=== PATIENT | female | born 1960 | race Caucasian/White ===

== ENCOUNTER 2023-01-03 20:23 | Outpatient (REF) | payer OTHER, SELFPAY ==
[2023-01-07 12:08] LABS: Age Gdln ACOG Testing Note (.); HPV Aptima Negative (Negative); IGP, Aptima HPV, rfx 16/18,45 Note (.)
== END 2023-01-03 20:24 | disposition home or self-care (01) ==
LOC: LAB 20:23
PROVIDERS: PCP Family Medicine; Visit Provider Obstetrics & Gynecology
DX: Z12.4 Encounter for screening for malignant neoplasm of cervix (principal)
CPT/HCPCS: G0145

== ENCOUNTER 2023-02-21 11:13 | Outpatient (OUT) | payer OTHER, SELFPAY ==
--- NOTE | 2023-02-21 11:21 | MM_ITS ---
Patient: DEEP RUANO Exam Date: 02/21/2023 : 1960 Gender:F Ordering : DR Nitin Dominguez . Admission #: [id number] Family : DR. DESMOND MACIAS Order #: [id number] CLICK HERE TO VIEW EXAM RADIOLOGY REPORT PROCEDURE: MM TOMOSYNTHESIS SCREENING BI COMPARISON: MG MAMM SCREEN 3D [place] CAD, 12/14/2021. MG MAMM SCREEN 3D [place] CAD, 11/13/2020. INDICATIONS: Screening Calculator Name NCI Breast Cancer Risk Assessment Tool 5 Year Breast Cancer Risk 3.10% Lifetime Breast Cancer Risk 12.10% Personal Breast Cancer No Personal Ovarian Cancer No Treatments None Family Cancers Sister with breast cancer at age 60; Aunt-maternal with breast cancer at age 55. LOCATION: [facility] BREAST COMPOSITION: Heterogeneously dense,which may obscure small masses. FINDINGS: DIAGNOSTIC CATEGORY 2--BENIGN FINDING. NO CHANGE FROM COMPARISON. Scattered benign-appearing calcifications are present. Scattered benign-appearing lymph nodes are present. RIGHT BREAST: No significant suspicious finding. LEFT BREAST: No significant suspicious finding. RECOMMENDATIONS: ROUTINE MAMMOGRAM AND CLINICAL EVALUATION IN 12 MONTHS. PLEASE NOTE: A NORMAL MAMMOGRAM DOES NOT EXCLUDE THE POSSIBILITY OF BREAST CANCER. A CLINICALLY SUSPICIOUS PALPABLE LUMP SHOULD BE BIOPSIED. Dictated by: Glenn Powell MD on 02/21/2023 at 12:54 Approved by: Glenn Powell MD on 02/21/2023 at 12:56
== END 2023-02-21 11:14 | disposition home or self-care (01) ==
LOC: MAMMO 11:13
PROVIDERS: PCP Family Medicine; Visit Provider Obstetrics & Gynecology
DX: Z12.31 Encounter for screening mammogram for malignant neoplasm of breast (principal); Z80.3 Family history of malignant neoplasm of breast
CPT/HCPCS: 77063; 77067

== ENCOUNTER 2024-01-09 19:22 | Outpatient (REF) | payer OTHER, SELFPAY ==
--- OUTSIDE RECORDS SUMMARY | 2024-01-09 19:26 | XMS_ITS | CCD ---
Author Organization [facility] InformReplaced by [facility] Care Team Providers Care Manufacturing Engineering Intern Name Role Phone Imtiaz Painter Unavailable BlaineAnnan Unavailable Charles Luis Unavailable NICK, DR GIPSON Admitting Unavailable DESMOND MACIAS Primary Care Unavailable NICK, DR GIPSON Attending Unavailable NICK, DR GIPSON Consulting Unavailable [place], DR LEELA Thao Consulting Unavailable WAQAS, DR JOHN Costa Consulting Unavailable DESMOND MACIAS Primary Care Unavailable KARXOCHITLK, DR GIPSON Attending Unavailable NICK, DR GIPSON Consulting Unavailable NICK, DR GIPSON Admitting Unavailable Desmond Macias Primary Care Unavailable Community, Outreach Attending Unavailable Community, Outreach Admitting Unavailable DO Desmond Macias Primary Care Provider Community, Outreach Attending Provider VICTORINO FOX Attending Unavailable VICTORINO FOX Attending Unavailable VICTORINO FOX Attending Unavailable VICTORINO FOX Referring Unavailable CHAD MORENO Attending Unavailab VICTORINO Mcfarland Attending Unavailable DESMOND MACIAS Attending Unavailable VICTORINO FOX Attending Unavailable VICTORINO FOX Attending Unavailable Allergies Allergy Classification Reported Allergen(s) Allergy Type Date of Onset Reaction(s) Facility (7 sources) Sulfamethoxazole / Trimethoprim Drug Allergy anaphylaxis [facility] Other (1 source) Sulfamethoxazole / Trimethoprim Drug Allergy 11-07-19 13 [facility] Repository (2 sources) Sulfamethoxazole Drug Allergy 02-03-20 18 [facility] Repository (2 sources) Trimethoprim Drug Allergy 02-03-20 18 [facility] Repository Medications Current Medications Medication Drug Class(es) Dates Sig (Normalized) Sig (Original) acetaminophen 500 mg oral capsule (4 sources) Start: 05-14-2021 take 2 capsules by mouth every eight hours Acetaminophen 500 MG 2 capsule as needed Orally 3 times a day for 30 days Apr, Active acetaminophen 500 mg / diphenhydrAMINE hydrochloride 25 mg oral tablet (7 sources) Histamine-1 Receptor Antagonist take 1 tablet by mouth every twenty-four hours Tylenol PM Extra Strength 500-25 MG 1 tablet at bedtime as needed Orally Once a day prn Active Acetaminophen / HYDROcodone (1 source) Opioid Agonist Start: 05-21-2019 take 1 tablet by mouth every six hours as needed Shawnee 5-325 MG 1 tablet as needed Orally every 6 hrs Apr, Active biotin 5 mg oral tablet (7 sources) take 1 capsule by mouth once daily Biotin 5 MG 1 capsule Orally Once a day Active Calcium + D3 600-200 MG-UNIT (7 sources) take 2 tablets by mouth once daily Calcium + D3 600-200 MG-UNIT 2 tablet with a meal Orally Once a day Active Centrum Silver 50+Women - (7 sources) Centrum Silver 50+Women - as directed Orally Active cephalexin 500 mg oral capsule (2 sources) Cephalosporin Antibacterial Start: 07-25-2018 take 1 capsule by mouth every eight hours Cephalexin (Keflex) 500 mg capsule Active 500 MG PO Q8H July 25, 2018 12:00am Start: 05-17-2017 End: 02-02-2018 take 1 capsule by mouth every eight hours Cephalexin (Keflex) 500 mg capsule Discontinued 500 MG PO Q8H May 17, 2017 1:00am February 02, 2018 10:15am estrogens, conjugated (detention) 0.625 mg oral tablet (8 sources) Estrogen Start: 05-12-2017 take 0.625 mg by mouth once daily in the morning Conjugated Estrogens Active 0.625 MG PO Every morning May 12, 2017 1:00am Fish Oils (7 sources) take 1 capsule by mouth once daily Fish Oil 1200 MG 1 capsule Orally Once a day Active gabapentin 300 mg oral capsule (7 sources) Anti-epileptic Agent take 1-2 tablets by mouth twice daily as needed Gabapentin 300 MG 1-2 tablet Orally bid prn for 30 day(s) Active melatonin 10 mg oral tablet (8 sources) Start: 02-02-2018 take 1 tablet by mouth once daily at bedtime Melatonin Active 1 TAB PO Daily at bedtime February 02, 2018 12:00am Melatonin 10 MG as directed Orally Active methylPREDNISolone 4 mg oral tablet (6 sources) Corticosteroid Start: 04-09-2021 Medrol 4 MG as directed Orally Mar, Active oxyCODONE hydrochloride 5 mg oral capsule (2 sources) Opioid Agonist Start: 07-25-2018 take 5-10 mg by mouth every six hours Oxycodone Active 5 - 10 MG PO Q6H 60 July 25, 2018 Start: 05-17-2017 End: 02-02-2018 take 1 tablet by mouth every six hours Oxycodone (Roxicodone) 5 mg Tablet Discontinued 1 - 2 TAB PO Q6H 60 May 17, 2017 1:00am February 02, 2018 10:15am Prednisone (2 sources) Start: 07-25-2018 Prednisone Act maureen 1 dose pk PO per package directions July 25, 2018 12:00am take 4 tabs for 3 days then take 3 tabs for 3 days then take 2 tabs for 3 days then take 1 tab for 3 days Start: 05-17-2017 End: 02-02-2018 Prednisone Discontinued 1 do se pk PO per package directions May 17, 2017 1:00am February 02, 2018 10:16am take 4 tabs for 3 days then take 3 tabs for 3 days then take 2 tabs for 3 days then take 1 tab for 3 days SUMAtriptan 100 mg oral tablet (8 sources) Serotonin-1b and Serotonin-1d Receptor Agonist Start: 05-12-2017 take 1 tablet by mouth once daily Sumatriptan Succinate (Imitrex) 100 MG tablet Active 100 MG PO Daily May 12, 2017 1:00am take 1 tablet by mouth every twe lve hours Imitrex 100 MG 1 tablet as needed Orally Twice a day prn Active tiZANidine 2 mg oral tablet (1 source) Central alpha-2 Adrenergic Agonist Start: 05-21-2019 take 1-2 tablets by mouth once daily as needed tiZANidine HCl 2 MG 1-2 tablet as needed Orally daily Apr, Active Valerian 500 MG (7 sources) take 1 capsule by mouth once daily as needed Valerian 500 MG 1 capsule as needed Orally Once a day for 30 day(s) 1200mg qhs Active Vitamin B 12 250 MCG (7 sources) Vitamin B 12 250 MCG 2 lozenges Orally Once a day Active Completed/Discontinued Medications Medication Drug Class(es) Dates Sig (Normalized) Sig (Original) cyclobenzaprine hydrochloride 5 mg oral tablet (8 sources) Muscle Relaxant Start: 04-13-2021 take 1 tablet by mouth every twenty-four hours Cyclobenzaprine HCl 5 MG 1 tablet at bedtime as needed Orally Once a day for 30 day(s) Mar, Not-Taking Start: 07-25-2018 take 10 mg by mouth three times daily Cyclobenzaprine Active 10 MG PO Three times daily 50 July 25, 2018 12:00am Start: 05-17-2017 End: 02-02-2018 take 10 mg by mouth three times daily Cyclobenzaprine Discontinued 10 MG PO Three times daily 50 May 17, 2017 1:00am February 02, 2018 10:15am naproxen 500 mg oral tablet (4 sources) Nonsteroidal Anti-inflammatory Drug Start: 05-14-2021 take 1 tablet by mouth twice daily at mealtime as needed Naproxen 500 MG 1 tablet with food or milk as needed Orally Twice a day for 30 day(s) Apr, Not-Taking Problems Active Problems Problem Classification Problem Date Documented Da te Episodic/Chronic Headache; including migraine (7 sources) Migraine; Translations: [Migraine, unspecified, not intractable, without status migrainosus] Chronic Immunizations and screening for infectious disease (2 sources) Encounter for immunization; Translations: [Encounter for screening for human papillomavirus (HPV)] Onset: 05-07-2021 Resolved: 05-07-2021 Episodic Mood disorders (7 sources) Recurrent major depression; Translations: [Major depressive disorder, recurrent, unspecified] Chronic Other bone disease and musculoskeletal deformities (1 source) Other specified disorders of bone density and structure, other site; Translations: [OTH D/O BONE DEN STRUCT OTH SITE] Onset: 12-16-2021 Episodic Other nervous system disorders (11 sources) Chronic pain; Translations: [Other chronic pain] Chronic Other nervous system disorders (1 source) Other chronic pain Onset: 07-15-2021 Resolved: 07-15-2021 Chronic Other screening for suspected conditions (not mental disorders or infectious disease) (8 sources) Encounter for screening mammogram for malignant neoplasm of breast; Translations: [Encounter for screening for malignant neoplasm of cervix] Onset: 11-30-2021 Episodic Residual codes; unclassified (1 source) Family history of malignant neoplasm of breast; Translations: [FAMILY HX MALIG NEOPLASM OF BREAST] Onset: 12-16-2021 Episodic Residual codes; unclassified (1 source) Asymptomatic menopausal state; Translations: [ASYMPTOMATIC MENOPAUSAL STATE] Onset: 12-16-2021 Episodic Spondylosis; intervertebral disc disorders; other back problems (20 sources) Cervical spondylosis; Translations: [Spondylosis without myelopathy or radiculopathy, cervical region] Onset: 04-12-2021 Resolved: 07-15-2021 Chronic Past or Other Problems Problem Classification Problem Date Documented Date Episodic/Chronic Other aftercare (7 sources) High risk drug monitoring status; Translations: [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] Episodic Other connective tissue disease (7 sources) Dupuytren's contracture; Translations: [Palmar fascial fibromatosis [Dupuytren]] Episodic Other connective tissue disease (1 source) Pain in left hand; Translations: [Left hand pain M79.642] Onset: 1 Resolved: 1 Episodic Other connective tissue disease (1 source) Palmar fascial fibromatosis [Dupuytren]; Translations: [Dupuytren contracture M72.0] Onset: 1 Resolved: 1 Episodic Other non-traumatic joint disorders (2 sources) Pain in left hip; Translations: [Left hip pain M25.552] Onset: 1 Resolved: 2 Episodic Spondylosis; intervertebral disc disorders; other back problems (15 sources) Lumbar disc prolapse with radiculopathy; Translations: [Intervertebral disc disorders with radiculopathy, lumbar region] Onset: 2 Resolved: 2 Episodic Sprains and strains (3 sources) Strain of muscle, fascia and tendon of left hip, initial encounter; Translations: [Sprain of metacarpophalangeal joint of left index finger, initial encounter] Onset: 1 Resolved: 2 Episodic Results Test Name Value Interpretation Reference Range Facility Alanine aminotransferase [En zymatic activity/volume] in Serum or PlasmaOrdered By: [facility] on 01-07-2023 ALT [Catalytic activity/Vol] 9 U/L 7-52 [facility] Albumin [Mass/volume] in Ser um or Plasma by Bromocresol green (BCG) dye binding methoOrdered By: [facility] on 01-07-2023 Albumin BCG dye [Mass/Vol] 4.1 g/dL 3.5-5.7 [facility] Alkaline phosphatase [Enzyma tic activity/volume] in Serum or PlasmaOrdered By: [facility] on 01-07-2023 ALP [Catalytic activity/Vol] 47 U/L 34-104 [facility] Aspartate aminotransferase [ Enzymatic activity/volume] in Serum or PlasmaOrdered By: [facility] on 01-07-2023 AST [Catalytic activity/Vol] 17 U/L 13-39 [facility] Bilirubin.total [Mass/volume ] in Serum or PlasmaOrdered By: [facility] on 01-07-2023 Bilirubin [Mass/Vol] 0.3 mg/dL 0.3-1.0 [facility] CBC Without Differentialon 0 01-07-2023 Erythrocyte distribution width (RBC) [Ratio] 13.2 % Normal 11.9-15.3 [facility] Comment on above: Performed By: #### O UTREACH LIPID, OUTREACH CMP, CBCNOOUTREACH #### [facility] [address] Hematocrit (Bld) [Volume fraction] 33.2 % Low 34.0-46.4 [facility] Comment on above: Performed By: #### O UTREACH LIPID, OUTREACH CMP, CBCNOOUTREACH #### [facility] [address] [place] [address] [place] Hemoglobin (Bld) [Mass/Vol] 11.4 g/dL Low 11.8-15.4 [facility] Comment on above: Performed By: #### O UTREACH LIPID, OUTREACH CMP, CBCNOOUTREACH #### [facility] [address] [place] [id number] [place] MCH (RBC) [Entitic mass] 36.3 pg High 24.7-34.3 [facility] Comment on above: Performed By: #### O UTREACH LIPID, OUTREACH CMP, CBCNOOUTREACH #### [facility] [address] [place] [address] MCV (RBC) [Entitic vol] 105.1 fL High 80-100 [facility] Comment on above: Performed By: #### O UTREACH LIPID, OUTREACH CMP, CBCNOOUTREACH #### [address] Mean Corpuscular HGB Conc 34.5 g/dL Normal 32.0-35.0 [facility] Comment on above: Performed By: #### O UTREACH LIPID, OUTREACH CMP, CBCNOOUTREACH #### [address] Platelet mean volume (Bld) [Entitic vol] 9.6 fL Normal 6.3-10.7 [facility] Comment on above: Result Comment: PERF ORMED BY: [place] [address] PATHOLOGIST BACKHAUL DRIVER JEANIE BELL M.D. Performed By: #### O UTREACH LIPID, OUTREACH CMP, CBCNOOUTREACH #### [address] Platelets (Bld) [#/Vol] 273 10*3/uL Normal 150-450 [facility] Comment on above: Performed By: #### O UTREACH LIPID, OUTREACH CMP, CBCNOOUTREACH #### [address] RBC (Bld) [#/Vol] 3.16 10*6/uL Low 3.60-5.00 [facility] Comment on above: Performed By: #### O UTREACH LIPID, OUTREACH CMP, CBCNOOUTREACH #### [address] WBC (Bld) [#/Vol] 8.4 10*3/uL Normal 3.8-11.6 [facility] Comment on above: Performed By: #### O UTREACH LIPID, OUTREACH CMP, CBCNOOUTREACH #### [facility] [address] [place] [address] [place] CMP Outreachon 01-07-2023 Albumin [Mass/Vol] 4.1 g/dL Normal 3.5-5.7 [facility] Comment on above: Performed By: #### O UTREACH LIPID, OUTREACH CMP, CBCNOOUTREACH #### [facility] [address] ALP [Catalytic activity/Vol] 47 U/L Normal 34-104 [facility] Comment on above: Performed By: #### O UTREACH LIPID, OUTREACH CMP, CBCNOOUTREACH #### [facility] [address] ALT [Catalytic activity/Vol] 9 U/L Normal 7-52 [facility] Comment on above: Performed By: #### O UTREACH LIPID, OUTREACH CMP, CBCNOOUTREACH #### [facility] [address] Anion gap [Moles/Vol] 9.4 mmol/L Normal 6.0-15.0 [facility] Comment on above: Performed By: #### O UTREACH LIPID, OUTREACH CMP, CBCNOOUTREACH #### [facility] [address] AST [Catalytic activity/Vol] 17 U/L Normal 13-39 [facility] Comment on above: Performed By: #### O UTREACH LIPID, OUTREACH CMP, CBCNOOUTREACH #### [facility] [address] [place] [address] [place] Bilirubin [Mass/Vol] 0.3 mg/dL Normal 0.3-1.0 [facility] Comment on above: Performed By: #### O UTREACH LIPID, OUTREACH CMP, CBCNOOUTREACH #### [facility] [address] Calcium [Mass/Vol] 9.4 mg/dL Normal 8.6-10.3 [facility] Comment on above: Performed By: #### O UTREACH LIPID, OUTREACH CMP, CBCNOOUTREACH #### [facility] [address] [place] [address] [place] Chloride [Moles/Vol] 105 mmol/L Normal 98-107 [facility] Comment on above: Performed By: #### O UTREACH LIPID, OUTREACH CMP, CBCNOOUTREACH #### [facility] [address] [place] [address] [place] CO2 [Moles/Vol] 28.8 mmol/L Normal 21.0-31.0 [facility] Comment on above: Performed By: #### O UTREACH LIPID, OUTREACH CMP, CBCNOOUTREACH #### [facility] [address] [place] [address] [place] Creatinine [Mass/Vol] 0.61 mg/dL Normal 0.60-1.20 [facility] Comment on above: Performed By: #### O UTREACH LIPID, OUTREACH CMP, CBCNOOUTREACH #### [facility] [address] [place] [address] [place] GFR/1.73 sq M.predicted MDRD (S/P/Bld) [Vol rate/Area] mL/min/{1.73_m2} Normal [facility] Comment on above: Performed By: #### O UTREACH LIPID, OUTREACH CMP, CBCNOOUTREACH #### [facility] [address] [place] [address] [place] Glucose [Mass/Vol] 108 mg/dL High 70-100 [facility] Comment on above: Result Comment: [facility] Glucose Reference Range is dependent on time and content of last meal. Glucose of more than 200 mg/dL in a nonstressed, ambulatory subject supports the diagnosis of Diabetes Mellitus. ADA recommended reference range Performed By: #### O UTREACH LIPID, OUTREACH CMP, CBCNOOUTREACH #### [facility] [address] [place] [address] [place] Potassium [Moles/Vol] 4.2 mmol/L Normal 3.5-5.1 [facility] Comment on above: Performed By: #### O UTREACH LIPID, OUTREACH CMP, CBCNOOUTREACH #### [facility] [address] [place] [id number] [place] Protein [Mass/Vol] 6.3 g/dL Low 6.4-8.9 [facility] Comment on above: Performed By: #### O UTREACH LIPID, OUTREACH CMP, CBCNOOUTREACH #### [facility] [address] [place] [id number] [place] Sodium [Moles/Vol] 139 mmol/L Normal 136-145 [facility] Comment on above: Performed By: #### O UTREACH LIPID, OUTREACH CMP, CBCNOOUTREACH #### [facility] [address] [place] [id number] [place] Urea nitrogen [Mass/Vol] 15 mg/dL Normal 7-25 [facility] Comment on above: Performed By: #### O UTREACH LIPID, OUTREACH CMP, CBCNOOUTREACH #### [facility] [address] [place] [address] [place] Calcium [Mass/volume] in Ser um or PlasmaOrdered By: [facility] on 01-07-2023 Calcium [Mass/Vol] 9.4 mg/dL 8.6-10.3 [facility] Carbon dioxide, total [Moles /volume] in Serum or PlasmaOrdered By: [facility] on 01-07-2023 CO2 [Moles/Vol] 28.8 mmol/L 21.0-31.0 [facility] Chloride [Moles/volume] in S matias or PlasmaOrdered By: [facility] on 01-07-2023 Chloride [Moles/Vol] 105 mmol/L 98-107 [facility] Cholesterol [Mass/volume] in Serum or PlasmaOrdered By: [facility] on 01-07-2023 Cholesterol [Mass/Vol] 224 mg/dL 140-200 [facility] Comment on above: Chol less than 200 m g/dl low riskChol 201-239 mg/dl borderline riskChol 240 mg/dl and greater high risk Cholesterol in LDL Calc [Mas s/Vol]Ordered By: [facility] on 01-07-2023 Cholesterol in LDL [Mass/Vol] 103 mg/dL 0-100 [facility] Comment on above: LDL ATP III CLASSIFI CATIONLDL less than 100 mg/dL OptimalLDL 100-129 mg/dL Near or above optimalLDL 130-159 mg/dL Borderline highLDL 160-189 mg/dL HighLDL greater than 189 mg/dL Very high Cholesterol in VLDL Calc [Ma ss/Vol]Ordered By: [facility] on 01-07-2023 Cholesterol in VLDL [Mass/Vol] 39 mg/dL [facility] Creatinine [Mass/volume] in Serum or PlasmaOrdered By: [facility] on 01-07-2023 Creatinine [Mass/Vol] 0.61 mg/dL 0.60-1.20 [facility] Erythrocyte distribution wid th Auto (RBC) [Ratio]Ordered By: [facility] on 01-07-2023 Erythrocyte distribution width (RBC) [Ratio] 13.2 % 11.9-15.3 [facility] Glucose [Mass/volume] in Ser um or PlasmaOrdered By: [facility] on 01-07-2023 Glucose [Mass/Vol] 108 mg/dL 70-100 [facility] Comment on above: ADA recommended refe rence rangeRandom Glucose Reference Range is dependent on time and content of last meal. Glucose of more than 200 mg/dL in a nonstressed, ambulatory subject supports the diagnosis of Diabetes Mellitus. Hematocrit Auto (Bld) [Volum e fraction]Ordered By: [facility] on 01-07-2023 Hematocrit (Bld) [Volume fraction] 33.2 % 34.0-46.4 [facility] Hemoglobin [Mass/volume] in BloodOrdered By: [facility] on 01-07-2023 Hemoglobin (Bld) [Mass/Vol] 11.4 g/dL 11.8-15.4 [facility] Leukocytes [#/volume] correc dao for nucleated erythrocytes in Blood by Automated counOrdered By: [facility] on 01-07-2023 WBC corrected for nucl RBC Auto (Bld) [#/Vol] 8.4 10*3/uL 3.8-11.6 [facility] Lipid Profile Outreachon Cholesterol [Mass/Vol] 224 mg/dL High 140-200 [facility] Comment on above: Result Comment: Chol less than 200 mg/dl low risk Chol 201-239 mg/dl borderline risk Chol 240 mg/dl and greater high risk Performed By: #### O UTREACH LIPID, OUTREACH CMP, CBCNOOUTREACH #### [facility] [address] [place] [address] [place] Cholesterol in HDL [Mass/Vol] 82 mg/dL Normal 23-92 [facility] Comment on above: Result Comment: HDL CHOL ATP-III CLASSIFICATION Cardiovascular Risk HDL > or equal to 60 mg/dL LOW HDL < 40 mg/dL HIGH Performed By: #### O UTREACH LIPID, OUTREACH CMP, CBCNOOUTREACH #### [facility] [address] Cholesterol.total/Choles terol in HDL [Mass ratio] 2.7 {ratio} Normal <5.0 [facility] Comment on above: Result Comment: PERF ORMED BY: [place] [address] PATHOLOGIST BACKHAUL DRIVER JEANIE BELL M.D. Performed By: #### O UTREACH LIPID, OUTREACH CMP, CBCNOOUTREACH #### [address] LDL Cholesterol,Calculated 103 mg/dL High 0-100 [facility] Comment on above: Result Comment: LDL ATP III CLASSIFICATION LDL less than 100 mg/dL Optimal LDL 100-129 mg/dL Near or above optimal LDL 130-159 mg/dL Borderline high LDL 160-189 mg/dL High LDL greater than 189 mg/dL Very high Performed By: #### O UTREACH LIPID, OUTREACH CMP, CBCNOOUTREACH #### [facility] [address] [place] [address] [place] Triglyceride w/Reflex 195 mg/dL High 0-149 [facility] Comment on above: Result Comment: TRIG ATP III CLASSIFICATION TRIG less than 150 mg/dL Normal TRIG 150-199 mg/dL Borderline high TRIG 200-500 mg/dL High TRIG greater than 500 mg/dL Very high Standard traceable to the Center for Disease Conrtrol and Prevention (CDC) test method. Performed By: #### O UTREACH LIPID, OUTREACH CMP, CBCNOOUTREACH #### [facility] [address] VLDL CHOLESTEROL 39 mg/dL Normal [facility] Comment on above: Performed By: #### [facility] LIPID, OUTREACH CMP, CBCNOOUTREACH #### [facility] [address] MCH Auto (RBC) [Entitic mass ]Ordered By: [facility] on 01-07-2023 MCH (RBC) [Entitic mass] 36.3 pg 24.7-34.3 [facility] MCHC Auto (RBC) [Mass/Vol]Or dered By: [facility] on 01-07-2023 MCHC (RBC) [Mass/Vol] 34.5 g/dL 32.0-35.0 [facility] MCV Auto (RBC) [Entitic vol] Ordered By: [facility] on 01-07-2023 MCV (RBC) [Entitic vol] 105.1 fL 80-100 [facility] No Panel InformationOrdered By: [facility] on 01-07-2023 Estimated GFR (CKD-EPI) > 60.0 mL/Min [facility] Creatinine Clearance (Chem N/A [facility] Platelet mean volume Auto (B ld) [Entitic vol]Ordered By: [facility] on 01-07-2023 Platelet mean volume (Bld) [Entitic vol] 9.6 fL 6.3-10.7 [facility] Platelets Auto (Bld) [#/Vol] Ordered By: [facility] on 01-07-2023 Platelets (Bld) [#/Vol] 273 10*3/uL 150-450 [facility] Potassium [Moles/volume] in Serum or PlasmaOrdered By: [facility] on 01-07-2023 Potassium [Moles/Vol] 4.2 mmol/L 3.5-5.1 [facility] Protein [Mass/volume] in Ser um or PlasmaOrdered By: [facility] on 01-07-2023 Protein [Mass/Vol] 6.3 g/dL 6.4-8.9 [facility] RBC Auto (Bld) [#/Vol]Ordere d By: [facility] on 01-07-2023 RBC (Bld) [#/Vol] 3.16 10*6/uL 3.60-5.00 [facility] Serum or plasma anion gap de terminationOrdered By: [facility] on 01-07-2023 Anion gap [Moles/Vol] 9.4 mmol/L 6.0-15.0 [facility] Serum or plasma high density lipoprotein (HDL) cholesterol measurementOrdered By: [facility] on 01-07-2023 Cholesterol in HDL [Mass/Vol] 82 mg/dL 23- [facility] Comment on above: HDL CHOL ATP-III CLA SSIFICATION Cardiovascular RiskHDL > or equal to 60 mg/dL LOWHDL < 40 mg/dL HIGH Serum or plasma total choles terol/high density lipoprotein (HDL) cholesterol mass ratOrdered By: [facility]ACH [facility] on 01-07-2023 Cholesterol.total/Choles terol in HDL [Mass ratio] 2.7 {ratio} <5.0 [facility] Sodium [Moles/volume] in Ser um or PlasmaOrdered By: [facility]REACH [facility] on 01-07-2023 Sodium [Moles/Vol] 139 mmol/L 136-145 [facility] Triglyceride [Mass/volume] i n Serum or PlasmaOrdered By: [facility]REACH [facility]UN[facility] on 01-07-2023 Triglyceride [Mass/Vol] 195 mg/dL 0-149 [facility] Comment on above: TRIG ATP III CLASSIF ICATIONTRIG less than 150 mg/dL NormalTRIG 150-199 mg/dL Borderline highTRIG 200-500 mg/dL High TRIG greater than 500 mg/dL Very highStandard traceable to the Center for Disease Conrtrol and Prevention (CDC) test method. Urea nitrogen [Mass/volume] in Serum or PlasmaOrdered By: [facility]RE[facility] on 01-07-2023 Urea nitrogen [Mass/Vol] 15 mg/dL 11-15 [facility] MG MAMM SCREEN 3D JACINTO CADon 12-14-2021 MG MAMM SCREEN 3D JACINTO CAD Patient: GISEL RUANO Exam Date: 12/14/2021 : 1960 Gender:F Ordering : DR LEONELA ROMERO . Admission #: [id number] Family : Order #: [id number] CLICK HERE TO VIEW EXAM RADIOLOGY REPORT PROCEDURE: MAMMOGRAM SCREENING 3D BILATERAL CAD COMPARISON: MG MAMM SCREEN 3D JACINTO CAD, 11/13/2020. MG MAMM SCREEN JACINTO W CAD, 11/08/2019. INDICATIONS: Screening mammography Calculator Name NCI Breast Cancer Risk Assessment Tool 5 Year Breast Cancer Risk 3.00% Lifetime Breast Cancer Risk 12.40% Personal Breast Cancer No Personal Ovarian Cancer No Treatments None Family Cancers Sister with breast cancer at age 60; Aunt-maternal with breast cancer at age 55. LOCATION: [facility] BREAST COMPOSITION: Heterogeneously dense,which may obscure small masses. FINDINGS: DIAGNOSTIC CATEGORY 2--BENIGN FINDING: RIGHT BREAST: No significant suspicious finding. Scattered benign-appearing calcifications are present. No significant change has occurred. LEFT BREAST: No significant suspicious finding. Scattered benign-appearing calcifications are present. No significant change has occurred. RECOMMENDATIONS: ROUTINE MAMMOGRAM AND CLINICAL EVALUATION IN 12 MONTHS. PLEASE NOTE: A NORMAL MAMMOGRAM DOES NOT EXCLUDE THE POSSIBILITY OF BREAST CANCER. A CLINICALLY SUSPICIOUS PALPABLE LUMP SHOULD BE BIOPSIED. Dictated by: John Luna M.D. on 12/15/2021 at 10:28 Approved by: John Luna M.D. on 12/15/2021 at 10:35 Normal [facility] XR DEXA BONE DENSITYon 12-14 XR DEXA BONE DENSITY EXAMINATION: XR DEX A BONE DENSITY, 12/14/2021 2:57 PM EDT HISTORY: Menopause present COMPARISON: 2019, 2017, 2013 TECHNIQUE: Dual-energy X-ray absorptiometry (DEXA) bone density study performed for the axial skeleton. FINDINGS: Bone mineral density bilateral femurs measures 0.891 g/sq cm. 2% improvement from the prior exam. T score -0.9. WHO classification: Normal Lowest bone mineral density right femoral trochanter measuring 0.683 g/sq cm. T score -1.5. WHO classification: Osteopenia IMPRESSION: Osteopenia. Moderate fracture risk Electronically authenticated by: LEELA SONG Date: 2021-12-14 17:08 Normal [facility] PAP ACOG PANEL 2: 30 to 65on 12-07-2021 . . Normal [facility] Comment on above: Result Comment: Perf ormed at: WB Performed By: #### [id number] #### [facility] [address] [place] [address] Dr. Luis White Age Gdln ACOG Testing 30-65 Normal [facility] Comment on above: Performed By: #### [id number] #### [facility] [address] [address] [address] Luis White DIAGNOSIS: Comment Normal [facility] Comment on above: Result Comment: NEGA TIVE FOR INTRAEPITHELIAL LESION OR MALIGNANCY. THIS SPECIMEN WAS RESCREENED PART OF OUR BUFFING WHEEL FORMER AUTOMATIC PROGRAM. Performed at: WB Performed By: #### [id number] #### [facility] [address] [place] [address] Dr. Luis White HPV Aptima Negative Normal Negative [facility] Comment on above: Result Comment: This nucleic acid amplification test detects fourteen high-risk HPV types (16,18,31,33,35,39,45,51,52,56,58,59,66,68) without differentiation. Performed at: =G Performed By: #### [id number] #### [facility] [address] [place] [address] Dr. Luis White Methodology: CTIM Normal [facility] Comment on above: Result Comment: [employer] was unable to read this specimen. Therefore a manual review was performed. Performed at: WB Performed By: #### [id number] #### [facility] [address] [place] [address] Dr. Luis White Note: Comment Normal [facility] Comment on above: Result Comment: The Pap smear is a screening test designed to aid in the detection of premalignant and malignant conditions of the uterine cervix. It is not a diagnostic procedure and should not be used as the sole means of detecting cervical cancer. Both false-positive and false-negative reports do occur. . Performed at: WB Performed By: #### [id number] #### [facility] [address] [place] [address] Dr. Luis White Performed by: Comment Normal [facility] Comment on above: Result Comment: El Li, Nitro Worker (ASCP) Performed at: WB Performed By: #### [id number] #### [facility] [address] [place] [address] Dr. Luis White QC reviewed by: Comment Normal [facility] Comment on above: Result Comment: Sid Adame, Nitro Worker Performed at: WB Performed By: #### [id number] #### [facility] [address] [place], [place] [address] Dr. Luis White Specimen adequacy: Comment Normal [facility] Comment on above: Result Comment: Sati sfactory for evaluation. No endocervical component is identified. Performed at: WB Performed By: #### [id number] #### [facility] [address] [address] [address] Luis White Vital Signs Date Time Vital Sign Value Performing Clinician Facility 07-15-2021 17:00-0400 Body height 153.67 cm Charles Luis Other [facility] Other 07-15-2021 17:00-0400 Body mass index (BMI) [Ratio] 19.67 kg/m2 Charles Luis Other [facility] Other 07-15-2021 17:00-0400 Body weight 46.45 kg Charles Luis Other [facility] Other 07-15-2021 17:00-0400 Diastolic blood pressure 70 mm[Hg] Charles Luis Other [facility] Other 07-15-2021 17:00-0400 SaO2% (BldA) [Mass fraction] 99 % Charles Luis Other [facility] Other 07-15-2021 17:00-0400 Systolic blood pressure 110 mm[Hg] Charles Luis Other [facility] Other 05-14-2021 10:00-0500 Body height 153.67 cm Imtiaz Painter Other [facility] Other 05-14-2021 10:00-0500 Body mass index (BMI) [Ratio] 20.93 kg/m2 [facility] Other [facility] Other 05-14-2021 10:00-0500 Body weight 49.44 kg Imtiaz Painter Other [facility] Other 02-19-2021 11:30-0400 Body height 153.67 cm Imtiaz Painter Other [facility] Other 02-19-2021 11:30-0400 Body mass index (BMI) [Ratio] 20.19 kg/m2 [facility] Pain[facility] Other [facility] Other 02-19-2021 11:30-0400 Body weight 47.67 kg Imtiaz Painter Other [facility] Other Encounters Encounter Date Encounter Type Care Provider Facility Start: 12-27-2023 End: 12-27-2023 ambulatory VICTORINO W FOX Not Available Start: 11-14-2023 End: 11-14-2023 ambulatory DESMOND MACIAS Not Available Start: 11-08-2023 End: 11-08-2023 ambulatory VICTORINO W FOX Not Available Start: 10-05-2023 End: 10-05-2023 ambulatory CHAD MORENO Not Available Start: 09-04-2023 End: 09-04-2023 ambulatory VICTORINO W FOX Not Available Start: 04-06-2023 End: 04-06-2023 ambulatory VICTORION W FOX Not Available Start: 03-20-2023 End: 03-20-2023 ambulatory VICTORINO W FOX Not Available Start: 03-13-2023 End: 03-13-2023 ambulatory VICTORINO W FOX Not Available Start: 01-07-2023 End: 01-07-2023 ambulatory Desmond Macias Facility:[facility] Start: 01-07-2023 End: 01-07-2023 ambulatory DO Desmond Macias Work Phone: [facility] Work Phone: Start: 01-07-2023 End: 01-07-2023 Departed Referred DO Desmond Macias Work Phone: [facility] Work Phone: Start: 12-14-2021 End: 12-15-[address] LEONELA ROMERO Facility:[facility] Start: 11-30-2021 End: 11-30-2021 ambulatory DESMOND MACIAS Facility:[facility] Start: 07-15-2021 End: 07-15-2021 ambulatory Charles Janelle Other [facility] Other Start: 07-15-2021 Office outpatient visit 25 minutes Charles Luis [facility] Start: 07-08-2021 (Procedure) Short Charles Luis [facility] Start: 07-08-2021 End: 07-08-2021 ambulatory Charles Luis Other [facility] Other Start: 06-28-2021 End: 06-28-2021 ambulatory Charles Luis Other [facility] Other Start: 06-28-2021 Telephone encounter Charles Luis [facility] Start: 05-14-2021 End: 05-14-2021 ambulatory Imtiaz Painter Other [facility] Start: 05-14-2021 Office outpatient visit 15 minutes Imtiaz Painter [facility] Start: 05-07-2021 ([facility] C Vac) [facility] Covid Vaccine Abiola Valladares [facility] Start: 05-07-2021 End: 05-07-2021 ambulatory Abiola Valladares Other [facility] Other Start: 04-12-2021 End: 04-12-2021 ambulatory Imtiaz Painter Other [facility] Start: 04-12-2021 Telephone encounter Imtiaz REID [facility] Start: 02-19-2021 Office outpatient ne w 45 minutes Imtiaz RIVERA [facility] Immunizations Immunization Date Immunization Notes Care Provider Fa ha 05-07-2021 COVID-19 Attila Valladares Other [facility] Other 02-22-2017 influenza, seasonal, injectable, preservative free Imtiaz Painter Other [facility] Other 01-27-2015 influenza, seasonal, injectable Imtiaz Painter Other [facility] Other Payers Date Payer Category Payer Unknown [id number] 2022 Unknown [id number] 1961 Self-pay 1960 Unknown [id number] 2.16.84 [id number] 1960 Unknown [id number] 2.16.84 [id number] 1960 Unknown [id number] 2.16.84 [id number] 1960 Unknown [id number] 2.16.84 [id number] 1960 Unknown [id number] 2.16.84 [id number] 1960 Unknown [id number] 2.16.84 [id number] 1960 Unknown [id number] 2.16.84 [id number] 1960 Unknown [id number] 2.16.840 .[id number] 1960 Unknown [id number] 2.16.840 .[id number] 1960 Unknown [id number] 2.16.840 .[id number] Blue Cross Blue Shield [id number] Unknown [id number] 2.16.8 [id number] Unknown [facility] [id number] Social History Date Type Detail Facility Unknown if ever smoked [facility] Other Sex Assigned At Sex Assigned At Bir th [facility] Other Start: 07-23-2018 Tobacco smoking status NHIS Smoker (finding) [facility] Start: 1960 Sex Assigned At Female F [facility] Medical Equipment Procedure Code Equipment Code Equipment Origin al Text Equipment Identifier Dates Fusion, spine, lumbar, XLIF ALLOGRAFT 8MM TLIF LORDOTIC FDA Start: 07-23-2018 Fusion, spine, lumbar, XLIF SCREW SET CAPLOX II FDA Start: 07-23-2018 Fusion, spine, lumbar, XLIF SCREW SET CAPLOX II FDA Start: 07-23-2018 Fusion, spine, lumbar, XLIF SCREW SET CAPLOX II FDA Start: 07-23-2018 Fusion, spine, lumbar, XLIF OSTEOAMP GRANULES 5CC FDA Start: 07-23-2018 Fusion, spine, lumbar, XLIF NEREYDA 40MM CVD CAPLOX II FDA Start: 07-23-2018 Fusion, spine, lumbar, XLIF NEREYDA 40MM CVD CAPLOX II FDA Start: 07-23-2018 Fusion, spine, lumbar, XLIF SCREW 6.5 X 40MM CAPLOX II FDA Start: 07-23-2018 Fusion, spine, lumbar, XLIF SCREW 6.5 X 45MM CAPLOX II FDA Start: 07-23-2018 Fusion, spine, lumbar, XLIF SCREW 6.5 X 50MM CAPLOX II FDA Start: 07-23-2018 Fusion, spine, lumbar, XLIF SCREW 6.5 X 50MM CAPLOX II FDA Start: 07-23-2018 Fusion, spine, lumbar, XLIF SCREW SET CAPLOX II FDA Start: 07-23-2018 Evaluation note 07-15-2021 Note Date & Type Note Facility 07-15-2021 Evaluation note Encounter Date Diagnosis Assessment Notes Jun, Lumbar radiculopathy (ICD-10 - M54.16) 60 year old female here for follow up status post caudal epidural steroid injection under fluoroscopic guidance. Patient reports 50% relief of her lower extremity pain following procedure. She voices complaints of low back pain with radiation down the posterior aspect of the left lower extremity to the knee. Anatomy of spine discussed in detail with patient in regards to patients condition. Patient is a candidate for a L3,4 transforaminal epidural steroid injection on the left side under fluoroscopic guidance. Risks and benefits of procedure explained to patient; patient verbalizes understanding. Jun, Sacroiliitis (ICD-10 - M46.1) Consider repeat SI joint injection in the future if needed. Jun, Lumbosacral spondylosis (ICD-10 - M47.817) Consider lumbar facet medial branch nerve blocks in the future if needed. Jun, Chronic pain (ICD-10 - G89.29) Stable, follow up after procedure. [facility] Other Evaluation note 05-14-2021 Note Date & Type Note Facility 05-14-2021 Evaluation note Encounter Date Diagnosis Assessment Notes Apr, Left hip pain (ICD-10 - M25.552) Apr, Strain of left hip adductor muscle, initial encounter (ICD-10 - S76.012A) Gisel returns with left hip pain and abductor strain/syndrome . At this juncture we have discussed the findings and diagnosis as well as personally reviewed appropriate imaging and performed interpretation of related testing and examination with the patient in office today. Prior medical notes from Dr. Mauro and history have been reviewed. We have performed conservative treatment with no significant improvement. She continues to have his hip pain as well as radicular type pain from her lumbar spine. She has a prior lumbar fusion. She has seen Dr. Howe who feels that issue is more of an SI joint issue and has recommended injections. She does plan to see Dr. Gallardo in the future for possible SI injections. At this time MRI has been reviewed with the patient. She has some findings on her lumbar MRI which could explain some of the pain she has been dealing with. After her injections with Dr. Gallardo we will see if this improves things. The patient has been involved in our cooperative treatment plan and agrees to move forward with treatment at this time. Reviewed MRI of the lumbar. Apr, Degenerative disc disease, lumbar (ICD-10 - M51.36) MRI shows lumbar fusion with some advanced changes proximal. It does appear that there is screw penetration outside of the vertebral body as well. Defer further treatment to Dr. Moody and Dr. Cifuentes Apr, Other Monitor Continue to monitor [facility] Other Evaluation note 05-07-2021 Note Date & Type Note Facility 05-07-2021 Evaluation note Encounter Date Diagnosis Assessment Notes Apr, Encounter for immunization (ICD-10 - Z23) Patient presents for COVID-19 vaccination BOOSTER. Pre-screening form answers evaluated with patient. Patient denies current illness or allergic reaction to component of COVID-19 vaccine. Patient provided with current copy of EUA. [facility] Other Evaluation note 04-12-2021 Note Date & Type Note Facility 04-12-2021 Evaluation note Encounter Date Diagnosis Assessment Notes Mar, Cervical spondylosis (ICD-10 - M47.812) [facility] Other Evaluation note 02-19-2021 Note Date & Type Note Facility 02-19-2021 Evaluation note Encounter Date Diagnosis Assessment Notes Jan, Left hip pain (ICD-10 - M25.552) Jan, Left hand pain (ICD-10 - M79.642) Extensive discussion about current condition and treatment options available. Xrays reviewed with patient today. We discussed modifying activity with hand. Jan, Dupuytren contracture (ICD-10 - M72.0) Monitor Jan, Strain of left hip adductor muscle, initial encounter (ICD-10 - S76.012A) Gisel presents with left hip pain and abductor strain/syndro me. At this juncture we have discussed the findings and diagnosis as well as personally reviewed appropriate imaging and performed interpretatio n of related testing and examination with the patient in office today. Prior medical notes from Dr. Mauro and history have been reviewed. At this time I would recommend physical therapy. She has had [address] Mauro with about a month of relief each, these are described as more of a bursal injection. I have asked her to do 6 to 8 weeks of physical therapy and anti-inflamma tories on a regular basis. We will plan for follow-up after 6 to 8 weeks of therapy for reevaluation. Could consider MRI at that time to evaluate for abductor tear if not improved. The patient has been involved in our cooperative treatment plan and agrees to move forward with treatment at this time. Xrays reviewed with patient today. Discussed treatment options as oral or topical NSAIDs, physical therapy with iontophoresis and cortisone injections. An order for physical therapy was given today. We also discussed an MRI in the future if needed. Activity as tolerated. Jan, Sprain of metacarpophalangeal (MCP) joint of left index finger, initial encounter (ICD-10 - S63.651A) Gisel also seems to be having some issues with the radial sagittal band of the index finger. She does describe a pop but this happened months ago. It does seem to bother her but does not seem to significant. There is no subluxation or dislocation of her tendon on exam and I would monitor this for the time being. We will recheck at follow-up Jan, Other See orders for this visit as documented in the electronic medical record. [facility] Other Evaluation note Note Date & Type Note Facility Evaluation note No Information [facility] Other Evaluation note Note Date & Type Note Facility Evaluation note No assessment information [facility] Work Phone: History general Narrative - Reported Note Date & Type Note Facility History general Narrative - Reported Type Medical History Migraine Headaches Medical History [facility] Surgical History partialhysterectomy Surgical History tubal ligation Surgical History Back fusion 2008 Surgical History Back Sx 2006 Surgical History lumbar diskectomy- Dr. Cifuentes Surgical History XLIF L5-S1 - Dr. Cifuentes 07/2018 Surgical History Csection 1989 Hospitalization History See Sx Hx [facility] Other History general Narrative - Reported Note Date & Type Note Facility History general Narrative - Reported Type Medical History Migraine Headaches Medical History [facility] Surgical History partialhysterectomy Surgical History tubal ligation 1991 Surgical History x1 Surgical History tubal ligation Surgical History Back fusion 2007 Surgical History partial hysterectomy Surgical History Back Sx 2006 Surgical History fusion of lower spine 2007 Surgical History fusion lower spine 2005 Surgical History lumbar diskectomy- Dr. Cifuentes Surgical History Neck Injections x2 - Dr. Luis Surgical History XLIF L5-S1 - Dr. Cifuentes 07/2018 Surgical History Ablation Neck - Dr. Luis 11/26/15 Surgical History Csection 1989 Surgical History Lower Back surg- Surgical History SI INJ- 01/2018 Hospitalization History see above [facility] Other Summary Purpose Family History No Family History Records FoundNo Family History Records FoundNo Family History Records Found Advance Directives No Advanced Directives Records Found Advance Directive Response Recorded Date/ Time Advance Directives No February 02, 2017 10:52am Chief Complaint and Reason for Visit Chief Complaint cbc Additional Source Comments REASON FOR VISIT (unrecogniz ed section and content) Left Hip & Left Hand Painmed icationMODERNA VACCINE BOOSTERMRI Results Lumbar SpineCAUDAL EPIDURAL STEROID INJ/ELPain Medicine Office NotesFOLLOW UP AFTER CAUDAL EPIDURAL STEROID INJECTION INFORMATION SOURCE (unrecogn ized section and content) DATE CREATED AUTHOR 01/25/2022 [facility] DATE CREATED AUTHOR AUTHOR'S ORGANIZ ATION 01/09/2023 [facility] DATE CREATED AUTHOR AUTHOR'S ORGANIZ ATION 12/29/2023 [facility] EPIC Care Teams (unrecognized sec tion and content) Team Status: Active Member Role Status Dates Desmond Macias DO Primary Care Provider Active Team Status: Inactive Member Role Status Dates Desmond Macias DO Primary Care Provider Active [facility]reach [facility] Attending Provider Active Goals (unrecognized section and content) Goals may be documented in a n alternate section FOR RECORDS PERTAINING TO PATIENTS WHO ARE OR HAVE BEEN ENROLLED IN A CHEMICAL DEPENDENCY/SUBSTANCEABUSE PROGRAM, SOME INFORMATION MAY BE OMITTED. This clinical summary was aggregated from multiple sources. Caution should be exercised in using it in the provision of clinical care. This summary normalizes information from multiple sources, and as a consequence, information in this document may materially change the coding, format and clinical context of patient data. In addition, data may be omitted in some cases. CLINICAL DECISIONS SHOULD BE BASED ON THE PRIMARY CLINICAL RECORDS. [facility] [employer] [facility]. provides no warranty or guarantee of the accuracy or completeness of information in this document.
== END 2024-01-09 19:23 | disposition home or self-care (01) ==
LOC: LAB 19:22
PROVIDERS: PCP Family Medicine; Visit Provider Obstetrics & Gynecology
DX: Z01.419 Encounter for gynecological examination (general) (routine) without abnormal findings (principal)
CPT/HCPCS: 87624; 88175

== ENCOUNTER 2024-02-23 12:29 | Outpatient (OUT) | payer OTHER, SELFPAY ==
--- NOTE | 2024-02-23 | XR_ITS ---
The [address] [address] Patient Name: DEEP RUANO MRN: [id number] date: 1960 Sex: F Assigned Patient Location: [facility] Current Patient Location: Accession/Order Number: [id number] Exam Date: 02/23/2024 12:38 Report Date: 02/24/2024 06:11 At the request of: ERIC TAVAREZ Procedure: XR DEXA axial skeleton EXAMINATION: XR DEXA axial skeleton HISTORY: Postmenopausal state, Z78.0 COMPARISON: DEXA bone densitometry 12/14/2021 TECHNIQUE: Dual-energy X-ray absorptiometry (DXA) was performed. FINDINGS: FOREARM ANALYSIS: Average bone mineral density is 0.6 x 4 g/cm2. T-score (standard deviation relative to young adult mean): -0.8 . -4.9% change since prior study. HIP ANALYSIS: Lowest bone mineral density is within the left femoral neck, 0.879 g/cm2. T-score (standard deviation relative to young adult mean): -1.1 . +2.9% change since prior study. XR/XR DEXA axial skeleton IMPRESSION: World Health Organization Classification: Osteopenia - Moderate Fracture Risk FRAX: Cannot be calculated. Pharmacologic treatment recommendations * No uniform recommendation applies to all patients. Management plans must be individualized. * Consider initiating pharmacologic treatment in postmenopausal women and men >= 50 years of age who have the following: Primary fracture prevention: * T-score <= - 2.5 at the femoral neck, total hip, lumbar spine, 33% radius (some uncertainty with existing data) by DXA. * Low bone mass (osteopenia: T-score between - 1.0 and - 2.5) at the femoral neck or total hip by DXA with a 10-year hip fracture risk >= 3% or a 10-year major osteoporosis-related fracture risk >= 20% (i.e., clinical vertebral, hip, forearm, or proximal humerus) based on the US-adapted FRAXregistered model. Secondary fracture prevention: * Fracture of the hip or vertebra regardless of BMD [4, 5]. * Fracture of proximal humerus, pelvis, or distal forearm in persons with low bone mass (osteopenia: T-score between - 1.0 and - 2.5). The decision to treat should be individualized in persons with a fracture of the proximal humerus, pelvis, or distal forearm who do not have osteopenia or low BMD [12, 13]. Tanisha MS, Eliva SL, Ronald KL, Charlotte EM, Dioni KG, AJ, Korin ES. The clinician's guide to prevention and treatment of osteoporosis. Osteoporos Int. 2021;33(10):3092-1192. doi: 10.1007/g23908-335-51842-p. Epub 2021Aug 19. Erratum in: Osteoporos Int. 2021Nov 18;: PMID: [id number]; PMCID: [id number]. Electronically authenticated by: CEE ALAN Date: 02/24/2024 06:11
--- NOTE | 2024-02-23 | MM_ITS ---
Patient Name: DEEP RUANO MR#: [id number] : 1960 Exam Date: 02/23/2024 Ordering Doctor: DR Nitin Dominguez . RADIOLOGY REPORT PROCEDURE: MM TOMOSYNTHESIS SCREENING BI COMPARISON: MM TOMOSYNTHESIS SCREENING BI, 02/21/2023. MG MAMM SCREEN 3D [facility] CAD, 12/14/2021. INDICATIONS: Breast cancer screening by mammogram Z12.31 Calculator Name NCI Breast Cancer Risk Assessment Tool 5 Year Breast Cancer Risk 3.20% Lifetime Breast Cancer Risk 11.70% Personal Breast Cancer No Personal Ovarian Cancer No Treatments None Family Cancers Sister with breast cancer at age 60; Aunt-maternal with breast cancer at age 55. LOCATION: [facility] BREAST COMPOSITION: The breasts are heterogeneously dense,which may obscure small masses. FINDINGS: DIAGNOSTIC CATEGORY 2--BENIGN FINDING. NO CHANGE FROM COMPARISON. Scattered benign-appearing calcifications are present. Scattered benign-appearing lymph nodes are present. RIGHT BREAST: No significant suspicious finding. LEFT BREAST: No significant suspicious finding. RECOMMENDATIONS: ROUTINE MAMMOGRAM AND CLINICAL EVALUATION IN 12 MONTHS. PLEASE NOTE: A NORMAL MAMMOGRAM DOES NOT EXCLUDE THE POSSIBILITY OF BREAST CANCER. A CLINICALLY SUSPICIOUS PALPABLE LUMP SHOULD BE BIOPSIED. Dictated by: Glenn Powell MD on 02/23/2024 at 13:34 Approved by: Glenn Powell MD on 02/23/2024 at 13:35
--- OUTSIDE RECORDS SUMMARY | 2024-02-23 12:42 | XMS_ITS | CCD ---
Author Organization [facility] Care Team Providers Care Equities Analyst Name Role Phone Imtiaz Painter Unavailable Abiola Valladares Unavailable JanelleCharles contreras Unavailable NICK, DR GIPSON Admitting Unavailable PETZNICK, DESMOND Primary Care Unavailable KARASIK, DR GIPSON Attending Unavailable DAVEASIAlmita, DR GIPSON Consulting Unavailable WEST, DR LEELA Thao Consulting Unavailable ZIEBER, DR JOHN Costa Consulting Unavailable PETZNICK, DESMOND Primary Care Unavailable KARASIK, DR GIPSON Attending Unavailable KARASIK, DR GIPSON Consulting Unavailable KARASIK, DR GIPSON Admitting Unavailable Petznick, Desmond Primary Care Unavailable Community, Outreach Attending Unavailable Community, Outreach Admitting Unavailable Petznick, DO Dsemond Primary Care Provider [phone] Community, Outreach Attending Provider PetDesmond patterson DO Primary Care Provider Petznick DODesmond C Unavailable [phone] VICTORINO ALEJANDRE Attending Unavailable VICTORINO ALEJANDRE Attending Unavailable VICTORINO ALEJANDRE Attending Unavailable VICTORINO ALEJANDRE Referring Unavailable CHAD MORENO Attending Unavailab VICTORINO Mcfarland Attending Unavailable PETDESMOND PATTERSON Attending Unavailable VICTORINO ALEJANDRE Attending Unavailable ERIC DOMINGUEZ Attending Unavailable JOSE COTE Attending Unavailable PETMANDAICKDESMOND Referring Unavailable VICTORINO ALEJANDRE Attending Unavailable DESMOND MACIAS Attending Unavailable DSEMOND MACIAS Referring Unavailable PETMANDAICKDESMOND Referring Unavailable VICTORINO ALEJANDRE Attending Unavailable Allergies Allergy Classification Reported Allergen(s) Allergy Type Date of Onset Reaction(s) Facility (12 sources) Sulfamethoxazole / Trimethoprim Drug Allergy 1 anaphylaxis, Hives [facility] (1 source) Sulfamethoxazole / Trimethoprim Drug Allergy 3 [facility] Repository (2 sources) Sulfamethoxazole Drug Allergy 8 [facility] Repository (2 sources) Trimethoprim Drug Allergy 8 [facility] Repository (5 sources) Doxepin Drug Allergy 4 Swelling [facility] Work Phone: (5 sources) Trimethoprim Drug Allergy 8 [facility] Medications Current Medications Medication Drug Class(es) Dates Sig (Normalized) Sig (Original) acetaminophen 500 mg oral capsule (4 sources) Start: 05-14-2021 take 2 capsules by mouth every eight hours Acetaminophen 500 MG 2 capsule as needed Orally 3 times a day for 30 days Apr, Active acetaminophen 500 mg / diphenhydrAMINE hydrochloride 25 mg oral tablet (12 sources) Histamine-1 Receptor Antagonist diphenhydrAMINE-ac etaminophen (Tylenol PM Extra Strength) 25-500 MG per tablet 1 (one) time each day at the same time. Active Acetaminophen / HYDROcodone (1 source) Opioid Agonist Start: 05-21-2019 take 1 tablet by mouth every six hours as needed Benedict 5-325 MG 1 tablet as needed Orally every 6 hrs Apr, Active [id number] actuat albuterol 0.09 mg/actuat metered dose inhaler (5 sources) beta2-Adrenergic Agonist Start: 05-15-2023 take 2 puff(s) by inhalation every six hours for wheezing albuterol HFA 90 mcg/act inhaler Indications: Primary insomnia , Neuropathy Inhale 2 puffs every 6 (six) hours if needed for wheezing 18 g 2 05/15/2023 Active alendronic acid 35 mg oral tablet (5 sources) Bisphosphonate Start: 01-09-2024 take 1 tablet by mouth every week alendronate (Fosamax) 35 MG tablet Indications: Osteopenia, unspecified location Take 1 tablet by mouth weekly 12 tablet 3 01/09/2024 Active biotin 5 mg oral tablet (7 sources) take 1 capsule by mouth once daily Biotin 5 MG 1 capsule Orally Once a day Active busPIRone hydrochloride 10 mg oral tablet (5 sources) Start: 09-11-2023 End: 03-09-2024 take 1 tablet by mouth in the morning busPIRone (Buspar) 10 MG tablet Indications: Anxiety Take 1 tablet (10 mg) by mouth in the morning and 1 tablet (10 mg) before bedtime. 180 tablet 1 09/11/2023 03/09/2024 Active Calcium + D3 600-200 MG-UNIT (7 [...] 17, 2017 1:00am February 02, 2018 10:15am estradiol 1 mg oral tablet (5 sources) Estrogen Start: 01-09-2024 End: 01-08-2025 take 1 tablet by mouth once daily estradiol (Estrace) 1 MG tablet Indications: Menopausal symptom Take 1 tablet (1 mg) by mouth Daily 90 tablet 3 01/09/2024 01/08/2025 Active estrogens, conjugated (care home) 0.625 mg oral tablet (8 sources) Estrogen Start: 05-12-2017 take 0.625 mg by mouth once daily in the morning Conjugated Estrogens Active 0.625 MG PO Every morning May 12, 2017 1:00am Fish Oils (7 sources) take 1 capsule by mouth once daily Fish Oil 1200 MG 1 capsule Orally Once a day Active gabapentin 400 mg oral capsule (12 sources) Anti-epileptic Agent Start: 12-26-2023 End: 03-25-2024 take 1 capsule by mouth in the morning, then take 1 capsule by mouth in the evening, then take 1 capsule by mouth at bedtime gabapentin (Neurontin) 400 MG capsule Indications: Displacement of lumbar disc with radiculopathy Take 1 capsule (400 mg) by mouth in the morning and 1 capsule (400 mg) in the evening and 1 capsule (400 mg) before bedtime. 270 capsule 12/26/2023 03/25/2024 Active take 1-2 tablets by mouth twice daily as needed Gabapentin 300 MG 1-2 tablet Orally bid prn for 30 day(s) Active melatonin 10 mg oral tablet (13 sources) Start: 02-02-2018 take 1 tablet by mouth once daily at bedtime Melatonin Active 1 TAB PO Daily at bedtime February 02, 2018 12:00am Melatonin 10 MG capsule as directed Orally Active meloxicam 15 mg oral tablet (3 sources) Nonsteroidal Anti-inflammatory Drug Start: 02-09-2024 take 1 tablet by mouth once daily meloxicam (Mobic) 15 MG tablet Indications: Degeneration of intervertebral disc of lumbar region, unspecified whether pain present , Lumbar pain Take 1 tablet (15 mg) by mouth once per day 30 tablet 3 02/09/2024 Active methylPREDNISolone 4 mg oral tablet (6 sources) Corticosteroid Start: 04-09-2021 Medrol 4 MG as directed Orally Mar, Active Multiple Vitamins-Minerals (Centrum Silver 50+Women) tablet (5 sources) Multiple Vitamins-Minerals (Centrum Silver 50+Women) tablet as directed Orally Active nortriptyline 10 mg oral capsule (5 sources) Tricyclic Antidepressant Start: 12-27-2023 End: 12-26-2024 take 1 capsule by mouth at bedtime nortriptyline (Pamelor) 10 MG capsule Indications: Neuropathy Take 1 capsule (10 mg) by mouth at bedtime 30 capsule 11 12/27/2023 12/26/2024 Active oxyCODONE hydrochloride 5 mg oral capsule (2 sources) Opioid Agonist Start: 07-25-2018 take 5-10 mg by mouth every six hours Oxycodone Active 5 - 10 MG PO Q6H 60 8 July 25, 2018 Start: 05-17-2017 End: 02-02-2018 take 1 tablet by mouth every six hours Oxycodone (Roxicodone) 5 mg Tablet Discontinued 1 - 2 TAB PO Q6H 60 May 17, 2017 1:00am February 02, 2018 10:15am SUMAtriptan 100 mg oral tablet (13 sources) Serotonin-1b and Serotonin-1d Receptor Agonist Start: 11-23-2023 SUMAtriptan (Imitrex ) 100 MG tablet Indications: Primary insomnia , Neuropathy TAKE 1 TABLET ONE TIME IF NEEDED FOR MIGRAINE FOR UP TO 27 DOSES. 27 tablet 11/23/2023 Active Start: 05-12-2017 take 1 tablet by zoe th once daily Sumatriptan Succinate (Imitrex) 100 MG tablet Active 100 MG PO Daily May 12, 2017 1:00am take 1 tablet by zoe th every twelve hours Imitrex 100 MG 1 tablet as needed Orally Twice a day prn Active thiamine 100 mg oral tablet (5 sources) Start: 03-14-2023 End: 03-13-2024 take 1 tablet by mouth in the morning thiamine (Vitamin B-1) 100 MG tablet Indications: Idiopathic progressive polyneuropathy Take 1 tablet (100 mg) by mouth in the morning. 30 tablet 11 03/14/2023 03/13/2024 Active tiZANidine 2 mg oral tablet (4 sources) Central alpha-2 Adrenergic Agonist Start: 02-09-2024 End: 03-10-2024 take 1 tablet by mouth at bedtime tiZANidine (Zanaflex) 2 MG tablet Indications: Degeneration of intervertebral disc of lumbar region, unspecified whether pain present , Lumbar pain Take 1 tablet (2 mg) by mouth at bedtime 30 tablet 1 02/09/2024 03/10/2024 Active Start: 05-21-2019 take 1-2 tablets by mouth once daily as needed tiZANidine HCl 2 MG 1-2 tablet as needed Orally daily Apr, Active triamcinolone acetonide 1 mg/ml topical cream (5 sources) Corticosteroid Start: 12-21-2023 triamcinolone (Kenalog) 0.1 % cream APPLY TOPICALLY ONCE DAILY FOR 1 TO 2 WEEKS FOR ITCHY BUMPS AVOID FACE WHEN APPLYING 12/21/2023 Active Valerian 500 MG (7 sources) take 1 capsule by mouth once daily as needed Valerian 500 MG 1 capsule as needed Orally Once a day for 30 day(s) 1200mg qhs Active Vitamin B 12 250 MCG (7 sources) Vitamin B 12 250 MCG 2 lozenges Orally Once a day Active vitamin b12 0.25 mg oral lozenge (5 sources) Vitamin B12 Cyanocobalamin (Vitamin B 12) 250 MCG lozenge 1 (one) time each day at the same time. Active zolpidem tartrate 5 mg oral tablet (5 sources) gamma-Aminobutyric Acid-ergic Agonist Start: 01-15-2024 End: 02-14-2024 zolpidem (Ambien) 5 MG tablet Indications: Primary insomnia Take 1 tablet (5 mg) by mouth as needed at bedtime for sleep 30 tablet 4 01/15/2024 Active Completed/Discontinued Medications Medication Drug Class(es) Dates [...] Active 10 MG PO Three times daily July 25, 2018 12:00am Start: 05-17-2017 End: 02-02-2018 take 10 mg by mouth three times daily Cyclobenzaprine Discontinued 10 MG PO Three times daily May 17, 2017 1:00am February 02, 2018 10:15am naproxen 500 mg oral tablet (4 sources) Nonsteroidal Anti-inflammatory Drug Start: 05-14-2021 take 1 tablet by mouth twice daily at mealtime as needed Naproxen 500 MG 1 tablet with food or milk as needed Orally Twice a day for 30 day(s) Apr, Not-Taking predniSONE 20 mg oral tablet (6 sources) Start: 11-22-2023 End: 02-08-2024 predniSONE (Deltasone) 20 MG tablet take 3 tablets by mouth daily for 3 days then 2 tabs daily for 3 days then 1 tab daily for 3 days then stop 11/22/2023 02/08/2024 Discontinued (Therapy completed) Start: 07-25-2018 Prednisone Act maureen 1 dose [...] then take 1 tab for 3 days Problems Active Problems Problem Classification Problem Date Documented Da te Episodic/Chronic Anxiety disorders (5 sources) Anxiety; Translations: [Anxiety disorder, unspecified] Onset: 11-28-2022 11-28-2022 Chronic Asthma (5 sources) Reactive airway disease; Translations: [Unspecified asthma, uncomplicated] Onset: 11-28-2022 11-28-2022 Chronic Headache; including migraine (17 sources) Migraine; Translations: [Migraine, unspecified, not intractable, without status migrainosus] Onset: 11-28-2022 Resolved: 11-28-2022 11-28-2022 Chronic Immunizations and screening for infectious disease (2 sources) Encounter for immunization; Translations: [Encounter for screening for human papillomavirus (HPV)] Onset: 05-07-2021 Resolved: 05-07-2021 Episodic Menopausal disorders (5 sources) Menopausal symptom; Translations: [Menopausal and female climacteric states] Onset: 11-28-2022 11-28-2022 Chronic Mood disorders (17 sources) Recurrent major depression; Translations: [Major depressive disorder, recurrent, unspecified] Onset: 11-28-2022 Resolved: 11-28-2022 11-28-2022 Chronic Other bone disease and musculoskeletal deformities (1 source) Other specified disorders of bone density and structure, other site; Translations: [OTH D/O BONE DEN STRUCT OTH SITE] Onset: 12-16-2021 Episodic Other connective tissue disease (5 sources) Bilateral trochanteric bursitis; Translations: [Trochanteric bursitis, right hip] Onset: 01-01-2024 01-01-2024 Episodic Other nervous system disorders (16 sources) Chronic pain; Translations: [Other chronic pain] Onset: 05-21-2019 Resolved: 11-28-2022 11-28-2022 Chronic Other nervous system disorders (1 source) Other chronic pain Onset: 07-15-2021 Resolved: 07-15-2021 Chronic Other nervous system disorders (5 sources) Idiopathic progressive polyneuropathy; Translations: [Idiopathic progressive neuropathy] Onset: 03-13-2023 03-13-2023 Chronic Other nervous system disorders (5 sources) Bilateral carpal tunnel syndrome; Translations: [Carpal tunnel syndrome, bilateral upper limbs] Onset: 04-06-2023 04-06-2023 Chronic Other nervous system disorders (10 sources) Carpal tunnel syndrome of left wrist; Translations: [Carpal tunnel syndrome, left upper limb] Onset: 11-09-2023 Resolved: 11-14-2023 01-01-2024 Chronic Other screening for suspected conditions (not mental disorders or infectious disease) (15 sources) Encounter for screening mammogram for malignant [...] cervical region] Onset: 04-12-2021 Resolved: 07-15-2021 Chronic Substance-related disorders (5 sources) Smoker; Translations: [Nicotine dependence, unspecified, uncomplicated] Onset: 11-28-2022 11-28-2022 Chronic Past or Other Problems Problem Classification Problem Date Documented Date Episodic/Chronic Acquired foot deformities (10 sources) Acquired hallux valgus; Translations: [Hallux valgus (acquired), unspecified foot] Onset: 0 Resolved: 3 11-28-2022 Chronic Other aftercare (7 sources) High risk drug monitoring status; 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] Episodic Other bone disease and musculoskeletal deformities (10 sources) Osteopenia; Translations: [Other specified disorders of bone density and structure, unspecified site] Onset: 3 Resolved: 3 11-28-2022 Episodic Other connective tissue disease (7 sources) Dupuytren's contracture; Translations: [Palmar fascial fibromatosis [Dupuytren]] Episodic Other connective tissue disease (1 source) Pain in left hand; Translations: [Left hand pain M79.642] Onset: 1 Resolved: 1 Episodic Other connective tissue disease (1 source) Palmar fascial fibromatosis [Dupuytren]; Translations: [Dupuytren contracture M72.0] Onset: 1 Resolved: 1 Episodic Other connective tissue disease (5 sources) Trochanteric bursitis of left hip; Translations: [Trochanteric bursitis, left hip] Onset: 3 Resolved: 3 11-28-2022 Episodic Other connective tissue disease (5 sources) Spasm of cervical paraspinous muscle; Translations: [Other muscle spasm] Onset: 4 Resolved: 4 11-14-2023 Episodic Other connective tissue disease (5 sources) Muscle pain; Translations: [Myalgia, unspecified site] Onset: 4 Resolved: 4 11-14-2023 Episodic Other nervous system disorders (5 sources) Mortons neuroma of right foot; Translations: [Lesion of plantar nerve, right lower limb] Onset: 3 Resolved: 4 11-14-2023 Chronic Other nervous system disorders (5 sources) Plantar nerve lesion; Translations: [Lesion of plantar nerve, unspecified lower limb] Onset: 0 Resolved: 3 11-28-2022 Chronic Other non-traumatic joint disorders (2 sources) Pain in left hip; Translations: [Left hip pain M25.552] Onset: 1 Resolved: 2 Episodic Other non-traumatic joint disorders (5 sources) Arthralgia of the pelvic region and thigh; Translations: [Pain in unspecified hip] Onset: 3 Resolved: 3 11-28-2022 Episodic Spondylosis; intervertebral disc disorders; other back problems (20 sources) Lumbar disc prolapse with radiculopathy; Translations: [Intervertebral disc disorders with radiculopathy, lumbar region] Onset: 8 Resolved: 4 Episodic Sprains and strains (3 sources) Strain of muscle, fascia and tendon of left hip, initial encounter; Translations: [Sprain of metacarpophalangeal joint of left index finger, initial encounter] Onset: 1 Resolved: 2 Episodic Results Test Name Value Interpretation Reference Range Facility XR LUMBAR SPINE 6+ VIEWS INC LUDING OBLIQUE FLEXION EXTENSIONon 02-08-2024 XR LUMBAR SPINE 6+ VIEWS INCLUDING OBLIQUE FLEXION EXTENSION TITLE OF EXAM: XR - LUMBAR SPINE W FLEX EXTENSION REASON FOR EXAM: Low back pain radiating into bilateral hips, no injury. TECHNIQUE: 8 radiographs of the lumbar spine and pelvis COMPARISONS: Lumbar spine radiographs 01/11/2019 FINDINGS: No fracture; normal vertebral body heights. Retrolisthesis of L1 on L2, 3 to 4 mm. Straightening of normal lower lumbar lordosis. Posterior fixation construct at L5-S1 and L4-S1 intervertebral prostheses without evidence of complication. Lower lumbar/lumbosacral facet osteoarthrosis. Degenerative disc disease at nonfixed levels greatest at L3-4, moderate to severe. Suggested diffuse osseous demineralization. Mid lumbar dextrorotoscoliosis. Assessment of neural foraminal osseous stenosis cannot be accurately performed based on the provided views. No focal soft tissue abnormality. IMPRESSION: 1. L5-S1 fixation construct and L4-S1 intervertebral prostheses without evidence of complication. 2. No fracture. 3. L1-2 listhesis, 3 to 4 mm. 4. Degenerative changes as detailed. DICTATED ON: 02/08/2024 3:35 PM This report has been electronically signed and approved by the interpreting radiologist. Electronically Signed Scotty Lam M.D. 2024-02-08 15:37:33 Normal Not Available XR Lumbar spine Views W flex ion and W extensionon 02-08-2024 TITLE OF EXAM: XR - LUMBAR SPINE W FLEX EXTENSION REASON FOR EXAM: Low back pain radiating into bilateral hips, no injury. TECHNIQUE: 8 radiographs of the lumbar spine and pelvis COMPARISONS: Lumbar spine radiographs 01/11/2019 FINDINGS: No fracture; normal vertebral body heights. Retrolisthesis of L1 on L2, 3 to 4 mm. Straightening of normal lower lumbar lordosis. Posterior fixation construct at L5-S1 and L4-S1 intervertebral prostheses without evidence of complication. Lower lumbar/lumbosacral facet osteoarthrosis. Degenerative disc disease at nonfixed levels greatest at L3-4, moderate to severe. Suggested diffuse osseous demineralization. Mid lumbar dextrorotoscoliosis. Assessment of neural foraminal osseous stenosis cannot be accurately performed based on the provided views. No focal soft tissue abnormality. IMPRESSION: 1. L5-S1 fixation construct and L4-S1 intervertebral prostheses without evidence of complication. 2. No fracture. 3. L1-2 listhesis, 3 to 4 mm. 4. Degenerative changes as detailed. DICTATED ON: 02/08/2024 3:35 PM This report has been electronically signed and approved by the interpreting radiologist. Electronically Signed Scotty Lam M.D. 2024-02-08 15:37:33 IMAGING Denise Lam MD - 02/08/2024 TITLE OF EXAM: XR - LUMBAR SPINE W FLEX EXTENSION REASON FOR EXAM: Low back pain radiating into bilateral hips, no injury. TECHNIQUE: 8 radiographs of the lumbar spine and pelvis COMPARISONS: Lumbar spine radiographs 01/11/2019 FINDINGS: No fracture; normal vertebral body heights. Retrolisthesis of L1 on L2, 3 to 4 mm. Straightening of normal lower lumbar lordosis. Posterior fixation construct at L5-S1 and L4-S1 intervertebral prostheses without evidence of complication. Lower lumbar/lumbosacral facet osteoarthrosis. Degenerative disc disease at nonfixed levels greatest at L3-4, moderate to severe. Suggested diffuse osseous demineralization. Mid lumbar dextrorotoscoliosis. Assessment of neural foraminal osseous stenosis cannot be accurately performed based on the provided views. No focal soft tissue abnormality. IMPRESSION: 1. L5-S1 fixation construct and L4-S1 intervertebral prostheses without evidence of complication. 2. No fracture. 3. L1-2 listhesis, 3 to 4 mm. 4. Degenerative changes as detailed. DICTATED ON: 02/08/2024 3:35 PM This report has been electronically signed and approved by the interpreting radiologist. Electronically Signed Scotty Lam M.D. 2024-02-08 15:37:33 [facility] Radiology Study observation (narrative) [facility] XR Lumbar spine Views W flex ion and W extensionOrdered By: Denise Lam on 02-08-2024 [facility] [employer] Work Phone: Alanine aminotransferase [En zymatic activity/volume] in Serum or PlasmaOrdered By: [facility] on 01-07-2023 ALT [Catalytic activity/Vol] 9 U/L 7-52 [facility] Albumin [Mass/volume] in Ser um or Plasma by Bromocresol green (BCG) dye binding methoOrdered By: [facility] on 01-07-2023 Albumin BCG dye [Mass/Vol] 4.1 g/dL 3.5-5.7 [facility] Alkaline phosphatase [Enzyma tic activity/volume] in Serum or PlasmaOrdered By: [facility] on 01-07-2023 ALP [Catalytic activity/Vol] 47 U/L 34-104 [facility] Aspartate aminotransferase [ Enzymatic activity/volume] in Serum or PlasmaOrdered By: [facility] on 01-07-2023 AST [Catalytic activity/Vol] 17 U/L 13-39 [facility] Bilirubin.total [Mass/volume ] in Serum or PlasmaOrdered By: [facility] on 01-07-2023 Bilirubin [Mass/Vol] 0.3 mg/dL 0.3-1.0 [facility] CBC Without Differentialon 0 01-07-2023 Erythrocyte distribution width (RBC) [Ratio] 13.2 % Normal 11.9-15.3 [facility] Comment on above: Performed By: #### O UTREACH LIPID, OUTREACH CMP, CBCNOOUTREACH #### [facility] [address] Hematocrit (Bld) [Volume fraction] 33.2 % Low 34.0-46.4 [facility] Comment on above: Performed By: #### O UTREACH LIPID, OUTREACH CMP, CBCNOOUTREACH #### [facility] [address] [place] [address] [place] Hemoglobin (Bld) [Mass/Vol] 11.4 g/dL Low 11.8-15.4 [facility] Comment on above: Performed By: #### O UTREACH LIPID, OUTREACH CMP, CBCNOOUTREACH #### [facility] [address] [place] [id number] [place] MCH (RBC) [Entitic mass] 36.3 pg High 24.7-34.3 [facility] Comment on above: Performed By: #### O UTREACH LIPID, OUTREACH CMP, CBCNOOUTREACH #### [facility] [address] [place] [address] [place] MCV (RBC) [Entitic vol] 105.1 fL High 80-[address] [facility] Comment on above: Performed By: #### O UTREACH LIPID, OUTREACH CMP, CBCNOOUTREACH #### [address] Mean Corpuscular HGB Conc 34.5 g/dL Normal 32.0-35.0 [facility] Comment on above: Performed By: #### O UTREACH LIPID, OUTREACH CMP, CBCNOOUTREACH #### [address] Platelet mean volume (Bld) [Entitic vol] 9.6 fL Normal 6.3-10.7 [facility] Comment on above: Result Comment: PERF ORMED BY: [place] [address] PATHOLOGIST FRATERNITY ADVISER JEANIE BELL M.D. Performed By: #### O UTREACH LIPID, OUTREACH CMP, CBCNOOUTREACH #### [address] Platelets (Bld) [#/Vol] 273 10*3/uL Normal 150-450 [facility] Comment on above: Performed By: #### O UTREACH LIPID, OUTREACH CMP, CBCNOOUTREACH #### [address] RBC (Bld) [#/Vol] 3.16 10*6/uL Low 3.60-5.00 [facility] Comment on above: Performed By: #### O UTREACH LIPID, OUTREACH CMP, CBCNOOUTREACH #### [address] WBC (Bld) [#/Vol] 8.4 10*3/uL Normal 3.8-11.6 [facility] Comment on above: Performed By: #### O UTREACH LIPID, OUTREACH CMP, CBCNOOUTREACH #### [address] CMP Outreachon 01-07-2023 Albumin [Mass/Vol] 4.1 g/dL Normal 3.5-5.7 [facility] Comment on above: Performed By: #### O UTREACH LIPID, OUTREACH CMP, CBCNOOUTREACH #### [facility] [address] ALP [Catalytic activity/Vol] 47 U/L Normal 34-104 [facility] Comment on above: Performed By: #### O UTREACH LIPID, OUTREACH CMP, CBCNOOUTREACH #### [facility] [address] ALT [Catalytic activity/Vol] 9 U/L Normal 7-52 [facility] Comment on above: Performed By: #### O UTREACH LIPID, OUTREACH CMP, CBCNOOUTREACH #### [facility] [address] Anion gap [Moles/Vol] 9.4 mmol/L Normal 6.0-15.0 [facility] Comment on above: Performed By: #### O UTREACH LIPID, OUTREACH CMP, CBCNOOUTREACH #### [facility] [address] AST [Catalytic activity/Vol] 17 U/L Normal 13-39 [facility] Comment on above: Performed By: #### O UTREACH LIPID, OUTREACH CMP, CBCNOOUTREACH #### [facility] [address] Bilirubin [Mass/Vol] 0.3 mg/dL Normal 0.3-1.0 [facility] Comment on above: Performed By: #### O UTREACH LIPID, OUTREACH CMP, CBCNOOUTREACH #### [facility] [address] [place] [id number] [place] Calcium [Mass/Vol] 9.4 mg/dL Normal 8.6-10.3 [facility] Comment on above: Performed By: #### O UTREACH LIPID, OUTREACH CMP, CBCNOOUTREACH #### [facility] [address] [id number] [place] Chloride [Moles/Vol] 105 mmol/L Normal 98-107 [facility] Comment on above: Performed By: #### O UTREACH LIPID, OUTREACH CMP, CBCNOOUTREACH #### [facility] [address] [place] [address] [place] CO2 [Moles/Vol] 28.8 mmol/L Normal 21.0-31.0 [facility] Comment on above: Performed By: #### O UTREACH LIPID, OUTREACH CMP, CBCNOOUTREACH #### [facility] [address] [place] [address] [place] Creatinine [Mass/Vol] 0.61 mg/dL Normal 0.60-1.20 [facility] Comment on above: Performed By: #### O UTREACH LIPID, OUTREACH CMP, CBCNOOUTREACH #### [facility] [address] [place] [address] [place] GFR/1.73 sq M.predicted MDRD (S/P/Bld) [Vol rate/Area] mL/min/{1.73_m2} Normal [facility] Comment on above: Performed By: #### O UTREACH LIPID, OUTREACH CMP, CBCNOOUTREACH #### [facility] [address] [place] [address] [place] Glucose [Mass/Vol] 108 mg/dL High 70-100 [facility] Comment on above: Result Comment: [place] Glucose Reference Range is dependent on time and content of last meal. Glucose of more than 200 mg/dL in a nonstressed, ambulatory subject supports the diagnosis of Diabetes Mellitus. ADA recommended reference range Performed By: #### O UTREACH LIPID, OUTREACH CMP, CBCNOOUTREACH #### [facility] [address] [place] [address] [place] Potassium [Moles/Vol] 4.2 mmol/L Normal 3.5-5.1 [facility] Comment on above: Performed By: #### O UTREACH LIPID, OUTREACH CMP, CBCNOOUTREACH #### [facility] [address] [place] [address] [place] Protein [Mass/Vol] 6.3 g/dL Low 6.4-8.9 [facility] Comment on above: Performed By: #### O UTREACH LIPID, OUTREACH CMP, CBCNOOUTREACH #### [facility] [address] [place] [address] [place] Sodium [Moles/Vol] 139 mmol/L Normal 136-145 [facility] Comment on above: Performed By: #### O UTREACH LIPID, OUTREACH CMP, CBCNOOUTREACH #### [facility] [address] [place] [address] [place] Urea nitrogen [Mass/Vol] 15 mg/dL Normal 7-25 [facility] Comment on above: Performed By: #### O UTREACH LIPID, OUTREACH CMP, CBCNOOUTREACH #### [facility] [address] [id number] [place] Calcium [Mass/volume] in Ser um or PlasmaOrdered By: [facility] on 01-07-2023 Calcium [Mass/Vol] 9.4 mg/dL 8.6-10.3 [facility] Carbon dioxide, total [Moles /volume] in Serum or PlasmaOrdered By: [facility] on 01-07-2023 CO2 [Moles/Vol] 28.8 mmol/L 21.0-31.0 [facility] Chloride [Moles/volume] in S matias or PlasmaOrdered By: [facility] on 01-07-2023 Chloride [Moles/Vol] 105 mmol/L 98-107 [facility] Cholesterol [Mass/volume] in Serum or PlasmaOrdered By: [facility] on 01-07-2023 Cholesterol [Mass/Vol] 224 mg/dL 140-200 [facility] Comment on above: Chol less than 200 m g/dl low riskChol 201-239 mg/dl borderline riskChol 240 mg/dl and greater high risk Cholesterol in LDL Calc [Mas s/Vol]Ordered By: [facility] on 01-07-2023 Cholesterol in LDL [Mass/Vol] 103 mg/dL 0-100 [facility] Comment on above: LDL ATP III CLASSIFI CATIONLDL less than 100 mg/dL OptimalLDL 100-129 mg/dL Near or above optimalLDL 130-159 mg/dL Borderline highLDL 160-189 mg/dL HighLDL greater than 189 mg/dL Very high Cholesterol in VLDL Calc [Ma ss/Vol]Ordered By: [facility] on 01-07-2023 Cholesterol in VLDL [Mass/Vol] 39 mg/dL [facility] Creatinine [Mass/volume] in Serum or PlasmaOrdered By: [facility] on 01-07-2023 Creatinine [Mass/Vol] 0.61 mg/dL 0.60-1.20 [facility] Erythrocyte distribution wid th Auto (RBC) [Ratio]Ordered By: [facility] on 01-07-2023 Erythrocyte distribution width (RBC) [Ratio] 13.2 % 11.9-15.3 [facility] Glucose [Mass/volume] in Ser um or PlasmaOrdered By: [facility] on 01-07-2023 Glucose [Mass/Vol] 108 mg/dL 70-100 [facility] Comment on above: ADA recommended refe rence rangeRandom Glucose Reference Range is dependent on time and content of last meal. Glucose of more than 200 mg/dL in a nonstressed, ambulatory subject supports the diagnosis of Diabetes Mellitus. Hematocrit Auto (Bld) [Volum e fraction]Ordered By: [facility] on 01-07-2023 Hematocrit (Bld) [Volume fraction] 33.2 % 34.0-46.4 [facility] Hemoglobin [Mass/volume] in BloodOrdered By: [facility] on 01-07-2023 Hemoglobin (Bld) [Mass/Vol] 11.4 g/dL 11.8-15.4 [facility] Leukocytes [#/volume] correc dao for nucleated erythrocytes in Blood by Automated counOrdered By: [facility] on 01-07-2023 WBC corrected for nucl RBC Auto (Bld) [#/Vol] 8.4 10*3/uL 3.8-11.6 [facility] Lipid Profile Outreach Cholesterol [Mass/Vol] 224 mg/dL High 140-200 [facility] Comment on above: Result Comment: Chol less than 200 mg/dl low risk Chol 201-239 mg/dl borderline risk Chol 240 mg/dl and greater high risk Performed By: #### O SETH LIPID, OUTREACH CMP, CBCNOOUTREACH #### [facility] [address] Cholesterol in HDL [Mass/Vol] 82 mg/dL Normal 23-92 [facility] Comment on above: Result Comment: HDL CHOL ATP-III CLASSIFICATION Cardiovascular Risk HDL > or equal to 60 mg/dL LOW HDL < 40 mg/dL HIGH Performed By: #### O UTREACH LIPID, OUTREACH CMP, CBCNOOUTREACH #### [facility] [address] Cholesterol.total/Choles terol in HDL [Mass ratio] 2.7 {ratio} Normal <5.0 [facility] Comment on above: Result Comment: PERF ORMED BY: [facility] [address] [place] [address] PATHOLOGIST FRATERNITY ADVISER JEANIE BELL M.D. Performed By: #### O UTREACH LIPID, OUTREACH CMP, CBCNOOUTREACH #### [facility] [address] LDL Cholesterol,Calculated 103 mg/dL High 0-100 [facility] Comment on above: Result Comment: LDL ATP III CLASSIFICATION LDL less than 100 mg/dL Optimal LDL 100-129 mg/dL Near or above optimal LDL 130-159 mg/dL Borderline high LDL 160-189 mg/dL High LDL greater than 189 mg/dL Very high Performed By: #### O UTREACH LIPID, OUTREACH CMP, CBCNOOUTREACH #### [address] Triglyceride w/Reflex 195 mg/dL High 0-149 [facility] Comment on above: Result Comment: TRIG ATP III CLASSIFICATION TRIG less than 150 mg/dL Normal TRIG 150-199 mg/dL Borderline high TRIG 200-500 mg/dL High TRIG greater than 500 mg/dL Very high Standard traceable to the Center for Disease Conrtrol and Prevention (CDC) test method. Performed By: #### O UTREACH LIPID, OUTREACH CMP, CBCNOOUTREACH #### [facility] [address] VLDL CHOLESTEROL 39 mg/dL Normal [facility] Comment on above: Performed By: #### O UTREACH LIPID, OUTREACH CMP, CBCNOOUTREACH #### [facility] [address] MCH Auto (RBC) [Entitic mass ]Ordered By: [facility] on 01-07-2023 MCH (RBC) [Entitic mass] 36.3 pg 24.7-34.3 [facility] MCHC Auto (RBC) [Mass/Vol]Or dered By: [facility] on 01-07-2023 MCHC (RBC) [Mass/Vol] 34.5 g/dL 32.0-35.0 [facility] MCV Auto (RBC) [Entitic vol] Ordered By: OUTREACH [facility] on 01-07-2023 MCV (RBC) [Entitic vol] 105.1 fL 80-[address] [facility] No Panel InformationOrdered By: [facility] on 01-07-2023 Estimated GFR (CKD-EPI) > 60.0 mL/Min [facility] Creatinine Clearance (Chem N/A [facility] Platelet mean volume Auto (B ld) [Entitic vol]Ordered By: [facility] on 01-07-2023 Platelet mean volume (Bld) [Entitic vol] 9.6 fL 6.3-10.7 [facility] Platelets Auto (Bld) [#/Vol] Ordered By: [facility] on 01-07-2023 Platelets (Bld) [#/Vol] 273 10*3/uL 150-450 [facility] Potassium [Moles/volume] in Serum or PlasmaOrdered By: [facility] on 01-07-2023 Potassium [Moles/Vol] 4.2 mmol/L 3.5-5.1 [facility] Protein [Mass/volume] in Ser um or PlasmaOrdered By: OUTREACH [facility] on 01-07-2023 Protein [Mass/Vol] 6.3 g/dL 6.4-8.9 [facility] RBC Auto (Bld) [#/Vol]Ordere d By: OUTREACH [facility] on 01-07-2023 RBC (Bld) [#/Vol] 3.16 10*6/uL 3.60-5.00 [facility] Serum or plasma anion gap de terminationOrdered By: OUTREACH [facility] on 01-07-2023 Anion gap [Moles/Vol] 9.4 mmol/L 6.0-15.0 [facility] Serum or plasma high density lipoprotein (HDL) cholesterol measurementOrdered By: [facility] on 01-07-2023 Cholesterol in HDL [Mass/Vol] 82 mg/dL 23- [facility] Comment on above: HDL CHOL ATP-III CLA SSIFICATION Cardiovascular RiskHDL > or equal to 60 mg/dL LOWHDL < 40 mg/dL HIGH Serum or plasma total choles terol/high density lipoprotein (HDL) cholesterol mass ratOrdered By: [facility] on 01-07-2023 Cholesterol.total/Choles terol in HDL [Mass ratio] 2.7 {ratio} <5.0 [facility] Sodium [Moles/volume] in Ser um or PlasmaOrdered By: [facility] on 01-07-2023 Sodium [Moles/Vol] 139 mmol/L 136-145 [facility] Triglyceride [Mass/volume] i n Serum or PlasmaOrdered By: [facility] on 01-07-2023 Triglyceride [Mass/Vol] 195 mg/dL 0-[address] [facility] Comment on above: TRIG ATP III CLASSIF ICATIONTRIG less than 150 mg/dL NormalTRIG 150-199 mg/dL Borderline highTRIG 200-500 mg/dL High TRIG greater than 500 mg/dL Very highStandard traceable to the Center for Disease Conrtrol and Prevention (CDC) test method. Urea nitrogen [Mass/volume] in Serum or PlasmaOrdered By: [facility] on 01-07-2023 Urea nitrogen [Mass/Vol] 15 mg/dL 7- [facility] MG MAMM SCREEN 3D JACINTO CADon 12-14-2021 MG MAMM SCREEN 3D JACINTO CAD Patient: GISEL ALMODOVARTamia Exam Date: 12/14/2021 : 1960 Gender:F Ordering : DR LEONELA ROMERO . Admission #: [id number] Family : Order #: [id number] CLICK HERE TO VIEW EXAM RADIOLOGY REPORT [...] breast cancer at age 53. LOCATION: [facility] BREAST COMPOSITION: Heterogeneously dense,which may obscure [...] Luna M.D. on 12/15/2021 at 10:35 Normal [facility] XR DEXA BONE DENSITYon 12-14 XR [...] by: LEELA SONG Date: 2021-12-14 17:08 Normal [facility] PAP ACOG PANEL 2: 30 to 65on 12-07-2021 . . Normal [facility] Comment on above: Result Comment: Perf ormed at: WB Performed By: #### [id number] #### [facility] [address] [address] [address] Luis White Age Gdln ACOG Testing 30-65 Normal [facility] Comment on above: Performed By: #### [id number] #### [facility] [address] [address] [address] Luis White DIAGNOSIS: Comment Normal [facility] Comment on above: Result Comment: NEGA TIVE FOR INTRAEPITHELIAL LESION OR MALIGNANCY. THIS SPECIMEN WAS RESCREENED PART OF OUR CEMENT BLOCK MAKER PROGRAM. Performed at: WB Performed By: #### [id number] #### [facility] [address] [place] [address] Dr. Luis White HPV Aptima Negative Normal Negative [facility] Comment on above: Result Comment: This nucleic acid amplification test detects fourteen high-risk HPV types (16,18,31,33,35,39,45,51,52,56,58,59,66,68) without differentiation. Performed at: =G Performed By: #### [id number] #### [facility] [address] [place] [address] Dr. Luis White Methodology: CTIM Normal [facility] Comment on above: Result Comment: The Thin Prep(R) Ground Host/Hostess was unable to read this specimen. Therefore a manual review was performed. Performed at: WB Performed By: #### [id number] #### [facility] [address] [place] [address] Dr. Luis White Note: Comment Normal [facility] Comment on above: Result Comment: The Pap smear is a screening test designed to aid in the detection of premalignant and malignant conditions of the uterine cervix. It is not a diagnostic procedure and should not be used as the sole means of detecting cervical cancer. Both false-positive and false-negative reports do occur. . Performed at: WB Performed By: #### [id number] #### [facility] [address] [place] [address] Dr. Luis White Performed by: Comment Normal [facility] Comment on above: Result Comment: El Li, Data Communications Technician (ASCP) Performed at: WB Performed By: #### [id number] #### [facility] [address] [place] [address] Dr. Luis White QC reviewed by: Comment Normal [facility] Comment on above: Result Comment: Sid Adame, Data Communications Technician Performed at: WB Performed By: #### [id number] #### [facility] [address] [place] [address] Dr. Luis White Specimen adequacy: Comment Normal [facility] Comment on above: Result Comment: Sati sfactory for evaluation. No endocervical component is identified. Performed at: WB Performed By: #### [id number] #### [facility] [address] [address] [address] Luis White Vital Signs Date Time Vital Sign Value Performing Clinician Facility 02-08-2024 13:090400 Body height 154.9 cm Desmond Carpenterradha DO Work Phone: [facility] 02-08-2024 13:09-0400 Body mass index (BMI) [Ratio] 19.61 kg/m2 Desmond Macias DO Work Phone: [facility] 02-08-2024 13:09-0400 Body temperature 98.01 [degF] Desmond Macias DO Work Phone: [facility] 02-08-2024 13:090400 Body weight 47.08 kg Desmond Macias DO Work Phone: [facility] 02-08-2024 13:09-0400 Diastolic blood pressure 80 mm[Hg] Desmond Petleonardo DO Work Phone: [facility] 02-08-2024 13:09-0400 Heart rate 73 /min Desmond Macias DO Work Phone: [facility] 02-08-2024 13:09-0400 SaO2% (BldA) [Mass fraction] 99 % Desmond Macias DO Work Phone: [facility] 02-08-2024 13:09-0400 Systolic blood pressure 134 mm[Hg] Desmond Macias DO Work Phone: [facility] 01-23-2024 13:-0400 Body height 154.9 cm Jose Cote DO Work Phone: [facility] 01-23-2024 13:28-0400 Body mass index (BMI) [Ratio] 19.65 kg/m2 Jose Cote DO Work Phone: [facility] 01-23-2024 13:28-0400 Body weight 47.17 kg Jose Cote DO Work Phone: [facility] 01-23-2024 13:28-0400 Diastolic blood pressure 80 mm[Hg] Jose Cote DO Work Phone: [facility] 01-23-2024 13:28-0400 Systolic blood pressure 128 mm[Hg] Jose Cote DO Work Phone: [facility] 07-15-2021 17:00-0400 Body height 153.67 cm Charles Luis Other [facility] Other 07-15-2021 17:00-0400 Body mass index (BMI) [Ratio] 19.67 kg/m2 Charles Luis Other [facility] Other 07-15-2021 17:00-0400 Body weight 46.45 kg Charles Lius Other [facility] Other 07-15-2021 17:00-0400 Diastolic blood pressure 70 mm[Hg] Charles Luis Other [facility] Other 07-15-2021 17:00-0400 SaO2% (BldA) [Mass fraction] 99 % Charles Luis Other [facility] Other 07-15-2021 17:00-0400 Systolic blood pressure 110 mm[Hg] Charles Luis Other [facility] Other 05-14-2021 10:00-0500 Body height 153.67 cm Imtiaz Painter Other [facility] Other 05-14-2021 10:00-0500 Body mass index (BMI) [Ratio] 20.93 kg/m2 Imtiaz Painter Other [facility] Other 05-14-2021 10:00-0500 Body weight 49.44 kg Imtiaz Painter Other [facility] Other 02-19-2021 11:30-0400 Body height 153.67 cm Imtiaz Painter Other [facility] Other 02-19-2021 11:30-0400 Body mass index (BMI) [Ratio] 20.19 kg/m2 Imtiaz Painter Other [facility] Other 02-19-2021 11:30-0400 Body weight 47.67 kg Imtiaz Painter Other [facility] Other Encounters Encounter Date Encounter Type Care Provider Facility Start: 02-19-2024 End: 02-19-2024 Kevin Alejandre MD Work Phone: [facility] Start: 02-19-2024 End: 02-19-2024 Kevin Alejandre MD Work Phone: [facility] Start: 02-19-2024 End: 02-19-2024 ambulatory VICTORINO ALEJANDRE Not Available Start: 02-08-2024 End: 02-08-2024 Office outpatient visit 25 minutes Desmond Macias DO Work Phone: [facility] Comment on above: Degeneration of inte rvertebral disc of lumbar region, unspecified whether pain present (Primary Dx); Lumbar pain Start: 02-08-2024 End: 02-08-2024 ambulatory DESMOND AMCIAS Not Available Start: 01-23-2024 End: 01-23-2024 Patient encounter procedure Jose Cote DO Work Phone: [facility] Comment on above: Colon cancer screeni ng Start: 01-23-2024 End: 01-23-2024 ambulatory JOSE COTE Not Available Start: 01-09-2024 End: 01-09-2024 ambulatory ERIC DOMINGUEZ Not Available Start: 12-27-2023 End: 12-27-2023 ambulatory VICTORINO W ALEJANDRE Not Available Start: 11-14-2023 End: 11-14-2023 ambulatory DESMOND MACIAS Not Available Start: 11-08-2023 End: 11-08-2023 ambulatory VICTORINO W ALEJANDRE Not Available Start: 10-05-2023 End: 10-05-2023 ambulatory CHAD MORENO Not Available Start: 09-04-2023 End: 09-04-2023 ambulatory VICTORINO W ALEJANDRE Not Available Start: 04-06-2023 End: 04-06-2023 ambulatory VICTORINO W ALEJANDRE Not Available Start: 03-20-2023 End: 03-20-2023 ambulatory VICTORINO W ALEJANDRE Not Available Start: 03-13-2023 End: 03-13-2023 ambulatory VICTORINO W ALEJANDRE Not Available Start: 01-07-2023 End: 01-07-2023 ambulatory Desmond Macias Facility:[facility] Start: 01-07-2023 End: 01-07-2023 ambulatory DO Desmond Petznick Work Phone: [facility] Work Phone: Start: 01-07-2023 End: 01-07-2023 Departed Referred DO Desmond Petznick Work Phone: [facility] Work Phone: Start: 12-14-2021 End: 12-15-[address] LEONELA ROMERO Facility:[facility] Start: 11-30-2021 End: 11-30-2021 ambulatory DESMOND MACIAS Facility:[facility] Start: 07-15-2021 End: 07-15-2021 ambulatory Charles Luis Other [facility] [employer] Other Start: 07-15-2021 Office outpatient vi sit 25 minutes Charles Luis [facility] Start: 07-08-2021 (Procedure) Short Charles Luis [facility] Start: 07-08-2021 End: 07-08-2021 ambulatory Charles Luis Other [facility] Other Start: 06-28-2021 End: 06-28-2021 ambulatory Charles Luis Other [facility] Other Start: 06-28-2021 Telephone encounter Charles Luis NICOLE Charge Weigher Start: 05-14-2021 End: 05-14-2021 ambulatory Imtiaz Painter Other [facility] Other Start: 05-14-2021 Office outpatient vi sit 15 minutes Imtiaz Painter [facility] Start: 05-07-2021 ([facility]3] C Vac) [facility]3] Co vid Vaccine Abiola Nicojustin [facility] Start: 05-07-2021 End: 05-07-2021 ambulatory Abiola Valladares Other [facility] Other Start: 04-12-2021 End: 04-12-2021 ambulatory Imtiaz Painter Other [facility] Other Start: 04-12-2021 Telephone encounter Imtiaz Painter [facility] Start: 02-19-2021 Office outpatient ne w 45 minutes Imtiaz RIVERA [facility] Procedures Date Procedure Procedure Detail Performing Clinician Start: 02-08-2024 Radex spine lumbscrl compl w/bending views min 6 Desmond Macias DO Work Phone: Start: 02-21-2023 Mammography Jose Cote DO Work Phone: Start: 11-28-2022 H/O: hysterectomy Status post hysterectomy Jose Cote DO Work Phone: Start: 11-07-2012 Colonoscopy Jose Cote DO Work Phone: Plan of Treatment Date Care Activity Detail Author Start: 01-15-2025 End: 01-15-2025 Patient encounter procedure 01/15/2025 1:00 PM EDT Office Visit [facility] [address] [id number] Eric Dominguez, DO [address] [place] [address] [facility] Start: 01-08-2025 Medicare Annual Well ness (AWV) Medicare Annual Wellness (AWV) [facility] Start: 06-05-2024 Screening for malign ant neoplasm of colon Colorectal Cancer Screening [facility] Comment on above: Postponed from 08/25 (Patient Refused) Start: 03-05-2024 End: 03-05-2024 Patient encounter procedure 03/05/2024 11:15 AM EST Office [facility] [address] [place] [address] Jose Cote, DO [address] [facility] [address] [place] [address] [facility] Start: 02-26-2024 End: 02-26-2024 Professional / ancillary services management 02/26/2024 11:00 AM EST Ancillary Procedure [facility] [address] [place] [id number] [facility] Start: 02-22-2024 Screening for malign ant neoplasm of breast Mammogram [facility] Start: 02-22-2024 End: 02-22-2024 Patient encounter procedure 02/22/2024 10:00 AM EDT Procedure Visit [facility] Jose Cote, DO [address] [facility] [address] [place] [address] [facility] Start: 02-21-2024 End: 02-21-2024 Professional / ancillary services management 02/21/2024 5:45 PM EDT Ancillary Procedure [facility] [address] [place] [id number] [facility] Start: 02-19-2024 End: 02-19-2024 Clinical Support [facility] Comment on above: Arrived Start: 11-07-2022 Screening for malign ant neoplasm of colon Colonoscopy [facility] Start: 1966 Pneumococcal Vaccine : 65+ Years (1 of 2 - PCV) Pneumococcal Vaccine: 65+ Years (1 of 2 - PCV) [facility] Start: 1960 Screening for malign ant neoplasm of colon [facility] Immunizations Immunization Date Immunization Notes Care Provider Angela bonner 02-04-2022 influenza, injectabl e, quadrivalent, preservative free Jose Laffay DO Work Phone: [facility] 05-07-2021 COVID-19 Attila Abiolapiyush Valladares Other [facility] Other 01-23-2020 influenza, injectabl e, quadrivalent, contains preservative Jose Cote DO Work Phone: [facility] 02-22-2017 influenza, seasonal, injectable Jose Cote DO Work Phone: [facility] 02-22-2017 influenza, seasonal, injectable, preservative free Imtiaz Painter Other [facility] Other 02-21-2017 influenza virus vaccine, split virus (incl. purified surface antigen) Jose Cote DO Work Phone: [facility] 01-27-2015 influenza, seasonal, injectable Imtiaz Madina Other [facility] Other Payers Date Payer Category Payer Medicare (Managed Care) [facility] [id number] 2023 Unknown [employer] [id number] 2023-Present [address] [place] [address] [id number] 2023 Unknown [id number] 2022 Unknown [id number] 1961 Self-pay 1960 Unknown [id number] 2.16.840.1.413533.3.579.2. 593 1960 Unknown [id number] 2.16.840.1.427299.3.579.2. 59 1960 Unknown [id number] 2.16.840.1.953886.3.579.2. 1258 1960 Unknown [id number] 2.16.840.1.588049.3.579.2. 1258 1958 Unknown [id number] 2.16.840.1.560870.3.579.2. 1258 1960 Unknown [id number] 2.16.840.1.291763.3.579.2. 1258 1958 Unknown [id number] 2.16.840.1.829394.3.579.2. 1258 1960 Unknown [id number] 2.16.840.1.032546.3.579.2. 1258 1958 Unknown [id number] 2.16.840.1.218530.3.579.2. 1258 1958 Unknown [id number] 2.16.840.1.716699.3.579.2. 1258 1958 Unknown [id number] 2.16.840.1.230513.3.579.2. 1258 1960 Unknown [id number] 2.16.840.1.173735.3.579.2. 1258 1960 Unknown [id number] 2.16.840.1.849321.3.579.2. 9 1960 Unknown [id number] 2.16.840.1.748989.3.579.2. 9 1960 Unknown [id number] 2.16.840.1.345073.3.579.2. 1259 [facility] [id number] 2.16.840.1.157513.19 Unknown [id number] 2.16.840.1.530413.3.579.2. 531 Unknown [facility] [id number] Social History Date Type Detail Facility Unknown if ever smoked [facility] Other Start: 11-07-2023 End: 02-08-2024 Sex Assigned At [facility] Start: 07-23-2018 Tobacco smoking status [facility] Smoker (finding) [facility] Start: 1960 Sex Assigned At Female [facility] Start: 04-24-1976 End: 02-08-2024 Tobacco smoking status [facility] Smokes tobacco daily [facility] Start: 04-24-1976 History of tobacco use Cigarette Smoker [facility] Start: 10-05-2023 Tobacco use and exposure User of smokeless tobacco [facility] Start: 01-23-2024 End: 02-08-2024 Alcoholic beverage intake Current drinker of alcohol (finding) [facility] Start: 11-07-2023 End: 01-23-2024 Alcoholic beverage [facility] How often do you nee d to have someone help you when you read instructions, pamphlets, or other written material from your doctor or pharmacy [SILS] Never [facility] Do you belong to any clubs or organizations such as zoroastrianism groups, unions, fraternal or athletic groups, or school groups? No [facility] Are you now , , , , never or living with a partner? [facility] How often to you hav e a drink containing alcohol? 2-3 time sa week [facility] How many standard dr inks containing alcohol do you have on a typical day? 1 or 2 [facility] How often do you hav e 6 or more drinks on 1 occasion? Never [facility] Do you feel stress - tense, restless, nervous, or anxious, or unable to sleep at night because your mind is troubled all the time - these days [OSQ] Very much [facility] (I/We) worried wheth er (my/our) food would run out before (I/we) got money to buy more. Never true [facility] Start: 04-06-2023 Tobacco Comment 6-10 cigarettes a day [facility] Start: 03-20-2023 Alcohol Comment 2-3 times a week; Caffeine Intake: 2-3 cups per day coffee or soda [facility] Start: 01-17-2023 Gender identity Identifies as female gender (finding) [facility] Start: 02-08-2024 Tobacco use and exposure Smokeless tobacco non-user [facility] Medical Equipment Procedure Code Equipment Code Equipment [...] SCREW SET CAPLOX II FDA Start: 07-23-2018 Clinical Notes 02-19-2021 to 02-08-2024 Desmond Macias, DO - 02/08/2024 1:00 PM EDTPjacek Violeta Cote, DO - 01/23/2024 1:30 PM EDT Note Date & Type Note Facility 02-08-2024 History of Presen t illness Narrative Images from the original note were not included. Gisel Almodovar is a 63 y.o. female presents with chief complaint of Chief Complaint Patient presents with Back Pain History of Present Illness Has a hx of chronic back pain. Was seeing Dr Cifuentes in the past but has been over 3 years since last seen. Has had several back surgeries in the past. Pain is in the lower back and wraps around to sides of hips. Has not had any imaging in years. Would like to get imaging updated and then referred back to Dr Cifuentes. She reports experiencing significant lower back and hip pain, which varies in intensity from day to day. The pain is bilateral, but more pronounced on the left side. She has been in considerable discomfort for the past few days, although she cannot identify any specific factors that exacerbate the pain. She does not recall any recent injuries. 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 She has previously taken Neurontin for her headaches, which initially provided some relief for her back pain, but its effectiveness has since diminished. She is scheduled to see a neurologist in February 2024 for further injections. She does not have any muscle relaxants at home but is open to trying them as they have provided some relief in the past. Eyab-kga-wpashao medications such as Aleve or ibuprofen offer minimal relief. She has not tried Celebrex or Mobic. SUBJECTIVE: CURRENT MEDICATIONS: ALLERGIES/DISCONTINUE MEDICATIONS Current Outpatient Medications: albuterol HFA 90 mcg/act inhaler, Inhale 2 puffs every 6 (six) hours if needed for wheezing, Disp: 18 g, Rfl: 2 alendronate (Fosamax) 35 MG tablet, Take 1 tablet by mouth weekly, Disp: 12 tablet, Rfl: 3 busPIRone (Buspar) 10 MG tablet, Take 1 tablet (10 mg) by mouth in the morning and 1 tablet (10 mg) before bedtime., Disp: 180 tablet, Rfl: 1 Cyanocobalamin (Vitamin B 12) 250 MCG lozenge, 1 (one) time each day at the same time., Disp: , Rfl: diphenhydrAMINE-acetaminophen (Tylenol PM Extra Strength) 25-500 MG per tablet, 1 (one) time each day at the same time., Disp: , Rfl: estradiol (Estrace) 1 MG tablet, Take 1 tablet (1 mg) by mouth Daily, Disp: 90 tablet, Rfl: 3 gabapentin (Neurontin) 400 MG capsule, Take 1 capsule (400 mg) by mouth in the morning and 1 capsule (400 mg) in the evening and 1 capsule (400 mg) before bedtime., Disp: 270 capsule, Rfl: 0 Melatonin 10 MG capsule, as directed Orally, Disp: , Rfl: Multiple Vitamins-Minerals (Centrum Silver 50+Women) tablet, as directed Orally, Disp: , Rfl: nortriptyline (Pamelor) 10 MG capsule, Take 1 capsule (10 mg) by mouth at bedtime, Disp: 30 capsule, Rfl: 11 SUMAtriptan (Imitrex) 100 MG tablet, TAKE 1 TABLET ONE TIME IF NEEDED FOR MIGRAINE FOR UP TO 27 DOSES., Disp: 27 tablet, Rfl: 0 thiamine (Vitamin B-1) 100 MG tablet, Take 1 tablet (100 mg) by mouth in the morning., Disp: 30 tablet, Rfl: 11 triamcinolone (Kenalog) 0.1 % cream, APPLY TOPICALLY ONCE DAILY FOR 1 TO 2 WEEKS FOR ITCHY BUMPS AVOID FACE WHEN APPLYING, Disp: , Rfl: zolpidem (Ambien) 5 MG tablet, Take 1 tablet (5 mg) by mouth as needed at bedtime for sleep, Disp: 30 tablet, Rfl: 4 meloxicam (Mobic) 15 MG tablet, Take 1 tablet (15 mg) by mouth once per day, Disp: 30 tablet, Rfl: 3 tiZANidine (Zanaflex) 2 MG tablet, Take 1 tablet (2 mg) by mouth at bedtime, Disp: 30 tablet, Rfl: 1 Allergies Allergen Reactions Sulfamethoxazole-Trimethoprim Hives Other Reaction(s): tongue swelling Trimethoprim Other Reaction(s): Tongue swells Doxepin Swelling Medications Discontinued During This Encounter Medication Reason predniSONE (Deltasone) 20 MG tablet Therapy completed PAST MEDICAL HISTORY: SURGICAL/SOCIAL/FAMILY HISTORY DEPRESSION SCREEN: Past Medical History: Diagnosis Date Anxiety At moderate risk for fall CTS (carpal tunnel syndrome) Depression (CMS/HCC) Displacement of lumbar disc with radiculopathy 11/28/2022 H/O abdominal hysterectomy Hip pain, right Insomnia Intractable migraine with status migrainosus, unspecified migraine type (CMS/HCC) Menopausal symptoms Migraine (CMS/HCC) Migraine variant (CMS/HCC) Neuropathy Numbness Osteopenia Osteopenia of hip Osteoporosis screening Post menopausal syndrome Radiculopathy due to lumbar intervertebral disc disorder 07/05/2017 Refractory migraine (CMS/HCC) 11/28/2022 Screening mammogram for breast cancer 12/14/2021 negative Trochanteric bursitis of left hip Visit for review of DEXA scan Visual impairment w/contact lenses and glasses Past Surgical History: Procedure Laterality Date BACK SURGERY 2007 fusion BACK SURGERY 2005 SECTION, CLASSIC 1989 SECTION, LOW TRANSVERSE 06/10/1989 HYSTERECTOMY LUMBAR DISC SURGERY 04/2017 LUMBAR FUSION PARTIAL HYSTERECTOMY SPINAL FUSION 07/2018 XLIF L5-S1 Dr Cifuentes TUBAL LIGATION Family History Problem Relation Name Age of Onset Breast cancer Mother Shelia Arthritis Mother Shelia Cancer Mother Shelia Heart disease Father Rohit Breast cancer Sister Roxanna Cancer Sister Roxanna Leukemia Brother Ignacio Cancer Brother Ignacio Miscarriages / Stillbirths Daughter Marilyn Depression: Not at risk (02/08/2024) PHQ-2 PHQ-2 Score: 0 Social History Tobacco Use Smoking status: Every Day Types: Cigarettes Start date: 04/24/1976 Smokeless tobacco: Never Tobacco comments: 6-10 cigarettes a day Vaping Use Vaping status: Never Used Substance Use Topics Alcohol use: Yes Alcohol/week: 2.0 standard drinks of alcohol Types: 2 Glasses of wine per week Comment: 2-3 times a week; Caffeine Intake: 2-3 cups per day coffee or soda Drug use: Never REVIEW OF SYMPTOMS: Review of Systems Constitutional: Negative for fatigue and fever. Musculoskeletal: Positive for arthralgias, back pain and gait problem. Skin: Negative for rash. Neurological: Positive for numbness. Negative for weakness. Psychiatric/Behavioral: Negative. All other systems reviewed and are negative. Hematological: Does not bruise/bleed easily. OBJECTIVE: 02/08/2024 1:09 PM 01/23/2024 1:28 PM 01/09/2024 2:08 PM Vitals BMI 19.61 kg/m2 19.65 kg/m2 20.14 kg/m2 BSA (m2) 1.42 m2 1.43 m2 1.41 m2 Systolic 134 128 Diastolic 80 80 Heart Rate 73 SpO2 99 % Temp 98 F Height (in) 5' 1 5' 1 5' Weight (lb) 103.8 104 103.12 Visit Report Report Report Report GENERAL EXAM: Physical Exam Vitals and nursing note reviewed. Constitutional: General: She is not in acute distress. Appearance: Normal appearance. She is not ill-appearing. HENT: Head: Normocephalic and atraumatic. Nose: Nose normal. Eyes: General: No scleral icterus. Right eye: No discharge. Left eye: No discharge. Extraocular Movements: Extraocular movements intact. Musculoskeletal: Cervical back: Neck supple. Skin: General: Skin is warm and dry. Neurological: General: No focal deficit present. Mental Status: She is alert and oriented to person, place, and time. Mental status is at baseline. Psychiatric: Mood and Affect: Mood normal. Behavior: Behavior normal. Thought Content: Thought content normal. Judgment: Judgment normal. ADDITIONAL EXAM: Physical Exam Lumbar spine examination reveals significant decreased range of motion. Pain noted with all planes especially with rotation and extension. Minimal flexion due to pain. Positive straight leg raise test bilaterally. Lower extremities muscle strength testing is 5 out of 5 bilaterally. Deep tendon reflexes are 2 out of 4 patellar and Achilles. Mild antalgic gait and compensation due to back pain. ASSESSMENT AND PLAN: Gisel was seen today for back pain. Diagnoses and all orders for this visit: Degeneration of intervertebral disc of lumbar region, unspecified whether pain present - tiZANidine (Zanaflex) 2 MG tablet; Take 1 tablet (2 mg) by mouth at bedtime - meloxicam (Mobic) 15 MG tablet; Take 1 tablet (15 mg) by mouth once per day Lumbar pain - XR lumbar spine 6+ views including oblique flexion extension - tiZANidine (Zanaflex) 2 MG tablet; Take 1 tablet (2 mg) by mouth at bedtime - meloxicam (Mobic) 15 MG tablet; Take 1 tablet (15 mg) by mouth once per day She reports chronic lower back pain and hip pain, more pronounced on the left side. The pain worsens with cold weather and is not alleviated by fnvp-xak-xwbklpo medications like Aleve or ibuprofen. Examination reveals significant decreased range of motion, pain with all planes especially with rotation and extension, minimal flexion due to pain, positive straight leg raise test bilaterally, muscle strength testing lower extremities 5 out of 5 bilaterally, deep tendon reflexes 2 out of 4 patellar and Achilles, and mild antalgic gait. She will be started on an anti-inflammatory medication and a muscle relaxer. X-rays with flexion and extension views will be obtained today. An MRI of the lumbar spine with and without contrast will be ordered due to her prior surgeries. Results will be reviewed, and a referral to Dr. Cifuentes will be made once results are known. DESMOND MACIAS D.O. This note was entered using [employer] copilot. Grammatical and dictation errors maybe present in translation *I have reviewed and reconciled the history and medication list with the patient today* documented in this encounter [facility] 01-23-2024 History of Presen t illness Narrative Images from the original note were not included. Gisel Almodovar 1960 Gisel Almodovar is a 63 y.o. female presents with chief complaint of Consult (Screening colonoscopy) HPI: HPI Patient is due for a screening colonoscopy she said it has been more than 10 years since her last 1. She has not having any blood in his stool. She has not having any abdominal pain. She has not having any change in bowel habits. She has no family history of colon cancer. SUBJECTIVE: MEDICATIONS: ALLERGIES Current Outpatient Medications Medication Instructions albuterol HFA 90 mcg/act inhaler 2 puffs, Inhalation, Every 6 hours PRN alendronate (Fosamax) 35 MG tablet Take 1 tablet by mouth weekly busPIRone (BUSPAR) 10 mg, Oral, 2 times daily Cyanocobalamin (Vitamin B 12) 250 MCG lozenge Every 24 hours diphenhydrAMINE-acetaminophen (Tylenol PM Extra Strength) 25-500 MG per tablet Every 24 hours estradiol (ESTRACE) 1 mg, Oral, Daily gabapentin (NEURONTIN) 400 mg, Oral, 3 times daily Melatonin 10 MG capsule as directed Orally Multiple Vitamins-Minerals (Centrum Silver 50+Women) tablet as directed Orally nortriptyline (PAMELOR) 10 mg, Oral, Nightly predniSONE (Deltasone) 20 MG tablet take 3 tablets by mouth daily for 3 days then 2 tabs daily for 3 days then 1 tab daily for 3 days then stop SUMAtriptan (Imitrex) 100 MG tablet TAKE 1 TABLET ONE TIME IF NEEDED FOR MIGRAINE FOR UP TO 27 DOSES. thiamine (VITAMIN B-1) 100 mg, Oral, Daily triamcinolone (Kenalog) 0.1 % cream APPLY TOPICALLY ONCE DAILY FOR 1 TO 2 WEEKS FOR ITCHY BUMPS AVOID FACE WHEN APPLYING zolpidem (AMBIEN) 5 mg, Oral, Nightly PRN Allergies Allergen Reactions Sulfamethoxazole-Trimethoprim Hives Other Reaction(s): tongue swelling Trimethoprim Other Reaction(s): Tongue swells Doxepin Swelling PAST MEDICAL HISTORY: SOCIAL HISTORY SURGICAL HISTORY: Past Medical History: Diagnosis Date Anxiety At moderate risk for fall CTS (carpal tunnel syndrome) Depression (CMS/HCC) Displacement of lumbar disc with radiculopathy 11/28/2022 H/O abdominal hysterectomy Hip pain, right Insomnia Intractable migraine with status migrainosus, unspecified migraine type (CMS/HCC) Menopausal symptoms Migraine (CMS/HCC) Migraine variant (CMS/HCC) Neuropathy Numbness Osteopenia Osteopenia of hip Osteoporosis screening Post menopausal syndrome Radiculopathy due to lumbar intervertebral disc disorder 07/05/2017 Refractory migraine (CMS/HCC) 11/28/2022 Screening mammogram for breast cancer 12/14/2021 negative Trochanteric bursitis of left hip Visit for review of DEXA scan Visual impairment w/contact lenses and glasses Social History Tobacco Use Smoking status: Every Day Types: Cigarettes Start date: 04/24/1976 Smokeless tobacco: Current Tobacco comments: 6-10 cigarettes a day Substance Use Topics Alcohol use: Yes Alcohol/week: 2.0 standard drinks of alcohol Types: 2 Glasses of wine per week Comment: 2-3 times a week; Caffeine Intake: 2-3 cups per day coffee or soda Drug use: Never Past Surgical History: Procedure Laterality Date BACK SURGERY 2008 fusion BACK SURGERY 2006 SECTION, CLASSIC 1989 SECTION, LOW TRANSVERSE 06/10/1989 HYSTERECTOMY LUMBAR DISC SURGERY 04/2017 LUMBAR FUSION PARTIAL HYSTERECTOMY SPINAL FUSION 07/2018 XLIF L5-S1 Dr Cifuentes TUBAL LIGATION REVIEW OF SYMPTOMS: Review of Systems Constitutional: Negative for appetite change, fatigue and fever. HENT: Negative for trouble swallowing. Respiratory: Negative for cough and shortness of breath. Cardiovascular: Negative for chest pain. Gastrointestinal: Negative for abdominal pain. Genitourinary: Negative for hematuria. Musculoskeletal: Negative for back pain. Skin: Negative for wound. Neurological: Negative for seizures. OBJECTIVE: Visit Vitals BP 128/80 Ht 5' 1 Wt 104 lb BMI 19.65 kg/m OB Status Hysterectomy Smoking Status Every Day BSA 1.43 m Physical Exam Constitutional: Appearance: Normal appearance. HENT: Head: Atraumatic. Eyes: General: No scleral icterus. Cardiovascular: Rate and Rhythm: Regular rhythm. Pulmonary: Effort: No respiratory distress. Abdominal: General: There is no distension. Tenderness: There is no abdominal tenderness. Skin: Findings: No bruising. Neurological: Mental Status: She is alert. Gait: Gait normal. ASSESSMENT AND PLAN: Assessment/Plan Diagnoses and all orders for this visit: Colon cancer screening - Ambulatory referral to General Surgery Plan is for colonoscopy. We discussed the prep, the procedure, the risks and the benefits and the potential complications including, but not limited to, perforation and bleeding. They would like to proceed. documented in this encounter [facility] 07-15-2021 Evaluation note Encounter Date Diagnosis Assessment [...] - G89.29) Stable, follow up after procedure. [facility] 01-21-2022 Evaluation note* Encounter Date Diagnosis Assessment Notes Treatment Notes Treatment Clinical Notes Apr, Left hip pain (ICD-10 - M25.552) Apr, Strain of left hip adductor muscle, initial encounter (ICD-10 - S76.012A) Gisel returns with left hip pain and abductor strain/syndrome. At this juncture we have discussed the [...] Moody and Dr. Cifuentes Apr, Other Monitor Continu e to monitor [facility] 01-14-2022 Evaluation note* Encounter Date Diagnosis Assessment Notes Treatment Notes Treatment Clinical Notes Apr, Encounter for immunization (ICD-10 - Z23) Patient presents for COVID-19 vaccination BOOSTER. Pre-screening form answers evaluated with patient. Patient denies current illness or allergic reaction to component of COVID-19 vaccine. Patient provided with current copy of EUA. [facility] Other 12-20-2021 Evaluation note* Encounter Date Diagnosis Assessment Notes Treatment Notes Treatment Clinical Notes Mar, Cervical spondylosis (ICD-10 - M47.812) [facility] Other 10-29-2021 Evaluation note* Encounter Date Diagnosis Assessment Notes Treatment Notes Treatment Clinical Notes Jan, Left hip pain (ICD-1 0 - M25.552) Jan, Left hand pain (ICD- 10 - M79.642) Extensive discussion about current condition and treatment options available. Xrays reviewed with patient today. We discussed modifying activity with hand. Jan, Dupuytren contractur e (ICD-10 - M72.0) Monitor Jan, Strain of left hip adductor muscle, initial encounter (ICD-10 - S76.012A) Gisel presents with left hip pain and abductor strain/syndrome [...] to 8 weeks of physical therapy and anti-inflammato alvaro on a regular basis. We will plan [...] as documented in the electronic medical record. [facility] Other Evaluation noteNo InformationNort [email or web address] Other Evaluation noteNo assessment information available [facility] Work Phone: Evaluation note* Diagnosis Colon cancer screening Special screening for malignant neoplasms, colon [facility] Diagnosis Degeneration of intervertebral disc of lumbar region, unspecified whether pain present- Primary Lumbar pain Lumbago [facility] N[facility]ative - Reported* Type Description Date Medical History Migraine Headaches Medical History [facility] Surgical History partialhysterectomy Surgical History tubal ligation Surgical History Back fusion 2008 Surgical History Back Sx 2006 Surgical History lumbar diskectomy- Dr. Cifuentes Surgical History XLIF L5-S1 - Dr. Cifuentes 07/2018 Surgical History Csection 1989 Hospitalization History See Sx Hx [facility] Other History general Narrative - Reported* Type Description Date Medical History Migraine Headaches Medical History [facility] Surgical History partialhysterectomy Surgical History tubal ligation 1992 Surgical History x1 Surgical History tubal ligation Surgical History Back fusion 2008 Surgical History partial hysterectomy Surgical History Back Sx 2006 Surgical History fusion of lower spine 2008 Surgical History fusion lower spine 2005 Surgical History lumbar diskectomy- Dr. Cifuentes Surgical History Neck Injections x2 - Dr. Luis Surgical History XLIF L5-S1 - Dr. Cifuentes 07/2018 Surgical History Ablation Neck - Dr. Luis 11/26/15 Surgical History Csection 1989 Surgical History Lower Back surg- 8 Surgical History SI INJ- 01/2018 Hospitalization History see above [facility] Other Summary Purpose Family History No Family History Records FoundNo Family History Records FoundNo Family History Records Found Advance Directives No Advanced Directives Records Found Advance Directive Response Recorded Date/ Time Advance Directives No February 02, 2017 10:52am Chief Complaint and Reason for Visit Chief Complaint cbc Additional Source Comments REASON FOR VISIT (unrecogniz ed section and content) Reason Comments Consult Screening colonoscop y Specialty Diagnoses / Procedures Referred By Lili t Referred To Contact General Surgery Diagnoses Colon cancer screening Procedures CT OFFICE/OUTPATIENT NEW HIGH MDM 60 MINUTES Desmond Macias DO [address] [place] [address] Jose Cote DO [address] [place] [address] Referral ID Status Reason Start Date Expiration Date V isits Requested Visits Authorized [id number] Closed Specialty Services Required 11/14/2023 05/12/2024 1 1 Reason Comments Back Pain INFORMATION SOURCE (unrecogn ized section and content) DATE CREATED AUTHOR 01/25/2022 [facility] DATE CREATED AUTHOR AUTHOR'S ORGANIZ ATION 01/09/2023 [facility] DATE CREATED AUTHOR AUTHOR'S ORGANIZ ATION 02/20/2024 [facility] Care Teams (unrecognized sec tion and content) Team Status: Active Member Role Status Dates Desmond Macias DO Primary Care Provider Active Team Status: Inactive Member Role Status Dates Desmond Macias DO Primary Care Provider Active Outreach Community Attending Provider Active Equities Analyst Relationship Specialty Start Date End Date Desmond Macias DO [address] [place] [address] PCP - General Family Medicine 11/23/22 Desmond Macias DO [address] [place] [id number] PCP - Devoted 08/23/23 Equities Analyst Relationship Specialty Start Date End Date Desmond Macias DO [address] [place] [address] PCP - General Family Medicine 11/23/22 Desmond Macias DO [address] [place] [address] PCP - Devoted 08/23/23 Equities Analyst Relationship Specialty Start Date End Date Desmond MaciasDO [address] [place] [address] PCP - General Family Medicine 11/23/22 JaydenDesmond garciaDO [address] [place] [address] PCP - Devoted 08/23/23 Goals (unrecognized section and content) Goals may [...] BE BASED ON THE PRIMARY CLINICAL RECORDS. [employer] provides no warranty or guarantee of the accuracy or completeness of information in this document.
== END 2024-02-23 12:30 | disposition home or self-care (01) ==
LOC: MAMMO 12:29
PROVIDERS: PCP Family Medicine; Visit Provider Obstetrics & Gynecology
DX: Z12.31 Encounter for screening mammogram for malignant neoplasm of breast (principal); Z78.0 Asymptomatic menopausal state; Z80.3 Family history of malignant neoplasm of breast; M85.80 Other specified disorders of bone density and structure, unspecified site
CPT/HCPCS: 77063; 77067; 77080

== ENCOUNTER 2025-01-15 15:43 | Outpatient (REF) | payer OTHER, SELFPAY ==
--- OUTSIDE RECORDS SUMMARY | 2025-01-15 15:50 | XMS_ITS | CCD ---
Author Organization [facility] CliniSysd Care Team Providers Care Stencil Printer Name Role Phone Imtiaz Painter Unavailable Abiola Valladares Unavailable JanelleCharles contreras Unavailable NICK, DR GIPSON Admitting Unavailable PETZNICK, DESMOND Primary Care Unavailable KARNINO, DR GIPSON Attending Unavailable NICK, DR GIPSON Consulting Unavailable MILTON, DR LEELA Thao Consulting Unavailable FLYNNEBCHAVEZ, DR CEE Costa Consulting Unavailable PETSALAS, DESMOND Primary Care Unavailable NICK, DR GIPSON Attending Unavailable NICK, DR GIPSON Consulting Unavailable KARASIK, DR GIPSON Admitting Unavailable Petznick, DO Desmond Primary Care Provider Community, Outreach Attending Provider Desmond Macias DO Primary Care Provider Petznick DO, Desmond Mcdaniel Unavailable Petznick DO, Desmond Primary Care Provider Petznick DO, Desmond Attending Provider Desmond Macias Admitting Unavailable Petalyssaick, Desmond Primary Care Unavailable PetMarco Antonio marinaew Attending Unavailable Petsalas, Desmond Primary Care Unavailable Panfilo Cifuentes Admitting Unavailable Panfilo Cifuentes Attending Unavailable VICTORINO ALEJANDRE Attending Unavailable VICTORINO ALEJANDRE Referring Unavailable VICTORINO ALEJANDRE Attending Unavailable DESMOND MACIAS Attending Unavailable VICTORINO ALEJANDRE Attending Unavailable VICTORINO ALEJANDRE Referring Unavailable VICTORINO ALEJANDRE Referring Unavailable JR. SHAH GEORGE C Attending Unavaila ble VICTORINO ALEJANDRE Referring Unavailable PETDESMOND MARINA Attending Unavailable JOSE BOONE Attending Unavailable JR. PABLO, YOUNG Mcdaniel Attending Unavailanthony SHAH JR., YOUNG Mcdaniel Referring Unavaila JOSE Howell Attending Unavailable JR. PABLO, YOUNG Mcdaniel Attending Unavaila NITIN Schultz Attending Unavailable JOSE SONG Attending Unavailable DESMOND MACIAS Referring Unavailable PETDESMOND MARINA Attending Unavailable DESMOND MACIAS Referring Unavailable DESMOND MACIAS Referring Unavailable VICTORINO ALEJANDRE Attending Unavailable COLLEEN, DESMOND Mcdaniel Referring Unavailable JOSE SONG Attending Unavailable NITIN DOMINGUEZ Attending Unavailable DESMOND MACIAS Attending Unavailable DESMOND MACIAS Referring Unavailable VICTORINO ALEJANDRE Attending Unavailable BENJI PATEL Attending Unavailable COLLEEN, DESMOND Mcdaniel Attending Unavailable DESMOND LANIER Attending Unavailable Allergies Allergy Classification Reported Allergen(s) Allergy Type Date of Onset Reaction(s) Facility (20 sources) Sulfamethoxazole / Trimethoprim Drug Allergy 1 anaphylaxis, Hives [facility] (1 source) Sulfamethoxazole / Trimethoprim Drug Allergy 3 [facility] Rep[facility] (3 sources) Sulfamethoxazole; Translations: [sulfamethoxazole] Drug Allergy 8 Tongue swells, Tongue swells, anaphylaxis [facility] (20 sources) Trimethoprim Drug Allergy 8 Tongue swells [facility] (20 sources) Doxepin Drug Allergy 4 Swelling [facility] Work Phone: (1 source) Doxepin Drug Allergy [address] [facility] Repository Medications Current Medications Medication Drug Class(es) Dates Sig (Normalized) Sig (Original) acetaminophen 500 mg oral capsule (4 sources) Start: 05-14-2021 take 2 capsules by mouth every eight hours Acetaminophen 500 MG 2 capsule as needed Orally 3 times a day for 30 days Apr, Active acetaminophen 500 mg / diphenhydrAMINE hydrochloride 25 mg oral tablet (20 sources) Histamine-1 Receptor Antagonist diphenhydrAMINE-ying taminophen (Tylenol PM Extra Strength) 25-500 MG per tablet 1 (one) time each day at the same time Active Acetaminophen / HYDROcodone (1 source) Opioid Agonist Start: 05-21-2019 take 1 tablet by mouth every six hours as needed [place] 5-325 MG 1 tablet as needed Orally every 6 hrs Apr, Active [id number] 200 actuat albuterol 0.09 mg/actuat metered dose inhaler (20 sources) beta2-Adrenergic Agonist Start: 02-26-2024 take 2 puff(s) by inhalation every six hours for wheezing albuterol HFA 90 mcg/act inhaler Indications: Primary insomnia , Neuropathy Inhale 2 puffs every 6 (six) hours if needed for wheezing 18 g 2 02/26/2024 Active Start: 05-15-2023 take 2 puff(s) by in halation every six hours for wheezing albuterol HFA 90 mcg/act inhaler Indications: Primary insomnia , Neuropathy Inhale 2 puffs every 6 (six) hours if needed for wheezing 18 g 2 05/15/2023 Active alendronic acid 35 mg oral tablet (20 sources) Bisphosphonate Start: 01-15-2025 take 1 tablet by mouth every week alendronate (Fosamax) 35 MG tablet Indications: Osteopenia, unspecified location Take 1 tablet by mouth weekly 12 tablet 3 01/15/2025 Active Start: 01-15-2025 take 1 tablet by zoe th every week alendronate (Fosamax) 35 MG tablet Indications: Osteopenia, unspecified location Take 1 tablet by mouth weekly 12 tablet 3 01/15/2025 Active Start: 09-11-2023 End: 01-15-2025 take 1 tablet by mouth every week alendronate (Fosamax) 35 MG tablet Indications: Osteopenia, unspecified location Take 1 tablet by mouth weekly 12 tablet 3 01/09/2024 01/15/2025 Discontinued (Reorder) azithromycin 250 mg oral tablet (2 sources) Macrolide Antimicrobial Start: 05-01-2024 End: 05-06-2024 take 2 tablets by mouth once daily, then take 1 tablet by mouth once daily azithromycin (Zithromax) 250 MG tablet Indications: Acute bronchitis, bacterial Take 2 tablets (500 mg) by mouth Daily for 1 day, THEN 1 tablet (250 mg) Daily for 4 days. 6 tablet 05/01/2024 05/06/2024 Active busPIRone hydrochloride 10 mg oral tablet (20 sources) Start: 03-19-2024 End: 01-15-2025 busPIRone (Buspar) 10 MG tablet Indications: Anxiety TAKE 1 TABLET IN THE MORNING AND 1 TABLET BEFOREBEDTIME 180 tablet 1 08/19/2024 01/15/2025 Discontinued Start: 09-11-2023 End: 03-09-2024 busPIRone (Buspar) 10 MG tab let Indications: Anxiety TAKE 1 TABLET IN THE MORNING AND 1 TABLET BEFOREBEDTIME 180 tablet 1 02/26/2024 Active Calcium + D3 600-200 MG-UNIT (7 sources) take 2 tablets by mouth once daily Calcium + D3 600-200 MG-UNIT 2 tablet with a meal Orally Once a day Active Centrum Silver 50+Women - (7 sources) Centrum Silver 50+Women - as directed Orally Active estradiol 1 mg oral tablet (20 sources) Estrogen Start: 09-11-2023 End: 01-15-2026 take 1 tablet by mouth once daily estradiol (Estrace) 1 MG tablet Indications: Menopausal symptom Take 1 tablet (1 mg) by mouth Daily 90 tablet 3 01/15/2025 01/15/2026 Active Fish Oils (7 sources) take 1 capsule by mouth once daily Fish Oil 1200 MG 1 capsule Orally Once a day Active fluconazole 200 mg oral tablet (11 sources) Azole Antifungal Start: 09-05-2024 End: 10-05-2024 take 1 tablet by mouth once daily fluconazole (Diflucan) 200 MG tablet Take 200 mg by mouth Daily 10/01/2024 Active Start: 07-24-2024 End: 08-07-2024 take 1 tablet by mouth once daily fluconazole (Diflucan) 100 MG tablet Indications: Fungal colitis Take 1 tablet (100 mg) by mouth Daily for 14 days 14 tablet 1 07/24/2024 08/07/2024 Active Start: 06-12-2024 End: 06-26-2024 take 1 tablet by mouth once daily fluconazole (Diflucan) 100 MG tablet Indications: Fungal colitis Take 1 tablet (100 mg) by mouth Daily for 14 days 14 tablet 1 06/12/2024 06/26/2024 Active gabapentin 400 mg oral capsule (20 sources) Anti-epileptic Agent Start: 12-26-2023 End: 12-08-2024 gabapentin (Neurontin) 400 MG capsule Indications: Displacement of lumbar disc with radiculopathy TAKE 1 CAPSULE IN THE MORNING, IN THE EVENING, AND BEFORE BEDTIME. 270 capsule 12/08/2024 Active Start: 10-05-2023 End: 12-23-2023 take 1 capsule by mouth in the [...] capsule (400 mg) before bedtime. 270 capsule 10/05/2023 12/23/2023 Discontinued (Reorder) take 1-2 tablets by mouth twice daily as needed Gabapentin 300 MG 1-2 tablet Orally bid prn for 30 day(s) Active ipratropium bromide 0.021 mg/actuat metered dose nasal spray (17 sources) Anticholinergic Start: 11-22-2024 End: 12-22-2024 ipratropium (Atrovent) 0.03 % nasal spray Indications: Vasomotor rhinitis Administer 2 sprays into each nostril every 12 (twelve) hours 30 mL 1 11/22/2024 Active meloxicam 15 mg oral tablet (20 sources) Nonsteroidal Anti-inflammatory Drug Start: 12-09-2024 meloxicam (Mobic) 15 MG tablet Indications: Degeneration of intervertebral disc of lumbar region, unspecified whether pain present , Lumbar pain TAKE 1 TABLET ONCE DAILY 90 tablet 12/09/2024 Active Start: 02-09-2024 End: 09-23-2024 meloxicam (Mobic) 15 MG tabl et Indications: Degeneration of intervertebral disc of lumbar region, unspecified whether pain present , Lumbar pain TAKE 1 TABLET ONCE DAILY 90 tablet 09/23/2024 Active Multiple Vitamins-Minerals ( Centrum Silver 50+Women) tablet (20 sources) Multiple Vitamin s-Minerals (Centrum Silver 50+Women) tablet Active Multiple Vitamin s-Minerals (Centrum Silver 50+Women) tablet as directed Orally Active nortriptyline 10 mg oral capsule (20 sources) Tricyclic Antidepressant Start: 12-27-2023 End: 06-02-2025 take 1 capsule by mouth at bedtime nortriptyline (Pamelor) 10 MG capsule Indications: Neuropathy Take 1 capsule (10 mg) by mouth at bedtime 30 capsule 11 06/02/2024 01/15/2025 Discontinued predniSONE 10 mg oral tablet (10 sources) Start: 05-01-2024 End: 05-06-2024 take 3 tablets by mouth once daily predniSONE (Deltasone) 10 MG tablet Indications: Acute bronchitis, bacterial Take 3 tablets (30 mg) by mouth Daily for 5 days 15 tablet 05/01/2024 05/06/2024 Active Start: 11-22-2023 End: 02-08-2024 predniSONE (Deltasone) 20 MG tablet take 3 tablets by mouth daily for 3 days then 2 tabs daily for 3 days then 1 tab daily for 3 days then stop 11/22/2023 02/08/2024 Discontinued (Therapy completed) Start: 07-25-2018 End: 03-19-2024 Prednisone 10 mg tablets,dos e pack Discontinued 1 dose pk PO per package directions July 25, 2018 12:00am March 19, 2024 3:58pm take 4 tabs for 3 days then take 3 tabs for 3 days then take 2 tabs for 3 days then take 1 tab for 3 days Start: 07-25-2018 Prednisone Act maureen 1 dose pk PO per package directions July 25, 2018 12:00am take 4 tabs for 3 days then take 3 tabs for 3 days then take 2 tabs for 3 days then take 1 tab for 3 days Start: 05-17-2017 End: 02-02-2018 Prednisone 10 mg tablets,dos e pack Discontinued 1 dose pk PO per package directions May 17, [...] 3 days SUMAtriptan 100 mg oral tablet (20 sources) Serotonin-1b and Serotonin-1d Receptor Agonist Start: 09-30-2024 SUMAtriptan (Imitrex ) 100 MG tablet Indications: Primary insomnia , Neuropathy TAKE 1 TABLET ONE TIME NEEDED FOR MIGRAINE FOR UP TO 1 DOSE 27 tablet 1 09/30/2024 Active Start: 05-12-2017 SUMAtriptan (I mitrex) 100 MG tablet Indications: Primary insomnia , Neuropathy Take 1 tablet (100 mg) by mouth 1 (one) time if needed for migraine for up to 1 dose 27 tablet 1 02/26/2024 Active take 1 tablet by zoe th every twelve hours Imitrex 100 MG 1 tablet as needed Orally Twice a day prn Active tiZANidine 2 mg oral tablet (20 sources) Central alpha-2 Adrenergic Agonist Start: 03-19-2024 End: 12-15-2024 tiZANidine (Zanaflex) 2 MG tablet Indications: Degeneration of intervertebral disc of lumbar region, unspecified whether pain present , Lumbar pain TAKE 1 TABLET AT BEDTIME 90 tablet 1 12/09/2024 Active Start: 02-09-2024 End: 03-10-2024 take 1 tablet by mouth at bedtime tiZANidine (Zanaflex) 2 MG tablet Indications: Degeneration of intervertebral disc of lumbar region, unspecified whether pain present , Lumbar pain Take 1 tablet (2 mg) by mouth at bedtime 30 tablet 1 02/09/2024 Active Start: 05-21-2019 take 1-2 tablets by mouth once daily as needed tiZANidine HCl 2 MG 1-2 tablet as needed Orally daily Apr, Active triamcinolone acetonide 1 mg/ml topical cream (20 sources) Corticosteroid Start: 12-21-2023 triamcinolone (Kenalog) 0.1 % cream 12/21/2023 Active Start: 12-21-2023 triamcinolone (Kenalog) 0.1 % cream [...] Active vitamin b12 0.25 mg oral lozenge (20 sources) Vitamin B12 Cyanocobalamin ( Vitamin B 12) 250 MCG lozenge 1 (one) time each day at the same time Active zolpidem tartrate 5 mg oral tablet (20 sources) gamma-Aminobutyri c Acid-ergic Agonist Start: 01-06-2025 End: 04-06-2025 zolpidem (Ambien) 5 MG tablet Indications: Primary insomnia Take 2 tablets (10 mg) by mouth as needed at bedtime for sleep 90 tablet 1 01/06/2025 04/06/2025 Active Start: 03-19-2024 End: 09-25-2024 zolpidem (Ambien) 5 MG table t Indications: Primary insomnia TAKE 1 TABLET AT BEDTIME ASNEEDED FOR SLEEP. 90 tablet 09/23/2024 Active Start: 11-22-2023 End: 02-14-2024 zolpidem (Ambien) 5 MG table t Indications: Primary insomnia Take 1 tablet (5 mg) by mouth as needed at bedtime for sleep 30 tablet 4 01/15/2024 Active Completed/Discontinued Medications Medication Drug Class(es) Dates Sig (Normalized) Sig (Original) biotin 5 mg oral capsule (13 sources) End: 01-09-2024 biotin 5 MG capsule 1 capsule 1 (one) time each day at the same time. 01/09/2024 Discontinued take 1 capsule by mouth once cesario ly Biotin 5 MG 1 capsule Orally Once a day Active 5 ml bupivacaine hydrochloride 5 mg/ml injection (15 sources) Amide Local Anesthetic Start: 01-06-2025 End: 01-06-2025 bupivacaine PF (Marcaine) 0.5 % injection 2 mL Start: 01-06-2025 End: 01-06-2025 2 mL, Injection, Once PRN Pr ocedure, Starting on 01/06/25 at 1013, For 1 dose Start: 09-11-2024 End: 09-05-2024 bupivacaine (Marcaine) 0.5 % injection 5 mg Start: 09-11-2024 End: 09-05-2024 5 mg, Injection, Once, On We d 09/11/24 at 1230, For 1 dose Start: 08-01-2024 End: 07-24-2024 bupivacaine (Marcaine) 0.5 % injection 5 mg Start: 08-01-2024 End: 07-24-2024 5 mg (1 mL), Injection, Once , On Elena 08/01/24 at 1130, For 1 dose Start: 06-13-2024 End: 06-12-2024 bupivacaine (Marcaine) 0.5 % injection 5 mg Start: 06-13-2024 End: 06-12-2024 5 mg (1 mL), Injection, Once , On Elena 06/13/24 at 1645, For 1 dose Start: 04-19-2024 End: 04-15-2024 bupivacaine (Marcaine) 0.5 % injection 5 mg Start: 04-19-2024 End: 04-15-2024 5 mg (1 mL), Injection, Once , On Mon04/19/24 at 1830, For 1 dose Start: 01-01-2024 End: 12-27-2023 bupivacaine (Marcaine) 0.5 % injection 5 mg Start: 01-01-2024 End: 01-01-2024 bupivacaine (Marcaine) 0.5 % injection 5 mg Start: 01-01-2024 End: 12-27-2023 5 mg (1 mL), Injection, Once , On Mon01/01/24 at 1030, For 1 dose calcium citrate 600 mg and vitamin D3 (Citrical & Minerals + Vit D) 600-200 MG-UNIT tablet (6 sources) End: 01-09-2024 calcium citrate 600 mg and vitamin D3 (Citrical & Minerals + Vit D) 600-200 MG-UNIT tablet 1 (one) time each day at the same time. 01/09/2024 Discontinued calcium citrate 600 mg and vitamin D3 (Citrical & Minerals + Vit D) 600-200 MG-UNIT tablet 1 (one) time each day at the same time. Active cephalexin 500 mg oral capsule (4 sources) Cephalosporin Antibacterial Start: 07-25-2018 End: 03-19-2024 take 1 capsule by mouth every eight hours Cephalexin (Keflex) 500 mg capsule Discontinued 500 MG PO Q8H July 25, 2018 12:00am March 19, 2024 3:58pm Start: 05-17-2017 End: 02-02-2018 take 1 capsule by mouth every eight hours Cephalexin (Keflex) 500 mg capsule Discontinued 500 MG PO Q8H May 17, 2017 1:00am February 02, 2018 10:15am cyclobenzaprine hydrochloride 5 mg oral tablet (10 sources) Muscle Relaxant Start: 04-13-2021 take 1 tablet by mouth every twenty-four hours Cyclobenzaprine HCl 5 MG 1 tablet at bedtime as needed Orally Once a day for 30 day(s) Mar, Not-Taking Start: 07-25-2018 End: 03-19-2024 take 1 tablet by mouth three times daily as needed for muscle spasms Cyclobenzaprine 10 mg tablet Discontinued 10 MG PO Three times daily as needed for back spasms 50 July 25, 2018 12:00am March 19, 2024 4:00pm Start: 05-17-2017 End: 02-02-2018 take 1 tablet by mouth three times daily as needed for muscle spasms Cyclobenzaprine 10 mg tablet Discontinued 10 MG PO Three times daily as needed for back spasms 50 May 17, 2017 1:00am February 02, 2018 10:15am dexamethasone phosphate 4 mg/ml injectable solution (11 sources) Corticosteroid Start: 09-11-2024 End: 09-05-2024 dexAMETHasone sod phos (Decadron) injection 4 mg Start: 09-11-2024 End: 09-05-2024 4 mg (1 mL), Injection, Once , On Mon09/11/24 at 1230, For 1 dose Start: 08-01-2024 End: 07-24-2024 dexAMETHasone sod phos (Deca dron) injection 4 mg Start: 08-01-2024 End: 07-24-2024 4 mg (1 mL), Injection, Once , On Mon08/01/24 at 1130, For 1 dose Start: 06-13-2024 End: 06-12-2024 dexAMETHasone sod phos (Deca dron) injection 4 mg Start: 06-13-2024 End: 06-12-2024 4 mg (1 mL), Injection, Once , On Elena 06/13/24 at 1645, For 1 dose Start: 04-19-2024 End: 04-19-2024 dexAMETHasone sod phos (Deca dron) injection 4 mg Start: 04-19-2024 End: 04-19-2024 4 mg (1 mL), Injection, Once , On Mon04/19/24 at 1830, For 1 dose Start: 01-01-2024 End: 12-27-2023 dexAMETHasone sod phos (Deca dron) injection 4 mg Start: 01-01-2024 End: 01-01-2024 dexAMETHasone sod phos (Deca dron) injection 4 mg Start: 01-01-2024 End: 12-27-2023 4 mg (1 mL), Injection, Once , On Mon01/01/24 at 1030, For 1 dose doxepin hydrochloride 10 mg oral capsule (3 sources) Tricyclic Antidepressant Start: 11-14-2023 End: 11-13-2024 take 1 capsule by mouth at bedtime doxepin (SINEquan) 10 MG capsule Indications: Primary insomnia Take 1 capsule (10 mg) by mouth at bedtime 30 capsule 3 11/14/2023 12/27/2023 Discontinued (Therapy completed) estrogens, conjugated (jail) 0.625 mg oral tablet (9 sources) Estrogen Start: 05-12-2017 End: 03-19-2024 Conjugated Estrogens 0.625 M tablet Discontinued 0.625 MG PO Every morning May 12, 2017 1:00am March 19, 2024 4:00pm melatonin 10 mg oral tablet (20 sources) Start: 02-02-2018 End: 03-19-2024 take 1 tablet by mouth once daily at bedtime Melatonin 10 mg Tablet Discontinued 1 TAB PO Daily at bedtime February 02, 2018 12:00am March 19, 2024 4:00pm End: 04-20-2024 Melatonin 10 MG capsule as d irected Orally 04/20/2024 Discontinued 1 ml methylPREDNISolone acetate 40 mg/ml injection (14 sources) Corticosteroid Start: 01-06-2025 End: 01-06-2025 methylPREDNISolone acetate (DEPO-Medrol) injection 40 mg Start: 01-06-2025 End: 01-06-2025 40 mg, Intra-articular, Once PRN Procedure, Starting on Mon01/06/25 at 1013, For 1 dose Start: 10-16-2024 End: 10-16-2024 methylPREDNISolone acetate ( DEPO-Medrol) injection 40 mg Start: 10-16-2024 End: 10-16-2024 40 mg, Intra-articular, Once PRN Procedure, Starting on Mon10/16/24 at 1050, For 1 dose Start: 04-09-2021 Medrol 4 MG as directed Orally Mar, Active naproxen 500 mg oral tablet (4 sources) Nonsteroidal Anti-inflammatory Drug Start: 05-14-2021 take 1 tablet by mouth twice daily at mealtime as needed Naproxen 500 MG 1 tablet with food or milk as needed Orally Twice a day for 30 day(s) Apr, Not-Taking nystatin [id number] unt/ml oral suspension (2 sources) Polyene Antifungal Start: 03-25-2024 End: 04-12-2024 take 2 mL by mouth every six hours nystatin (Mycostatin) [id number] UNIT/ML suspension SWISH 2ML IN MOUTH EVERY 6 HOURS FOR 2 MINUTES AND SPIT/EXPECTORATE. 03/25/2024 04/12/2024 Discontinued [place]-3 Fatty Acids (Fish Oil) 1200 MG capsule delayed-release (6 sources) End: 01-09-2024 [place]-3 Fatty Acids (Fish Oil) 1200 MG capsule delayed-release 1 capsule 1 (one) time each day at the same time. 01/09/2024 Discontinued [place]-3 Fatty Ac ids (Fish Oil) 1200 MG capsule delayed-release 1 capsule 1 (one) time each day at the same time. Active oseltamivir 75 mg oral capsule (4 sources) Neuraminidase Inhibitor Start: 04-20-2024 End: 05-01-2024 take 1 capsule by mouth in the morning oseltamivir (Tamiflu) 75 MG capsule Indications: Influenza A Take 1 capsule (75 mg) by mouth in the morning and 1 capsule (75 mg) before bedtime. Do all this for 5 days. 10 capsule 04/20/2024 05/01/2024 Discontinued (Therapy completed) oxyCODONE hydrochloride 5 mg oral capsule (4 sources) Opioid Agonist Start: 07-25-2018 End: 03-19-2024 take 5-10 mg by mouth every six hours as needed for pain Oxycodone 5 mg capsule Discontinued 5 - 10 MG PO Q6H as needed for pain 60 8 July 25, 2018 March 19, 2024 3:58pm Start: 05-17-2017 End: 02-02-2018 take 1 tablet by mouth every six hours as needed for pain Oxycodone (Roxicodone) 5 mg Tablet Discontinued 1 - 2 TAB PO Q6H as needed for Pain 60 May 17, 2017 1:00am February 02, 2018 10:15am thiamine 100 mg oral tablet (16 sources) Start: 03-14-2023 End: 03-13-2024 take 1 tablet by mouth in the morning thiamine (Vitamin B-1) 100 MG tablet Indications: Idiopathic progressive polyneuropathy Take 1 tablet (100 mg) by mouth in the morning. 30 tablet 11 03/14/2023 03/13/2024 valsartan 160 mg oral tablet (14 sources) Angiotensin 2 Receptor Abbie Start: 07-29-2024 End: 10-27-2024 take 1 tablet by mouth once daily valsartan (Diovan) 160 MG tablet Indications: Elevated blood pressure reading Take 1 tablet (160 mg) by mouth Daily 90 tablet 1 07/29/2024 10/24/2024 Discontinued varenicline (13 sources) Partial Cholinergic Nicotinic Agonist Start: 05-01-2024 End: 07-29-2024 Varenicline Tartrate, Starter, (Chantix Starting ) 0.5 MG X 11 & 1 MG X 42 tablet therapy pack Indications: Tobacco abuse Take 1 Package by mouth Daily 1 each 05/01/2024 07/29/2024 Discontinued (Therapy completed) Start: 05-01-2024 Varenicline Ta rtrate, Starter, (Chantix Starting ) 0.5 MG X 11 & 1 MG X 42 tablet therapy pack Indications: Tobacco abuse Take 1 Package by mouth Daily 1 each 05/01/2024 Active Problems Active Problems Problem Classification Problem Date Documented Da te Episodic/Chronic Acute bronchitis (2 sources) Acute bacterial bronchitis; Translations: [Acute bronchitis due to other specified organisms] 05-01-2024 Episodic Anxiety disorders (20 sources) Anxiety; Translations: [Anxiety disorder, unspecified] Onset: 11-28-2022 11-28-2022 Chronic Asthma (20 sources) Reactive airway disease; Translations: [Unspecified asthma, uncomplicated] Onset: 11-28-2022 11-28-2022 Chronic Diabetes mellitus without complication (2 sources) Impaired fasting glycemia; Translations: [Impaired fasting glucose] 10-24-2024 Episodic Diseases of mouth; excluding dental (10 sources) Glossopyrosis ; Translations: [Glossodynia] 06-17-2024 Episodic Essential hypertension (2 sources) Essential hypertension; Translations: [Essential (primary) hypertension] 10-24-2024 Chronic Headache; including migraine (20 sources) Migraine; Translations: [Migraine, unspecified, not intractable, without status migrainosus] Onset: 11-28-2022 Resolved: 11-28-2022 11-28-2022 Chronic Heart valve disorders (5 sources) Heart murmur; Translations: [Cardiac murmur, unspecified] Onset: 08-19-2024 07-29-2024 Episodic Immunizations and screening for infectious disease (4 sources) Encounter for immunization; Translations: [Encounter for screening for human papillomavirus (HPV)] Onset: 05-07-2021 Resolved: 05-07-2021 Episodic Influenza (4 sources) Influenza due to Influenza A virus; Translations: [Influenza due to other identified influenza virus with other respiratory manifestations] 04-20-2024 Episodic Intestinal infection (3 sources) Other specified intestinal infections; Translations: [Intestinal infection due to other organism, not elsewhere classified] 06-13-2024 Episodic Menopausal disorders (20 sources) Menopausal symptom; Translations: [Menopausal and female climacteric states] Onset: 11-28-2022 11-28-2022 Chronic Miscellaneous mental health disorders (3 sources) Primary insomnia; Translations: [Primary insomnia] 01-14-2024 Chronic Mood disorders (20 sources) Recurrent major depression; Translations: [Major depressive disorder, recurrent, unspecified] Onset: 11-28-2022 Resolved: 11-28-2022 11-28-2022 Chronic Nutritional deficiencies (2 sources) Vitamin D deficiency; Translations: [Vitamin D deficiency, unspecified] 05-01-2024 Chronic Osteoarthritis (8 sources) Osteoarthritis of right hip joint; Translations: [Unilateral primary osteoarthritis, right hip] 12-04-2024 Chronic Other bone disease and musculoskeletal deformities (4 sources) Avascular necrosis of bone; 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] 12-04-2024 Chronic Other bone disease and musculoskeletal deformities (1 source) Other specified disorders of bone density and structure, other site; Translations: [OTH D/O BONE DEN STRUCT OTH SITE] Onset: 12-16-2021 Episodic Other bone disease and musculoskeletal deformities (20 sources) Osteopenia; Translations: [Other specified disorders of bone density and structure, unspecified site] Onset: 11-28-2022 Resolved: 11-28-2022 11-28-2022 Episodic Other circulatory disease (2 sources) Elevated blood pressure; Translations: [Elevated blood-pressure reading, without diagnosis of hypertension] 07-29-2024 Episodic Other fractures (2 sources) Closed fracture sacrum; Translations: [Unspecified fracture of sacrum, initial encounter for closed fracture] 12-29-2024 Episodic Other lower respiratory disease (2 sources) Cough; Translations: [Cough, unspecified type] 04-20-2024 Episodic Other nervous system disorders (20 sources) Chronic pain; Translations: [Other chronic pain] Onset: 05-21-2019 Resolved: 11-28-2022 11-28-2022 Chronic Other nervous system disorders (1 source) Other chronic pain Onset: 07-15-2021 Resolved: 07-15-2021 Chronic Other nervous system disorders (20 sources) Idiopathic progressive polyneuropathy; Translations: [Idiopathic progressive neuropathy] Onset: 03-13-2023 03-13-2023 Chronic Other nervous system disorders (20 sources) Bilateral carpal tunnel syndrome; Translations: [Carpal tunnel syndrome, bilateral upper limbs] Onset: 04-06-2023 04-06-2023 Chronic Other nervous system disorders (20 sources) Carpal tunnel syndrome of left wrist; Translations: [Carpal tunnel syndrome, left upper limb] Onset: 11-09-2023 Resolved: 11-14-2023 01-01-2024 Chronic Other nervous system disorders (3 sources) Neuropathy; Translations: [Polyneuropathy, unspecified] 01-01-2024 Chronic Other nervous system disorders (10 sources) Paresthesia; Translations: [Paresthesia of skin] 04-12-2024 Episodic Other non-traumatic joint disorders (4 sources) Hip pain; Translations: [Pain in right hip] 09-05-2024 Episodic Other non-traumatic joint disorders (6 sources) Pain in right hip joint; Translations: [Pain in right hip] 12-04-2024 Episodic Other screening for suspected conditions (not mental disorders or infectious disease) (20 sources) Encounter for screening mammogram for malignant neoplasm of breast; Translations: [Encounter for screening for malignant neoplasm of cervix] Onset: 11-30-2021 Resolved: 07-29-2024 Episodic Other upper respiratory disease (4 sources) Vasomotor rhinitis; Translations: [Vasomotor rhinitis] 11-23-2024 Chronic Residual codes; unclassified (1 source) Family history of malignant neoplasm of breast; Translations: [FAMILY HX MALIG NEOPLASM OF BREAST] Onset: 12-16-2021 Episodic Residual codes; unclassified (1 source) Asymptomatic menopausal state; Translations: [ASYMPTOMATIC MENOPAUSAL STATE] Onset: 12-16-2021 Episodic Residual codes; unclassified (4 sources) Postmenopausal state; Translations: [Asymptomatic menopausal state] 01-09-2024 Episodic Residual codes; unclassified (6 sources) Tobacco user; Translations: [Tobacco use] 05-01-2024 Episodic Spondylosis; intervertebral disc disorders; other back problems (20 sources) Cervical spondylosis; Translations: [Spondylosis without myelopathy or radiculopathy, cervical region] Onset: 04-12-2021 Resolved: 07-15-2021 Chronic Substance-related disorders (20 sources) Smoker; Translations: [Nicotine dependence, unspecified, uncomplicated] Onset: 11-28-2022 11-28-2022 Chronic Past or Other Problems Problem Classification Problem Date Documented Date Episodic/Chronic Acquired foot deformities (20 sources) Acquired hallux valgus; Translations: [Hallux valgus (acquired), unspecified foot] Onset: 0 Resolved: 3 11-28-2022 Chronic Other aftercare (7 sources) High risk drug monitoring status; Translations: [nursing home (current) use of opiate analgesic] Episodic Other connective tissue disease (7 sources) Dupuytren's contracture; Translations: [Palmar fascial fibromatosis [Dupuytren]] Episodic Other connective tissue disease (1 source) Pain in left hand; Translations: [Left hand pain M79.642] Onset: 1 Resolved: 1 Episodic Other connective tissue disease (1 source) Palmar fascial fibromatosis [Dupuytren]; Translations: [Dupuytren contracture M72.0] Onset: 1 Resolved: 1 Episodic Other connective tissue disease (20 sources) Bilateral trochanteric bursitis; Translations: [Trochanteric bursitis, right hip] Onset: 4 01-01-2024 Episodic Other connective tissue disease (20 sources) Trochanteric bursitis of left hip; Translations: [Trochanteric bursitis, left hip] Onset: 3 Resolved: 3 11-28-2022 Episodic Other connective tissue disease (20 sources) Spasm of cervical paraspinous muscle; Translations: [Other muscle spasm] Onset: 4 Resolved: 4 11-14-2023 Episodic Other connective tissue disease (20 sources) Muscle pain; Translations: [Myalgia, unspecified site] Onset: 4 Resolved: 4 11-14-2023 Episodic Other nervous system disorders (20 sources) Mortons neuroma of right foot; Translations: [Lesion of plantar nerve, right lower limb] Onset: 3 Resolved: 4 11-14-2023 Chronic Other nervous system disorders (20 sources) Plantar nerve lesion; Translations: [Lesion of plantar nerve, unspecified lower limb] Onset: 0 Resolved: 3 11-28-2022 Chronic Other non-traumatic joint disorders (2 sources) Pain in left hip; Translations: [Left hip pain M25.552] Onset: 1 Resolved: 2 Episodic Other non-traumatic joint disorders (20 sources) Arthralgia of the pelvic region and [...] Test Name Value Interpretation Reference Range Facility No Panel Informationon 01-06 MARIANA Banuelos 01/06/2025 10:16 AM L Inj/Asp: R hip joint on 01/06/2025 10:13 AM Indications: pain and diagnostic evaluation Details: 22 G needle, ultrasound-guided anterolateral approach Medications: 40 mg methylPREDNISolone acetate 40 MG/ML; 2 mL bupivacaine PF 0.5 % Outcome: tolerated well, no immediate complications With patient supine, the right hip was sterilely prepped with isopropyl alcohol. The isopropyl alcohol was allowed to dry. The ultrasound was used to eval the anatomy of the hip joint. The femoral neck and femoral shaft and femoral head were well visualized. A plain was established that avoided any neurovascular structures and a 20 G spinal needle was inserted under ultrasound guidance toward the head neck junction. The needle was seen to enter the joint with imaging capturing proper placement of the needle. 40mg depomedrol was injected and patient tolerated procedure well. After needle removal a steril Band-Aid was placed and hemostasis was achieved. Images captured to patient's chart ( Codes 94525-[id number]) Procedure, treatment alternatives, risks and benefits explained, specific risks discussed. Consent was given by the patient. Patient was prepped and draped in the usual sterile fashion. [facility] MR HIP RIGHT WO IV CONTRASTo n 12-16-2024 MR HIP RIGHT WO IV CONTRAST EXAMINATION/TECHNIQUE : MR HIP RIGHT WO IV CONTRAST History: Right hip pain. Concern for avascular necrosis. Comparison: Radiographs 09/05/2024. RESULT: RIGHT HIP JOINT: No evidence for fracture or avascular necrosis. Mild degenerative changes without distinct measurable full-thickness chondral defect. Small osteophytes. Degenerative signal in the labrum. No joint effusion. LEFT HIP JOINT: Large [id number] with degenerative changes. SI JOINTS: Small amount of bone marrow edema involving the right sacrum adjacent to the SI joint, which could be reactive/degenerative with differential also including subtle insufficiency type fracture. Left SI joint grossly unremarkable. PUBIC SYMPHYSIS: Unremarkable. BONE MARROW: Bone marrow edema right sacrum as above. No evidence for hip fracture or avascular necrosis. TENDONS: The rectus femoris tendons, iliopsoas tendons, hamstring tendons, hip adductor and abductor tendons appear to be intact on the right. MUSCLE: Muscle bulk and signal intensity are within normal limits. NERVES: The visualized portions of the lumbosacral plexus and sciatic nerves appear to be within normal limits. VISCERAL PELVIS: Limited evaluation of the visceral pelvis is unremarkable. LOWER LUMBAR SPINE: Limited evaluation with postsurgical and degenerative changes. OTHER: No other significant abnormality. IMPRESSION: No evidence for hip fracture or avascular necrosis. Mild degenerative changes right hip. Bone marrow edema involving the right sacrum, which could be reactive/degenerative with differential also including subtle insufficiency type fracture. ELECTRONICALLY SIGNED BY: Phil Fenton MD Normal Not Available No Panel Informationon 10-16 Jr. Young Mcdaniel Pablo, DO 10/16/2024 1:05 PM L Inj/Asp: R greater trochanteric bursa on 10/16/2024 10:50 AM Indications: pain Details: 21 G needle Medications: 40 mg methylPREDNISolone acetate 40 MG/ML Outcome: tolerated well, no immediate complications SKIN PREPPED/CLEANED WITH ISOPROPYL ALCOHOL Procedure, treatment alternatives, risks and benefits explained, specific risks discussed. Consent was given by the patient. [facility] XR cerv spine AP/LAT/FLX/EXT on 10-03-2024 XR cerv spine AP/LAT/FLX/EXT [facility] [place] [address] XRay Report Signed Patient: Gisel Almodovar MR#: [id number] : 1960 Acct:[id number] Age/Sex: 64 / F ADM Date: 10/03/24 Loc: XD Room: Type: [facility] Attending Dr: Panfilo Cifuentes MD Copies to: Panfilo Cifuentes MD Ordering Provider: Panfilo Cifuentes MD Date of Service: 10/03/24 XR/XR cerv spine AP/LAT/FLX/EXT: M54.2 - Cervicalgia AP with lateral neutral, flexion-extension viewscervical spine HISTORY: Posterior neck pain with numbness down arms. COMPARISON: MRI 09/11/2024 POSTOPERATIVE CHANGES: None BONY ALIGNMENT: Straightening HYPERMOBILITY::Mild C4-5 hypermobility. LISTHESIS:C4-5 3 mm anterolisthesis FRACTURE: None DISC DEGENERATION: Extensive C5-6 and C6-7 spondylosis. Moderate C4-5 spondylosis. FACETS: Multilevel facet degeneration FORAMEN: Not assessed DENS: Intact CRANIOCERVICAL JUNCTION: Unremarkable SOFT TISSUES: Atherosclerosis of carotid siphons XR/XR cerv spine AP/LAT/FLX/EXT IMPRESSION: Mild C4-5 hypermobility. Extensive C5-6 and C6-7 spondylosis. Moderate C4-5 spondylosis. Impression dictated by: Cisco Shi M.D. 10/03/2024 2:45 PM Dictation Location: [facility]--16 Transcribed By: [facility] 10/03/24 1445 Dictated By: Cisco Shi DO 10/03/24 1442 Signed By: 10/03/24 1445 Normal [facility] MR CERVICAL SPINE WO CONTRAS Ton 09-11-2024 MR CERVICAL SPINE WO CONTRAST EXAM: MR CERVICAL SPINE WO CONTRAST History: Cervical radiculopathy. Technique: Multiplanar multisequence MRI of the cervical spine was performed without contrast. Comparison: None available Findings: Craniocervical junction is within normal limits. No cervical cord signal abnormality is identified. No aggressive bone marrow signal abnormality. Slight reversal of the cervical lordosis centered at C5. Disc desiccation throughout the cervical spine. Mild intervertebral disc height loss at C3-4 and C4-5 and moderate intervertebral height loss at C5-6 and C6-7. Degenerative plate changes with spurring at C5-6 and C6-7. C2-C3: No significant disc bulge, spinal canal or neuroforaminal stenosis. C3-C4: Small disc bulge. Mild left uncovertebral perjury. Mild facet arthropathy. Mild right and moderate left neural foraminal stenosis. No spinal canal stenosis. C4-C5: Small disc bulge. Mild uncovertebral perjury. Mild left and moderate right facet arthropathy. Severe right neural foraminal stenosis. C5-C6: Posterior disc osteophyte complex. Moderate uncovertebral perjury. Moderate facet arthropathy. Mild right and moderate to severe left neural foraminal stenosis. Moderate spinal canal stenosis. C6-C7: Small disc bulge. Mild uncovertebral hypertrophy. Mild facet arthropathy. Mild bilateral neural foraminal stenosis. Moderate spinal canal stenosis. C7-T1: Small disc bulge. Mild facet arthropathy. No neural foraminal or spinal canal stenosis. Visualized paravertebral soft tissues are grossly unremarkable. IMPRESSION: Degenerative changes of the cervical spine as detailed. ELECTRONICALLY SIGNED BY: Evans White DO Normal Not Available MR Cervical spine WO contras ton 09-11-2024 Degenerative changes of the cervical spine as detailed. ELECTRONICALLY SIGNED BY: Evans White DO IMAGING EXAM: MR CERVICAL SPINE WO CONTRAST History: Cervical radiculopathy. Technique: Multiplanar multisequence MRI of the cervical spine was performed without contrast. Comparison: None available Findings: Craniocervical junction is within normal limits. No cervical cord signal abnormality is identified. No aggressive bone marrow signal abnormality. Slight reversal of the cervical lordosis centered at C5. Disc desiccation throughout the cervical spine. Mild intervertebral disc height loss at C3-4 and C4-5 and moderate intervertebral height loss at C5-6 and C6-7. Degenerative plate changes with spurring at C5-6 and C6-7. C2-C3: No significant disc bulge, spinal canal or neuroforaminal stenosis. C3-C4: Small disc bulge. Mild left uncovertebral perjury. Mild facet arthropathy. Mild right and moderate left neural foraminal stenosis. No spinal canal stenosis. C4-C5: Small disc bulge. Mild uncovertebral perjury. Mild left and moderate right facet arthropathy. Severe right neural foraminal stenosis. C5-C6: Posterior disc osteophyte complex. Moderate uncovertebral perjury. Moderate facet arthropathy. Mild right and moderate to severe left neural foraminal stenosis. Moderate spinal canal stenosis. C6-C7: Small disc bulge. Mild uncovertebral hypertrophy. Mild facet arthropathy. Mild bilateral neural foraminal stenosis. Moderate spinal canal stenosis. C7-T1: Small disc bulge. Mild facet arthropathy. No neural foraminal or spinal canal stenosis. Visualized paravertebral soft tissues are grossly unremarkable. IMAGING Evans White, DO - 09/11/2024 EXAM: MR CERVICAL SPINE WO CONTRAST History: Cervical radiculopathy. Technique: Multiplanar multisequence MRI of the cervical spine was performed without contrast. Comparison: None available Findings: Craniocervical junction is within normal limits. No cervical cord signal abnormality is identified. No aggressive bone marrow signal abnormality. Slight reversal of the cervical lordosis centered at C5. Disc desiccation throughout the cervical spine. Mild intervertebral disc height loss at C3-4 and C4-5 and moderate intervertebral height loss at C5-6 and C6-7. Degenerative plate changes with spurring at C5-6 and C6-7. C2-C3: No significant disc bulge, spinal canal or neuroforaminal stenosis. C3-C4: Small disc bulge. Mild left uncovertebral perjury. Mild facet arthropathy. Mild right and moderate left neural foraminal stenosis. No spinal canal stenosis. C4-C5: Small disc bulge. Mild uncovertebral perjury. Mild left and moderate right facet arthropathy. Severe right neural foraminal stenosis. C5-C6: Posterior disc osteophyte complex. Moderate uncovertebral perjury. Moderate facet arthropathy. Mild right and moderate to severe left neural foraminal stenosis. Moderate spinal canal stenosis. C6-C7: Small disc bulge. Mild uncovertebral hypertrophy. Mild facet arthropathy. Mild bilateral neural foraminal stenosis. Moderate spinal canal stenosis. C7-T1: Small disc bulge. Mild facet arthropathy. No neural foraminal or spinal canal stenosis. Visualized paravertebral soft tissues are grossly unremarkable. IMPRESSION: Degenerative changes of the cervical spine as detailed. ELECTRONICALLY SIGNED BY: Evans White DO [facility] Radiology Study observation (narrative) [facility] MR Cervical spine WO contras tOrdered By: Evans White on 09-11-[address] [facility] Work Phone: XR HIPS BILATERAL 5+ VW WITH OR WITHOUT PELVISon 09-05-2024 XR HIPS BILATERAL 5+ VW WITH OR WITHOUT PELVIS Exam: XR HIPS BILATERAL 5+ VW WITH OR WITHOUT PELVIS Clinical History: Bilateral hip pain laterally and posteriorly, chronic mid low b ack pain, no injury Reference Exam: No comparison FINDINGS: Both hips are intact. Minor superior and axial hip joint space narrowing of each hip. Trabecular lines of stress aligned appropriately in each proximal femur. No fracture or osteonecrosis. No symphyseal diastases. No pelvic bone abnormality. The SI joints and the sacral arcuate lines are thought to align appropriately. Fusion of the lumbosacral junction. Fusion of L4-L5. Degenerative disc changes at L3-4. Nonobstructive abdominal bowel gas pattern. IMPRESSION: Bilateral hip arthrosis. No fracture or osteonecrosis suspected. Dictated on: 09/05/2024 4:56 PM This report has been electronically signed and approved by the interpreting Radiologist. Normal Not Available XR Pelvis and Hip AP and Lat [facility] 09-05-2024 Exam: XR HIPS BILATERAL 5+ VW WITH OR WITHOUT PELVIS Clinical History: Bilateral hip pain laterally and posteriorly, chronic mid low b ack pain, no injury Reference Exam: No comparison FINDINGS: Both hips are intact. Minor superior and axial hip joint space narrowing of each hip. Trabecular lines of stress aligned appropriately in each proximal femur. No fracture or osteonecrosis. No symphyseal diastases. No pelvic bone abnormality. The SI joints and the sacral arcuate lines are thought to align appropriately. Fusion of the lumbosacral junction. Fusion of L4-L5. Degenerative disc changes at L3-4. Nonobstructive abdominal bowel gas pattern. IMPRESSION: Bilateral hip arthrosis. No fracture or osteonecrosis suspected. Dictated on: 09/05/2024 4:56 PM This report has been electronically signed and approved by the interpreting Radiologist. IMAGING Konrad Quintanilla MD - 09/05/2024 Exam: XR HIPS BILATERAL 5+ VW WITH OR WITHOUT PELVIS Clinical History: Bilateral hip pain laterally and posteriorly, chronic mid low b ack pain, no injury Reference Exam: No comparison FINDINGS: Both hips are intact. Minor superior and axial hip joint space narrowing of each hip. Trabecular lines of stress aligned appropriately in each proximal femur. No fracture or osteonecrosis. No symphyseal diastases. No pelvic bone abnormality. The SI joints and the sacral arcuate lines are thought to align appropriately. Fusion of the lumbosacral junction. Fusion of L4-L5. Degenerative disc changes at L3-4. Nonobstructive abdominal bowel gas pattern. IMPRESSION: Bilateral hip arthrosis. No fracture or osteonecrosis suspected. Dictated on: 09/05/2024 4:56 PM This report has been electronically signed and approved by the interpreting Radiologist. [facility] Radiology Study observation (narrative) [facility] XR Pelvis and Hip AP and Lat eralOrdered By: Konrad Quintanilla on 09-05-[address] [facility] Work Phone: [facility] echo transthoracicon E[facility] echo transthoracic [facility] [place] [address] Echocardiogram Signed Patient: Gisel Almodovar MR#: [id number] : 1960 Acct:[id number] Age/Sex: 63 / F ADM Date: 08/19/24 Loc: Room: Type: [facility] Attending Dr: Desmond Macias DO Ordering Provider: Desmond Macias DO Date of Service: 08/19/24/ ECH/ECH echo transthoracic: murmur Copies to: MD Desmond PollockDO Gisel marina Patient Location: : 1960 Gender: Female (MM/DD/YYYY) Age: 63 Years Ordering Physician: Desmond Macias Height: 60 in Weight: 105 lb Performed By: KERRY Alvarez BSA: 1.42 m2 BP: 127 / 73 mmHg HR: 80 bpm Reason For Study: murmur History: Hypertension, Smoker, family history CAD + + Interpretation Summary Ejection Fraction = 55-60%. The left ventricular size and thickness are normal. The left ventricular wall motion is normal. A variety of Doppler measurements indicate impaired left ventricular relaxation, which is associated with grade I/IV or mild diastolic dysfunction. There is no comparison study available. Procedure/Quality: A two-dimensional transthoracic echocardiogram with color flow and Doppler was performed. The study was technically good in quality. Left Ventricle: The left ventricular size and thickness are normal. Ejection Fraction = 55-60%. A variety of Doppler measurements indicate impaired left ventricular relaxation, which is associated with grade I/IV or mild diastolic dysfunction. The left ventricular wall motion is normal. Left Atrium: The left atrium appears normal in size. Right Atrium: The right atrium appears normal in size. Right Ventricle: The right ventricle is normal in size and function. Aortic Valve: The aortic valve is normal in structure. No hemodynamically significant valvular aortic stenosis. No aortic regurgitation is present. Mitral Valve: The mitral valve is normal in structure. No significant mitral valve stenosis. There is no mitral regurgitation noted. Tricuspid Valve: The tricuspid valve is normal in structure. No tricuspid regurgitation. Pulmonic Valve: The pulmonic valve is not well visualized. Mild pulmonic valvular regurgitation. Arteries: The aortic root is normal size. Pericardium/Pleura: No pericardial effusion seen. IVC/Hepatic Veins: The inferior vena cava is normal in size, with a normal collapsibility index. MMode/2D Measurements Calculations IVSd (0.7-1.1 cm): 0.80 cm LVIDd (3.7-5.4 cm): 4.3 cm LVPWd (0.7-1.1 cm): 0.90 cm LVIDs (2.3-3.6 cm): 2.8 cm LA dimension (2.3-4.0 cm): 3.2 Ao root diam (2.0-3.2 cm): 2.7 cm cm FS: 34.9 % Ao root area: 5.7 cm2 EDV(Teich): 83.1 ml LVOT diam: 2.00 cm ESV(Teich): 29.6 ml LVOT area: 3.1 cm2 EF(Teich): 64.4 % LAV(MOD-sp2): 17.6 ml LAV(MOD-sp4): 9.1 ml LA A2 area: 8.9 cm2 LA A4 area: 6.7 cm2 LA length (vol): 3.3 cm LA vol: 15.3 ml LA vol index: 10.8 ml/m2 Doppler Measurements Calculations MV E max francia: 86.3 cm/sec Ao V2 max: 138.0 cm/sec MV A max francia: 114.0 cm/sec Ao max P.6 mmHg MV V2 VTI: 24.4 cm Ao mean P.0 mmHg MV dec time: 0.13 sec Ao V2 mean: 96.9 cm/sec MV dec slope: 669.0 cm/sec?? Ao V2 VTI: 26.9 cm E/E' lat: 6.0 BRIANA(I,D): 2.32 cm2 E/E' med: 10.0 BRIANA(V,D): 2.19 cm2 LV V1 max: 96.0 cm/sec LV V1 max P.7 mmHg LV V1 mean: 58.6 cm/sec LV V1 mean P.00 mmHg LV V1 VTI: 19.9 cm + + + ------+ + : Electronically : : signed by: Young : : : : Eugene : : : : on: 08/19/2024, : : 9:58 PM : Transcribed By: LOLY Performed At: 08/19/24 1353 Signed By: Young Knight MD 08/19/24 3810 Normal [facility] MR BRAIN W AND WO CONTRAST ( ROUTINE)on 06-26-2024 MR BRAIN W AND WO CONTRAST (ROUTINE) EXAM: MR BRAIN W AND WO CONTRAST (ROUTINE) History: Burning tongue syndrome Technique: Multiplanar multisequence MRI of the brain was performed without and with contrast. Comparison: None available Findings: Brain volume is age-appropriate. Ventricular morphology is within normal limits. No edema, hemorrhage, enhancing mass or pathologic enhancement, mass effect, midline shift, or abnormal extra-axial fluid collection. Midline structures are within normal limits. The posterior fossa is within normal limits. There is no diffusion restriction. No susceptibility artifact is identified on the gradient echo sequence. The major intracranial vascular flow voids are maintained. Cranial nerve 7/8 complexes appear grossly unremarkable. The visualized paranasal sinuses and bilateral mastoid air cells are clear. IMPRESSION: No acute intracranial process. No enhancing mass or pathologic enhancement. ELECTRONICALLY SIGNED BY: Evans Whiet, DO Normal Not Available Laboratory - Microbiology an d Antimicrobial susceptibilityon 04-20-2024 SARS-CoV-2 (COVID-19) RNA ROBERTH+probe Ql (Unsp spec) Negative [facility] No Panel Informationon 04-20 FLU A Positive [facility] FLU B Negative [facility] Interpretation and review of laboratory results Abnormal [facility] Healthcare [facility] MR LUMBAR SPINE WO CONTRASTo n 02-26-2024 MR LUMBAR SPINE WO CONTRAST EXAMINATION/TECHNIQUE : MR LUMBAR SPINE WO CONTRAST HISTORY: Chronic low back pain, worsening. Remote history of fusion. No recent injury. COMPARISON: Radiographs 02/08/2024. RESULT: Counting reference: Lumbosacral junction. For the purposes of this report, L5-S1 is considered the last well-formed disc space. 5 lumbar type vertebral bodies. Alignment: Mild S-shaped curvature, with convex to the right in the upper lumbar spine. Minimal retrolisthesis of L1 on L2. Bone marrow signal: No evidence for recent fracture. No pathologic marrow infiltration. Extensive endplate degenerative signal at L3-L4. Postsurgical changes with prior laminectomies at L4-L5 and L5-S1. Bilateral nereyda and pedicle screw fixation across the L5-S1 level. Postsurgical changes of the L4-L5 and L5-S1 disc spaces. Conus: The conus is within normal limits of signal intensity and morphology. Paraspinal soft tissues: Unremarkable. Lower thoracic spine: Visualized lower thoracic canal and foramina without significant narrowing. T12-L1: Disc bulge. Facet degenerative changes. No significant canal or foraminal narrowing. L1-L2: Disc bulge. Facet degenerative changes. Mild bilateral foraminal narrowing without significant canal narrowing. L2-L3: Disc bulge. Endplate osteophytes. Facet degenerative changes. Ligamentous hypertrophy. Mild bilateral foraminal narrowing without significant canal narrowing. L3-L4: Endplate degenerative signal. Broad-based disc bulge. Endplate osteophytes. Facet degenerative changes with facet joint effusion/synovitis. Ligamentous hypertrophy. Mild canal narrowing. Mild to moderate right and mild left foraminal narrowing. L4-L5: Postsurgical changes. Facet degenerative changes. No significant canal or foraminal narrowing. L5-S1: Postsurgical changes. Disc bulge. Facet degenerative changes. Perineural cyst on the left. No significant canal or foraminal narrowing. Sacrum and iliac wings: Tarlov cyst at S1-S2 near midline, otherwise grossly unremarkable. IMPRESSION: Postsurgical and degenerative changes lumbar spine as discussed. ELECTRONICALLY SIGNED BY: Phil Fenton MD Normal Not Available XR LUMBAR SPINE 6+ VIEWS INC LUDING [...] Electronically Signed Scotty Lam M.D. 2024-02-08 15:37:33 [facility] Radiology Study observation (narrative) [facility] XR Lumbar spine Views W flex ion and W extensionOrdered By: Denise Lam on 02-08-[address] [facility] Work Phone: IGP,APTIMA HPV,AGE GDLNon AGE GDLN ACOG TESTING Note . [facility] Comment on above: TESTS RESULT FLAG UN ITS REF RANGE LAB Clinician Provided Cytology Information Source.............Vagina No. of containers..01 ThinPrep Vial Age Algo ACOG Kathryn... FLAG LEGEND: L-Low Normal,H-High Normal,LL-Alert Low,HH-Alert High <-Panic Low,>-Panic High,A-Abnormal,AA-Critical Abnormal Performed at: 01 =[address] [address] [address] Mcleod MD, HPV APTIMA Negative Negative [facility] Comment on above: This nucleic acid am plification test detects fourteen high- risk HPV types (16,18,31,33,35,39,45,51,52,56,58,59,66,68) without differentiation. Performed at: =[address] [id number] Tool Rental Technician: Ct Mcleod MD, Phone: [phone] Performed at: [address] [id number] Tool Rental Technician: Ct Mcleod MD, Phone: [phone] IGP, APTIMA HPV, RFX 16/18,45 Note . [facility] Comment on above: TESTS RESULT FLAG UN ITS REF RANGE LAB DIAGNOSIS: 02 NEGATIVE FOR INTRAEPITHELIAL LESION OR MALIGNANCY. Specimen adequacy: 02 Satisfactory for evaluation. No endocervical cells are present. This is consistent with a history of hysterectomy. Performed by: 02 Elbert Rodrigues, Remotely Piloted Vehicle Controller ([facility]) . 02 Note: Note 02 The Pap smear is a screening test designed to aid in the detection of premalignant and malignant conditions of the uterine cervix. It is not a diagnostic procedure and should not be used as the sole means of detecting cervical cancer. Both false-positive and false-negative reports do occur. Test Methodology: Note 02 This liquid based ThinPrep(R) pap test was screened with the use of an image guided system. HPV Genotype Reflex Note 02 Criteria not met, HPV Genotype not performed. FLAG LEGEND: L-Low Normal,H-High Normal,LL-Alert Low,HH-Alert High <-Panic Low,>-Panic High,A-Abnormal,AA-Critical Abnormal Performed at: 02 [address] [facility] [address] [address] [address] Mcleod MD, [facility] [place] Alanine aminotransferase [En zymatic activity/volume] in Serum or PlasmaOrdered By: [facility] on 01-07-2023 ALT [Catalytic activity/Vol] 9 U/L 7-[address] [facility] Albumin [Mass/volume] in Ser um or Plasma by Bromocresol green (BCG) dye binding methoOrdered By: [facility] on 01-07-2023 Albumin BCG dye [Mass/Vol] 4.1 g/dL 3.5-5.[address] [facility] Alkaline phosphatase [Enzyma tic activity/volume] in Serum or PlasmaOrdered By: [facility] on 01-07-2023 ALP [Catalytic activity/Vol] 47 U/L 34-[address] [facility] Aspartate aminotransferase [ Enzymatic activity/volume] in Serum or PlasmaOrdered By: [facility] [employer] on 01-07-2023 AST [Catalytic activity/Vol] 17 U/L 13-[address] [facility] Bilirubin.total [Mass/volume ] in Serum or PlasmaOrdered By: [facility] [employer] on 01-07-2023 Bilirubin [Mass/Vol] 0.3 mg/dL 0.3-1.0 [facility] Calcium [Mass/volume] in Ser um or PlasmaOrdered By: [facility] [employer] on 01-07-2023 Calcium [Mass/Vol] 9.4 mg/dL 8.6-10.3 [facility] Carbon dioxide, total [Moles /volume] in Serum or PlasmaOrdered By: [employer] [employer] on 01-07-2023 CO2 [Moles/Vol] 28.8 mmol/L 21.0-31.0 [facility] Chloride [Moles/volume] in S matias or PlasmaOrdered By: [facility] [employer] on 01-07-2023 Chloride [Moles/Vol] 105 mmol/L 98-107 [facility] Cholesterol [Mass/volume] in Serum or PlasmaOrdered By: [employer] on 01-07-2023 Cholesterol [Mass/Vol] 224 mg/dL 140-200 [facility] Comment on above: Chol less than 200 m g/dl low riskChol 201-239 mg/dl borderline riskChol 240 mg/dl and greater high risk Cholesterol in LDL Calc [Mas s/Vol]Ordered By: [facility] [employer] on 01-07-2023 Cholesterol in LDL [Mass/Vol] 103 mg/dL 0-[address] [facility] Comment on above: LDL ATP III CLASSIFI CATIONLDL less than 100 mg/dL OptimalLDL 100-129 mg/dL Near or above optimalLDL 130-159 mg/dL Borderline highLDL 160-189 mg/dL HighLDL greater than 189 mg/dL Very high Cholesterol in VLDL Calc [Ma ss/Vol]Ordered By: [facility] on 01-07-2023 Cholesterol in VLDL [Mass/Vol] 39 mg/dL [facility] Creatinine [Mass/volume] in Serum or PlasmaOrdered By: [facility] [employer] on 01-07-2023 Creatinine [Mass/Vol] 0.61 mg/dL 0.60-1.20 [facility] Erythrocyte distribution wid th Auto (RBC) [Ratio]Ordered By: [facility] [employer] on 01-07-2023 Erythrocyte distribution width (RBC) [Ratio] 13.2 % 11.9-15.[address] [facility] Glucose [Mass/volume] in Ser um or PlasmaOrdered By: [facility] [employer] on 01-07-2023 Glucose [Mass/Vol] 108 mg/dL 70-100 [facility] Comment on above: ADA recommended refe rence rangeRandom Glucose Reference Range is dependent on time and content of last meal. Glucose of more than 200 mg/dL in a nonstressed, ambulatory subject supports the diagnosis of Diabetes Mellitus. Hematocrit Auto (Bld) [Volum e fraction]Ordered By: [facility] on 01-07-2023 Hematocrit (Bld) [Volume fraction] 33.2 % 34.0-46.[address] [facility] Hemoglobin [Mass/volume] in BloodOrdered By: [facility] on 01-07-2023 Hemoglobin (Bld) [Mass/Vol] 11.4 g/dL 11.8-15.[address] [facility] Leukocytes [#/volume] correc dao for nucleated erythrocytes in Blood by Automated counOrdered By: [facility] on 01-07-2023 WBC corrected for nucl RBC Auto (Bld) [#/Vol] 8.4 10*3/uL 3.8-11.[address] [facility] MCH Auto (RBC) [Entitic mass ]Ordered By: [facility] on 01-07-2023 MCH (RBC) [Entitic mass] 36.3 pg 24.7-34.[address] [facility] MCHC Auto (RBC) [Mass/Vol]Or dered By: [facility] on 01-07-2023 MCHC (RBC) [Mass/Vol] 34.5 g/dL 32.0-35.0 [facility] MCV Auto (RBC) [Entitic vol] Ordered By: [facility] on 01-07-2023 MCV (RBC) [Entitic vol] 105.1 fL 80-100 [facility] No Panel InformationOrdered By: [facility] on 01-07-2023 Estimated GFR (CKD-EPI) > 60.0 mL/Min [facility] Creatinine Clearance (Chem N/A [facility] Platelet mean volume Auto (B ld) [Entitic vol]Ordered By: [facility] on 01-07-2023 Platelet mean volume (Bld) [Entitic vol] 9.6 fL 6.3-10.[address] [facility] Platelets Auto (Bld) [#/Vol] Ordered By: [facility] on 01-07-2023 Platelets (Bld) [#/Vol] 273 10*3/uL 150-[address] [facility] Potassium [Moles/volume] in Serum or PlasmaOrdered By: [facility] on 01-07-2023 Potassium [Moles/Vol] 4.2 mmol/L 3.5-5.1 [facility] Protein [Mass/volume] in Ser um or PlasmaOrdered By: [facility] on 01-07-2023 Protein [Mass/Vol] 6.3 g/dL 6.4-8.9 [facility] RBC Auto (Bld) [#/Vol]Ordere d By: [facility] on 01-07-2023 RBC (Bld) [#/Vol] 3.16 10*6/uL 3.60-5.00 [facility] Serum or plasma anion gap de terminationOrdered By: [facility] on 01-07-2023 Anion gap [Moles/Vol] 9.4 mmol/L 6.0-15.0 [facility] Serum or plasma high density lipoprotein (HDL) cholesterol measurementOrdered By: [facility] on 01-07-2023 Cholesterol in HDL [Mass/Vol] 82 mg/dL 23-[address] [facility] Comment on above: HDL CHOL ATP-III CLA SSIFICATION Cardiovascular RiskHDL > or equal to 60 mg/dL LOWHDL < 40 mg/dL HIGH Serum or plasma total choles terol/high density lipoprotein (HDL) cholesterol mass ratOrdered By: [facility] on 01-07-2023 Cholesterol.total/Choles terol in HDL [Mass ratio] 2.7 {ratio} <5.[address] [facility] Sodium [Moles/volume] in Ser um or PlasmaOrdered By: [facility] on 01-07-2023 Sodium [Moles/Vol] 139 mmol/L 136-145 [facility] Triglyceride [Mass/volume] i n Serum or PlasmaOrdered By: [facility] on 01-07-2023 Triglyceride [Mass/Vol] 195 mg/dL 0-149 [facility] Comment on above: TRIG ATP III CLASSIF ICATIONTRIG less than 150 mg/dL NormalTRIG 150-199 mg/dL Borderline highTRIG 200-500 mg/dL High TRIG greater than 500 mg/dL Very highStandard traceable to the Center for Disease Conrtrol and Prevention (CDC) test method. Urea nitrogen [Mass/volume] in Serum or PlasmaOrdered By: [facility] on 01-07-2023 Urea nitrogen [Mass/Vol] 15 mg/dL 11-[address] [facility] MG MAMM SCREEN 3D JACINTO CADon 12-14-2021 MG MAMM SCREEN 3D JACINTO CAD Patient: GISEL ALMODOVAR Exam Date: 12/14/2021 : 1960 Gender:F Ordering : DR LEONELA ROMERO . Admission #: [id number] Family : Order #: [id number] CLICK HERE TO VIEW EXAM RADIOLOGY REPORT [...] breast cancer at age 53. LOCATION: [facility] BREAST COMPOSITION: Heterogeneously dense,which may obscure small [...] PALPABLE LUMP SHOULD BE BIOPSIED. Dictated by: Cee Luna M.D. on 12/15/2021 at 10:28 Approved by: Cee Luna M.D. on 12/15/2021 at 10:35 Normal [facility] XR DEXA BONE DENSITYon 12-14 XR DEXA [...] by: LEELA SONG Date: 2021-12-14 17:[address] [facility] PAP ACOG PANEL 2: 30 to 65on 12-07-[address] [facility] Comment on above: Result Comment: Perf ormed at: WB Performed By: #### [id number] #### [facility] [address] [address] [address] Luis White Age Gdln ACOG Testing 30-[address] [facility] Comment on above: Performed By: #### [id number] #### [facility] [address] [place] [address] Dr. Luis White DIAGNOSIS: Comment Normal [facility] Comment on above: Result Comment: NEGA TIVE FOR INTRAEPITHELIAL LESION OR MALIGNANCY. THIS SPECIMEN WAS RESCREENED PART OF OUR FACING SLITTER PROGRAM. Performed at: WB Performed By: #### [id number] #### [facility] [address] [place] [address] Dr. Luis White HPV Aptima Negative Normal Negative [facility] Comment on above: Result Comment: This nucleic acid amplification test detects fourteen high-risk HPV types (16,18,31,33,35,39,45,51,52,56,58,59,66,68) without differentiation. Performed at: =G Performed By: #### [id number] #### [facility] [address] [place] [address] Dr. Luis White Methodology: CTIM Normal [facility] Comment on above: Result Comment: The Thin Prep(R) Mottler Operator was unable to read this specimen. Therefore a manual review was performed. Performed at: WB Performed By: #### [id number] #### [facility] [address] [place] [address] Dr. Luis White Note: Comment Normal [facility] Comment on above: Result Comment: The Pap smear is a screening test designed to aid in the detection of premalignant and malignant conditions of the uterine cervix. It is not a diagnostic procedure and should not be used as the sole means of detecting cervical cancer. Both false-positive and false-negative reports do occur. . Performed at: WB Performed By: #### [id number] #### [facility] [address] [address] [address] Luis White Performed by: Comment Normal [facility] Comment on above: Result Comment: El Li, Remotely Piloted Vehicle Controller ([employer]) Performed at: WB Performed By: #### [id number] #### [facility] [address] [address] [address] Luis White QC reviewed by: Comment Normal [facility] Comment on above: Result Comment: Sid Adame, Remotely Piloted Vehicle Controller Performed at: WB Performed By: #### [id number] #### [facility] [address] [address] [address] Luis White Specimen adequacy: Comment Normal [facility] Comment on above: Result Comment: Sati sfactory for evaluation. No endocervical component is identified. Performed at: WB Performed By: #### [id number] #### [facility] [address] [address] [address] Luis White Vital Signs Date Time Vital Sign Value Performing Clinician Facility 01-15-2025 13:08-0400 Body mass index (BMI) [Ratio] 19.73 kg/m2 [facility] DO Work Phone: [facility] 01-15-2025 13:08-0400 Body weight 45.81 kg Nitin Angelica DO Work Phone: [facility] 01-15-2025 13:08-0400 Diastolic blood pressure 86 mm[Hg] Nitin Angelica DO Work Phone: [facility] 01-15-2025 13:08-0400 Systolic blood pressure 138 mm[Hg] Nitin Angelica DO Work Phone: [facility] 12-20-2024 13:08-0400 Body height 152.4 cm Jose Boone DO Work Phone: [facility] 12-20-2024 13:08-0400 Body mass index (BMI) [Ratio] 19.53 kg/m2 Jose Boone DO Work Phone: [facility] 12-20-2024 13:08-0400 Body weight 45.36 kg Jose Boone DO Work Phone: [facility] 11-22-2024 13:41-0400 Body height 152.4 cm Jose Boone DO Work Phone: [facility] 11-22-2024 13:41-0400 Body mass index (BMI) [Ratio] 19.53 kg/m2 Jose Boone DO Work Phone: [facility] 11-22-2024 13:41-0400 Body weight 45.36 kg Jose Boone DO Work Phone: [facility] 10-24-2024 11:38-0400 Body height 152.4 cm Desmond Macias DO Work Phone: [facility] 10-24-2024 11:38-0400 Body mass index (BMI) [Ratio] 19.53 kg/m2 Desmond Macias DO Work Phone: [facility] 10-24-2024 11:38-0400 Body temperature 98.01 [degF] Desmond Macias DO Work Phone: [facility] 10-24-2024 11:38-0400 Body weight 45.36 kg Desmond Macias DO Work Phone: [facility] 10-24-2024 11:38-0400 Diastolic blood pressure 74 mm[Hg] Desmond Macias DO Work Phone: [facility] 10-24-2024 11:38-0400 Heart rate 80 /min Desmond Macias DO Work Phone: [facility] 10-24-2024 11:38-0400 SaO2% (BldA) [Mass fraction] 99 % Desmond Macias DO Work Phone: [facility] 10-24-2024 11:38-0400 Systolic blood pressure 116 mm[Hg] Desmond Macias DO Work Phone: [facility] 09-05-2024 13:15-0400 Body mass index (BMI) [Ratio] 19.08 kg/m2 Victorino Alejandre MD Work Phone: [facility] 09-05-2024 13:15-0400 Body weight 45.81 kg Victorino Alejandre MD Work Phone: [facility] 09-05-2024 13:15-0400 Diastolic blood pressure 79 mm[Hg] Victorino Alejandre MD Work Phone: [facility] 09-05-2024 13:15-0400 Heart rate 86 /min Victorino Alejandre MD Work Phone: [facility] 09-05-2024 13:15-0400 Systolic blood pressure 118 mm[Hg] Victorino Alejandre MD Work Phone: [facility] 07-29-2024 12:27-0400 Body height 154.9 cm Desmond Macias DO Work Phone: [facility] 07-29-2024 12:27-0400 Body mass index (BMI) [Ratio] 20.22 kg/m2 Desmond Macias DO Work Phone: [facility] 07-29-2024 12:27-0400 Body temperature 98.2 [degF] Desmond Kimick DO Work Phone: [facility] 07-29-2024 12:27-0400 Body weight 48.53 kg Desmond Kimick DO Work Phone: [facility] 07-29-2024 12:27-0400 Diastolic blood pressure 94 mm[Hg] Desmond Petalyssaick DO Work Phone: [facility] 07-29-2024 12:27-0400 Heart rate 82 /min Desmond Macias DO Work Phone: [facility] 07-29-2024 12:27-0400 SaO2% (BldA) [Mass fraction] 99 % Desmond Petalyssaick DO Work Phone: [facility] 07-29-2024 12:27-0400 Systolic blood pressure 154 mm[Hg] Desmond Swansonsalas DO Work Phone: [facility] 07-24-2024 11:35-0400 Body mass index (BMI) [Ratio] 19.65 kg/m2 Victorino Alejandre MD Work Phone: [facility] 07-24-2024 11:35-0400 Body weight 47.17 kg Victorino Alejandre MD Work Phone: [facility] 07-24-2024 11:35-0400 Diastolic blood pressure 91 mm[Hg] Victorino Alejandre MD Work Phone: [facility] 07-24-2024 11:35-0400 Heart rate 83 /min Victorino Alejandre MD Work Phone: [facility] 07-24-2024 11:35-0400 Systolic blood pressure 161 mm[Hg] Victorino Alejandre MD Work Phone: [facility] 06-13-2024 16:18-0500 Body mass index (BMI) [Ratio] 19.46 kg/m2 Victorino Alejandre MD Work Phone: [facility] 06-13-2024 16:18-0500 Body weight 46.72 kg Victorino Alejandre MD Work Phone: [facility] 06-13-2024 16:18-0500 Diastolic blood pressure 82 mm[Hg] Victorino Alejandre MD Work Phone: [facility] 06-13-2024 16:18-0500 Heart rate 81 /min Victorino Alejandre MD Work Phone: [facility] 06-13-2024 16:18-0500 Systolic blood pressure 152 mm[Hg] Victorino Alejandre MD Work Phone: [facility] 05-01-2024 12:28-0500 Body height 154.9 cm Desmond Macias DO Work Phone: [facility] 05-01-2024 12:28-0500 Body mass index (BMI) [Ratio] 18.63 kg/m2 Desmond Kimick DO Work Phone: [facility] 05-01-2024 12:28-0500 Body temperature 98.01 [degF] Desmond Kimick DO Work Phone: [facility] 05-01-2024 12:28-0500 Body weight 44.73 kg Desmond Petalyssaick DO Work Phone: [facility] 05-01-2024 12:28-0500 Diastolic blood pressure 76 mm[Hg] Desmond Petalyssaick DO Work Phone: [facility] 05-01-2024 12:28-0500 Heart rate 86 /min Desmond Petalyssaick DO Work Phone: [facility] 05-01-2024 12:28-0500 SaO2% (BldA) [Mass fraction] 98 % Desmond Kimick DO Work Phone: [facility] 05-01-2024 12:28-0500 Systolic blood pressure 128 mm[Hg] Desmond Petalyssaick DO Work Phone: [facility] 04-20-2024 10:40-0500 Body mass index (BMI) [Ratio] 20.22 kg/m2 Benji Patel CAROUSEL ATTENDANT Work Phone: [facility] 04-20-2024 10:40-0500 Body temperature 98.01 [degF] Benji Patel CAROUSEL ATTENDANT Work Phone: [facility] 04-20-2024 10:40-0500 Body weight 48.53 kg Benji Patel CAROUSEL ATTENDANT Work Phone: [facility] 04-20-2024 10:40-0500 Heart rate 113 /min Benji Patel CAROUSEL ATTENDANT Work Phone: [facility] 04-20-2024 10:40-0500 SaO2% (BldA) [Mass fraction] 98 % Benji Patel CAROUSEL ATTENDANT Work Phone: [facility] 04-15-2024 10:31-0500 Body height 154.9 cm Victorino Alejandre MD Work Phone: [facility] 04-15-2024 10:31-0500 Body mass index (BMI) [Ratio] 20.22 kg/m2 Victorino Alejandre MD Work Phone: [facility] 04-15-2024 10:31-0500 Body weight 48.53 kg Victorino Alejandre MD Work Phone: [facility] 04-15-2024 10:31-0500 Diastolic blood pressure 92 mm[Hg] Victorino Alejandre MD Work Phone: [facility] 04-15-2024 10:31-0500 Systolic blood pressure 140 mm[Hg] Victorino Alejandre MD Work Phone: [facility] 04-12-2024 10:32-0500 Body height 154.9 cm Desmond Petalyssaick DO Work Phone: [facility] 04-12-2024 10:32-0500 Body mass index (BMI) [Ratio] 20.44 kg/m2 Desmond Petznick DO Work Phone: [facility] 04-12-2024 10:32-0500 Body temperature 96.8 [degF] Desmond Petznick DO Work Phone: [facility] 04-12-2024 10:32-0500 Body weight 49.08 kg Desmond Petznick DO Work Phone: [facility] 04-12-2024 10:32-0500 Diastolic blood pressure 84 mm[Hg] Desmond Petznick DO Work Phone: [facility] 04-12-2024 10:32-0500 Heart rate 77 /min Desmond Petznick DO Work Phone: [facility] 04-12-2024 10:32-0500 SaO2% (BldA) [Mass fraction] 99 % Desmond Petznick DO Work Phone: [facility] 04-12-2024 10:32-0500 Systolic blood pressure 148 mm[Hg] Desmond Petznick DO Work Phone: [facility] 02-08-2024 13:090400 Body height 154.9 cm Desmond Macias DO Work Phone: [facility] 02-08-2024 13:09-0400 Body mass index (BMI) [Ratio] 19.61 kg/m2 Desmond Kimick DO Work Phone: [facility] 02-08-2024 13:09-0400 Body temperature 98.01 [degF] Desmond Petalyssaick DO Work Phone: [facility] 02-08-2024 13:090400 Body weight 47.08 kg Desmond Macias DO Work Phone: [facility] 02-08-2024 13:09-0400 Diastolic blood pressure 80 mm[Hg] Desmond Macias DO Work Phone: [facility] 02-08-2024 13:09-0400 Heart rate 73 /min Desmond Macias DO Work Phone: [facility] 02-08-2024 13:09-0400 SaO2% (BldA) [Mass fraction] 99 % Desmond Macias DO Work Phone: [facility] 02-08-2024 13:09-0400 Systolic blood pressure 134 mm[Hg] Desmond Macias DO Work Phone: [facility] 01-23-2024 13:28-0400 Body height 154.9 cm oJse Kamleshvincenzo DO Work Phone: [facility] 01-23-2024 13:28-0400 Body mass index (BMI) [Ratio] 19.65 kg/m2 Jose Kamleshvincenzo DO Work Phone: [facility] [facility] 01-23-2024 13:040 Body weight 47.17 kg Jose Kamleshvincenzo DO Work Phone: [facility] 01-23-2024 13:28-0400 Diastolic blood pressure 80 mm[Hg] Jose Song DO Work Phone: [facility] 01-23-2024 13:28-0400 Systolic blood pressure 128 mm[Hg] Jose Song DO Work Phone: [facility] 01-09-2024 14:08-0400 Body height 152.4 cm Nitin Angelica DO Work Phone: [facility] 01-09-2024 14:08-0400 Body mass index (BMI) [Ratio] 20.14 kg/m2 Nitin Angelica DO Work Phone: [facility] 01-09-2024 14:08-0400 Body weight 46.77 kg Nitin Angelica DO Work Phone: [facility] 07-15-2021 17:00-0400 Body height 153.67 cm Charles Luis Other [employer] Other 07-15-2021 17:00-0400 Body mass index (BMI) [Ratio] 19.67 kg/m2 Charles Luis Other [employer] Other 07-15-2021 17:00-0400 Body weight 46.45 kg Charles Luis Other [employer] Other 07-15-2021 17:00-0400 Diastolic blood pressure 70 mm[Hg] Charles Luis Other [employer] Other 07-15-2021 17:00-0400 SaO2% (BldA) [Mass fraction] 99 % Charles Luis Other [employer] Other 07-15-2021 17:00-0400 Systolic blood pressure 110 mm[Hg] Charles Luis Other [employer] Other 05-14-2021 10:00-0500 Body height 153.67 cm Imtiaz Painter Other [employer] Other 05-14-2021 10:00-0500 Body mass index (BMI) [Ratio] 20.93 kg/m2 Imtiaz Painter Other [employer] Other 05-14-2021 10:00-0500 Body weight 49.44 kg Imtiaz Painter Other [employer] Other 02-19-2021 11:30-0400 Body height 153.67 cm Imtiaz Painter Other [employer] Other 02-19-2021 11:30-0400 Body mass index (BMI) [Ratio] 20.19 kg/m2 Imtiaz Painter Other [employer] Other 02-19-2021 11:30-0400 Body weight 47.67 kg Imtiaz Painter Other [employer] Other Encounters Encounter Date Encounter Type Care Provider Facility Start: 01-15-2025 End: 01-15-2025 Bamboo flowsheet Nitin Angelica Pop[employer] Work Phone: [facility] Start: 01-15-2025 End: 01-15-2025 Bamboo flowsheet Nitin Angelica [employer] Phone: [facility] Start: 01-15-2025 End: 01-15-2025 Patient encounter procedure Nitin Angelica Popdeem Work Phone: [facility] Start: 01-15-2025 End: 01-15-2025 Periodic preventive med est patient 40-64yrs Nitin Angelica Popdeem Work Phone: [facility] Comment on above: Well woman exam with routine gynecological exam; Encounter for screening mammogram for malignant neoplasm of breast; Postmenopausal state; Menopausal symptom; Osteopenia, unspecified location Start: 01-06-2025 End: 01-06-2025 Office outpatient visit 15 minutes Desmond PEÑA Work Phone: [facility] Comment on above: Primary osteoarthrit is of right hip (Primary Dx); Pain in joint of right hip Start: 01-06-2025 End: 01-06-2025 ambulatory DESMOND LANIER Not Available Start: 12-25-2024 End: 12-25-2024 Bamboo flowsheet Jr. Young Mcdaniel Stepcecelia DO Work Phone: [facility] Start: 12-25-2024 End: 12-25-2024 Bamboo flowsheet JrTamia Mcdaniel Stepanic DO Work Phone: [facility] Start: 12-25-2024 End: 12-25-2024 Office outpatient visit 15 minutes Jr. Young Shah DO Work Phone: [facility] Comment on above: Primary osteoarthrit is of right hip (Primary Dx); Pain in joint of right hip; Closed fracture of sacrum, unspecified portion of sacrum, initial encounter ([facility]) Start: 12-25-2024 End: 12-25-2024 ambulatory YOUNG PAGAN Not Available Start: 12-20-2024 End: 12-20-2024 Bamboo flowsheet Jose Boone DO Work Phone: [facility] Start: 12-20-2024 End: 12-20-2024 Bamboo flowsheet Jose S Biedenbach DO Work Phone: [facility] [place] [facility] Start: 12-20-2024 End: 12-20-2024 Office outpatient visit 15 minutes Jose S Ysabelenandra DO Work Phone: [facility] Comment on above: Tobacco abuse (Prima ry Dx); Glossitis; Vasomotor rhinitis Start: 12-20-2024 End: 12-20-2024 ambulatory JOSE S BIKARLOENANDRA Not Available Start: 12-16-2024 End: 12-16-2024 ambulatory YOUNG PAGAN Not Available Start: 12-07-2024 End: 12-08-2024 Kisha King CAROUSEL ATTENDANT Work Phone: [facility] 210 Comment on above: 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 Young Shah DO Work Phone: [facility] [place] [facility] Start: 12-04-2024 End: 12-04-2024 Bamboo flowsheet Jr. Young Shah DO Work Phone: [facility] Start: 12-04-2024 End: 12-04-2024 Office outpatient visit 15 minutes Jr. Young Shah DO Work Phone: 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) (Primary Dx); Primary osteoarthritis of right hip; Pain in joint of right hip Start: 12-04-2024 End: 12-04-2024 ambulatory YOUNG PAGAN Not Available Start: 11-22-2024 End: 11-22-2024 Bamboo flowsheet Jose Boone DO Work Phone: [facility] [place] [facility] Start: 11-22-2024 End: 11-22-2024 Bamboo flowsheet Jose Boone DO Work Phone: [facility] [place] [facility] Start: 11-22-2024 End: 11-22-2024 Office outpatient new 45 minutes Jose Boone DO Work Phone: [facility] [place] [facility] Comment on above: Glossitis (Primary D x); Vasomotor rhinitis; Tobacco abuse Start: 11-22-2024 End: 11-22-2024 ambulatory JOSE S MELY Not Available Start: 10-24-2024 End: 10-24-2024 Bamboo flowsheet Desmond Macias DO Work Phone: [facility] 230 Start: 10-24-2024 End: 10-24-2024 Bamboo flowsheet Desmond Mcdaniel Colleen DO Work Phone: [facility] 230 Start: 10-24-2024 End: 10-24-2024 Patient encounter procedure Desmond Mcdaniel Colleen DO Work Phone: [facility] 230 Comment on above: Routine general medi noreen examination at a health care facility (Primary Dx); Need for vaccination; Idiopathic progressive polyneuropathy; Cervical radiculopathy; Osteopenia, unspecified location; Anxiety; Major depressive disorder, single episode, mild ; Migraine without aura, not refractory ; Tingling sensation; Primary hypertension ; IFG (impaired fasting glucose); Tongue pain Start: 10-24-2024 End: 10-24-2024 Patient encounter status Desmond Violeta Macias DO Work Phone: [facility] Start: 10-24-2024 End: 10-24-2024 ambulatory DESMOND MACIAS Not Available Start: 10-16-2024 End: 10-16-2024 Bamboo Scurriheet Jr. Young Mcdaniel Stepcecelia DO Work Phone: [facility] Start: 10-16-2024 End: 10-16-2024 Bamboo Scurrijenna Mcdaniel Stepcecelia DO Work Phone: [facility] Start: 10-16-2024 End: 10-16-2024 Office outpatient visit 25 minutes Jr. Young Shah DO Work Phone: [facility] Comment on above: Trochanteric bursiti s of left hip (Primary Dx); Bilateral hip pain Start: 10-16-2024 End: 10-16-2024 ambulatory YOUNG PAGAN Not Available Start: 10-03-2024 End: 10-03-2024 ambulatory Desmond Macias Facility:[facility] Start: 09-21-2024 End: 09-23-2024 Refill Desmond Macias DO Work Phone: [facility] 230 Comment on above: Degeneration of inte rvertebral disc of lumbar region, unspecified whether pain present; Lumbar pain; Primary insomnia Start: 09-11-2024 End: 09-11-2024 Orders Only Kaitlin Alvarez CAROUSEL ATTENDANT Work Phone: [facility] Comment on above: Cervical radiculopat hy (Primary Dx); Degenerative disc disease, cervical Start: 09-05-2024 End: 09-05-2024 Bamboo flowsheet Victorino Alejandre MD Work Phone: [facility] Start: 09-05-2024 End: 09-05-2024 Bamboo flowsheet Victorino Alejandre MD Work Phone: [facility] Start: 09-05-2024 End: 09-05-2024 Clinical Support Victorino Alejandre MD Work Phone: [facility] Comment on above: Trochanteric bursiti s of both hips (Primary Dx); Bilateral hip pain; Cervical radiculopathy; Fungal colitis; Carpal tunnel syndrome on left Start: 08-30-2024 End: 09-02-2024 Kisha King CAROUSEL ATTENDANT Work Phone: [facility] 210 Comment on above: Displacement of lumb ar disc with radiculopathy Start: 08-19-2024 End: 08-19-2024 Patient encounter procedure Desmond Macias DO Work Phone: [facility] Work Phone: Start: 08-19-2024 End: 08-19-2024 ambulatory Desmond Colleen DO Work Phone: [facility] Work Phone: Start: 08-02-2024 End: 08-03-2024 Telephone encounter Desmond Macias DO Work Phone: [facility] 230 Start: 07-29-2024 End: 07-29-2024 Bamboo flowsheet Desmond Macias DO Work Phone: [facility] 230 Start: 07-29-2024 End: 07-29-2024 Bamboo flowsheet Desmond Macias DO Work Phone: [facility] 230 Start: 07-29-2024 End: 07-29-2024 Office outpatient visit 25 minutes Desmond Macias DO Work Phone: [facility] 230 Comment on above: Elevated blood press ure reading (Primary Dx); Murmur; Idiopathic progressive polyneuropathy; Tingling sensation Start: 07-29-2024 End: 07-29-2024 ambulatory DESMOND MACIAS Not Available Start: 07-24-2024 End: 07-24-2024 Bamboo flowsheet Victorino Alejandre MD Work Phone: [facility] Start: 07-24-2024 End: 07-24-2024 Bamboo Scurriheet Victorino Alejandre MD Work Phone: [facility] Start: 07-24-2024 End: 07-24-2024 Clinical Support Victorino Alejandre MD Work Phone: [facility] Comment on above: Trochanteric bursiti s of both hips (Primary Dx); Fungal colitis; Carpal tunnel syndrome on left Start: 06-26-2024 End: 06-27-2024 Refill Desmond Macias DO Work Phone: [facility] 230 Comment on above: Primary insomnia; Degeneration of intervertebral disc of lumbar region, unspecified whether pain present; Lumbar pain Start: 06-12-2024 End: 06-12-2024 [employer] Victorino Alejandre MD Work Phone: [facility] Start: 06-12-2024 End: 06-12-2024 Bamboo Scurriheet Victorino Alejandre MD Work Phone: [facility] Start: 06-12-2024 End: 06-12-2024 Clinical Support Victorino Alejandre MD Work Phone: [facility] Comment on above: Carpal tunnel syndro me on both sides (Primary Dx); Fungal colitis; Burning tongue syndrome; New daily persistent headache; Trochanteric bursitis of both hips Start: 06-11-2024 End: 06-11-2024 Refill Dixie Elodia Christien CAROUSEL ATTENDANT Work Phone: [facility] 210 Comment on above: Displacement of lumb ar disc with radiculopathy Start: 06-10-2024 End: 06-10-2024 Telephone encounter Desmond Kimick DO Work Phone: [facility] 230 Start: 05-24-2024 End: 05-24-2024 Telephone encounter Desmond Kimick DO Work Phone: [facility] 230 Start: 05-01-2024 End: 05-01-2024 Bamboo flowsheet Desmond Kimick DO Work Phone: [facility] 230 Start: 05-01-2024 End: 05-01-2024 Bamboo flowsheet Desmond Kimick DO Work Phone: [facility] 230 Start: 05-01-2024 End: 05-01-2024 Office outpatient visit 15 minutes Desmond Macias DO Work Phone: [facility] 230 Comment on above: Mild reactive airway s disease, unspecified whether persistent (CMS/HCC) (Primary Dx); Acute bronchitis, bacterial; Influenza A; Neuropathy; Tingling sensation; Smoker; Tobacco abuse; Vitamin D deficiency Start: 05-01-2024 End: 05-01-2024 ambulatory DESMOND MACIAS Not Available Start: 04-20-2024 End: 04-20-2024 Office outpatient visit 25 minutes Benji Patel CAROUSEL ATTENDANT Work Phone: [facility] Comment on above: Influenza A (Primary Dx); Cough, unspecified type Start: 04-20-2024 End: 04-20-2024 ambulatory BENJI PATEL Not Available Start: 04-15-2024 End: 04-15-2024 Bamboo flowsheet Victorino Alejandre MD Work Phone: [facility] Start: 04-15-2024 End: 04-15-2024 Bamboo flowsheet Victorino Alejandre MD Work Phone: [facility] Start: 04-15-2024 End: 04-15-2024 Clinical Support Victorino Alejandre MD Work Phone: [facility] Comment on above: Trochanteric bursiti s of left hip (Primary Dx); Carpal tunnel syndrome on left Start: 04-12-2024 End: 04-12-2024 Bamboo flowsheet Desmond Mcdaniel Petznick DO Work Phone: [facility] 230 Start: 04-12-2024 End: 04-12-2024 Bamboo flowsheet Desmond Mcdaniel Petznick DO Work Phone: [facility] 230 Start: 04-12-2024 End: 04-12-2024 Office outpatient visit 15 minutes Desmond Mcdaniel Petznick DO Work Phone: [facility] 230 Comment on above: Tingling sensation ( Primary Dx) Start: 04-12-2024 End: 04-12-2024 ambulatory DESMOND KIMICK Not Available Start: 03-27-2024 End: 03-27-2024 ambulatory NITIN ANGELICA Not Available Start: 03-27-2024 End: 03-27-2024 Phys/qhp telephone evaluation 5-10 min Nitin Angelica DO Work Phone: [facility] Comment on above: Osteopenia, unspecif ied location Start: 03-07-2024 End: 03-11-2024 Reftommy King CAROUSEL ATTENDANT Work Phone: [facility] 210 Comment on above: Displacement of lumb ar disc with radiculopathy Start: 03-05-2024 End: 03-05-2024 ambulatory JOSE SNOG Not Available Start: 03-05-2024 End: 03-05-2024 Postop follow up visit related to original px Jose Song DO Work Phone: [facility] Comment on above: Colon cancer screeni ng (Primary Dx) Start: 02-26-2024 End: 02-26-2024 ambulatory DESMOND C PETZNICK Not Available Start: 02-19-2024 End: 02-19-2024 Bamboo flowsheet Victorino Alejandre MD Work Phone: [facility] Start: 02-19-2024 End: 02-19-2024 Bamboo flowsheet Victorino Alejandre MD Work Phone: [facility] Start: 02-19-2024 End: 02-19-2024 ambulatory VICTORINO ALEJANDRE Not Available Start: 02-08-2024 End: 02-08-2024 Office outpatient visit 25 minutes Desmond Swansonsalas DO Work Phone: [facility] 230 Comment on above: Degeneration of inte rvertebral disc of lumbar region, unspecified whether pain present (Primary Dx); Lumbar pain Start: 02-08-2024 End: 02-08-2024 ambulatory DESMOND SWANSONALYSSARADHA Not Available Start: 01-23-2024 End: 01-23-2024 Patient encounter procedure Jose Song DO Work Phone: [facility] Comment on above: Colon cancer screeni ng Start: 01-23-2024 End: 01-23-2024 ambulatory JOSE SONG Not Available Start: 01-14-2024 End: 01-15-2024 Refill Desmond Macias DO Work Phone: [facility] 230 Comment on above: Primary insomnia Start: 01-09-2024 End: 01-09-2024 Bamboo flowsheet Nitin Angelica DO Work Phone: [facility] Start: 01-09-2024 End: 01-13-2024 Bamboo flowsheet Nitin Angelica DO Work Phone: [facility] Start: 01-09-2024 End: 01-13-2024 Clinisync Result Encounter Nitin Angelica DO Work Phone: [facility] External Department Unsolicited Start: 01-09-2024 End: 01-09-2024 Patient encounter procedure Nitin Angelica DO Work Phone: [facility] Work Phone: Start: 01-09-2024 End: 01-09-2024 Periodic preventive med est patient 65yrs& older Nitin Dominguez DO Work Phone: [facility] Comment on above: Well woman exam with routine gynecological exam; Breast cancer screening by mammogram; Postmenopausal state; Menopausal symptom; Osteopenia, unspecified location Start: 01-09-2024 End: 01-09-2024 ambulatory NITIN DOMINGUEZ Not Available Start: 12-27-2023 End: 12-27-2023 Bamboo flowsheet Victorino Alejandre MD Work Phone: [facility] Start: 12-27-2023 End: 12-27-2023 Bamboo flowsheet Victorino Alejandre MD Work Phone: [facility] Start: 12-27-2023 End: 12-27-2023 Clinical Support Victorino Alejandre MD Work Phone: [facility] Comment on above: Carpal tunnel syndro me on left (Primary Dx); Neuropathy; Trochanteric bursitis of both hips Start: 12-23-2023 End: 12-26-2023 Refill Dixie King CAROUSEL ATTENDANT Work Phone: [facility] 210 Comment on above: Displacement of lumb ar disc with radiculopathy Start: 01-07-2023 End: 01-07-2023 ambulatory DO Desmond Macias Work Phone: [facility] Work Phone: Start: 01-07-2023 End: 01-07-2023 Departed Referred DO Desmond Macias Work Phone: [facility] Work Phone: Start: 12-14-2021 End: 12-15-[address] LEONELA ROMERO Facility:[facility] Start: 11-30-2021 End: 11-30-2021 ambulatory DESMOND MACIAS Facility:[facility] Start: 07-15-2021 End: 07-15-2021 ambulatory Charles Luis Other [employer] Other Start: 07-15-2021 Office outpatient vi sit 25 minutes Charles Luis [facility] Start: 07-08-2021 (Procedure) Short Charles Luis [facility] Start: 07-08-2021 End: 07-08-2021 ambulatory Charles Luis Other [employer] Other Start: 06-28-2021 End: 06-28-2021 ambulatory Charles Luis Other [employer] Other Start: 06-28-2021 Telephone encounter Charles Luis [facility] Start: 05-14-2021 End: 05-14-2021 ambulatory Imtiaz Painter Other [employer] Other Start: 05-14-2021 Office outpatient vi sit 15 minutes Imtiaz Painter [facility] [place] [facility] Start: 05-07-2021 ([facility] C Vac) [facility] Co vid Vaccine [facility] Start: 05-07-2021 End: 05-07-2021 ambulatory Abiola Valladares Other [employer] Other Start: 04-12-2021 End: 04-12-2021 ambulatory Imtiaz Painter Other [employer] Other Start: 04-12-2021 Telephone encounter Imtiaz Painter [facility] Start: 02-19-2021 Office outpatient ne w 45 minutes Imtiaz Painter [facility] Procedures Date Procedure Procedure Detail Performing Clinician Start: 01-06-2025 Arthrocentesis aspir&/inj major jt/bursa w/us Desmond Lanier PA Work Phone: Start: 10-16-2024 Arthrocentesis aspir&/inj major jt/bursa w/o us Jr. Young C Stepanic DO Work Phone: Start: 04-20-2024 STATUS COVID-19/FLU Mono Peraltavon DO Work Phone: Start: 02-23-2024 Mammography Jose Changdiana DO Work Phone: Start: 02-22-2024 Colonoscopy Jose Song DO Work Phone: Start: 02-08-2024 Radex spine lumbscrl compl w/bending views min 6 Desmond Swansonalyssaradha DO Work Phone: Start: 01-09-2024 IGP,APTIMA HPV,AGE GDLN Nitin Dominguez DO Work Phone: Start: 02-21-2023 Mammography Dixie King CAROUSEL ATTENDANT Work Phone: Start: 11-28-2022 H/O: hysterectomy Status post hysterectomy Dixie King CAROUSEL ATTENDANT Work Phone: Start: 11-07-2012 Colonoscopy Dixie King CAROUSEL ATTENDANT Work Phone: Plan of Treatment Date Care Activity Detail Author Start: 02-21-2034 Screening for malignant neoplasm of colon [facility] Start: 01-20-2026 End: 01-20-2026 Patient encounter procedure 01/20/2026 1:00 PM EDT Procedure Visit [facility] [address] [address] Nitin Dominguez, DO [address] [place] [address] [facility] Start: 01-15-2026 Medicare Annual Wellness (AWV) Medicare Annual Wellness (AWV) [facility] Start: 10-24-2025 Medicare Annual Wellness (AWV) Medicare Annual Wellness (AWV) [facility] Start: 02-22-2025 Screening for malignant neoplasm of breast Mammogram [facility] Start: 02-05-2025 End: 02-05-2025 Clinical Support 02/05/2025 1:00 PM EDT Clinical Support [facility] [address] [place] [phone] Victorino Alejandre MD [address] [facility] [address] [place] [place] [id number] [facility] Start: 01-29-2025 End: 01-29-2025 Patient encounter procedure 01/29/2025 11:00 AM EDT Office Visit [facility] [address] [place] [phone] Jr. Young Shah, [address] [facility] [address] [place] [address] [facility] Start: 01-15-2025 End: 03-17-2026 MG Breast - bilateral Screening Bilateral screening mammogram Imaging Routine Encounter for screening mammogram for malignant neoplasm of breast Expected: 01/15/2025, Expires: 03/17/2026 [facility] Work Phone: Comment on above: Expected: 01/15/2025, Expires: Start: 01-15-2025 End: 01-15-2025 Patient encounter procedure [facility] Comment on above: Arrived Start: 01-08-2025 Medicare Annual Wellness (AWV) Medicare Annual Wellness (AWV) [facility] Start: 01-06-2025 End: 01-06-2025 Patient encounter procedure 01/06/2025 9:30 AM EDT Office Visit [facility] [address] [place] [phone] Desmond Lanier, PA [address] [place] [address] [facility] Start: 01-01-2025 End: 01-01-2025 Clinical Support [facility] Start: 12-25-2024 End: 12-25-2024 Patient encounter procedure [facility] Comment on above: Arrived Start: 12-23-2024 Influenza vaccination Influenza Vaccine (#1) [facility] Start: 12-20-2024 End: 12-20-2024 Patient encounter procedure 12/20/2024 1:15 PM EDT Office Visit [facility] [address] [place] [address] Jose Boone, [address] [place] [address] [facility] Comment on above: Arrived Start: 12-13-2024 End: 12-13-2024 Patient encounter procedure 12/13/2024 1:30 PM EDT Office Visit [facility] [address] [place] [phone] Jose Boone, [address] [place] [address] [facility] Start: 12-04-2024 End: 12-04-2025 MR Hip - right WO contrast MR hip right wo IV contrast Imaging Routine AVN (avascular necrosis of bone) ([facility]) Expected: 12/04/2024, Expires: 12/04/[address] [facility] Work Phone: Comment on above: Expected: 12/04/2024, Expires: Start: 12-04-2024 End: 12-04-2024 Patient encounter procedure [facility] Comment on above: Arrived Start: 11-22-2024 End: 11-22-2024 Patient encounter procedure 11/22/2024 2:00 PM EDT Office Visit [facility] [place] [facility] [address] [place] [phone] Jose Boone, DO [address] [place] [address] Arrived [facility] Comment on above: Arrived Start: 11-13-2024 Medicare Annual Wellness (AWV) Medicare Annual Wellness (AWV) [facility] Start: 11-13-2024 End: 11-13-2024 Patient encounter procedure 11/13/2024 11:15 AM EDT Office Visit [facility] [address] [place] [phone] Jr. Young Shah, DO [address] [place] [address] [facility] Start: 10-24-2024 End: 10-24-2024 Patient encounter procedure 10/24/2024 11:45 AM EDT Office Visit [facility] [address] [place] [phone] Desmond Macias, DO [address] [place] [address] Arrived [facility] Comment on above: Arrived Start: 10-17-2024 End: 10-17-2024 Clinical Support [facility] Start: 10-16-2024 End: 10-16-2024 Patient encounter procedure [facility] Comment on above: Bilateral hip pain Start: 09-05-2024 End: 09-05-2024 Clinical Support [facility] Comment on above: Arrived Start: 07-29-2024 End: 07-29-2024 Patient encounter procedure 07/29/2024 12:30 PM EDT Office Visit [facility] [address] [place] [phone] Desmond Macias, DO [address] [place] [address] Arrived [facility] 230 Comment on above: Arrived Start: 07-24-2024 End: 07-24-2024 Clinical Support [facility] Comment on above: Arrived Start: 06-26-2024 End: 06-26-2024 Professional / ancillary services management 06/26/2024 11:00 AM EST Ancillary Procedure [facility] MR [address] [place] [id number] [facility] Start: 06-12-2024 End: 06-12-2025 MR Brain WO and W contrast IV MR brain w and wo contrast routine Imaging Routine Burning tongue syndrome New daily persistent headache Expected: 06/12/2024, Expires: 06/12/2025 [facility] Work Phone: Comment on above: Expected: 06/12/2024, Expires: Start: 06-12-2024 End: 06-12-2024 Clinical Support [facility] Comment on above: Arrived Start: 06-05-2024 Screening for malignant neoplasm of colon Colorectal Cancer Screening [facility] Comment on above: Postponed from 1960 (Patient Refus ed) Start: 05-01-2024 End: 05-01-2024 Patient encounter procedure 05/01/2024 12:45 PM EST Office Visit [facility] [address] [place] [phone] Desmond Macias, DO [address] [place] [address] Arrived [facility] Comment on above: Arrived Start: 04-15-2024 End: 04-15-2024 Clinical Support [facility] Comment on above: Arrived Start: 04-12-2024 End: 04-12-2024 Patient encounter procedure 04/12/2024 10:15 AM EST Office Visit [facility] [address] [place] [phone] Desmond Macias, DO [address] [place] [address] Arrived [facility] Comment on above: Arrived Start: 04-01-2024 End: 04-01-2024 Clinical Support 04/01/2024 11:00 AM EST Clinical Support [facility] [address] [place] [phone] Victorino Alejandre MD [address] [facility] [address] [place] [address] [facility] Start: 03-27-2024 End: 03-27-2024 Patient encounter procedure 03/27/2024 8:00 AM EST Office Visit [facility] [address] [facility] [phone] Nitin Dominguez, DO [address] [facility] [place] [address] [facility] Start: 03-05-2024 End: 03-05-2024 Patient encounter procedure 03/05/2024 11:15 AM EST Office Visit [facility] [address] [place] [phone] Jose Song, DO [address] [place] [address] [facility] Start: 02-26-2024 End: 02-26-2024 Professional / ancillary services management 02/26/2024 11:00 AM EST Ancillary Procedure [facility] [address] [place] [phone] [facility] Start: 02-22-2024 Screening for malignant neoplasm of breast Mammogram [facility] Start: 02-22-2024 End: 02-22-2024 Patient encounter procedure 02/22/2024 10:00 AM EDT Procedure Visit [facility] Jose Song, DO [address] [place] [address] [facility] Start: 02-21-2024 End: 02-21-2024 Professional / ancillary services management 02/21/2024 5:45 PM EDT Ancillary Procedure [facility] [address] [place] [phone] [facility] Start: 02-19-2024 End: 02-19-2024 Clinical Support [facility] Comment on above: Arrived Start: 01-23-2024 End: 01-23-2024 Patient encounter procedure 01/23/2024 1:30 PM EDT Office Visit [facility] [address] [facility] [address] [place] [phone] Jose Song, [address] [facility] [address] [place] [address] [facility] Start: 01-09-2024 End: 01-08-2025 DXA Skeletal system Views for bone density DEXA bone density Imaging Routine Postmenopausal state Expected: 01/09/2024 (Approximate), Expires: 01/08/2025 [facility] Comment on above: Expected: 01/09/2024 (Approximate), Expi res: 01/08/2025 Start: 01-09-2024 End: 03-10-2025 MG Breast - bilateral Screening Bilateral screening mammogram Imaging Routine Breast cancer screening by mammogram Expected: 01/09/2024, Expires: 03/10/2025 [facility] Work Phone: Comment on above: Expected: 01/09/2024, Expires: Start: 01-09-2024 End: 01-09-2024 Patient encounter procedure [facility] Comment on above: Arrived Start: 12-27-2023 End: 12-27-2023 Clinical Support [facility] Comment on above: Arrived Start: 12-24-2023 Influenza vaccination Influenza Vaccine (#1) [facility] Start: 11-07-2022 Screening for malignant neoplasm of colon Colonoscopy [facility] Start: 1977 Pneumococcal Vaccine: 65+ Years (1 of 2 - PCV) Pneumococcal Vaccine: 65+ Years (1 of 2 - PCV) [facility] Start: 1964 Pneumococcal Vaccine: 65+ Years (1 of 2 - PCV) Pneumococcal Vaccine: 65+ Years (1 of 2 - PCV) [facility] Start: 1958 Screening for malignant neoplasm of colon [facility] 25-hydroxyvitamin D3 [Mass/volume] in Serum or Plasma Vitamin D 25 hydroxy Total Lab Routine Neuropathy Tingling sensation Vitamin D deficiency Ordered: 05/01/2024 [facility] Comment on above: Ordered: 05/01/2024 Anti-DNA antibody, double-stranded Anti-DNA antibody, double-stranded Lab Routine Neuropathy Tingling sensation Vitamin D deficiency Ordered: 05/01/2024 [facility] Comment on above: Ordered: 05/01/2024 Cobalamin (Vitamin B 12) [Mass/volume] in Serum or Plasma Vitamin B12 Lab Routine Neuropathy Tingling sensation Vitamin D deficiency Ordered: 05/01/2024 [facility] Comment on above: Ordered: 05/01/2024 Ferritin [Mass/volum e] in Serum or Plasma Ferritin Lab Routine Neuropathy Tingling sensation Vitamin D deficiency Ordered: 05/01/2024 [facility] Comment on above: Ordered: 05/01/2024 Folate [Mass/volume] in Serum or Plasma Folate Lab Routine Neuropathy Tingling sensation Vitamin D deficiency Ordered: 05/01/2024 [facility] Comment on above: Ordered: 05/01/2024 Nuclear Ab [Titer] i n Serum by Immunofluorescence YOLIE Lab Routine Neuropathy Tingling sensation Vitamin D deficiency Ordered: 05/01/2024 [facility] Comment on above: Ordered: 05/01/2024 Sjogrens syndrome-A extractable nuclear antibody Sjogrens syndrome-A extractable nuclear antibody Lab Routine Neuropathy Tingling sensation Ordered: 05/01/2024 [facility] Comment on above: Ordered: 05/01/2024 Sjogrens syndrome-B extractable nuclear antibody Sjogrens syndrome-B extractable nuclear antibody Lab Routine Neuropathy Tingling sensation Ordered: 05/01/2024 [facility] Work Phone: Comment on above: Ordered: 05/01/2024 THIN PREP TIS PAP AN D HR HPV DNA THIN PREP TIS PAP AND HR HPV DNA Pathology and Cytology Routine Well woman exam with routine gynecological exam Ordered: 01/09/2024 [facility] Comment on above: Ordered: 01/09/2024 THIN PREP TIS PAP AN D HR HPV DNA THIN PREP TIS PAP AND HR HPV DNA Pathology and Cytology Routine Well woman exam with routine gynecological exam Ordered: 01/15/2025 [facility] Comment on above: Ordered: 01/15/2025 US Heart Transthoracic Congenita l transthoracic echo (TTE) complete Imaging Routine Murmur Ordered: 07/29/2024 [facility] Work Phone: Comment on above: Ordered: 07/29/2024 Immunizations Immunization Date Immunization Notes Care Provider Angela bonner 10-24-2024 Pneumococcal Conjugate PCV 20 Demsond Macias DO Work Phone: [facility] 01-19-2024 Seasonal trivalent influenza vaccine, adjuvanted, preservative free Victorino Alejandre MD Work Phone: [facility] 01-19-2024 influenza virus vaccine, unspecified formulation Desmond Colleen DO Work Phone: [facility] 02-04-2022 influenza, injectable, quadrivalent, preservative free Dixie King CAROUSEL ATTENDANT Work Phone: [facility] 02-04-2022 influenza virus vaccine, unspecified formulation Dixie Kendrickiani CAROUSEL ATTENDANT Work Phone: [facility] 05-07-2021 COVID-19 Attila Walshjustin Other [facility] 01-23-2020 influenza, injectable, quadrivalent, contains preservative Dixie Aroldoiani CAROUSEL ATTENDANT Work Phone: [facility] 02-22-2017 influenza virus vaccine, unspecified formulation Desmond Macias DO Work Phone: [facility] 02-22-2017 influenza, seasonal, injectable Dixie Graziani CAROUSEL ATTENDANT Work Phone: [facility] 02-22-2017 influenza, seasonal, injectable, preservative free [employer] Painter Other [employer] [facility] [employer] Other 02-21-2017 influenza virus vaccine, split virus (incl. purified surface antigen) Dixie King CAROUSEL ATTENDANT Work Phone: [facility] 01-27-2015 influenza, seasonal, injectable [employer] Other [employer] Other Payers Date Payer Category Payer Medicare (Managed Care) [employer] [id number] 2023 Unknown [employer] D EVFORM[facility]LY [facility] [id number] 2023-Present [address] [place] [id number]. [id number] 2023 Unknown [id number] 1989 Medicare [id number]. [id number] 1959 Self-pay 1958 Unknown [id number] 2.16.840.1.200698.3.579.2. 593 1958 Unknown [id number] 2.16.840.1.018982.3.579.2. 593 1958 Unknown [id number] 2.16.840.1.370076.3.579.2. 1259 1958 Unknown [id number] 2.16.840.1.955492.3.579.2. 1259 1958 Unknown [id number] 2.16.840.1.965264.3.579.2. 1259 1958 Unknown [id number] 2.16.840.1.874451.3.579.2. 1259 1958 Unknown [id number] 2.16.840.1.816345.3.579.2. 1258 1958 Unknown [id number] 2.16.840.1.831832.3.579.2. 1258 1958 Unknown [id number] 2.16.840.1.023892.3.579.2. 1258 1958 Unknown [id number] 2.16.840.1.514850.3.579.2. 1258 1958 Unknown [id number] 2.16.840.1.471634.3.579.2. 1258 1958 Unknown [id number] 2.16.840.1.115339.3.579.2. 1258 1958 Unknown [id number] 2.16.840.1.220997.3.579.2. 1258 1958 Unknown [id number] 2.16.840.1.817719.3.579.2. 1258 1958 Unknown [id number] 2.16.840.1.141105.3.579.2. 1258 1958 Unknown [id number] 2.16.840.1.756257.3.579.2. 1258 1958 Unknown [id number] 2.16.840.1.453957.3.579.2. 1258 1958 Unknown [id number] 2.16.840.1.144138.3.579.2. 1258 1958 Unknown [id number] 2.16.840.1.662157.3.579.2. 1258 1958 Unknown [id number] 2.16.840.1.358830.3.579.2. 1258 1958 Unknown [id number] 2.16.840.1.153672.3.579.2. 1258 1958 Unknown [id number] 2.16.840.1.598751.3.579.2. 1258 1958 Unknown [id number] 2.16.840.1.932352.3.579.2. 1258 1958 Unknown [id number] 2.16.840.1.217717.3.579.2. 1258 1958 Unknown [id number] 2.16.840.1.294550.3.579.2. 1258 1958 Unknown [id number] 2.16.840.1.788277.3.579.2. 1258 1958 Unknown [id number] 2.16.840.1.944282.3.579.2. 1258 1958 Unknown [id number] 2.16.840.1.141700.3.579.2. 1258 1958 Unknown [id number] 2.16.840.1.682018.3.579.2. 1258 [id number] 2.16840.1.432233.19 Unknown [id number] Unknown O [id number] Unknown [id number] 2.16.840.1.077880.3.579.2. 531 Unknown [id number] 2.16840.1.682929.3.579.2. 531 Social History Date Type Detail Facility Unknown if ever smoked [employer] Other Start: 11-07-2023 End: 10-24-2024 Sex Assigned At [facility] Start: 07-23-2018 End: 07-15-2021 Tobacco smoking status [facility] Smoker (finding) [facility] Start: 1960 Sex Assigned At Female [facility] Start: 04-24-1976 End: 07-29-2024 Tobacco smoking status [facility] Smokes tobacco daily [facility] Start: 04-24-1976 History of tobacco use Cigarette Smoker [facility] Start: 10-05-2023 Tobacco use and exposure User of smokeless tobacco [facility] Start: 01-23-2024 End: 01-06-2025 Alcoholic beverage intake Current drinker of alcohol (finding) [facility] Start: 11-07-2023 End: 01-23-2024 Alcoholic beverage intake [facility] How often do you nee d to have someone help you when you read instructions, pamphlets, or other written material from your doctor or pharmacy [SILS] Never [facility] Do you belong to any clubs or organizations such as anabaptism groups, unions, fraternal or athletic groups, or [...] 04-06-2023 Tobacco Comment 6-10 cigarettes a day [facility] Start: 03-20-2023 Alcohol Comment 2-3 times a week; Caffeine Intake: 2-3 cups per day coffee or soda [facility] Start: 01-17-2023 Gender identity Identifies as female gender (finding) [facility] Start: 02-08-2024 End: 07-29-2024 Tobacco use and exposure Smokeless tobacco non-user [facility] Start: 07-29-2024 Tobacco Comment 5 cigarettes a day [facility] Start: 08-20-2024 Sex Female (finding) [facility] Medical Equipment Procedure Code Equipment Code Equipment [...] FDA Start: 07-23-2018 Fusion, spine, lumbar, XLIF ALLOGRAFT 8MM TLIF [...] SCREW SET CAPLOX II FDA Start: 07-23-2018 Functional Status Date Assessment Result Facility 10-24-2024 Patient Health Quest ionnaire 2 item (PHQ-2) [Reported] [facility] Clinical Notes 02-19-2021 to 01-15-2025 Orly Earl, LIME BOILER - 01/15/2025 1:00 PM EDTMberenice Lanier, PA - 01/06/2025 9:30 AM EDTJr. Young Shah, DO - 12/25/2024 11:00 AM Cristel Boone, DO - 12/20/2024 1:15 PM EDT Note Date & Type Note Facility 01-15-2025 History of Presen t illness Narrative Reason for Appointment: Patient ID: Gisel Almodovar is a 64 y.o. female who presents for Well Women Visit Patient presents today for Annual Exam. MEDICATIONS Current Outpatient Medications Medication Instructions albuterol HFA 90 mcg/act inhaler 2 puffs, Inhalation, Every 6 hours PRN alendronate (Fosamax) 35 MG tablet Take 1 tablet by mouth weekly Cyanocobalamin (Vitamin B 12) 250 MCG lozenge Every 24 hours diphenhydrAMINE-acetaminophen (Tylenol PM Extra Strength) 25-500 MG per tablet Every 24 hours estradiol (ESTRACE) 1 mg, Oral, Daily gabapentin (Neurontin) 400 MG capsule TAKE 1 CAPSULE IN THE MORNING, IN THE EVENING, AND BEFORE BEDTIME. ipratropium (Atrovent) 0.03 % nasal spray 2 sprays, Each Nostril, Every 12 hours meloxicam (MOBIC) 15 mg, Oral, Daily Multiple Vitamins-Minerals (Centrum Silver 50+Women) tablet SUMAtriptan (Imitrex) 100 MG tablet TAKE 1 TABLET ONE TIME NEEDED FOR MIGRAINE FOR UP TO 1 DOSE tiZANidine (ZANAFLEX) 2 mg, Oral, Nightly triamcinolone (Kenalog) 0.1 % cream zolpidem (AMBIEN) 10 mg, Oral, Nightly PRN ALLERGIES Allergies Allergen Reactions Sulfamethoxazole-Trimethoprim Hives Other Reaction(s): tongue swelling Trimethoprim Other Reaction(s): Tongue swells Doxepin Swelling PROBLEMS Active Ambulatory Problems Diagnosis Date Noted Anxiety 11/28/2022 Major depressive disorder, single episode, mild 11/28/2022 Menopausal symptom 11/28/2022 Migraine without aura, not refractory 11/28/2022 Mild reactive airways disease (HCC) 11/28/2022 Osteopenia 11/28/2022 Smoker 11/28/2022 Status post hysterectomy 11/28/2022 Idiopathic progressive polyneuropathy 03/13/2023 Carpal tunnel syndrome on both sides 04/06/2023 Cervical radiculopathy 04/06/2023 Degenerative disc disease, lumbar 09/04/2023 Spinal enthesopathy, lumbosacral region 09/05/2023 Carpal tunnel syndrome on left 01/01/2024 Trochanteric bursitis of both hips 01/01/2024 Myalgia 02/20/2024 Trochanteric bursitis of left hip 04/19/2024 Resolved Ambulatory Problems Diagnosis Date Noted Chronic pain 05/21/2019 Depression 11/28/2022 Displacement of lumbar disc with radiculopathy 11/28/2022 Radiculopathy due to lumbar intervertebral disc disorder 07/05/2017 Acquired hallux valgus 03/11/2020 Hallux valgus of left foot 11/28/2022 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 11/28/2022 Osteopenia of hip 11/28/2022 Pain in joint involving pelvic region and thigh 11/28/2022 Plantar nerve lesion 03/11/2020 Refractory migraine 11/28/2022 Trochanteric bursitis of left hip 11/28/2022 Neck pain 10/05/2023 Cervical paraspinal muscle spasm 10/05/2023 Myalgia 11/09/2023 Carpal tunnel syndrome on left 11/09/2023 Colon cancer screening 01/23/2024 Past Medical History: Diagnosis Date Arthritis At moderate risk for fall CTS (carpal tunnel syndrome) H/O abdominal hysterectomy Hip pain, right Insomnia Intractable migraine with status migrainosus, unspecified migraine type Menopausal symptoms Migraine Migraine variant Neuropathy Numbness Osteoporosis screening Post menopausal syndrome Screening mammogram for breast cancer 12/14/2021 Visit for review of DEXA scan Visual impairment HISTORY PAST MEDICAL HISTORY SOCIAL HISTORY Past Medical History: Diagnosis Date Anxiety Arthritis At moderate risk for fall CTS (carpal tunnel syndrome) Depression Displacement of lumbar disc with radiculopathy 11/28/2022 H/O abdominal hysterectomy Hip pain, right Insomnia Intractable migraine with status migrainosus, unspecified migraine type Menopausal symptoms Migraine Migraine variant Neuropathy Numbness Osteopenia Osteopenia of hip Osteoporosis screening Post menopausal syndrome Radiculopathy due to lumbar intervertebral disc disorder 07/05/2017 Refractory migraine 11/28/2022 Screening mammogram for breast cancer 12/14/2021 negative Trochanteric bursitis of left hip Visit for review of DEXA scan Visual impairment w/contact lenses and glasses Social History Tobacco Use Smoking status: Every Day Types: Cigarettes Start date: 04/24/1976 Smokeless tobacco: Never Tobacco comments: 5 cigarettes a day Vaping Use Vaping status: Never Used Substance Use Topics Alcohol use: Yes Alcohol/week: 2.0 standard drinks of alcohol Types: 2 Glasses of wine per week Comment: 2-3 times a week; Caffeine Intake: 2-3 cups per day coffee or soda Drug use: Never FAMILY HISTORY Family History Problem Relation Name Age of Onset Breast cancer Mother Shelia Arthritis Mother Shelia Cancer Mother Shelia Heart disease Father Rohit Breast cancer Sister Roxanna Cancer Sister Roxanna Leukemia Brother Ignacio Cancer Brother Ignacio Miscarriages / Stillbirths Daughter Marilyn SURGICAL HISTORY Past Surgical History: Procedure Laterality Date BACK SURGERY 2007 fusion BACK SURGERY 2006 SECTION, CLASSIC 1989 SECTION, LOW TRANSVERSE 06/10/1989 COLONOSCOPY 02/22/2024 HYSTERECTOMY LUMBAR DISC SURGERY 04/2017 LUMBAR FUSION PARTIAL HYSTERECTOMY SKIN BIOPSY benign SPINAL FUSION 07/[address] Cifuentes TUBAL LIGATION REVIEW OF SYSTEMS Review of Systems: Review of Systems Constitutional: Negative. HENT: Negative. Eyes: Negative. Respiratory: Negative. Cardiovascular: Negative. Gastrointestinal: Negative. Genitourinary: Negative. Musculoskeletal: Negative. Skin: Negative. Neurological: Negative. All other systems reviewed and are negative. Hematological: Negative. Endocrine: Negative. Allergic/Immunologic: Negative. OBJECTIVE Objective: Physical Exam Constitutional: Appearance: Normal appearance. She is well-developed. Genitourinary: Vulva normal. Vaginal cuff intact. Cervix is absent. Uterus is absent. Breasts: Breasts are soft. Right: Normal. Left: Normal. Cardiovascular: Rate and Rhythm: Normal rate and regular rhythm. Abdominal: General: Bowel sounds are normal. There is no distension. Palpations: Abdomen is soft. Tenderness: There is no abdominal tenderness. There is no guarding or rebound. Musculoskeletal: General: No swelling. Normal range of motion. Right lower leg: No edema. Left lower leg: No edema. Neurological: Mental Status: She is alert and oriented to person, place, and time. Skin: General: Skin is warm and dry. Psychiatric: Mood and Affect: Mood normal. Behavior: Behavior normal. Vitals and nursing note reviewed. Exam conducted with a radiological technologist present. Vitals: Estimated body mass index is 19.73 kg/m as calculated from the following: Height as of 12/20/24: 5'. Weight as of this encounter: 101 lb. BP: 138/86 No LMP recorded. Patient has had a hysterectomy. ASSESSMENT & PLAN ICD-10-CM 1. Well woman exam with routine gynecological exam Z01.419 THIN PREP TIS PAP AND HR HPV DNA 2. Encounter for screening mammogram for malignant neoplasm of breast Z12.31 Bilateral screening mammogram Bilateral screening mammogram 3. Postmenopausal state Z78.0 4. Menopausal symptom N95.1 estradiol (Estrace) 1 MG tablet 5. Osteopenia, unspecified location M85.80 alendronate (Fosamax) 35 MG tablet Orders Placed This Encounter Procedures Bilateral screening mammogram Annual Wellness Exam (Post Hysterectomy): Patient presents today for routine annual exam. Patient states she has no current complaints. Patients vitals were reviewed and within normal limits. Growth and development is noted to be appropriate for age. Menstrual history is noted to be obsolete due to patients history of hysterectomy. No mental health concerns was expressed. Pap Smear: Speculum was inserted into the vagina and pap was obtained without difficulty. HPV testing was performed per guidelines. Patient was advised that pap results could take anywhere from 7 to 10 days to receive and our office will reach out to the patient with those once we have them. Patient can also view results via [employer]. I reinforced importance of condom use for STI prevention. Patient declined cultures to be performed with today's visit. Breast Exam: Upon examination, clinical breast exam was noted to be normal. Patient was counseled on breast self-awareness, including the importance of knowing what is normal for her own breasts and promptly reporting any changes such as new lumps, skin dimpling, nipple discharge, or pain. Screening mammogram recommended annually beginning at age 40 or earlier if risk factors are present. Discussed signs and symptoms of breast cancer and when to seek medical attention. Answered all patient questions. Follow Up: Patient is to return to our office in one year for annual exam unless needed otherwise. Documented by Orly Earl LPN on behalf of: Nitin Dominguez DO documented in this encounter [facility] 01-06-2025 History of Presen t illness Narrative Associated Order(s): L Inj/Asp: R hip joint Post-Procedure Diagnose(s): Primary osteoarthritis of right hip Orthopedic Office note: NAME: Gisel Almodovar : 1960 (EST PT) (LAST APPT W/ DR. SHAH) - RECHECK B/L HIP DISCOMFORT (R>L) ; HERE FOR (R) HIP USG CORTISONE INJ XRAY B/L HIPS 09/05/24 IN [facility] MRI (R) HIP 12/16/24 IN [facility] NO MDP / PREDNISONE USG (R) HIP CORTISONE INJ TODAY, 01/06/25 S/P (R) HIP CORTISONE INJ 10/16/24 B/L DECADRON INJ B/L HIPS (DR. ALEJANDRE) 09/05/24 NO PT PAIN MGMT - RUDDY AUGUSTINE (B/L HIP PAIN) REQUESTING CORTISONE INJ TODAY. CONSTANT ILIAC CREST / LATERAL DISCOMFORT - RADIATION INTO GROIN / HAMSTRING AFTER INJURY - WORSE WITH PROLONGED WB / SITTING. DENIES N/T. ADMITS STIFFNESS. WAKING HS D/T DISCOMFORT. DENIES SWELLING. DENIES POPPING / GRINDING. GOOD ROM - PAINFUL. SOME WEAKNESS / ISSUES WITH BALANCE. NO PAIN MEDS. ICING / HEATING FREQUENTLY. TRIED BIOFREEZE - NO RELIEF. REYNA: 11/29/24 - LEG CAUGHT ON STOOL, FELL BACKWARDS, STRIKING HEAD / (R) LOWER BACK Hip Musculoskeletal Exam Gait Gait is normal. Inspection Leg length disparity: no discrepancy Right Erythema: none Ecchymosis: none Edema: none Deformity: none Palpation Right Right hip palpation is normal. Increased warmth: none Tenderness: present Greater trochanteric region pain: mild Pubic rami pain: none Lower lumbar region pain: mild Range of Motion Right Right hip range of motion is within functional limits. Active ROM: normal. Passive ROM: normal. Active extension: 35. Passive extension: 35. Active flexion: 100. Passive flexion: 100. Active internal rotation: 30. Passive internal rotation: 30. Active external rotation: 40. Passive external rotation: 40. Range of motion additional comments: Pain on end rom Strength Right Right hip strength is normal. Extension: 5/5. Flexion: 5/5. Internal rotation: 5/5. External rotation: 5/5. Adduction: 5/5. Abduction: 5/5. Neurovascular Right Right hip neurovascular exam is normal. Pulses - PT: normal Posterior tibial: 2+ Special Tests Right Log roll test: positive GWENDOLYN test (right): negative Impingement test: positive General Constitutional: appears stated age Labored breathing: no Psychiatric: normal mood and affect Neurological: alert and oriented x3 Skin: intact Lymphadenopathy: none Orders Placed This Encounter Procedures L Inj/Asp This order was created via procedure documentation L Inj/Asp: R hip joint on 01/06/2025 10:13 AM Indications: pain and diagnostic evaluation Details: 22 G needle, ultrasound-guided anterolateral approach Medications: 40 mg methylPREDNISolone acetate 40 MG/ML; 2 mL bupivacaine PF 0.5 % Outcome: tolerated well, no immediate complications With patient supine, the right hip was sterilely prepped with isopropyl alcohol. The isopropyl alcohol was allowed to dry. The ultrasound was used to eval the anatomy of the hip joint. The femoral neck and femoral shaft and femoral head were well visualized. A plain was established that avoided any neurovascular structures and a 20 G spinal needle was inserted under ultrasound guidance toward the head neck junction. The needle was seen to enter the joint with imaging capturing proper placement of the needle. 40mg depomedrol was injected and patient tolerated procedure well. After needle removal a steril Band-Aid was placed and hemostasis was achieved. Images captured to patient's chart ( Codes [id number]) Procedure, treatment alternatives, risks and benefits explained, specific risks discussed. Consent was given by the patient. Patient was prepped and draped in the usual sterile fashion. Results - Imaging (MRI from 12/16/2024): - No evidence of hip fracture - Some bone marrow edema near the sacrum ICD-10-CM 1. Primary osteoarthritis of right hip M16.11 2. Pain in joint of right hip M25.551 F/U Dr. Shah s/p MRI / IA hip injection to discuss need for possible: Consider repeat weight bearing xray to compare to May if not getting relief +/_ bone scan Surgical and non surgical tx options discussed with conservative measures reviewed. Recommend ICE/ ELEVATION, continued activity modification in interim. Pt would consider surgical intervention to possibly improve symptoms. Assessment & Plan Right hip pain Previous MRI from 12/16/2024 reviewed, showing no evidence of hip fracture. Bone marrow edema near the sacrum was noted, but minimal tenderness was present on exam. Previous x-rays were discussed. An intra-articular hip injection was agreed upon after discussing risks and benefits. This diagnostic and therapeutic intervention was thoroughly discussed. No further concerns or questions were raised. Diagnostic plan: Consider repeat weightbearing x-rays if relief is not achieved. Treatment plan: An intra-articular hip injection will be administered to manage pain and inflammation. Patient education included the importance of monitoring for signs of infection and reporting any adverse effects promptly. Lifestyle modifications such as avoiding high-impact activities and using supportive footwear were recommended. Clinical decision making: The risks and benefits of this procedure were discussed, including potential infection, bleeding, and temporary increase in pain. The goal is to provide pain relief and improve mobility. Right hip arthritis Previous MRI from 12/16/2024 reviewed, showing no evidence of hip fracture. Bone marrow edema near the sacrum was noted, but minimal tenderness was present on exam. Previous x-rays were discussed. An intra-articular hip injection was agreed upon after discussing risks and benefits. This diagnostic and therapeutic intervention was thoroughly discussed. No further concerns or questions were raised. Diagnostic plan: Consider repeat weightbearing x-rays if relief is not achieved. Treatment plan: An intra-articular hip injection will be administered to manage arthritis symptoms. Patient education included the importance of monitoring for signs of infection and reporting any adverse effects promptly. Lifestyle modifications such as weight management and low-impact exercises were recommended. Clinical decision making: The risks and benefits of this procedure were discussed, including potential infection, bleeding, and temporary increase in pain. The goal is to reduce inflammation and improve joint function. Follow-up: Follow-up in 2 to 4 weeks with to assess relief. Questions answered in laymen terms at the bedside. The diagnosis, home exercise plan and any ongoing restrictions/ recommendations reviewed. If unable to be reached in office, I recommend evaluation at nearest Emergency Room if any symptoms worsened or new symptoms develop for requiring urgent evaluation. Visit was preformed using [employer] piloted vehicle controller speech recognition. documented in this encounter [facility] 12-25-2024 History of Presen t illness Narrative Images from the original note were not included. HISTORY OF PRESENT ILLNESS: EST PT Gisel Almodovar is an 64 y.o. @ female. (EST PT) - RECHECK B/L HIP DISCOMFORT (R>L) S/P MRI 12/16/24 @[facility] - HERE FOR RESULTS / OPTIONS XRAY B/L HIPS 09/05/24 IN [facility] MRI (R) HIP 12/16/24 IN [facility] NO MDP / PREDNISONE S/P (R) HIP CORTISONE INJ 10/16/24 B/L DECADRON INJ B/L HIPS (DR. ALEJANDRE) 09/05/24 NO PT PAIN MGMT - RUDDY AUGUSTINE (B/L HIP PAIN) CAN RADIATE TO HAMSTRING. CONSTANT ILIAC CREST / LATERAL DISCOMFORT - RADIATION INTO GROIN / HAMSTRING AFTER INJURY - WORSE WITH PROLONGED WB / SITTING. DENIES N/T. ADMITS STIFFNESS. WAKING HS D/T DISCOMFORT. DENIES SWELLING. DENIES POPPING / GRINDING. GOOD ROM - PAINFUL. SOME WEAKNESS / ISSUES WITH BALANCE. NO PAIN MEDS. ICING / HEATING FREQUENTLY. TRIED BIOFREEZE - NO RELIEF. REYNA: 11/29/24 - LEG CAUGHT ON STOOL, FELL BACKWARDS, STRIKING HEAD / (R) LOWER BACK ALLERGIES: Allergies Allergen Reactions Sulfamethoxazole-Trimethoprim Hives Other Reaction(s): tongue swelling Trimethoprim Other Reaction(s): Tongue swells Doxepin Swelling HOME MEDICATIONS: Current Outpatient Medications Medication Instructions albuterol HFA 90 mcg/act inhaler 2 puffs, Inhalation, Every 6 hours PRN alendronate (Fosamax) 35 MG tablet Take 1 tablet by mouth weekly busPIRone (Buspar) 10 MG tablet TAKE 1 TABLET IN THE MORNING AND 1 TABLET BEFOREBEDTIME Cyanocobalamin (Vitamin B 12) 250 MCG lozenge Every 24 hours diphenhydrAMINE-acetaminophen (Tylenol PM Extra Strength) 25-500 MG per tablet Every 24 hours estradiol (ESTRACE) 1 mg, Oral, Daily gabapentin (Neurontin) 400 MG capsule TAKE 1 CAPSULE IN THE MORNING, IN THE EVENING, AND BEFORE BEDTIME. ipratropium (Atrovent) 0.03 % nasal spray 2 sprays, Each Nostril, Every 12 hours meloxicam (MOBIC) 15 mg, Oral, Daily Multiple Vitamins-Minerals (Centrum Silver 50+Women) tablet nortriptyline (PAMELOR) 10 mg, Oral, Nightly SUMAtriptan (Imitrex) 100 MG tablet TAKE 1 TABLET ONE TIME NEEDED FOR MIGRAINE FOR UP TO 1 DOSE tiZANidine (ZANAFLEX) 2 mg, Oral, Nightly triamcinolone (Kenalog) 0.1 % cream zolpidem (Ambien) 5 MG tablet TAKE 1 TABLET AT BEDTIME ASNEEDED FOR SLEEP. PHYSICAL EXAM: Hip Musculoskeletal Exam Gait Gait is normal. Limp: right Inspection Leg length disparity: no discrepancy Right Erythema: none Ecchymosis: none Edema: none Deformity: none Palpation Right Right hip palpation is normal. Increased warmth: none Tenderness: present Greater trochanteric region pain: mild Pubic rami pain: mild Palpation additional comments: Pain with deep palpation over the right sacroiliac joint. Range of Motion Right Right hip range of motion is within functional limits. Active ROM: normal. Passive ROM: normal. Active extension: 25. Passive extension: 30. Active flexion: 100. Passive flexion: 110. Active internal rotation: 15. Passive internal rotation: 20. Active external rotation: 25. Passive external rotation: 30. Active adduction: 15. Passive adduction: 20. Active abduction: 35. Passive abduction: 35. Strength Right Right hip strength is normal. Extension: 5/5. Flexion: 5/5. Internal rotation: 5/5. External rotation: 5/5. Adduction: 5/5. Abduction: 5/5. Abduction is affected by pain. Neurovascular Right Right hip neurovascular exam is normal. Pulses - PT: normal Posterior tibial: 2+ General Constitutional: appears stated age Labored breathing: no Psychiatric: normal mood and affect Neurological: alert and oriented x3 Skin: intact Lymphadenopathy: none Vitals: There is no height or weight on file to calculate BMI. Tobacco Use: High Risk (12/25/2024) Patient History Smoking Tobacco Use: Every Day Smokeless Tobacco Use: Never Passive Exposure: Not on file Alcohol Use: Not At Risk (11/07/2023) AUDIT-C Frequency of Alcohol Consumption: 2-3 times a week Average Number of Drinks: 1 or 2 Frequency of Binge Drinking: Never IMAGING: Procedures No orders of the defined types were placed in this encounter. ASSESSMENT: ICD-10-CM 1. Primary osteoarthritis of right hip M16.11 2. Pain in joint of right hip M25.551 3. Closed fracture of sacrum, unspecified portion of sacrum, initial encounter ([facility]) S32.10XA PLAN: We have discussed her physical exam, symptoms, an MRI today length. We have recommended an ultrasound-guided injection in her right hip for arthritis. She has what appears to be an insufficiency fracture of her sacrum. While awaiting for this to heal we will inject her to try to get her out of some of her symptoms for her arthritis. We'll see her back in a month and see how she responded to the injection if this works fantastically protected and we will discuss a total hip arthroplasty on the right. Questions answered in laymen terms at the bedside. The diagnosis, home exercise plan and any ongoing restrictions/ recommendations reviewed. If unable to be reached in office, I recommend evaluation at nearest Emergency Room if any symptoms worsened or new symptoms develop for requiring urgent evaluation. documented in this encounter [facility] 12-20-2024 History of Presen t illness Narrative Subjective Patient ID: Gisel Almodovar is a 64 y.o. female who presents for Glossitis (4 week elina ) HPI 64-year-old white female presents today for recheck of burning sensation of her tongue. Patient describes difficulties for the last few months. Presents today for recheck. Denies any significant change Review of Systems Patient denies any bleeding from her tongue. Denies any visible abnormalities of her mouth and tongue. Does have significant mouth dryness at times. She also describes chronic difficulties with clear rhinorrhea. She does take several medications. Not having any fever. The rest of her review of systems is neck Allergies as of 12/20/2024 - Reviewed 12/20/2024 Allergen Reaction Noted Sulfamethoxazole-trimethoprim Hives 05/15/2020 Trimethoprim 02/02/2018 Doxepin Swelling 01/09/2024 Past Medical History: Diagnosis Date Anxiety Arthritis At moderate risk for fall CTS (carpal tunnel syndrome) Depression Displacement of lumbar disc with radiculopathy 11/28/2022 H/O abdominal hysterectomy Hip pain, right Insomnia Intractable migraine with status migrainosus, unspecified migraine type Menopausal symptoms Migraine Migraine variant Neuropathy Numbness Osteopenia Osteopenia of hip Osteoporosis screening Post menopausal syndrome Radiculopathy due to lumbar intervertebral disc disorder 07/05/2017 Refractory migraine 11/28/2022 Screening mammogram for breast cancer 12/14/2021 negative Trochanteric bursitis of left hip Visit for review of DEXA scan Visual impairment w/contact lenses and glasses Current Outpatient Medications: albuterol HFA 90 mcg/act inhaler, Inhale 2 puffs every 6 (six) hours if needed for wheezing, Disp: 18 g, Rfl: 2 alendronate (Fosamax) 35 MG tablet, Take 1 tablet by mouth weekly, Disp: 12 tablet, Rfl: 3 Cyanocobalamin (Vitamin B 12) 250 MCG lozenge, 1 (one) time each day at the same time, Disp: , Rfl: diphenhydrAMINE-acetaminophen (Tylenol PM Extra Strength) 25-500 MG per tablet, 1 (one) time each day at the same time, Disp: , Rfl: estradiol (Estrace) 1 MG tablet, Take 1 tablet (1 mg) by mouth Daily, Disp: 90 tablet, Rfl: 0 gabapentin (Neurontin) 400 MG capsule, TAKE 1 CAPSULE IN THE MORNING, IN THE EVENING, AND BEFORE BEDTIME., Disp: 270 capsule, Rfl: 0 ipratropium (Atrovent) 0.03 % nasal spray, Administer 2 sprays into each nostril every 12 (twelve) hours, Disp: 30 mL, Rfl: 1 meloxicam (Mobic) 15 MG tablet, TAKE 1 TABLET ONCE DAILY, Disp: 90 tablet, Rfl: 0 Multiple Vitamins-Minerals (Centrum Silver 50+Women) tablet, , Disp: , Rfl: SUMAtriptan (Imitrex) 100 MG tablet, TAKE 1 TABLET ONE TIME NEEDED FOR MIGRAINE FOR UP TO 1 DOSE, Disp: 27 tablet, Rfl: 1 tiZANidine (Zanaflex) 2 MG tablet, TAKE 1 TABLET AT BEDTIME, Disp: 90 tablet, Rfl: 1 triamcinolone (Kenalog) 0.1 % cream, , Disp: , Rfl: zolpidem (Ambien) 5 MG tablet, TAKE 1 TABLET AT BEDTIME ASNEEDED FOR SLEEP., Disp: 90 tablet, Rfl: 0 busPIRone (Buspar) 10 MG tablet, TAKE 1 TABLET IN THE MORNING AND 1 TABLET BEFOREBEDTIME (Patient not taking: Reported on 12/20/2024), Disp: 180 tablet, Rfl: 1 nortriptyline (Pamelor) 10 MG capsule, Take 1 capsule (10 mg) by mouth at bedtime (Patient not taking: Reported on 12/20/2024), Disp: 30 capsule, Rfl: 11 Past Surgical History: Procedure Laterality Date BACK SURGERY 2008 fusion BACK SURGERY 2005 SECTION, CLASSIC 1989 SECTION, LOW TRANSVERSE 06/10/1989 COLONOSCOPY 02/22/2024 HYSTERECTOMY LUMBAR DISC SURGERY 04/2017 LUMBAR FUSION PARTIAL HYSTERECTOMY SKIN BIOPSY benign SPINAL FUSION 07/2018 XLIF L5-S1 Dr Cifuentes TUBAL LIGATION Social History Socioeconomic History Marital status: Spouse name: Not on file Number of children: Not on file Years of education: Not on file Highest education level: Not on file Occupational History Not on file Tobacco Use Smoking status: Every Day Types: Cigarettes Start date: 04/24/1976 Smokeless tobacco: Never Tobacco comments: 5 cigarettes a day Vaping Use Vaping status: Never Used Substance and Sexual Activity Alcohol use: Yes Alcohol/week: 2.0 standard drinks of alcohol Types: 2 Glasses of wine per week Comment: 2-3 times a week; Caffeine Intake: 2-3 cups per day coffee or soda Drug use: Never Sexual activity: Yes Partners: Male control/protection: None Other Topics Concern Not on file Social History Narrative Not on file Social Drivers of Health Financial Resource Strain: Low Risk (11/07/2023) Overall Financial Resource Strain (CARDIA) Difficulty of Paying Living Expenses: Not hard at all Food Insecurity: No Food Insecurity (11/07/2023) Hunger Vital Sign Worried About Running Out of Food in the Last Year: Never true Ran Out of Food in the Last Year: Never true Transportation Needs: No Transportation Needs (11/07/2023) PRAPARE - Transportation Lack of Transportation (Medical): No Lack of Transportation (Non-Medical): No Physical Activity: Patient Declined (11/07/2023) Exercise Vital Sign Days of Exercise per Week: Patient declined Minutes of Exercise per Session: Patient declined Stress: Stress Concern Present (11/07/2023) Citizen Of The [place] [employer] - Occupational Stress Questionnaire Feeling of Stress : Very much Social Connections: Moderately Isolated (11/07/2023) Social Connection and Isolation Panel [NHANES] Frequency of Communication with Friends and Family: More than three times a week Frequency of Social Gatherings with Friends and Family: Once a week Attends Islam Services: Never Active Member of Clubs or Organizations: No Attends Club or Organization Meetings: Never Marital Status: Intimate Partner Violence: Not on file Housing Stability: Unknown (11/07/2023) Housing Stability Vital Sign Unable to Pay for Housing in the Last Year: No Number of Times Moved in the Last Year: Not on file Homeless in the Last Year: No Objective ENT Physical Exam General Examination: General overview: Normal, age-appropriate, no evidence of distress Head: Normocephalic, atraumatic Eyes: Pupils are equally round and reactive to light and accommodation, extraocular muscles are intact Ears: External ear architecture within normal limits, ear canals are patent, tympanic membranes are intact. Nose: External nose unremarkable, nares patent, septum intact, no evidence of congestion. No evidence of drainage at this time There is evidence of smoking Oral cavity: Mucosa moist, no evidence of ulcer, mass, or lesion Throat: Clear Neck/thyroid: Neck supple, full range of motion, no cervical lymphadenopathy, no evidence of thyromegaly Lymph nodes: No cervical lymphadenopathy Skin: Warm and dry, no evidence of suspicious lesions, no rash Heart: No jugular venous distention, point of maximal impulse normal Lungs: Good air movement, no audible wheezing, no shortness of breath Chest: Normal shape and expansion Abdomen: Normal, soft, nontender, nondistended Musculoskeletal: Cervical spine normal, full range of motion Extremities: No clubbing, cyanosis, or edema Peripheral pulses: 2+ radial, 2+ carotid Neurologic: Alert and oriented, cranial nerves 2-12 are grossly intact Psych: Alert and oriented, normal affect, no evidence of distress Assessment/Plan Diagnoses and all orders for this visit: Tobacco abuse Comments: I do recommend this patient quit smoking Glossitis Comments: Her symptoms of burning mouth Systems should be addressed by her neurologist with her current medications. Vasomotor rhinitis Comments: Patient may continue using his steroid nasal spray. The symptoms of burning mouth are usually treated with conservative measures and utilizing medication such as gabapentin and nortriptyline. She is currently on these medications. She will follow up with her neurologist documented in this encounter [facility] 12-04-2024 History of Presen t illness Narrative Images from the original note were not included. NAME: Gisel Almodovar : 1960 HISTORY OF PRESENT ILLNESS: NEW PT Gisel Almodovar is an 64 y.o. @ female. (EST PT) - B/L HIP DISCOMFORT (R>L) ; S/P CORTISONE INJ 10/16/24 (7 WKS) - HERE FOR POSSIBLE (L) HIP INJ / (R) HIP OPTIONS ; NEW INJURY 11/29/24 - LEG CAUGHT ON STOOL, FELL BACKWARDS, STRIKING HEAD / (R) LOWER BACK XRAY B/L HIPS 09/05/24 IN [facility] NO MRI NO MDP / PREDNISONE S/P (R) HIP CORTISONE INJ 10/16/24 B/L DECADRON INJ B/L HIPS (DR. ALEJANDRE) 09/05/24 NO PT PAIN MGMT - RUDDY AUGUSTINE (B/L HIP PAIN) S/P FALL - NEW ONSET INFERIOR BUTTOCK PAIN TO HAMSTRING. S/P CORTISONE INJ - NO RELIEF. SEEING DR. ALEJANDRE IN FOR LOW BACK INJ. CONSTANT ILIAC CREST DISCOMFORT - RADIATION INTO GROIN - WORSE WITH PROLONGED WB / SITTING. DENIES N/T. ADMITS STIFFNESS. WAKING HS D/T DISCOMFORT. GOOD ROM - PAINFUL. SOME WEAKNESS / ISSUES WITH BALANCE. NO PAIN MEDS. ICING / HEATING FREQUENTLY FOLLOWING INJURY. TRIED BIOFREEZE - NO RELIEF. PAST MEDICAL HISTORY: Past Medical History: Diagnosis Date Anxiety Arthritis At moderate risk for fall CTS (carpal tunnel syndrome) Depression Displacement of lumbar disc with radiculopathy 11/28/2022 H/O abdominal hysterectomy Hip pain, right Insomnia Intractable migraine with status migrainosus, unspecified migraine type Menopausal symptoms Migraine Migraine variant Neuropathy Numbness Osteopenia Osteopenia of hip Osteoporosis screening Post menopausal syndrome Radiculopathy due to lumbar intervertebral disc disorder 07/05/2017 Refractory migraine 11/28/2022 Screening mammogram for breast cancer 12/14/2021 negative Trochanteric bursitis of left hip Visit for review of DEXA scan Visual impairment w/contact lenses and glasses PAST SURGICAL HISTORY: Past Surgical History: Procedure Laterality Date BACK SURGERY 2008 fusion BACK SURGERY 2005 SECTION, CLASSIC 1989 SECTION, LOW TRANSVERSE 06/10/1989 COLONOSCOPY 02/22/2024 HYSTERECTOMY LUMBAR DISC SURGERY 04/2017 LUMBAR FUSION PARTIAL HYSTERECTOMY SKIN BIOPSY benign SPINAL FUSION 07/2018 XLIF L5-S1 Dr Cifuentes TUBAL LIGATION SOCIAL HISTORY: Social History Occupational History Not on file Tobacco Use Smoking status: Every Day Types: Cigarettes Start date: 04/24/1976 Smokeless tobacco: Never Tobacco comments: 5 cigarettes a day Vaping Use Vaping status: Never Used Substance and Sexual Activity Alcohol use: Yes Alcohol/week: 2.0 standard drinks of alcohol Types: 2 Glasses of wine per week Comment: 2-3 times a week; Caffeine Intake: 2-3 cups per day coffee or soda Drug use: Never Sexual activity: Yes Partners: Male control/protection: None ALLERGIES: Allergies Allergen Reactions Sulfamethoxazole-Trimethoprim Hives Other Reaction(s): tongue swelling Trimethoprim Other Reaction(s): Tongue swells Doxepin Swelling HOME MEDICATIONS: Current Outpatient Medications Medication Instructions albuterol HFA 90 mcg/act inhaler 2 puffs, Inhalation, Every 6 hours PRN alendronate (Fosamax) 35 MG tablet Take 1 tablet by mouth weekly busPIRone (Buspar) 10 MG tablet TAKE 1 TABLET IN THE MORNING AND 1 TABLET BEFOREBEDTIME Cyanocobalamin (Vitamin B 12) 250 MCG lozenge Every 24 hours diphenhydrAMINE-acetaminophen (Tylenol PM Extra Strength) 25-500 MG per tablet Every 24 hours estradiol (ESTRACE) 1 mg, Oral, Daily gabapentin (Neurontin) 400 MG capsule TAKE 1 CAPSULE IN THE MORNING, IN THE EVENING, AND BEFORE BEDTIME. ipratropium (Atrovent) 0.03 % nasal spray 2 sprays, Each Nostril, Every 12 hours meloxicam (MOBIC) 15 mg, Oral, Daily Multiple Vitamins-Minerals (Centrum Silver 50+Women) tablet nortriptyline (PAMELOR) 10 mg, Oral, Nightly SUMAtriptan (Imitrex) 100 MG tablet TAKE 1 TABLET ONE TIME NEEDED FOR MIGRAINE FOR UP TO 1 DOSE tiZANidine (ZANAFLEX) 2 mg, Oral, Nightly triamcinolone (Kenalog) 0.1 % cream zolpidem (Ambien) 5 MG tablet TAKE 1 TABLET AT BEDTIME ASNEEDED FOR SLEEP. REVIEW OF SYSTEMS: Review of Systems Vitals: There is no height or weight on file to calculate BMI. Tobacco Use: High Risk (12/04/2024) Patient History Smoking Tobacco Use: Every Day Smokeless Tobacco Use: Never Passive Exposure: Not on file Alcohol Use: Not At Risk (11/07/2023) AUDIT-C Frequency of Alcohol Consumption: 2-3 times a week Average Number of Drinks: 1 or 2 Frequency of Binge Drinking: Never PHYSICAL EXAM: Hip Musculoskeletal Exam Gait Gait is normal. Limp: right Inspection Leg length disparity: no discrepancy Right Erythema: none Ecchymosis: none Edema: none Deformity: none Palpation Right Right hip palpation is normal. Increased warmth: none Tenderness: present Greater trochanteric region pain: mild Pubic rami pain: mild Range of Motion Right Right hip range of motion is within functional limits. Active ROM: normal. Passive ROM: normal. Active extension: 25. Passive extension: 30. Active flexion: 100. Passive flexion: 110. Active internal rotation: 15. Passive internal rotation: 20. Active external rotation: 25. Passive external rotation: 30. Active adduction: 15. Passive adduction: 20. Active abduction: 35. Passive abduction: 35. Strength Right Right hip strength is normal. Extension: 5/5. Flexion: 5/5. Internal rotation: 5/5. External rotation: 5/5. Adduction: 5/5. Abduction: 5/5. Abduction is affected by pain. Neurovascular Right Right hip neurovascular exam is normal. Pulses - PT: normal Posterior tibial: 2+ General Constitutional: appears stated age Labored breathing: no Psychiatric: normal mood and affect Neurological: alert and oriented x3 Skin: intact Lymphadenopathy: none IMAGING: Procedures Orders Placed This Encounter Procedures MR hip right wo IV contrast Standing Status: Future Expected Date: 12/04/2024 Expiration Date: 12/04/2025 Reason for exam:: MRI RT HIP AVN ASSESSMENT: ICD-10-CM 1. AVN (avascular necrosis of bone) ([facility]) M87.00 MR hip right wo IV contrast 2. Primary osteoarthritis of right hip M16.11 3. Pain in joint of right hip M25.551 PLAN: We have ordered an MRI of her right hip to rule out AVN her physical exam is slightly at held of her arthritic degeneration on x-rays. If her MRI is significant with mostly DJD we'll talk about a total hip arthroplasty when she her back in 3 weeks. Questions answered in laymen terms at the bedside. The diagnosis, home exercise plan and any ongoing restrictions/ recommendations reviewed. If unable to be reached in office, I recommend evaluation at nearest Emergency Room if any symptoms worsened or new symptoms develop for requiring urgent evaluation. documented in this encounter [facility] 11-22-2024 History of Presen t illness Narrative Subjective Patient ID: Gisel Almodovar is a 64 y.o. female who presents for Burning tongue (New patient : burning tongue x 1 year) HPI 64-year-old white female presents today for evaluation of burning sensation of her tongue. Patient describes difficulties for the last few months. Presents today for further evaluation and treatment Review of Systems Patient denies any bleeding from her tongue. Denies any visible abnormalities of her mouth and tongue. Does have significant mouth dryness at times. She also describes chronic difficulties with clear rhinorrhea. She does take several medications. Not having any fever. The rest of her review of systems is neck Allergies as of 11/22/2024 - Reviewed 11/22/2024 Allergen Reaction Noted Sulfamethoxazole-trimethoprim Hives 05/15/2020 Trimethoprim 02/02/2018 Doxepin Swelling 01/09/2024 Past Medical History: Diagnosis Date Anxiety Arthritis At moderate risk for fall CTS (carpal tunnel syndrome) Depression Displacement of lumbar disc with radiculopathy 11/28/2022 H/O abdominal hysterectomy Hip pain, right Insomnia Intractable migraine with status migrainosus, unspecified migraine type Menopausal symptoms Migraine Migraine variant Neuropathy Numbness Osteopenia Osteopenia of hip Osteoporosis screening Post menopausal syndrome Radiculopathy due to lumbar intervertebral disc disorder 07/05/2017 Refractory migraine 11/28/2022 Screening mammogram for breast cancer 12/14/2021 negative Trochanteric bursitis of left hip Visit for review of DEXA scan Visual impairment w/contact lenses and glasses Current Outpatient Medications: albuterol HFA 90 mcg/act inhaler, Inhale 2 puffs every 6 (six) hours if needed for wheezing, Disp: 18 g, Rfl: 2 alendronate (Fosamax) 35 MG tablet, Take 1 tablet by mouth weekly, Disp: 12 tablet, Rfl: 3 busPIRone (Buspar) 10 MG tablet, TAKE 1 TABLET IN THE MORNING AND 1 TABLET BEFOREBEDTIME, Disp: 180 tablet, Rfl: 1 Cyanocobalamin (Vitamin B 12) 250 MCG lozenge, 1 (one) time each day at the same time, Disp: , Rfl: diphenhydrAMINE-acetaminophen (Tylenol PM Extra Strength) 25-500 MG per tablet, 1 (one) time each day at the same time, Disp: , Rfl: estradiol (Estrace) 1 MG tablet, Take 1 tablet (1 mg) by mouth Daily, Disp: 90 tablet, Rfl: 0 gabapentin (Neurontin) 400 MG capsule, TAKE 1 CAPSULE IN THE MORNING, IN THE EVENING, AND BEFORE BEDTIME., Disp: 270 capsule, Rfl: 0 meloxicam (Mobic) 15 MG tablet, TAKE 1 TABLET ONCE DAILY, Disp: 90 tablet, Rfl: 0 Multiple Vitamins-Minerals (Centrum Silver 50+Women) tablet, , Disp: , Rfl: nortriptyline (Pamelor) 10 MG capsule, Take 1 capsule (10 mg) by mouth at bedtime, Disp: 30 capsule, Rfl: 11 SUMAtriptan (Imitrex) 100 MG tablet, TAKE 1 TABLET ONE TIME NEEDED FOR MIGRAINE FOR UP TO 1 DOSE, Disp: 27 tablet, Rfl: 1 tiZANidine (Zanaflex) 2 MG tablet, Take 1 tablet (2 mg) by mouth at bedtime, Disp: 90 tablet, Rfl: 1 triamcinolone (Kenalog) 0.1 % cream, , Disp: , Rfl: zolpidem (Ambien) 5 MG tablet, TAKE 1 TABLET AT BEDTIME ASNEEDED FOR SLEEP., Disp: 90 tablet, Rfl: 0 ipratropium (Atrovent) 0.03 % nasal spray, Administer 2 sprays into each nostril every 12 (twelve) hours, Disp: 30 mL, Rfl: 1 Past Surgical History: Procedure Laterality Date BACK SURGERY 2007 fusion BACK SURGERY 2006 SECTION, CLASSIC 1989 SECTION, LOW TRANSVERSE 06/10/1989 COLONOSCOPY 02/22/2024 HYSTERECTOMY LUMBAR DISC SURGERY 04/2017 LUMBAR FUSION PARTIAL HYSTERECTOMY SKIN BIOPSY benign SPINAL FUSION 07/2018 XLIF L5-S1 Dr Cifuentes TUBAL LIGATION Social History Socioeconomic History Marital status: Spouse name: Not on file Number of children: Not on file Years of education: Not on file Highest education level: Not on file Occupational History Not on file Tobacco Use Smoking status: Every Day Types: Cigarettes Start date: 04/24/1976 Smokeless tobacco: Never Tobacco comments: 5 cigarettes a day Vaping Use Vaping status: Never Used Substance and Sexual Activity Alcohol use: Yes Alcohol/week: 2.0 standard drinks of alcohol Types: 2 Glasses of wine per week Comment: 2-3 times a week; Caffeine Intake: 2-3 cups per day coffee or soda Drug use: Never Sexual activity: Yes Partners: Male control/protection: None Other Topics Concern Not on file Social History Narrative Not on file Social Drivers of Health Financial Resource Strain: Low Risk (11/07/2023) Overall Financial Resource Strain (CARDIA) Difficulty of Paying Living Expenses: Not hard at all Food Insecurity: No Food Insecurity (11/07/2023) Hunger Vital Sign Worried About Running Out of Food in the Last Year: Never true Ran Out of Food in the Last Year: Never true Transportation Needs: No Transportation Needs (11/07/2023) PRAPARE - Transportation Lack of Transportation (Medical): No Lack of Transportation (Non-Medical): No Physical Activity: Patient Declined (11/07/2023) Exercise Vital Sign Days of Exercise per Week: Patient declined Minutes of Exercise per Session: Patient declined Stress: Stress Concern Present (11/07/2023) Citizen Of The [place] [employer] - Occupational Stress Questionnaire Feeling of Stress : Very much Social Connections: Moderately Isolated (11/07/2023) Social Connection and Isolation Panel [NHANES] Frequency of Communication with Friends and Family: More than three times a week Frequency of Social Gatherings with Friends and Family: Once a week Attends Islam Services: Never Active Member of Clubs or Organizations: No Attends Club or Organization Meetings: Never Marital Status: Intimate Partner Violence: Not on file Housing Stability: Unknown (11/07/2023) Housing Stability Vital Sign Unable to Pay for Housing in the Last Year: No Number of Times Moved in the Last Year: Not on file Homeless in the Last Year: No Objective ENT Physical Exam General Examination: General overview: Normal, age-appropriate, no evidence of distress Head: Normocephalic, atraumatic Eyes: Pupils are equally round and reactive to light and accommodation, extraocular muscles are intact Ears: External ear architecture within normal limits, ear canals are patent, tympanic membranes are intact. Nose: External nose unremarkable, nares patent, septum intact, no evidence of congestion. There is evidence of smoking Oral cavity: Mucosa moist, no evidence of ulcer, mass, or lesion Throat: Clear Neck/thyroid: Neck supple, full range of motion, no cervical lymphadenopathy, no evidence of thyromegaly Lymph nodes: No cervical lymphadenopathy Skin: Warm and dry, no evidence of suspicious lesions, no rash Heart: No jugular venous distention, point of maximal impulse normal Lungs: Good air movement, no audible wheezing, no shortness of breath Chest: Normal shape and expansion Abdomen: Normal, soft, nontender, nondistended Musculoskeletal: Cervical spine normal, full range of motion Extremities: No clubbing, cyanosis, or edema Peripheral pulses: 2+ radial, 2+ carotid Neurologic: Alert and oriented, cranial nerves 2-12 are grossly intact Psych: Alert and oriented, normal affect, no evidence of distress Assessment/Plan Diagnoses and all orders for this visit: Glossitis Comments: Her condition of burning mouth syndrome is largely secondary to her multiple medications as well as her smoking. Vasomotor rhinitis Comments: Will try this patient on a low dosage of Atrovent nasal spray Orders: - ipratropium (Atrovent) 0.03 % nasal spray; Administer 2 sprays into each nostril every 12 (twelve) hours Tobacco abuse Comments: This patient is encouraged to quit smoking This patient is encouraged to me with her physicians to do a review of her multiple medications to look for possibilities of reduction or removal. Patient is encouraged to quit smoking. She will start taking a multivitamin with minerals and continue her supplemental zinc. We will see her back in 3 weeks to see how her nose responding to conservative treatment. documented in this encounter [facility] 10-24-2024 History of Presen t illness Narrative Images from the original note were not included. Gisel Almodovar is a 64 y.o. female presents with chief complaint of Chief Complaint Patient presents with Annual Exam Gisel was seen today for annual exam. Diagnoses and all orders for this visit: Routine general medical examination at a health care facility Need for vaccination - Pneumococcal conjugate vaccine 20-valent IM Idiopathic progressive polyneuropathy Cervical radiculopathy Osteopenia, unspecified location Anxiety Major depressive disorder, single episode, mild Migraine without aura, not refractory Tingling sensation - Ambulatory referral to ENT; Future Primary hypertension IFG (impaired fasting glucose) Tongue pain - Ambulatory referral to ENT; Future [facility] I reviewed the patients past medical history along with any laboratory and diagnostic testing preformed prior to the visit. During the visit, health care maintanence was reviewed and recommendations made specifically for the patient based on their risk factors. Current colon cancer screening: up-to-date with colonoscopy. Breast cancer screening: up-to-date with screening. Blood work: most recent blood work reviewed . Finally the patient was instructed to call the office if any health issues arise until the next well check/appointment. At the conclusion of the visit all questions were answered which were brought forth. Assessment & Plan 1. Hypertension. Her blood pressure has been running slightly on the lower side, with readings such as 90/62 and 99/60. This is compared to previous readings of 124/78, 118/82, and 148/86. Heart regular rate and rhythm. Normal S1, normal S2. Lungs are clear to auscultation bilaterally. No wheeze, rhonchi, crackles. She will stop taking valsartan 160 mg daily to allow for a washout period. Her blood pressure will be monitored over the next week. If her blood pressure increases and returns to baseline, no further action will be needed. If it becomes elevated again, a different class of antihypertensive will be considered. 2. Numbness. She has been seeing neurology for numbness but has not experienced significant improvement in symptoms. Yearly physical to talk to has already seen neurology with no significant improvement of symptoms. A referral to an ENT specialist will be made to explore other potential causes and treatment options. Referral to ENT specialist ordered. MEDICATION SUMMARY: Medication Changes As of 10/24/2024 12:23 PM Refills Start Date End Date Discontinued or Completed: valsartan (Diovan) 160 MG tablet Medication List at End of Visit As of 10/24/2024 12:23 PM Refills Start Date End Date albuterol HFA 90 mcg/act inhaler 2 02/26/2024 -- Inhale 2 puffs every 6 (six) hours if needed for wheezing - Inhalation alendronate (Fosamax) 35 MG tablet 3 01/09/2024 -- Take 1 tablet by mouth weekly busPIRone (Buspar) 10 MG tablet 1 08/19/2024 -- TAKE 1 TABLET IN THE MORNING AND 1 TABLET BEFOREBEDTIME Cyanocobalamin (Vitamin B 12) 250 MCG lozenge -- -- 1 (one) time each day at the same time. Patient-reported medication diphenhydrAMINE-acetaminophen (Tylenol PM Extra Strength) 25-500 MG per tablet -- -- 1 (one) time each day at the same time. Patient-reported medication estradiol (Estrace) 1 MG tablet 0 10/23/2024 10/23/2025 Take 1 tablet (1 mg) by mouth Daily - Oral fluconazole (Diflucan) 200 MG tablet -- 10/01/2024 -- Take 200 mg by mouth Daily - Oral Patient-reported medication gabapentin (Neurontin) 400 MG capsule 0 09/02/2024 -- TAKE 1 CAPSULE IN THE MORNING, IN THE EVENING, AND BEFORE BEDTIME. meloxicam (Mobic) 15 MG tablet 0 09/23/2024 -- TAKE 1 TABLET ONCE DAILY - Oral Multiple Vitamins-Minerals (Centrum Silver 50+Women) tablet -- -- as directed Orally Patient-reported medication nortriptyline (Pamelor) 10 MG capsule 11 06/02/2024 06/02/2025 Take 1 capsule (10 mg) by mouth at bedtime - Oral SUMAtriptan (Imitrex) 100 MG tablet 1 09/30/2024 -- TAKE 1 TABLET ONE TIME NEEDED FOR MIGRAINE FOR UP TO 1 DOSE tiZANidine (Zanaflex) 2 MG tablet 1 06/18/2024 12/15/2024 Take 1 tablet (2 mg) by mouth at bedtime - Oral triamcinolone (Kenalog) 0.1 % cream -- 12/21/2023 -- APPLY TOPICALLY ONCE DAILY FOR 1 TO 2 WEEKS FOR ITCHY BUMPS AVOID FACE WHEN APPLYING Patient-reported medication zolpidem (Ambien) 5 MG tablet 0 09/23/2024 -- TAKE 1 TABLET AT BEDTIME ASNEEDED FOR SLEEP. DESMOND PETZNICK D.O. This note was entered using [employer]. Grammatical and dictation errors maybe present in translation *I have reviewed and reconciled the history and medication list with the patient today* History of Present Illness List of current healthcare providers: Patient Care Team: Desmond Macias DO as PCP - General (Family Medicine) Desmond Macias DO as PCP - [employer] Annual Visit Over the past 2 weeks, how often have you been bothered by any of the following problems? Little interest or pleasure in doing things: Not at all Feeling down, depressed, or hopeless: Not at all Patient Health Questionnaire-2 Score: 0 Health Risk Assessment Form Do you need help eating, bathing, using the toilet, dressing, or getting around your home?: No Can you prepare your own meals?: Yes Can you do your own housework without help?: Yes Can you shop for groceries or clothes without help?: Yes Do you exercise for about 20 minutes 3 or more days a week?: Yes How confident are you that you can control and manage most of your health problems?: Very confident Can you mange your money, credit cards and accounts, pay bills and taxes?: Yes Vision Screening: Yes, 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 Hearing Screening: Not done Cognitive Screening Self Assessment: No overt cognitive deficiency is apparent by direct observation Pain Assessment Pain Score: 0 - No pain The following health maintenance schedule was reviewed with the patient and provided in printed form in the after visit summary: Health Maintenance Topic Date Due Influenza Vaccine (1) 12/23/2024 Medicare Annual Wellness (AWV) 01/08/2025 Mammogram 02/22/2025 Colorectal Cancer Screening 02/21/2034 Pneumococcal Vaccine: 65+ Years Completed Cervical Cancer Screening Discontinued Orders Placed This Encounter Procedures Pneumococcal conjugate vaccine 20-valent IM Ambulatory referral to ENT Standing Status: Future Expected Date: 10/24/2024 Expiration Date: 04/26/2025 Referral Priority: Routine Referral Type: Consultation Referral Reason: Specialty Services Required Requested Specialty: Otolaryngology Number of Visits Requested: 1 Here for yearly MWV. Labs last in July of this year. DEXA and mammogram last . Colonoscopy last in 2023. NO hx of pneumonia vaccine, would like to have this done today. Is worried about BP medication. Brought readings to review.: 97/70, 99/66,117/73, 147/83, 113/71,123/79,114/73,91/62, 103/69,104/70,113/72,116/69. Has had issues with burning tongue for almost a year. Has talked to neurology and they could not find anything for cause of burning tongue and Dr Alejandre currently has her on fluconazole which she thinks eases this slightly but not significantly. Wanting to know if she needs to consult with ENT. The patient is a 64-year-old female who presents for a Medicare wellness visit. She has noticed her blood pressure has been running slightly lower recently. During prior visits, her blood pressure was borderline and slightly elevated. She reports that her blood pressure fluctuates throughout the day, starting low and gradually increasing. She experiences episodes of extreme fatigue, to the point of near fainting, which prompt her to check her blood pressure and find it significantly low. She is currently taking Diovan 160 mg daily but has been self-administering half the dose. She has been seeing neurology for some numbness. She has already seen neurology with no significant improvement of symptoms. She is seeing Dr. Alejandre for injections and Dr. Bolton for her right hip. She received an injection last week. SUBJECTIVE: Current Medications: Allergies/Social History: ROS Current Outpatient Medications Medication Instructions albuterol HFA 90 mcg/act inhaler 2 puffs, Inhalation, Every 6 hours PRN alendronate (Fosamax) 35 MG tablet Take 1 tablet by mouth weekly busPIRone (Buspar) 10 MG tablet TAKE 1 TABLET IN THE MORNING AND 1 TABLET BEFOREBEDTIME Cyanocobalamin (Vitamin B 12) 250 MCG lozenge Every 24 hours diphenhydrAMINE-acetaminophen (Tylenol PM Extra Strength) 25-500 MG per tablet Every 24 hours estradiol (ESTRACE) 1 mg, Oral, Daily fluconazole (DIFLUCAN) 200 mg, Daily gabapentin (Neurontin) 400 MG capsule TAKE 1 CAPSULE IN THE MORNING, IN THE EVENING, AND BEFORE BEDTIME. meloxicam (MOBIC) 15 mg, Oral, Daily Multiple Vitamins-Minerals (Centrum Silver 50+Women) tablet as directed Orally nortriptyline (PAMELOR) 10 mg, Oral, Nightly SUMAtriptan (Imitrex) 100 MG tablet TAKE 1 TABLET ONE TIME NEEDED FOR MIGRAINE FOR UP TO 1 DOSE tiZANidine (ZANAFLEX) 2 mg, Oral, Nightly triamcinolone (Kenalog) 0.1 % cream APPLY TOPICALLY ONCE DAILY FOR 1 TO 2 WEEKS FOR ITCHY BUMPS AVOID FACE WHEN APPLYING zolpidem (Ambien) 5 MG tablet TAKE 1 TABLET AT BEDTIME ASNEEDED FOR SLEEP. Allergies Allergen Reactions Sulfamethoxazole-Trimethoprim Hives Other Reaction(s): tongue swelling Trimethoprim Other Reaction(s): Tongue swells Doxepin Swelling Social History Tobacco Use Smoking status: Every Day Types: Cigarettes Start date: 04/24/1976 Smokeless tobacco: Never Tobacco comments: 5 cigarettes a day Vaping Use Vaping status: Never Used Substance Use Topics Alcohol use: Yes Alcohol/week: 2.0 standard drinks of alcohol Types: 2 Glasses of wine per week Comment: 2-3 times a week; Caffeine Intake: 2-3 cups per day coffee or soda Drug use: Never Review of Systems Constitutional: Negative for fatigue. HENT: Negative for rhinorrhea. Respiratory: Negative for cough and shortness of breath. Cardiovascular: Negative for chest pain. Gastrointestinal: Negative for abdominal distention. Skin: Negative for rash. Neurological: Negative for dizziness. All other systems reviewed and are negative. Past Medical History: Surgical History: Depression Screen/FHx Past Medical History: Diagnosis Date Anxiety At moderate risk for fall CTS (carpal tunnel syndrome) Depression Displacement of lumbar disc with radiculopathy 11/28/2022 H/O abdominal hysterectomy Hip pain, right Insomnia Intractable migraine with status migrainosus, unspecified migraine type Menopausal symptoms Migraine Migraine variant Neuropathy Numbness Osteopenia Osteopenia of hip Osteoporosis screening Post menopausal syndrome Radiculopathy due to lumbar intervertebral disc disorder 07/05/2017 Refractory migraine 11/28/2022 Screening mammogram for breast cancer 12/14/2021 negative Trochanteric bursitis of left hip Visit for review of DEXA scan Visual impairment w/contact lenses and glasses Past Surgical History: Procedure Laterality Date BACK SURGERY 2007 fusion BACK SURGERY 2005 SECTION, CLASSIC 1989 SECTION, LOW TRANSVERSE 06/10/1989 COLONOSCOPY 02/22/2024 HYSTERECTOMY LUMBAR DISC SURGERY 04/2017 LUMBAR FUSION PARTIAL HYSTERECTOMY SKIN BIOPSY benign SPINAL FUSION 07/2018 XLIF L5-S1 Dr Cifuentes TUBAL LIGATION Depression: Not at risk (10/24/2024) PHQ-2 PHQ-2 Score: 0 Family History Problem Relation Name Age of Onset Breast cancer Mother Shelia Arthritis Mother Shelia Cancer Mother Shelia Heart disease Father Rohit Breast cancer Sister Roxanna Cancer Sister Roxanna Leukemia Brother Ignacio Cancer Brother Ignacio Miscarriages / Stillbirths Daughter Marilyn OBJECTIVE: 10/24/2024 11:38 AM 09/05/2024 1:15 PM 07/29/2024 12:27 PM 07/24/2024 11:35 AM 06/13/2024 4:18 PM 05/01/2024 12:28 PM 04/20/2024 10:40 AM Vitals BMI 19.53 kg/m2 19.08 kg/m2 20.22 kg/m2 19.65 kg/m2 19.46 kg/m2 18.63 kg/m2 20.22 kg/m2 BSA (m2) 1.39 m2 1.4 m2 1.44 m2 1.43 m2 1.42 m2 1.39 m2 1.44 m2 Systolic 116 118 154 161 152 128 Diastolic 74 79 94 91 82 76 Heart Rate 80 86 82 83 81 86 113 SpO2 99 % 99 % 98 % 98 % Temp 98 F 98.2 F 98 F 98 F Height (in) 5' 5' 1 5' 1 Weight (lb) 100 101 107 104 103 98.6 107 Visit Report Report Report Report Report Physical Exam General Appearance: Alert and oriented. Pleasant affect. No acute distress. Well nourished. Head: Atraumatic normal cephalic. No masses or swelling. Eyes: EOMI, sclera white, conjunctiva clear, no injection. Pupils relatively equal size. Ears: External ears normal. No signs or trauma or infection. Nose: Nasal mucosal pink and moist, No discharge or congestion. Normal appearance of the soft tissue of the nose. Throat: Lips moist, Teeth and gums in good condition. Neck: Supple, no obvious range of motion deficits, no swelling or pain. Respiratory: Clear to auscultation bilaterally, no wheezing, rhonchi, or crackles. Cardiovascular: Regular rate and rhythm, normal S1, normal S2. Musculoskeletal/Extremities: No gross deformities or malalignment, normal ambulation, no swelling, no deformities. Skin: Warm and dry, no rashes. Neurological: Cranial nerves II-VII grossly intact, no gross neurologic abnormalities or focal defects. Psychiatric: Cooperative, pleasant, no signs of major mood disorder. documented in this encounter [facility] 10-16-2024 History of Presen t illness Narrative Associated Order(s): L Inj/Asp: R greater trochanteric bursa Post-Procedure Diagnose(s): Trochanteric bursitis of left hip Images from the original note were not included. NAME: Gisel Almodovar : 1960 HISTORY OF PRESENT ILLNESS: NEW PT Gisel Almodovar is an 64 y.o. @ female. (NEW PT) (DR. ALEJANDRE REFERRAL) - B/L HIP DISCOMFORT (R>L) ; S/P [facility] INJ (DR. ALEJANDRE) 09/05/24 (5 WKS, 6 DAYS) XRAY 09/05/24 IN EPIC NO MRI NO MDP / PREDNISONE B/L DECADRON INJ B/L HIPS (DR. ALEJANDRE) 09/05/24 NO PT PAIN MGMT - RUDDY AUGUSTINE (B/L HIP PAIN) B/L DISCOMFORT ; (R>L) S/P CORTISONE INJ - SOME RELIEF. SCHEDULED FOR ANOTHER INJ TOMORROW. CONSTANT ILIAC CREST DISCOMFORT - RADIATION INTO GROIN - WORSE WITH PROLONGED WB / SITTING. DENIES N/T. ADMITS STIFFNESS. WAKING HS. GOOD ROM - PAINFUL. SOME WEAKNESS / ISSUES WITH BALANCE. NO PAIN MEDS. ICING / HEATING OCCASIONALLY. TRIED BIOFREEZE - NO RELIEF. PAST MEDICAL HISTORY: Past Medical History: Diagnosis Date Anxiety At moderate risk for fall CTS (carpal tunnel syndrome) Depression Displacement of lumbar disc with radiculopathy 11/28/2022 H/O abdominal hysterectomy Hip pain, right Insomnia Intractable migraine with status migrainosus, unspecified migraine type Menopausal symptoms Migraine Migraine variant Neuropathy Numbness Osteopenia Osteopenia of hip Osteoporosis screening Post menopausal syndrome Radiculopathy due to lumbar intervertebral disc disorder 07/05/2017 Refractory migraine 11/28/2022 Screening mammogram for breast cancer 12/14/2021 negative Trochanteric bursitis of left hip Visit for review of DEXA scan Visual impairment w/contact lenses and glasses PAST SURGICAL HISTORY: Past Surgical History: Procedure Laterality Date BACK SURGERY 2007 fusion BACK SURGERY 2005 SECTION, CLASSIC 1990 SECTION, LOW TRANSVERSE 06/10/1989 COLONOSCOPY 02/22/2024 HYSTERECTOMY LUMBAR DISC SURGERY 04/2017 LUMBAR FUSION PARTIAL HYSTERECTOMY SKIN BIOPSY benign SPINAL FUSION 07/2018 XLIF L5-S1 Dr Cifuentes TUBAL LIGATION SOCIAL HISTORY: Social History Occupational History Not on file Tobacco Use Smoking status: Every Day Types: Cigarettes Start date: 04/24/1976 Smokeless tobacco: Never Tobacco comments: 5 cigarettes a day Vaping Use Vaping status: Never Used Substance and Sexual Activity Alcohol use: Yes Alcohol/week: 2.0 standard drinks of alcohol Types: 2 Glasses of wine per week Comment: 2-3 times a week; Caffeine Intake: 2-3 cups per day coffee or soda Drug use: Never Sexual activity: Yes Partners: Male control/protection: None ALLERGIES: Allergies Allergen Reactions Sulfamethoxazole-Trimethoprim Hives Other Reaction(s): tongue swelling Trimethoprim Other Reaction(s): Tongue swells Doxepin Swelling HOME MEDICATIONS: Current Outpatient Medications Medication Instructions albuterol HFA 90 mcg/act inhaler 2 puffs, Inhalation, Every 6 hours PRN alendronate (Fosamax) 35 MG tablet Take 1 tablet by mouth weekly busPIRone (Buspar) 10 MG tablet TAKE 1 TABLET IN THE MORNING AND 1 TABLET BEFOREBEDTIME Cyanocobalamin (Vitamin B 12) 250 MCG lozenge Every 24 hours diphenhydrAMINE-acetaminophen (Tylenol PM Extra Strength) 25-500 MG per tablet Every 24 hours estradiol (ESTRACE) 1 mg, Oral, Daily gabapentin (Neurontin) 400 MG capsule TAKE 1 CAPSULE IN THE MORNING, IN THE EVENING, AND BEFORE BEDTIME. meloxicam (MOBIC) 15 mg, Oral, Daily Multiple Vitamins-Minerals (Centrum Silver 50+Women) tablet as directed Orally nortriptyline (PAMELOR) 10 mg, Oral, Nightly SUMAtriptan (Imitrex) 100 MG tablet TAKE 1 TABLET ONE TIME NEEDED FOR MIGRAINE FOR UP TO 1 DOSE tiZANidine (ZANAFLEX) 2 mg, Oral, Nightly triamcinolone (Kenalog) 0.1 % cream APPLY TOPICALLY ONCE DAILY FOR 1 TO 2 WEEKS FOR ITCHY BUMPS AVOID FACE WHEN APPLYING valsartan (DIOVAN) 160 mg, Oral, Daily zolpidem (Ambien) 5 MG tablet TAKE 1 TABLET AT BEDTIME ASNEEDED FOR SLEEP. REVIEW OF SYSTEMS: Review of Systems Vitals: There is no height or weight on file to calculate BMI. Tobacco Use: High Risk (10/16/2024) Patient History Smoking Tobacco Use: Every Day Smokeless Tobacco Use: Never Passive Exposure: Not on file Alcohol Use: Not At Risk (11/07/2023) AUDIT-C Frequency of Alcohol Consumption: 2-3 times a week Average Number of Drinks: 1 or 2 Frequency of Binge Drinking: Never PHYSICAL EXAM: Hip Musculoskeletal Exam Gait Gait is normal. Limp: right Inspection Leg length disparity: no discrepancy Right Erythema: none Ecchymosis: none Edema: none Deformity: none Palpation Right Right hip palpation is normal. Increased warmth: none Tenderness: present Greater trochanteric region pain: moderate Range of Motion Right Right hip range of motion is within functional limits. Active ROM: normal. Passive ROM: normal. Active extension: 30. Passive extension: 30. Active flexion: 100. Passive flexion: 100. Active internal rotation: 20. Passive internal rotation: 20. Active external rotation: 30. Passive external rotation: 30. Active adduction: 20. Passive adduction: 20. Active abduction: 35. Passive abduction: 35. Strength Right Right hip strength is normal. Extension: 5/5. Flexion: 5/5. Internal rotation: 5/5. External rotation: 5/5. Adduction: 5/5. Abduction: 5/5. Abduction is affected by pain. Neurovascular Right Right hip neurovascular exam is normal. Pulses - PT: normal Posterior tibial: 2+ General Constitutional: appears stated age Labored breathing: no Psychiatric: normal mood and affect Neurological: alert and oriented x3 Skin: intact Lymphadenopathy: none IMAGING: L Inj/Asp: R greater trochanteric bursa on 10/16/2024 10:50 AM Indications: pain Details: 21 G needle Medications: 40 mg methylPREDNISolone acetate 40 MG/ML Outcome: tolerated well, no immediate complications SKIN PREPPED/CLEANED WITH ISOPROPYL ALCOHOL Procedure, treatment alternatives, risks and benefits explained, specific risks discussed. Consent was given by the patient. Orders Placed This Encounter Procedures L Inj/Asp: R greater trochanteric bursa This order was created via procedure documentation ASSESSMENT: ICD-10-CM 1. Trochanteric bursitis of left hip M70.62 L Inj/Asp: R greater trochanteric bursa 2. Bilateral hip pain M25.551 Ambulatory referral to Orthopaedic Surgery M25.552 PLAN: We have discussed her case with her at [facility] including her symptoms, physical exam, and x-rays. 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 I believe she has bilateral trochanteric bursitis.We recommended a cortisone injection in her right greater trochanteric bursa. We'll see her back in a month and if this improves her symptoms we may inject her left greater trochanteric bursa. If it doesn't work we may discuss replacing her right hip. Questions answered in laymen terms at the bedside. The diagnosis, home exercise plan and any ongoing restrictions/ recommendations reviewed. If unable to be reached in office, I recommend evaluation at nearest Emergency Room if any symptoms worsened or new symptoms develop for requiring urgent evaluation. documented in this encounter [facility] 09-11-2024 History of Presen t illness Narrative Called the patient to review MRI. She has a lot of degenerative changes in her cervical spine. Some areas are pretty tight, especially foramen opening. Left message that I am making a referral to Dr Cifuentes. I don't know that she needs surgery but would like their opinion. If she does not want to see Dr Cifuentes or Dr Spence she should call and let us know who to send the referral to. Diagnoses and all orders for this visit: Cervical radiculopathy - Ambulatory referral to Neurosurgery; Future Degenerative disc disease, cervical - Ambulatory referral to Neurosurgery; Future documented in this encounter [facility] 09-05-2024 History of Presen t illness Narrative Images from the original note were not included. CHIEF COMPLAINT REASON FOR VISIT : injections HPI: Gisel Almodovar is a 64 y.o. female who presents for bilateral bursa and left wrist. States her pain today is 8/10. She has been having issues with her hips and would like to see orthopedic. CURRENT MEDICATIONS: ALLERGIES/DISCONTINUE MEDICATIONS Current Outpatient Medications Medication Instructions albuterol HFA 90 mcg/act inhaler 2 puffs, Inhalation, Every 6 hours PRN alendronate (Fosamax) 35 MG tablet Take 1 tablet by mouth weekly busPIRone (Buspar) 10 MG tablet TAKE 1 TABLET IN THE MORNING AND 1 TABLET BEFOREBEDTIME Cyanocobalamin (Vitamin B 12) 250 MCG lozenge Every 24 hours diphenhydrAMINE-acetaminophen (Tylenol PM Extra Strength) 25-500 MG per tablet Every 24 hours estradiol (ESTRACE) 1 mg, Oral, Daily fluconazole (DIFLUCAN) 200 mg, Oral, Daily gabapentin (Neurontin) 400 MG capsule TAKE 1 CAPSULE IN THE MORNING, IN THE EVENING, AND BEFORE BEDTIME. meloxicam (MOBIC) 15 mg, Oral, Daily TPN Multiple Vitamins-Minerals (Centrum Silver 50+Women) tablet as directed Orally nortriptyline (PAMELOR) 10 mg, Oral, Nightly SUMAtriptan (IMITREX) 100 mg, Oral, Once as needed tiZANidine (ZANAFLEX) 2 mg, Oral, Nightly triamcinolone (Kenalog) 0.1 % cream APPLY TOPICALLY ONCE DAILY FOR 1 TO 2 WEEKS FOR ITCHY BUMPS AVOID FACE WHEN APPLYING valsartan (DIOVAN) 160 mg, Oral, Daily zolpidem (AMBIEN) 5 mg, Oral, Nightly PRN Allergies Allergen Reactions Sulfamethoxazole-Trimethoprim Hives Other Reaction(s): tongue swelling Trimethoprim Other Reaction(s): Tongue swells Doxepin Swelling There are no discontinued medications. PAST MEDICAL HISTORY: SURGICAL/SOCIAL/FAMILY HISTORY DEPRESSION SCREEN: Past Medical History: Diagnosis Date Anxiety At moderate risk for fall CTS (carpal tunnel syndrome) Depression (CMS/HCC) Displacement of lumbar disc with radiculopathy 11/28/2022 H/O abdominal hysterectomy Hip pain, right Insomnia Intractable migraine with status migrainosus, unspecified migraine type (CMS/HCC) Menopausal symptoms Migraine Migraine variant (CMS/HCC) Neuropathy Numbness Osteopenia Osteopenia [...] SECTION, CLASSIC 1989 SECTION, LOW TRANSVERSE 06/10/1989 COLONOSCOPY 02/22/2024 HYSTERECTOMY LUMBAR DISC SURGERY 04/2017 LUMBAR FUSION PARTIAL HYSTERECTOMY SKIN BIOPSY benign SPINAL FUSION 07/2018 XLIF L5-S1 Dr Cifuentes TUBAL LIGATION Social History Tobacco Use Smoking status: Every Day Types: Cigarettes Start date: 04/24/1976 Smokeless tobacco: Never Tobacco comments: 5 cigarettes a day Vaping Use Vaping status: Never Used Substance Use Topics Alcohol use: Yes Alcohol/week: 2.0 standard drinks of alcohol Types: 2 Glasses of wine per week Comment: 2-3 times a week; Caffeine Intake: 2-3 cups per day coffee or soda Drug use: Never Family History Problem Relation Name Age of Onset Breast cancer Mother Shelia Arthritis Mother Shelia Cancer Mother Shelia Heart disease Father Rohit Breast cancer Sister Roxanna Cancer Sister Roxanna Leukemia Brother Ignacio Cancer Brother Ignacio Miscarriages / Stillbirths Daughter Marilyn Depression: Not at risk (07/29/2024) PHQ-2 PHQ-2 Score: 0 REVIEW OF SYMPTOMS: Review of Systems OBJECTIVE: 09/05/2024 1:15 PM 07/29/2024 12:27 PM 07/24/2024 11:35 AM Vitals BMI 19.08 kg/m2 20.22 kg/m2 19.65 kg/m2 BSA (m2) 1.4 m2 1.44 m2 1.43 m2 Systolic 118 154 161 Diastolic 79 94 91 Heart Rate 86 82 83 SpO2 99 % Temp 98.2 F Height (in) 5' 1 Weight (lb) 101 107 104 Visit Report Report EXAM: Neurological Exam PROCEDURE: Bursa Injection After explaining the risks, complications, and benefits of the procedure, the patient leaned over the exam table. Allergies were reviewed, the consent was signed. After palpating the bilateralgreater trochanter and identifying the most tender area in the bursa, using sterile technique, and surface anesthetic; a 25 gauge 1 /2 spinal needle was advanced to make contact with the greater trochanter. The needle was then withdrawn about 1 mm. The patient received an injection of 3 cc of Bupivacaine 0.5% and1 cc Dexamethasone 4mg in a fan-like distribution. The needle was removed. A Band-Aid dressing was applied on the injection site.Ultrasound images were placed in the media folder. The Procedure was done by Dr. Victorino Alejandre. Carpal Tunnel Injection After explaining the risks, complications, and benefits of the procedure, the patient was seated in the chair. Allergies were reviewed, the consent was signed. The left wrists were marked for injections and cleaned using sterile technique, after identifying the palmaris tendon, a 30 gauge 1/2 needle was slowly inserted into the left carpal tunnel region. The patient received 0.5 cc Bupivacaine 0.5% and 0.5 cc Dexamethasone 4mg. The needle was removed. The patient tolerated the procedure well and without complications. A Band-Aid dressing was applied on the injection site. Ultrasound images were placed in the media folder. The Procedure was done by Dr. Victorino Alejandre. ASSESSMENT AND PLAN: 1. Bilateral hip pain - XR hips bilateral 5+ views; Future - Ambulatory referral to Orthopaedic Surgery; Future 2. Cervical radiculopathy - MR cervical spine wo contrast; Future 3. Fungal colitis - fluconazole (Diflucan) 200 MG tablet; Take 1 tablet (200 mg) by mouth Daily Dispense: 30 tablet; Refill: 1 I will continue this medication for the burning tongue. 4. Trochanteric bursitis of both hips (Primary) - dexAMETHasone sod phos (Decadron) injection 4 mg - bupivacaine (Marcaine) 0.5 % injection 5 mg The Procedure was done by Dr. Victorino Alejandre. I will bring her back in 4-6 weeks to see if she has received 50% or greater pain relief and at that time I will repeat the injections if needed. 5. Carpal tunnel syndrome on left - dexAMETHasone sod phos (Decadron) injection 4 mg - bupivacaine (Marcaine) 0.5 % injection 5 mg The Procedure was done by Dr. Victorino Alejandre. I will bring her back in 4-6 weeks to see if she has received 50% or greater pain relief and at that time I will repeat the injections if needed. This note was scribed by Glenis Wills(Julissa) acting under the direction of Victorino Alejandre MD. The content has been reviewed and confirmed for accuracy by Victorino Alejandre MD documented in this encounter [facility] 09-02-2024 Telephone encount er Note OARRS reviewed. [facility] 09-02-2024 Miscellaneous Notes Formattin g of this note might be different from the original. OARRS reviewed. documented in this encounter [facility] 07-29-2024 History of Presen t illness Narrative Images from the original note were not included. Gisel Almodovar is a 63 y.o. female presents with chief complaint of Chief Complaint Patient presents with BP concern Gisel was seen today for bp concern. 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 Upon reviewing her blood pressure readings, it is evident that she has experienced some elevated levels, which are a cause for concern. She will be initiated on valsartan 160 mg, to be taken as half a tablet daily. She is advised to monitor her blood pressure regularly. An echocardiogram will be obtained, and she will be informed of the results. Once her blood pressure stabilizes, a complete blood count (CBC), basic metabolic panel (BMP), and thyroid function tests will be conducted. All her queries were addressed during this visit. If her blood pressure normalizes after a week, she should continue with the half-tablet regimen. However, if her blood pressure remains elevated, an increase to a full tablet is recommended. Burning tongue syndrome. She reports ongoing symptoms of burning tongue syndrome and is currently on medication prescribed by Dr. Alejandre. An MRI of the brain was normal. She will continue with the current medication and follow up with Dr. Alejandre in a few weeks to assess progress. If symptoms persist, a referral to an ear, nose, and throat specialist may be considered. DESMOND MACIAS D.O. This note was entered using [employer]. Grammatical and dictation errors maybe present in translation *I have reviewed and reconciled the history and medication list with the patient today* History of Present Illness The patient is a 63-year-old female presenting with fatigue and slightly elevated blood pressure. She has had some high readings when at home and other times with lower readings. At times, she will hear her heartbeat in her ears, especially when it is elevated. Her blood pressure was recorded as 173 during her last visit with Dr. Alejandre. Upon arrival today, her blood pressure was 174/91, which decreased to 163/90 before her departure from the office. At home, she noted a reading of 183. She reports experiencing fatigue, particularly during household activities, necessitating periods of rest. She also experiences pulsatile tinnitus, predominantly in her left ear, which she associates with elevated blood pressure. These episodes are transient, lasting only a few seconds. Occasionally, she experiences lightheadedness, which resolves upon sitting down. She uses an arm cuff for home blood pressure monitoring. She mentions that her 's stroke a few years ago has been a source of stress for her. She has been diagnosed with burning tongue syndrome by Dr. Alejandre. An MRI of her brain was conducted, which yielded normal results. She was prescribed medication, which has provided some relief from the burning sensation. However, she notes that her tongue never feels completely normal. She has been on this medication for a couple of weeks and is scheduled to see Dr. Alejandre again in a few weeks. She is considering whether a consultation with an hvac estimator or an ENT specialist would be beneficial. Supplemental Information She receives injections every 6 weeks for her back and hips and experiences numbness in her feet. Has been noticing she has been hearing her heart beat in her ears frequently. When at Dr Alejandre's office BP was 174/91, 163/90. BP at home has been up and down . Readings:149/90, 149/87, 174/91, 163/90, 160/97, 151/89, 140/85, 111/70, 121/85, 126/77, 148/87, 151/82. Does admit to an increase in fatigue. Denies chest pain or palpitations, shortness of breath. No hx of BP medication. SUBJECTIVE: Current Medications: Allergies/Social History: Depression Screen/Family History: Current Outpatient Medications on File Prior to Visit Medication Sig Dispense Refill albuterol HFA 90 mcg/act inhaler Inhale 2 puffs every 6 (six) hours if needed for wheezing 18 g 2 alendronate (Fosamax) 35 MG tablet Take 1 tablet by mouth weekly 12 tablet 3 busPIRone (Buspar) 10 MG tablet TAKE 1 TABLET IN THE MORNING AND 1 TABLET BEFOREBEDTIME 180 tablet 1 Cyanocobalamin (Vitamin B 12) 250 MCG lozenge 1 (one) time each day at the same time. diphenhydrAMINE-acetaminophen (Tylenol PM Extra Strength) 25-500 MG per tablet 1 (one) time each day at the same time. estradiol (Estrace) 1 MG tablet Take 1 tablet (1 mg) by mouth Daily 90 tablet 3 fluconazole (Diflucan) 100 MG tablet Take 1 tablet (100 mg) by mouth Daily for 14 days 14 tablet 1 gabapentin (Neurontin) 400 MG capsule TAKE 1 CAPSULE IN THE MORNING, IN THE EVENING, AND BEFORE BEDTIME. 270 capsule 0 meloxicam (Mobic) 15 MG tablet Take 1 tablet (15 mg) by mouth once per day 90 tablet 0 Multiple Vitamins-Minerals (Centrum Silver 50+Women) tablet as directed Orally nortriptyline (Pamelor) 10 MG capsule Take 1 capsule (10 mg) by mouth at bedtime 30 capsule 11 SUMAtriptan (Imitrex) 100 MG tablet Take 1 tablet (100 mg) by mouth 1 (one) time if needed for migraine for up to 1 dose 27 tablet 1 tiZANidine (Zanaflex) 2 MG tablet Take 1 tablet (2 mg) by mouth at bedtime 90 tablet 1 triamcinolone (Kenalog) 0.1 % cream APPLY TOPICALLY ONCE DAILY FOR 1 TO 2 WEEKS FOR ITCHY BUMPS AVOID FACE WHEN APPLYING zolpidem (Ambien) 5 MG tablet Take 1 tablet (5 mg) by mouth as needed at bedtime for sleep 90 tablet 0 [DISCONTINUED] Varenicline Tartrate, Starter, (Chantix Starting Month ) 0.5 MG X 11 & 1 MG X 42 tablet therapy pack Take 1 Package by mouth Daily 1 each 0 No current facility-administered medications on file prior to visit. Allergies Allergen Reactions Sulfamethoxazole-Trimethoprim Hives Other Reaction(s): tongue swelling Trimethoprim Other Reaction(s): Tongue swells Doxepin Swelling Social History Tobacco Use Smoking status: Every Day Types: Cigarettes Start date: 04/24/1976 Smokeless tobacco: Never Tobacco comments: 5 cigarettes a day Vaping Use Vaping status: Never Used Substance Use Topics Alcohol use: Yes Alcohol/week: 2.0 standard drinks of alcohol Types: 2 Glasses of wine per week Comment: 2-3 times a week; Caffeine Intake: 2-3 cups per day coffee or soda Drug use: Never Depression: Not at risk (07/29/2024) PHQ-2 PHQ-2 Score: 0 Family History Problem Relation Name Age of Onset Breast cancer Mother Shelia Arthritis Mother Shelia Cancer Mother Shelia Heart disease Father Rohit Breast cancer Sister Roxanna Cancer Sister Roxanna Leukemia Brother Ignacio Cancer Brother Ignacio Miscarriages / Stillbirths Daughter Marilyn Past Medical History: Surgical History: ROS Past Medical History: Diagnosis Date Anxiety At moderate risk for fall CTS (carpal tunnel syndrome) Depression (CMS/HCC) Displacement of lumbar disc with radiculopathy 11/28/2022 H/O abdominal hysterectomy Hip pain, right Insomnia Intractable migraine with status migrainosus, unspecified migraine type (CMS/HCC) Menopausal symptoms Migraine Migraine variant (CMS/HCC) Neuropathy Numbness Osteopenia Osteopenia [...] SECTION, CLASSIC 1989 SECTION, LOW TRANSVERSE 06/10/1989 COLONOSCOPY 02/22/2024 HYSTERECTOMY LUMBAR DISC SURGERY 04/2017 LUMBAR FUSION PARTIAL HYSTERECTOMY SKIN BIOPSY benign SPINAL FUSION 07/2018 XLIF L5-S1 Dr Cifuentes TUBAL LIGATION Review of Systems Constitutional: Positive for fatigue. HENT: Negative for rhinorrhea. Respiratory: Negative for cough and shortness of breath. Cardiovascular: Negative for chest pain. Gastrointestinal: Negative for abdominal distention. Skin: Negative for rash. Neurological: Positive for light-headedness. Negative for dizziness. All other systems reviewed and are negative. OBJECTIVE: 07/29/2024 12:27 PM 07/24/2024 11:35 AM 06/13/2024 4:18 PM 05/01/2024 12:28 PM 04/20/2024 10:40 AM 04/15/2024 10:31 AM 04/12/2024 10:32 AM Vitals BMI 20.22 kg/m2 19.65 kg/m2 19.46 kg/m2 18.63 kg/m2 20.22 kg/m2 20.22 kg/m2 20.44 kg/m2 BSA (m2) 1.44 m2 1.43 m2 1.42 m2 1.39 m2 1.44 m2 1.44 m2 1.45 m2 Systolic 154 152 128 140 148 Diastolic 94 82 76 92 84 Heart Rate 82 81 86 113 77 SpO2 99 % 98 % 98 % 99 % Temp 98.2 F 98 F 98 F 96.8 F Height (in) 5' 1 5' 1 5' 1 5' 1 Weight (lb) 107 104 103 98.6 107 107 108.2 Visit Report Report Report Report Report GENERAL EXAM: Physical Exam General Appearance: Alert and oriented. Pleasant affect. No acute distress. Well nourished. Head: Atraumatic normal cephalic. No masses or tenderness. Eyes: EOMI, sclera white, conjunctiva clear, no injection. Pupils relatively equal size. Ears: External ears normal. No signs or trauma or infection. Nose: Nasal mucosal pink and moist, No discharge or congestion. Normal appearance of soft tissue of nose. Throat: Lips moist, Teeth and gums in good condition No exudate or drainage. Neck: Supple, normal rom of neck, no swelling or pain on palpitation. Respiratory: Clear to auscultation bilaterally, no wheezes, rhonchi or crackles. Good breaths sounds throughout lung [place]. Cardiovascular: Regular rate and rhythm, no murmurs. Normal S1, S2. Musculoskeletal: No gross deformities or malalignment, normal ambulation. Extremities: No swelling, no deformity or acute findings. Skin: Warm and dry, no rashes. Neurological: Cranial nerves II-VII grossly intact, no gross neurologic abnormalities. Psychiatric: Cooperative, pleasant, no signs of mood disorder. documented in this encounter [facility] 07-24-2024 History of Presen t illness Narrative Images from the original note were not included. CHIEF COMPLAINT REASON FOR VISIT : Injections HPI: Gisel Almodovar is a 63 y.o. female who presents for CURRENT MEDICATIONS: ALLERGIES/DISCONTINUE MEDICATIONS Current Outpatient Medications Medication Instructions albuterol HFA 90 mcg/act inhaler 2 puffs, Inhalation, Every 6 hours PRN alendronate (Fosamax) 35 MG tablet Take 1 tablet by mouth weekly busPIRone (Buspar) 10 MG tablet TAKE 1 TABLET IN THE MORNING AND 1 TABLET BEFOREBEDTIME Cyanocobalamin (Vitamin B 12) 250 MCG lozenge Every 24 hours diphenhydrAMINE-acetaminophen (Tylenol PM Extra Strength) 25-500 MG per tablet Every 24 hours estradiol (ESTRACE) 1 mg, Oral, Daily gabapentin (Neurontin) 400 MG capsule TAKE 1 CAPSULE IN THE MORNING, IN THE EVENING, AND BEFORE BEDTIME. meloxicam (MOBIC) 15 mg, Oral, Daily TPN Multiple Vitamins-Minerals (Centrum Silver 50+Women) tablet as directed Orally nortriptyline (PAMELOR) 10 mg, Oral, Nightly SUMAtriptan (IMITREX) 100 mg, Oral, Once as needed tiZANidine (ZANAFLEX) 2 mg, Oral, Nightly triamcinolone (Kenalog) 0.1 % cream APPLY TOPICALLY ONCE DAILY FOR 1 TO 2 WEEKS FOR ITCHY BUMPS AVOID FACE WHEN APPLYING Varenicline Tartrate, Starter, (Chantix Starting Month ) 0.5 MG X 11 & 1 MG X 42 tablet therapy pack 1 Package, Oral, Daily zolpidem (AMBIEN) 5 mg, Oral, Nightly PRN Allergies Allergen Reactions Sulfamethoxazole-Trimethoprim Hives Other Reaction(s): tongue swelling Trimethoprim Other Reaction(s): Tongue swells Doxepin Swelling There are no discontinued medications. PAST MEDICAL HISTORY: SURGICAL/SOCIAL/FAMILY HISTORY DEPRESSION SCREEN: Past Medical History: Diagnosis Date Anxiety At moderate risk for fall CTS (carpal tunnel syndrome) Depression (CMS/HCC) Displacement of lumbar disc with radiculopathy 11/28/2022 H/O abdominal hysterectomy Hip pain, right Insomnia Intractable migraine with status migrainosus, unspecified migraine type (CMS/HCC) Menopausal symptoms Migraine Migraine variant (CMS/HCC) Neuropathy Numbness Osteopenia Osteopenia [...] SECTION, CLASSIC 1989 SECTION, LOW TRANSVERSE 06/10/1989 COLONOSCOPY 02/22/2024 HYSTERECTOMY LUMBAR DISC SURGERY 04/2017 LUMBAR FUSION PARTIAL HYSTERECTOMY SPINAL FUSION 07/2018 XLIF L5-S1 Dr Cifuentes TUBAL LIGATION Social History Tobacco Use Smoking status: Every [...] day coffee or soda Drug use: Never Family History Problem Relation Name Age of Onset Breast cancer Mother Shelia Arthritis Mother Shelia Cancer Mother Shelia Heart disease Father Rohit Breast cancer Sister Roxanna Cancer Sister Roxanna Leukemia Brother Ignacio Cancer Brother Ignacio Miscarriages / Stillbirths Daughter Marilyn Depression: Not at risk (05/01/2024) PHQ-2 PHQ-2 Score: 0 REVIEW OF SYMPTOMS: Review of Systems Constitutional: Negative for chills, diaphoresis, fatigue and fever. HENT: Negative for ear pain, tinnitus and trouble swallowing. Eyes: Negative for photophobia and visual disturbance. Respiratory: Negative for cough and shortness of breath. Cardiovascular: Negative for palpitations and leg swelling. Gastrointestinal: Negative for abdominal pain and nausea. Genitourinary: Negative for difficulty urinating and urgency. Musculoskeletal: Positive for arthralgias and back pain. Negative for myalgias, neck pain and neck stiffness. Neurological: Negative for tremors, weakness, light-headedness and numbness. Psychiatric/Behavioral: Negative for agitation, confusion and suicidal ideas. OBJECTIVE: 07/24/2024 11:35 AM 06/13/2024 4:18 PM 05/01/2024 12:28 PM Vitals BMI 19.65 kg/m2 19.46 kg/m2 18.63 kg/m2 BSA (m2) 1.43 m2 1.42 m2 1.39 m2 Systolic 152 128 Diastolic 82 76 Heart Rate 81 86 SpO2 98 % Temp 98 F Height (in) 5' 1 Weight (lb) 104 103 98.6 Visit Report Report EXAM: Neurological Exam Mental Status Awake, alert and oriented to person, place and time. Oriented to person, place and time. Recent and remote memory are intact. Speech is normal. Language is fluent with no aphasia. Attention and concentration are normal. Cranial Nerves CN II: Visual acuity is normal. Visual [place] full to confrontation. CN III, IV, : Extraocular movements intact bilaterally. Normal lids and orbits bilaterally. Pupils equal round and reactive to light bilaterally. CN V: Facial sensation is normal. CN VII: Full and symmetric facial movement. CN VIII: Hearing is normal. CN XII: Tongue midline without atrophy or fasciculations. Motor Normal muscle bulk throughout. Normal muscle tone. Right Left Wrist flexion 5 5 Wrist extension 5 5 Right Left Deltoid 5 5 Biceps 5 5 Triceps 5 5 Wrist flexor 5 5 Wrist extensor 5 5 Glutei 5 5 Iliopsoas 5 5 Quadriceps 5 5 Gastrocnemius 5 5 Anterior tibialis 5 5 Posterior tibialis 5 5 Sensory Light touch is normal in upper and lower extremities. Pinprick is normal in upper and lower extremities. Vibration is normal in upper and lower extremities. Reflexes Right Left Brachioradialis 2+ 2+ Biceps 2+ 2+ Patellar 2+ 2+ Achilles 2+ 2+ Right Plantar: downgoing Left Plantar: downgoing Right pathological reflexes: Param's absent. Ankle clonus absent. Left pathological reflexes: Param's absent. Ankle clonus absent. Coordination [id number], rapid alternating movements and [id number] normal bilaterally without dysmetria. Gait Normal casual, toe, heel and tandem gait. Romberg is absent. PROCEDURE: Bursa Injection After explaining the risks, complications, and benefits of the procedure, the patient leaned over the exam table. Allergies were reviewed, the consent was signed. After palpating the bilateralgreater trochanter and identifying the most tender area in the bursa, using sterile technique, and surface anesthetic; a 25 gauge 1 /2 spinal needle was advanced to make contact with the greater trochanter. The needle was then withdrawn about 1 mm. The patient received an injection of 3 cc of Bupivacaine 0.5% and1 cc Dexamethasone 4mg in a fan-like distribution. The needle was removed. A Band-Aid dressing was applied on the injection site.Ultrasound images were placed in the media folder. Carpal Tunnel Injection After explaining the risks, complications, and benefits of the procedure, the patient was seated in the chair. Allergies were reviewed, the consent was signed. The left wrists were marked for injections and cleaned using sterile technique, after identifying the palmaris tendon, a 30 gauge 1/2 needle was slowly inserted into the left carpal tunnel region. The patient received 0.5 cc Bupivacaine 0.5% and 0.5 cc Dexamethasone 4mg. The needle was removed. The patient tolerated the procedure well and without complications. A Band-Aid dressing was applied on the injection site. Ultrasound images were placed in the media folder. ASSESSMENT AND PLAN: 1. Fungal colitis - fluconazole (Diflucan) 100 MG tablet; Take 1 tablet (100 mg) by mouth Daily for 14 days Dispense: 14 tablet; Refill: 1 2. Trochanteric bursitis of both hips (Primary) - bupivacaine (Marcaine) 0.5 % injection 5 mg - dexAMETHasone sod phos (Decadron) injection 4 mg I will bring her back in 4-6 weeks to see if she has received 50% or greater pain relief and at that time I will repeat the injections if needed. documented in this encounter [facility] 06-12-2024 History of Presen t illness Narrative Images from the original note were not included. CHIEF COMPLAINT REASON FOR VISIT : Injection HPI: Gisel Almodovar is a 63 y.o. female who presents for bilateral bursa's and bilateral carpal tunnel injections. States her pain today is 8/10, could be the weather as well. She is also having tingling on the tip of her tongue and burning sensation. This has been going on since December. CURRENT MEDICATIONS: ALLERGIES/DISCONTINUE MEDICATIONS Current Outpatient Medications Medication Instructions albuterol HFA 90 mcg/act inhaler 2 puffs, Inhalation, Every 6 hours PRN alendronate (Fosamax) 35 MG tablet Take 1 tablet by mouth weekly busPIRone (Buspar) 10 MG tablet TAKE 1 TABLET IN THE MORNING AND 1 TABLET BEFOREBEDTIME Cyanocobalamin (Vitamin B 12) 250 MCG lozenge Every 24 hours diphenhydrAMINE-acetaminophen (Tylenol PM Extra Strength) 25-500 MG per tablet Every 24 hours estradiol (ESTRACE) 1 mg, Oral, Daily fluconazole (DIFLUCAN) 100 mg, Oral, Daily gabapentin (Neurontin) 400 MG capsule TAKE 1 CAPSULE IN THE MORNING, IN THE EVENING, AND BEFORE BEDTIME. meloxicam (MOBIC) 15 mg, Oral, Daily TPN Multiple Vitamins-Minerals (Centrum Silver 50+Women) tablet as directed Orally nortriptyline (PAMELOR) 10 mg, Oral, Nightly SUMAtriptan (IMITREX) 100 mg, Oral, Once as needed tiZANidine (ZANAFLEX) 2 mg, Oral, Nightly triamcinolone (Kenalog) 0.1 % cream APPLY TOPICALLY ONCE DAILY FOR 1 TO 2 WEEKS FOR ITCHY BUMPS AVOID FACE WHEN APPLYING Varenicline Tartrate, Starter, (Chantix Starting Month ) 0.5 MG X 11 & 1 MG X 42 tablet therapy pack 1 Package, Oral, Daily zolpidem (AMBIEN) 5 mg, Oral, Nightly PRN Allergies Allergen Reactions Sulfamethoxazole-Trimethoprim Hives Other Reaction(s): tongue swelling Trimethoprim Other Reaction(s): Tongue swells Doxepin Swelling There are no discontinued medications. PAST MEDICAL HISTORY: SURGICAL/SOCIAL/FAMILY HISTORY DEPRESSION SCREEN: [...] SECTION, CLASSIC 1989 SECTION, LOW TRANSVERSE 06/10/1989 COLONOSCOPY 02/22/2024 HYSTERECTOMY LUMBAR DISC SURGERY 04/2017 LUMBAR FUSION PARTIAL HYSTERECTOMY SPINAL FUSION 07/2018 XLIF L5-S1 Dr Cifuentes TUBAL LIGATION Social History Tobacco Use Smoking status: Every [...] day coffee or soda Drug use: Never Family History Problem Relation Name Age of Onset Breast cancer Mother Shelia Arthritis Mother Shelia Cancer Mother Shelia Heart disease Father Rohit Breast cancer Sister Roxanna Cancer Sister Roxanna Leukemia Brother Ignacio Cancer Brother Ignacio Miscarriages / Stillbirths Daughter Marilyn Depression: Not at risk (05/01/2024) PHQ-2 PHQ-2 Score: 0 REVIEW OF SYMPTOMS: Review of Systems OBJECTIVE: 06/13/2024 4:18 PM 05/01/2024 12:28 PM 04/20/2024 10:40 AM Vitals BMI 19.46 kg/m2 18.63 kg/m2 20.22 kg/m2 BSA (m2) 1.42 m2 1.39 m2 1.44 m2 Systolic 152 128 Diastolic 82 76 Heart Rate 81 86 113 SpO2 98 % 98 % Temp 98 F 98 F Height (in) 5' 1 Weight (lb) 103 98.6 107 Visit Report Report Report EXAM: Neurological Exam PROCEDURE: Bursa Injection After explaining the risks, complications, and benefits of the procedure, the patient leaned over the exam table. Allergies were reviewed, the consent was signed. After palpating the bilateral greater trochanter and identifying the most tender area in the bursa, using sterile technique, and surface anesthetic; a 25 gauge 1 1/2 spinal needle was advanced to make contact with the greater trochanter. The needle was then withdrawn about 1 mm. The patient received an injection of 3 cc of Bupivacaine 0.5% and1 cc Dexamethasone 4mg in a fan-like distribution. The needle was removed. A Band-Aid dressing was applied on the injection site.Ultrasound images were placed in the media folder. Carpal Tunnel Injection After explaining the risks, complications, and benefits of the procedure, the patient was seated in the chair. Allergies were reviewed, the consent was signed. The bilateral wrists were marked for injections and cleaned using sterile technique, after identifying the palmaris tendon, a 30 gauge 1/2 needle was slowly inserted into the bilateral carpal tunnel region. The patient received 1 cc Bupivacaine 0.5% and 1 cc Dexamethasone 4mg. The needle was removed. The patient tolerated the procedure well and without complications. A Band-Aid dressing was applied on the injection site. Ultrasound images were placed in the media folder. ASSESSMENT AND PLAN: 1. Fungal colitis - fluconazole (Diflucan) 100 MG tablet; Take 1 tablet (100 mg) by mouth Daily for 14 days Dispense: 14 tablet; Refill: 1 2. Burning tongue syndrome - MR brain w and wo contrast routine; Future 3. New daily persistent headache - MR brain w and wo contrast routine; Future 4. Carpal tunnel syndrome on both sides (Primary) - bupivacaine (Marcaine) 0.5 % injection 5 mg - dexAMETHasone sod phos (Decadron) injection 4 mg I will bring her back in 6 weeks to see if she has received 50% or greater pain relief and if she has I will repeat the injections if needed. 5. Trochanteric bursitis of both hips - bupivacaine (Marcaine) 0.5 % injection 5 mg - dexAMETHasone sod phos (Decadron) injection 4 mg I will bring her back in 6 weeks to see if she has received 50% or greater pain relief and if she has I will repeat the injections if needed. documented in this encounter [facility] 06-11-2024 Telephone encount er Note OARRS reviewed. [facility] 06-11-2024 Miscellaneous Notes Formattin g of this note might be different from the original. OARRS reviewed. documented in this encounter [facility] 06-10-2024 Telephone encount er Note Request for zanaflex and ambien. Ambien was just filled 06/03. Too early [facility] 06-10-2024 Miscellaneous Notes Formattin g of this note might be different from the original. Request for zanaflex and ambien. Ambien was just filled 06/03. Too early documented in this encounter [facility] 05-24-2024 Telephone encount er Note Would refer to neurology [facility] 05-24-2024 Miscellaneous Notes Formattin g of this note might be different from the original. Would refer to neurology documented in this encounter [facility] 05-01-2024 History of Presen t illness Narrative Images from the original note were not included. Gisel Almodovar is a 63 y.o. female presents with chief complaint of Chief Complaint Patient presents with Follow-up Gisel was seen today for follow-up. Diagnoses and all orders for this visit: Mild reactive airways disease, unspecified whether persistent (CMS/HCC) Acute bronchitis, bacterial - azithromycin (Zithromax) 250 MG tablet; Take 2 tablets (500 mg) by mouth Daily for 1 day, THEN 1 tablet (250 mg) Daily for 4 days. - predniSONE (Deltasone) 10 MG tablet; Take 3 tablets (30 mg) by mouth Daily for 5 days Influenza A Neuropathy - Sjogrens syndrome-B extractable nuclear antibody - Sjogrens syndrome-A extractable nuclear antibody - Vitamin D 25 hydroxy Total - Ferritin - Vitamin B12 - Folate - Anti-DNA antibody, double-stranded - YOLIE Tingling sensation - Sjogrens syndrome-B extractable nuclear antibody - Sjogrens syndrome-A extractable nuclear antibody - Vitamin D 25 hydroxy Total - Ferritin - Vitamin B12 - Folate - Anti-DNA antibody, double-stranded - YOLIE Smoker Tobacco abuse - Varenicline Tartrate, Starter, (Chantix Starting Month ) 0.5 MG X 11 & 1 MG X 42 tablet therapy pack; Take 1 Package by mouth Daily Vitamin D deficiency - Vitamin D 25 hydroxy Total - Ferritin - Vitamin B12 - Folate - Anti-DNA antibody, double-stranded - YOLIE Assessment & Plan Possible influenza A. She reports ongoing fatigue, productive cough, and chest heaviness. There is no fever, vomiting, or diarrhea. Physical examination reveals significant decreased lung sounds, mild scattered wheezes, and rhonchi. There is no evidence of pneumonia. A course of antibiotics and steroids will be initiated. She is advised to use her albuterol inhaler 3 times daily (morning, afternoon, and night) to help open up the airways, which may increase coughing initially. Smoking cessation. She has not smoked since and expresses a desire to quit permanently. A prescription for Chantix will be provided to help reduce cravings. Potential side effects, including vivid dreams, were discussed. She is advised to start with a starter pack and continue for up to 6 months if effective. Tongue tingling and burning. She reports improvement in tongue symptoms after discontinuing electrolyte water but still experiences some tingling and dry mouth at night. Blood work will be ordered to further investigate these symptoms. She is advised to wait until she feels better before getting the blood work done, potentially next week. Concern for pneumonia. She expresses concern about potential pneumonia, a fear shared by her daughter. On exam, there is no evidence of pneumonia. DESMOND MACIAS D.O. This note was entered using [employer] copilot. Grammatical and dictation errors maybe present in translation *I have reviewed and reconciled the history and medication list with the patient today* History of Present Illness Positive for Influenza A at on 04.20.24. Was prescribed tamiflu but she did not fill. Has been taking nyquil and dayquil. Has continued with fatigue, productive cough, chest feeling heavy. Has not used albuterol inhaler. Denies fever but states she is getting night sweats and having a lot of body aching, especially her middle back. Stopped drinking electrolyte water she was drinking regularly and has had significant improvement in tingling inh her tongue but is not fully resolved. Wants to know if she should proceed with labs discussed previously. The patient presents for follow-up of possible influenza A. She was prescribed Tamiflu but did not take it. She had been using NyQuil and DayQuil and has continued with fatigue, productive cough, and chest heaviness. She has not been using her albuterol inhaler. She does not report any fevers but did have a lot of body aches. She reports a gradual improvement in her condition, which began on morning with an unusual sensation in her chest. The following day, she experienced a significant change in her symptoms, characterized by generalized body aches that have confined her to bed rest. She does not report any fever, vomiting, or diarrhea. Her energy levels have slightly improved, allowing her to perform some household tasks before experiencing fatigue and needing to rest. She also reports shortness of breath, which is improving, and a productive cough with clear phlegm, occasionally tinged with green. She experiences mid-back pain, mild upper back pain, and persistent chest heaviness. She has not been using her albuterol inhaler. She has 2 albuterol inhalers at home. She expresses concern about potential pneumonia and requests blood work. She has discontinued electrolyte water due to concerns about potential side effects, including tongue tingling and burning, which have since improved. However, she continues to experience dry mouth at night. She has abstained from smoking since and is seeking assistance to maintain this cessation. She has previously tried Wellbutrin without success. SOCIAL HISTORY The patient has not smoked since and is hoping to quit permanently. MEDICATIONS Current: NyQuil, DayQuil, albuterol inhaler Discontinued: Tamiflu SUBJECTIVE: Current Medications: Allergies/Social History: Depression Screen/Family History: Current Outpatient Medications on File Prior to Visit Medication Sig Dispense Refill albuterol HFA 90 mcg/act inhaler Inhale 2 puffs every 6 (six) hours if needed for wheezing 18 g 2 alendronate (Fosamax) 35 MG tablet Take 1 tablet by mouth weekly 12 tablet 3 busPIRone (Buspar) 10 MG tablet TAKE 1 TABLET IN THE MORNING AND 1 TABLET BEFOREBEDTIME 180 tablet 1 Cyanocobalamin (Vitamin B 12) 250 MCG lozenge 1 (one) time each day at the same time. diphenhydrAMINE-acetaminophen (Tylenol PM Extra Strength) 25-500 MG per tablet 1 (one) time each day at the same time. estradiol (Estrace) 1 MG tablet Take 1 tablet (1 mg) by mouth Daily 90 tablet 3 gabapentin (Neurontin) 400 MG capsule Take 1 capsule (400 mg) by mouth in the morning and 1 capsule (400 mg) in the evening and 1 capsule (400 mg) before bedtime. Due 03/25/2024. 270 capsule 0 meloxicam (Mobic) 15 MG tablet Take 1 tablet (15 mg) by mouth once per day 30 tablet 3 Multiple Vitamins-Minerals (Centrum Silver 50+Women) tablet as directed Orally nortriptyline (Pamelor) 10 MG capsule Take 1 capsule (10 mg) by mouth at bedtime 30 capsule 11 SUMAtriptan (Imitrex) 100 MG tablet Take 1 tablet (100 mg) by mouth 1 (one) time if needed for migraine for up to 1 dose 27 tablet 1 tiZANidine (Zanaflex) 2 MG tablet Take 1 tablet (2 mg) by mouth at bedtime 30 tablet 1 triamcinolone (Kenalog) 0.1 % cream APPLY TOPICALLY ONCE DAILY FOR 1 TO 2 WEEKS FOR ITCHY BUMPS AVOID FACE WHEN APPLYING zolpidem (Ambien) 5 MG tablet Take 1 tablet (5 mg) by mouth as needed at bedtime for sleep 30 tablet 4 [DISCONTINUED] oseltamivir (Tamiflu) 75 MG capsule Take 1 capsule (75 mg) by mouth in the morning and 1 capsule (75 mg) before bedtime. Do all this for 5 days. 10 capsule 0 No current facility-administered medications on file prior to visit. Allergies Allergen Reactions Sulfamethoxazole-Trimethoprim Hives Other Reaction(s): tongue swelling Trimethoprim Other Reaction(s): Tongue swells Doxepin Swelling Social History Tobacco Use Smoking status: Every [...] day coffee or soda Drug use: Never Depression: Not at risk (05/01/2024) PHQ-2 PHQ-2 Score: 0 Family History Problem Relation Name Age of Onset Breast cancer Mother Shelia Arthritis Mother Shelia Cancer Mother Shelia Heart disease Father Rohit Breast cancer Sister Roxanna Cancer Sister Roxanna Leukemia Brother Ignacio Cancer Brother Ignacio Miscarriages / Stillbirths Daughter Marilyn Past Medical History: Surgical History: ROS Past Medical History: Diagnosis Date Anxiety At [...] Date BACK SURGERY 2008 fusion BACK SURGERY 2005 SECTION, CLASSIC 1989 SECTION, LOW TRANSVERSE 06/10/1989 COLONOSCOPY 02/22/2024 HYSTERECTOMY LUMBAR DISC SURGERY 04/2017 LUMBAR FUSION PARTIAL HYSTERECTOMY SPINAL FUSION 07/2018 XLIF L5-S1 Dr Cifuentes TUBAL LIGATION Review of Systems Constitutional: Positive for fatigue. HENT: Positive for congestion, rhinorrhea and sore throat. Respiratory: Positive for cough. Cardiovascular: Negative for chest pain. Gastrointestinal: Negative for abdominal distention, abdominal pain and vomiting. Skin: Negative for rash. OBJECTIVE: 05/01/2024 12:28 PM 04/20/2024 10:40 AM 04/15/2024 10:31 AM 04/12/2024 10:32 AM 02/19/2024 11:47 AM 02/08/2024 1:09 PM 01/23/2024 1:28 PM Vitals BMI 18.63 kg/m2 20.22 kg/m2 20.22 kg/m2 20.44 kg/m2 19.61 kg/m2 19.65 kg/m2 BSA (m2) 1.39 m2 1.44 m2 1.44 m2 1.45 m2 1.42 m2 1.43 m2 Systolic 128 140 148 126 134 128 Diastolic 76 92 84 74 80 80 Heart Rate 86 113 77 73 SpO2 98 % 98 % 99 % 99 % Temp 98 F 98 F 96.8 F 98 F Height (in) 5' 1 5' 1 5' 1 5' 1 5' 1 Weight (lb) 98.6 107 107 108.2 103.8 104 Visit Report Report Report Report Report Report GENERAL EXAM: Physical Exam General Appearance: Alert and oriented. Pleasant affect. No acute distress. Well nourished. HEENT: Atraumatic, EOMI, conjunctiva clear, no injection, external ears normal, lips moist, neck supple, normal rom of neck, no swelling. Respiratory: Significant decreased lung sounds, mild scattered wheezes and rhonchi noted in bilateral lungs. Cardiovascular: Regular rate and rhythm, no murmurs. Normal S1, S2. Back, Musculoskeletal: No gross deformities or malalignment, normal ambulation. Extremities: No swelling. Skin: Warm and dry, no rashes. Neurological: Cranial nerves II-VII grossly intact. Psychiatric: Cooperative, pleasant, no signs of mood disorder. documented in this encounter [facility] 04-20-2024 History of Presen t illness Narrative Images from the original note were not included. [address] , [address] [facility] [place], [address] P: [phone] F: [phone] HPI Historian of HPI: patient Gisel Almodovar is a 63 y.o. female who presents today to the Urgent Care with the following complaints and denials which have been present for 4 day(s). C/O Denies Symptom Comments [x] [] Runny Nose [] [x] Difficulty Swallowing [] [x] Sore Throat [x] [] Cough Dry [x] [] Ear Pain bilateral [] [x] Fever [x] [] Chills [x] [] Nasal Congestion [x] [] Myalgia [x] [] Sinus Pain [x] [] Sinus Pressure Additional Comments: pt has taken dayquil, nyquil, musinex OTC medication without relief Pt is fatigued as well with SOB and chest heaviness ROS A complete system ROS was performed and negative aside from the pertinent positives noted in the HPI and PE. Visit Vitals Pulse (!) 113 Temp 98 F Wt 107 lb SpO2 98% BMI 20.22 kg/m OB Status Hysterectomy Smoking Status Every Day BSA 1.44 m PHYSICAL EXAM Physical Exam Vitals reviewed. Constitutional: General: She is not in acute distress. Appearance: Normal appearance. HENT: Head: Normocephalic and atraumatic. Right Ear: Hearing, tympanic membrane, ear canal and external ear normal. Left Ear: Hearing, tympanic membrane, ear canal and external ear normal. Nose: Congestion and rhinorrhea present. Right Turbinates: Enlarged and swollen. Left Turbinates: Enlarged and swollen. Right Sinus: Maxillary sinus tenderness present. Left Sinus: Maxillary sinus tenderness present. Mouth/Throat: Lips: [place] Post. Mouth: Mucous membranes are moist. Pharynx: Oropharynx is clear. Uvula midline. Posterior oropharyngeal erythema and postnasal drip present. Eyes: Extraocular Movements: Extraocular movements intact. Conjunctiva/sclera: Conjunctivae normal. Pupils: Pupils are equal, round, and reactive to light. Cardiovascular: Rate and Rhythm: Normal rate and regular rhythm. Pulses: Normal pulses. Heart sounds: Normal heart sounds. Pulmonary: Effort: Pulmonary effort is normal. No respiratory distress. Breath sounds: Normal breath sounds. No wheezing, rhonchi or rales. Musculoskeletal: General: Normal range of motion. Cervical back: Normal range of motion and neck supple. Skin: General: Skin is warm and dry. Findings: No rash. Neurological: General: No focal deficit present. Mental Status: She is alert and oriented to person, place, and time. Psychiatric: Mood and Affect: Mood normal. TREATMENT PLAN 1. Cough, unspecified type Pt + for Influenza A. Dx and tx discussed. New medication as directed. Acetaminophen or Ibuprofen for reduction of fever and pain. Increase fluids. Good handwashing. Discussed warning signs of worsening infection and when to report to ER. New toothbrush in 24 hours. Call office if symptoms have not started to improve within the next 72 hours. Patient verbalized understanding of instructions. - STATUS COVID-19/FLU 2. Influenza A (Primary) Patient notified that they are positive for Influenza A. Tamiflu discussed with patient. She'd like to have it sent it and will decide if she wishes to take it. She is in no acute distress in urgent care. Advised patient that she is highly contagious and to avoid contact with children/elderly/immunocompromised for the next 5-7 days.. Tylenol/motrin for fever, fluids, rest, OTC supportive treatment. Discussed with the patient that Influenza is a virus and that no antibiotics will treat this. Discussed medications and directions. Start Tamiflu immediately today. Take Prednisone with food, avoid other NSAIDS.To the ER if symptoms worsen or if she develops chest pain, difficulty breathing or worsening sensation of shortness of breath. Follow up in 5-7 days if no improvement or sooner if worsening. - oseltamivir (Tamiflu) 75 MG capsule; Take 1 capsule (75 mg) by mouth in the morning and 1 capsule (75 mg) before bedtime. Do all this for 5 days. Dispense: 10 capsule; Refill: 0 documented in this encounter [facility] 04-15-2024 History of Presen t illness Narrative Images from the original note were not included. CHIEF COMPLAINT REASON FOR VISIT: Injections HPI: Gisel Almodovar is a 63 y.o. female who presents for injections. She states her pain is a 6/10. She states the last injections did help her a lot last time. She will need left back injections and her left wrist. She states Dr. Cifuentes is asking for you do to Left SI injection. She states she has had some numbness/tingling, burning on her tongue. She states Dr. Macias wanted her to stop the nortriptyline. States the nurse will call her Monday. She has only been off of it since Monday. No other concerns. Today. CURRENT MEDICATIONS: ALLERGIES/DISCONTINUE MEDICATIONS Current Outpatient Medications Medication Instructions albuterol HFA 90 mcg/act inhaler 2 puffs, Inhalation, Every 6 hours PRN alendronate (Fosamax) 35 MG tablet Take 1 tablet by mouth weekly busPIRone (Buspar) 10 MG tablet TAKE 1 TABLET IN THE MORNING AND 1 TABLET BEFOREBEDTIME Cyanocobalamin (Vitamin B 12) 250 MCG lozenge Every 24 hours diphenhydrAMINE-acetaminophen (Tylenol PM Extra Strength) 25-500 MG per tablet Every 24 hours estradiol (ESTRACE) 1 mg, Oral, Daily gabapentin (NEURONTIN) 400 mg, Oral, 3 times daily, Due 03/25/2024 Melatonin 10 MG capsule as directed Orally meloxicam (MOBIC) 15 mg, Oral, Daily TPN Multiple Vitamins-Minerals (Centrum Silver 50+Women) tablet as directed Orally nortriptyline (PAMELOR) 10 mg, Oral, Nightly SUMAtriptan (IMITREX) 100 mg, Oral, Once as needed tiZANidine (ZANAFLEX) 2 mg, Oral, Nightly triamcinolone (Kenalog) 0.1 % cream APPLY TOPICALLY ONCE DAILY FOR 1 TO 2 WEEKS FOR ITCHY BUMPS AVOID FACE WHEN APPLYING zolpidem (AMBIEN) 5 mg, Oral, Nightly PRN Allergies Allergen Reactions Sulfamethoxazole-Trimethoprim Hives Other Reaction(s): tongue swelling Trimethoprim Other Reaction(s): Tongue swells Doxepin Swelling There are no discontinued medications. PAST MEDICAL HISTORY: SURGICAL/SOCIAL/FAMILY HISTORY DEPRESSION SCREEN: [...] SECTION, CLASSIC 1989 SECTION, LOW TRANSVERSE 06/10/1989 COLONOSCOPY 02/22/2024 HYSTERECTOMY LUMBAR DISC SURGERY 04/2017 LUMBAR FUSION PARTIAL HYSTERECTOMY SPINAL FUSION 07/2018 XLIF L5-S1 Dr Cifuentes TUBAL LIGATION Social History Tobacco Use Smoking status: Every [...] day coffee or soda Drug use: Never Family History Problem Relation Name Age of Onset Breast cancer Mother Shelia Arthritis Mother Shelia Cancer Mother Shelia Heart disease Father Rohit Breast cancer Sister Roxanna Cancer Sister Roxanna Leukemia Brother Ignacio Cancer Brother Ignacio Miscarriages / Stillbirths Daughter Marilyn Depression: Not at risk (04/12/2024) PHQ-2 PHQ-2 Score: 0 REVIEW OF SYMPTOMS: Review of Systems Constitutional: Negative for chills, diaphoresis, fatigue and fever. HENT: Negative for ear pain, tinnitus and trouble swallowing. Eyes: Negative for photophobia and visual disturbance. Respiratory: Negative for cough and shortness of breath. Cardiovascular: Negative for palpitations and leg swelling. Gastrointestinal: Negative for abdominal pain and nausea. Genitourinary: Negative for difficulty urinating and urgency. Musculoskeletal: Positive for back pain. Negative for arthralgias, myalgias, neck pain and neck stiffness. Neurological: Positive for numbness. Negative for tremors, weakness and light-headedness. Psychiatric/Behavioral: Negative for agitation, confusion and suicidal ideas. OBJECTIVE: 04/12/2024 10:32 AM 02/19/2024 11:47 AM 02/08/2024 1:09 PM Vitals BMI 20.44 kg/m2 19.61 kg/m2 BSA (m2) 1.45 m2 1.42 m2 Systolic 148 126 134 Diastolic 84 74 80 Heart Rate 77 73 SpO2 99 % 99 % Temp 96.8 F 98 F Height (in) 5' 1 5' 1 Weight (lb) 108.2 103.8 Visit Report Report Report BP-140/92 wt-107 lbs EXAM: Neurological Exam Mental Status Awake, alert and oriented to person, place and time. Oriented to person, place and time. Recent and remote memory are intact. Speech is normal. Language is fluent with no aphasia. Attention and concentration are normal. Cranial Nerves CN II: Visual acuity is normal. Visual [place] full to confrontation. CN III, IV, : Extraocular movements intact bilaterally. Normal lids and orbits bilaterally. Pupils equal round and reactive to light bilaterally. CN V: Facial sensation is normal. CN VII: Full and symmetric facial movement. CN VIII: Hearing is normal. CN XII: Tongue midline without atrophy or fasciculations. Motor Normal muscle bulk throughout. Normal muscle tone. Right Left Wrist flexion 5 5 Wrist extension 5 5 Right Left Deltoid 5 5 Biceps 5 5 Triceps 5 5 Wrist flexor 5 5 Wrist extensor 5 5 Glutei 5 5 Iliopsoas 5 5 Quadriceps 5 5 Gastrocnemius 5 5 Anterior tibialis 5 5 Posterior tibialis 5 5 Sensory Light touch is normal in upper and lower extremities. Pinprick is normal in upper and lower extremities. Vibration is normal in upper and lower extremities. Reflexes Right Left Brachioradialis 2+ 2+ Biceps 2+ 2+ Patellar 2+ 2+ Achilles 2+ 2+ Right Plantar: downgoing Left Plantar: downgoing Right pathological reflexes: Param's absent. Ankle clonus absent. Left pathological reflexes: Param's absent. Ankle clonus absent. Coordination Watwjj-tv-[id number], rapid alternating movements and orun-ik-hrmr normal bilaterally without dysmetria. Gait Normal casual, toe, heel and tandem gait. Romberg is absent. PROCEDURE: Bursa Injection After explaining the risks, complications, and benefits of the procedure, the patient leaned over the exam table. Allergies were reviewed, the consent was signed. After palpating the leftgreater trochanter and identifying the most tender area in the bursa, using sterile technique, and surface anesthetic; a 25 gauge 1 1/2 spinal needle was advanced to make contact with the greater trochanter. The needle was then withdrawn about 1 mm. The patient received an injection of 2 cc of Bupivacaine 0.5% and0.5 cc Dexamethasone 4mg in a fan-like distribution. The needle was removed. A Band-Aid dressing was applied on the injection site. Carpal Tunnel Injection After explaining the risks, complications, and benefits of the procedure, the patient was seated in the chair. Allergies were reviewed, the consent was signed. The left wrists were marked for injections and cleaned using sterile technique, after identifying the palmaris tendon, a 30 gauge 1/2 needle was slowly inserted into the left carpal tunnel region. The patient received 0.5 cc Bupivacaine 0.5% and 0.5 cc Dexamethasone 4mg. The needle was removed. The patient tolerated the procedure well and without complications. A Band-Aid dressing was applied on the injection site. ASSESSMENT AND PLAN: 1. Carpal tunnel syndrome on left - bupivacaine (Marcaine) 0.5 % injection 5 mg - dexAMETHasone sod phos (Decadron) injection 4 mg 2. Trochanteric bursitis of left hip (Primary) - bupivacaine (Marcaine) 0.5 % injection 5 mg - dexAMETHasone sod phos (Decadron) injection 4 mg I will bring her back in 6-8 weeks and see if she received 50% or greater pain relief and if she has I will repeat the injections at that time if needed. documented in this encounter [facility] 04-12-2024 History of Presen t illness Narrative Images from the original note were not included. Gisel Almodovar is a 63 y.o. female presents with chief complaint of Chief Complaint Patient presents with Tongue tingling Gisel was seen today for tongue tingling. Diagnoses and all orders for this visit: Tingling sensation Assessment & Plan Xerostomia The condition is likely due to the use of nortriptyline, which was prescribed in mid-December. The patient reports that the dry mouth is more severe at night. She was previously given nystatin by her dentist, which provided minimal improvement. Diagnostic plan: If there is no significant improvement, blood work will be conducted to rule out autoimmune conditions such as Sjogren's syndrome. Treatment plan: She will discontinue nortriptyline and increase the dosage of Ambien from 5 mg to 10 mg to manage her sleep issues. A nurse will contact her next week to assess her progress. Glossodynia The patient experiences persistent tingling and occasional burning sensations on the tip of her tongue. The symptoms have been present for the last couple of months. Diagnostic plan: If there is no significant improvement, blood work will be conducted to check for vitamin deficiencies and other potential causes, including burning mouth syndrome. Treatment plan: She will discontinue nortriptyline and increase the dosage of Ambien from 5 mg to 10 mg to manage her sleep issues. A nurse will contact her next week to assess her progress. Follow-up: A nurse will contact her next week to assess her progress. DESMOND MACIAS D.O. This note was entered using [employer] copilot. Grammatical and dictation errors maybe present in translation *I have reviewed and reconciled the history and medication list with the patient today* History of Present Illness Pt states tongue has been burning and tingling for a couple months. At night mouth become very dry and tongue will stick to the top of her mouth. Pt wondering if it could be from her medications or interaction between medications. Dentist prescribed Nystatin swish/spit x 6 days- only helped some. Pt states after finishing nystatin burning returned. Has tried ibuprofen, mouth wash, peroxide- none have helped. The patient came in because she's been dealing with a burning and tingling sensation on her tongue for the last couple of months. At night, her mouth gets extremely dry, but it's not as bad during the day. She was given nystatin by [facility]lie, which only helped a little bit. Burning and Tingling Sensation on Tongue - Persistent and present every day, though it sometimes eases up a bit - Burning feeling mostly on the tip of her tongue, occurring occasionally - Symptoms started gradually over the past few months - Wonders if recent medications might be causing these issues - Sometimes bites her cheeks while chewing Dry Mouth - Much worse at night - Tried nystatin about 3 weeks ago for 6 days, but it didn't make a big difference MEDICATIONS Current: Nortriptyline, Ambien (zolpidem), nystatin SUBJECTIVE: Current Medications: Allergies/Social History: Depression Screen/Family History: Current Outpatient Medications on File Prior to Visit Medication Sig Dispense Refill albuterol HFA 90 mcg/act inhaler Inhale 2 puffs every 6 (six) hours if needed for wheezing 18 g 2 alendronate (Fosamax) 35 MG tablet Take 1 tablet by mouth weekly 12 tablet 3 busPIRone (Buspar) 10 MG tablet TAKE 1 TABLET IN THE MORNING AND 1 TABLET BEFOREBEDTIME 180 tablet 1 Cyanocobalamin (Vitamin B 12) 250 MCG lozenge 1 (one) time each day at the same time. diphenhydrAMINE-acetaminophen (Tylenol PM Extra Strength) 25-500 MG per tablet 1 (one) time each day at the same time. estradiol (Estrace) 1 MG tablet Take 1 tablet (1 mg) by mouth Daily 90 tablet 3 gabapentin (Neurontin) 400 MG capsule Take 1 capsule (400 mg) by mouth in the morning and 1 capsule (400 mg) in the evening and 1 capsule (400 mg) before bedtime. Due 03/25/2024. 270 capsule 0 Melatonin 10 MG capsule as directed Orally meloxicam (Mobic) 15 MG tablet Take 1 tablet (15 mg) by mouth once per day 30 tablet 3 Multiple Vitamins-Minerals (Centrum Silver 50+Women) tablet as directed Orally nortriptyline (Pamelor) 10 MG capsule Take 1 capsule (10 mg) by mouth at bedtime 30 capsule 11 SUMAtriptan (Imitrex) 100 MG tablet Take 1 tablet (100 mg) by mouth 1 (one) time if needed for migraine for up to 1 dose 27 tablet 1 tiZANidine (Zanaflex) 2 MG tablet Take 1 tablet (2 mg) by mouth at bedtime 30 tablet 1 triamcinolone (Kenalog) 0.1 % cream APPLY TOPICALLY ONCE DAILY FOR 1 TO 2 WEEKS FOR ITCHY BUMPS AVOID FACE WHEN APPLYING [DISCONTINUED] nystatin (Mycostatin) 291982 UNIT/ML suspension SWISH 2ML IN MOUTH EVERY 6 HOURS FOR 2 MINUTES AND SPIT/EXPECTORATE. zolpidem (Ambien) 5 MG tablet Take 1 tablet (5 mg) by mouth as needed at bedtime for sleep 30 tablet 4 [DISCONTINUED] tiZANidine (Zanaflex) 2 MG tablet Take 1 tablet (2 mg) by mouth at bedtime 30 tablet 1 No current facility-administered medications on file prior to visit. Allergies Allergen Reactions Sulfamethoxazole-Trimethoprim Hives Other Reaction(s): tongue swelling Trimethoprim Other Reaction(s): Tongue swells Doxepin Swelling Social History Tobacco Use Smoking status: Every [...] day coffee or soda Drug use: Never Depression: Not at risk (04/12/2024) PHQ-2 PHQ-2 Score: 0 Family History Problem Relation Name Age of Onset Breast cancer Mother Shelia Arthritis Mother Shelia Cancer Mother Shelia Heart disease Father Rohit Breast cancer Sister Roxanna Cancer Sister Roxanna Leukemia Brother Ignacio Cancer Brother Ignacio Miscarriages / Stillbirths Daughter Marilyn Past Medical History: Surgical History: ROS Past Medical History: Diagnosis Date Anxiety At [...] Date BACK SURGERY 2008 fusion BACK SURGERY 2005 SECTION, CLASSIC 1989 SECTION, LOW TRANSVERSE 06/10/1989 COLONOSCOPY 02/22/2024 HYSTERECTOMY LUMBAR DISC SURGERY 04/2017 LUMBAR FUSION PARTIAL HYSTERECTOMY SPINAL FUSION 07/2018 XLIF L5-S1 Dr Cifuentes TUBAL LIGATION Review of Systems OBJECTIVE: 04/12/2024 10:32 AM 02/19/2024 11:47 AM 02/08/2024 1:09 PM 01/23/2024 1:28 PM 01/09/2024 2:08 PM 11/14/2023 9:27 AM 11/08/2023 1:14 PM Vitals BMI 20.44 kg/m2 19.61 kg/m2 19.65 kg/m2 20.14 kg/m2 18.4 kg/m2 20.3 kg/m2 BSA (m2) 1.45 m2 1.42 m2 1.43 m2 1.41 m2 1.41 m2 1.48 m2 Systolic 148 126 134 128 118 124 Diastolic 84 74 80 80 82 78 Heart Rate 77 73 59 SpO2 99 % 99 % 99 % Temp 96.8 F 98 F 98.6 F Height (in) 5' 1 5' 1 5' 1 5' 5' 2 Weight (lb) 108.2 103.8 104 103.12 100.6 111 Visit Report Report Report Report Report Report GENERAL EXAM: Physical Exam General Appearance: Alert and oriented. Pleasant affect. No acute distress. Well nourished. HEENT: Atraumatic, EOMI, conjunctiva clear, no injection, external ears normal, lips moist, neck supple, normal rom of neck, no swelling. Respiratory: Clear to auscultation bilaterally, no wheezes or rhonchi. Cardiovascular: Regular rate and rhythm, no murmurs. Normal S1, S2. Gastrointestinal: Soft, nontender, nondistended. No guarding or rebound on palpation. No pain on palpation. No masses or hernia. Back, Musculoskeletal: No gross deformities or malalignment, normal ambulation. Extremities: No swelling. Skin: Warm and dry, no rashes. Neurological: cranial nerves II-VII grossly intact. Psychiatric: Cooperative, pleasant, no signs of mood disorder. Other observations: Oral exam was performed. documented in this encounter [facility] 03-27-2024 History of Presen t illness Narrative Reason for Appointment: Patient ID: Gisel Almodovar is a 63 y.o. female who presents for Telehealth (Dexa scan results) Patient presents today via telephone call for a telehealth appointment. Patients Phone #: [phone] (mobile) Current Medications: has a current medication list which includes the following prescription(s): gabapentin, albuterol hfa, alendronate, buspirone, vitamin b 12, tylenol pm extra strength, estradiol, melatonin, meloxicam, centrum silver 50+women, nortriptyline, sumatriptan, tizanidine, triamcinolone, and zolpidem. Medical History: Active Ambulatory Problems Diagnosis Date Noted Anxiety 11/28/2022 Major depressive disorder, single episode, mild (HCC) (CMS/HCC) 11/28/2022 Menopausal symptom 11/28/2022 Migraine without aura, not refractory (CMS/HCC) 11/28/2022 Mild reactive airways disease (CMS/HCC) 11/28/2022 Osteopenia 11/28/2022 Smoker 11/28/2022 Status post hysterectomy 11/28/2022 Idiopathic progressive polyneuropathy 03/13/2023 Carpal tunnel syndrome on both sides 04/06/2023 Cervical radiculopathy 04/06/2023 Degenerative disc disease, lumbar 09/04/2023 Spinal enthesopathy, lumbosacral region (CMS/HCC) 09/05/2023 Carpal tunnel syndrome on left 01/01/2024 Trochanteric bursitis of both hips 01/01/2024 Colon cancer screening 01/23/2024 Myalgia 02/20/2024 Resolved Ambulatory Problems Diagnosis Date Noted Chronic pain 05/21/2019 Depression (CMS/HCC) 11/28/2022 Displacement of lumbar disc with radiculopathy 11/28/2022 Radiculopathy due to lumbar intervertebral disc disorder 07/05/2017 Acquired hallux valgus 03/11/2020 Hallux valgus of left foot 11/28/2022 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 11/28/2022 Osteopenia of hip 11/28/2022 Pain in joint involving pelvic region and thigh 11/28/2022 Plantar nerve lesion 03/11/2020 Refractory migraine (CMS/HCC) 11/28/2022 Trochanteric bursitis of left hip 11/28/2022 Neck pain 10/05/2023 Cervical paraspinal muscle spasm 10/05/2023 Myalgia 11/09/2023 Carpal tunnel syndrome on left 11/09/2023 Past Medical History: Diagnosis Date At moderate risk for fall CTS (carpal tunnel syndrome) H/O abdominal hysterectomy Hip pain, right Insomnia Intractable migraine with status migrainosus, unspecified migraine type (CMS/HCC) Menopausal symptoms Migraine (CMS/HCC) Migraine variant (CMS/HCC) Neuropathy Numbness Osteoporosis screening Post menopausal syndrome Screening mammogram for breast cancer 12/14/2021 Visit for review of DEXA scan Visual impairment Family History Problem Relation Name Age of Onset Breast cancer Mother Shelia Arthritis Mother Shelia Cancer Mother Shelia Heart disease Father Rohit Breast cancer Sister Roxanna Cancer Sister Roxanna Leukemia Brother Ignacio Cancer Brother Ignacio Miscarriages / Stillbirths Daughter Marilyn Social History Tobacco Use Smoking status: Every [...] Date BACK SURGERY 2008 fusion BACK SURGERY 2005 SECTION, CLASSIC 1989 SECTION, LOW TRANSVERSE 06/10/1989 COLONOSCOPY 02/22/2024 HYSTERECTOMY LUMBAR DISC SURGERY 04/2017 LUMBAR FUSION PARTIAL HYSTERECTOMY SPINAL FUSION 07/2018 XLIF L5-S1 Dr Cifuentes TUBAL LIGATION Allergies Allergen Reactions Sulfamethoxazole-Trimethoprim Hives Other Reaction(s): tongue swelling Trimethoprim Other Reaction(s): Tongue swells Doxepin Swelling Vitals: Estimated body mass index is 19.61 kg/m as calculated from the following: Height as of 02/08/24: 5' 1 . Weight as of 02/08/24: 103 lb 12.8 oz. BP: No LMP recorded. Patient has had a hysterectomy. Assessment/Plan Encounter Diagnosis Name Primary? Osteopenia, unspecified location Pt was called and discussed dexa scan with pt in great detail. Pt is osteopenic, pt will start weight bearing exercise. Pt to return for annual unless needed sooner. Today's telehealth visit consisted of spending 5 minutes talking to patient on the phone. Documented by Orly Earl LPN on behalf of: Nitin Dominguez DO documented in this encounter [facility] 03-11-2024 Telephone encount er Note OARRS reviewed [facility] 03-11-2024 Miscellaneous Notes Formattin g of this note might be different from the original. OARRS reviewed documented in this encounter [facility] 03-05-2024 History of Presen t illness Narrative Images from the original note were not included. Gisel Almodovar 1960 Gisel Almodovar is a 63 y.o. female presents for pow colonoscopy HPI: HPI Telephone encounter with the patient, she said that she had no problems at all. She feels great. She is eating without difficulty. Having regular bowel movements. No abdominal pain. OBJECTIVE: Physical Exam ASSESSMENT AND PLAN: Assessment/Plan Diagnoses and all orders for this visit: Colon cancer screening Status post colonoscopy which was normal, should have repeat colonoscopy again in 10 years. We discussed events of procedure. She is very happy about the results. I can see him again on an as-needed basis otherwise she is discharged from my care. No follow-ups on file. documented in this encounter [facility] 02-08-2024 History of Presen t illness Narrative [...] have provided some relief in the past. Okoe-iko-[id number] medications such as Aleve or ibuprofen offer [...] 2008 fusion BACK SURGERY 2006 SECTION, CLASSIC 1990 SECTION, LOW TRANSVERSE 06/10/1989 HYSTERECTOMY LUMBAR DISC [...] cold weather and is not alleviated by noft-wwl-[id number] medications like Aleve or ibuprofen. Examination reveals [...] MACIAS D.O. This note was entered using [employer] copilot. Grammatical and dictation errors maybe present in translation *I have reviewed and reconciled the history and medication list with the patient today* documented in this encounter [facility] 01-23-2024 History of Presen t illness Narrative [...] Date BACK SURGERY 2008 fusion BACK SURGERY 2005 SECTION, CLASSIC 1989 [...] like to proceed. documented in this encounter [facility] 01-09-2024 History of Presen t illness Narrative Reason for Appointment: Patient ID: Gisel Almodovar is a 63 y.o. female who presents for Well Women Visit Patient presents today for Annual Exam. MEDICATIONS Current Outpatient Medications Medication Instructions albuterol HFA [...] Orally nortriptyline (PAMELOR) 10 mg, Oral, Nightly SUMAtriptan (Imitrex) 100 MG tablet TAKE 1 TABLET ONE TIME IF NEEDED FOR MIGRAINE FOR UP TO 27 DOSES. thiamine (VITAMIN B-1) 100 mg, Oral, Daily zolpidem (AMBIEN) 5 mg, Oral, Nightly PRN ALLERGIES Allergies Allergen Reactions Sulfamethoxazole-Trimethoprim Hives Other Reaction(s): tongue swelling Trimethoprim Other Reaction(s): Tongue swells Doxepin Swelling PROBLEMS Active Ambulatory Problems Diagnosis Date Noted Anxiety 11/28/2022 Major depressive disorder, single episode, mild (HCC) (CMS/HCC) 11/28/2022 Menopausal symptom 11/28/2022 Migraine without aura, not refractory (CMS/HCC) 11/28/2022 Mild reactive airways disease (CMS/HCC) 11/28/2022 Osteopenia 11/28/2022 Smoker 11/28/2022 Status post hysterectomy 11/28/2022 Idiopathic progressive polyneuropathy 03/13/2023 Carpal tunnel syndrome on both sides 04/06/2023 Cervical radiculopathy 04/06/2023 Degenerative disc disease, lumbar 09/04/2023 Spinal enthesopathy, lumbosacral region (CMS/HCC) 09/05/2023 Carpal tunnel syndrome on left 01/01/2024 Trochanteric bursitis of both hips 01/01/2024 Resolved Ambulatory Problems Diagnosis Date Noted Chronic pain 05/21/2019 Depression (CMS/HCC) 11/28/2022 Displacement of lumbar disc with radiculopathy 11/28/2022 Radiculopathy due to lumbar intervertebral disc disorder 07/05/2017 Acquired hallux valgus 03/11/2020 Hallux valgus of left foot 11/28/2022 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 11/28/2022 Osteopenia of hip 11/28/2022 Pain in joint involving pelvic region and thigh 11/28/2022 Plantar nerve lesion 03/11/2020 Refractory migraine (CMS/HCC) 11/28/2022 Trochanteric bursitis of left hip 11/28/2022 Neck pain 10/05/2023 Cervical paraspinal muscle spasm 10/05/2023 Myalgia 11/09/2023 Carpal tunnel syndrome on left 11/09/2023 Past Medical History: Diagnosis Date At moderate risk for fall CTS (carpal tunnel syndrome) H/O abdominal hysterectomy Hip pain, right Insomnia Intractable migraine with status migrainosus, unspecified migraine type (CMS/HCC) Menopausal symptoms Migraine (CMS/HCC) Migraine variant (CMS/HCC) Neuropathy Numbness Osteoporosis screening Post menopausal syndrome Screening mammogram for breast cancer 12/14/2021 Visit for review of DEXA scan Visual impairment HISTORY PAST MEDICAL HISTORY SOCIAL HISTORY Past Medical History: Diagnosis Date Anxiety At [...] day coffee or soda Drug use: Never FAMILY HISTORY Family History Problem Relation Name Age of Onset Breast cancer Mother Heart disease Father Breast cancer Sister Leukemia Brother SURGICAL HISTORY Past Surgical History: Procedure Laterality Date BACK SURGERY 2008 fusion BACK SURGERY 2006 SECTION, CLASSIC 1990 LUMBAR DISC SURGERY 04/2017 LUMBAR FUSION PARTIAL HYSTERECTOMY SPINAL FUSION 07/2018 XLIF L5-S1 Dr Cifuentes TUBAL LIGATION REVIEW OF SYSTEMS Review of Systems: Review of Systems Constitutional: Negative. HENT: Negative. Eyes: Negative. Respiratory: Negative. Cardiovascular: Negative. Gastrointestinal: Negative. Genitourinary: Negative. Musculoskeletal: Negative. Skin: Negative. Neurological: Negative. All other systems reviewed and are negative. Hematological: Negative. Endocrine: Negative. Allergic/Immunologic: Negative. OBJECTIVE Objective: Physical Exam Constitutional: Appearance: Normal appearance. She is well-developed. Genitourinary: Vulva normal. Vaginal cuff intact. Cervix is not absent. Uterus is not absent. Cardiovascular: Rate and Rhythm: Normal rate and regular rhythm. Abdominal: General: Bowel sounds are normal. There is no distension. Palpations: Abdomen is soft. Tenderness: There is no abdominal tenderness. There is no guarding or rebound. Musculoskeletal: General: No swelling. Normal range of motion. Right lower leg: No edema. Left lower leg: No edema. Neurological: Mental Status: She is alert and oriented to person, place, and time. Skin: General: Skin is warm and dry. Psychiatric: Mood and Affect: Mood normal. Behavior: Behavior normal. Vitals and nursing note reviewed. Exam conducted with a radiological technologist present. Vitals: Estimated body mass index is 20.14 kg/m as calculated from the following: Height as of this encounter: 5'. Weight as of this encounter: 103 lb 1.9 oz. BP: No LMP recorded. Patient has had a hysterectomy. ASSESSMENT & PLAN ICD-10-CM 1. Well woman exam with routine gynecological exam Z01.419 THIN PREP TIS PAP AND HR HPV DNA 2. Breast cancer screening by mammogram Z12.31 Bilateral screening mammogram Bilateral screening mammogram 3. Postmenopausal state Z78.0 DEXA bone density 4. Menopausal symptom N95.1 estradiol (Estrace) 1 MG tablet 5. Osteopenia, unspecified location M85.80 alendronate (Fosamax) 35 MG tablet Annual: Patient presents today for an annual exam. Patient states she is doing well and has no complaints. Pap was obtained without difficulty and patient given mammogram order to have scheduled/obtained. Orders Placed This Encounter Procedures Bilateral screening mammogram DEXA bone density Follow Up: Patient is to return in one year for annual unless needed otherwise. Documented by Orly Earl LPN on behalf of: Nitin Dominguez DO documented in this encounter [facility] 12-27-2023 History of Presen t illness Narrative Subjective Gisel Almodovar is a 63 y.o. female she is here for injections for bilateral bursa's and left carpal tunnel injection. States her pain is 8/10 today and states she has relief with getting the shots and can tell when they are about to wear off. States no other complaints at this time. HPI There were no vitals taken for this visit. Allergies Allergen Reactions Sulfamethoxazole-Trimethoprim Hives Other Reaction(s): tongue swelling Trimethoprim Other Reaction(s): Tongue swells Current Outpatient Medications: albuterol HFA 90 mcg/act inhaler, Inhale 2 puffs every 6 (six) hours if needed for wheezing, Disp: 18 g, Rfl: 2 alendronate (Fosamax) 35 MG tablet, Take 1 tablet by mouth weekly, Disp: 4 tablet, Rfl: 11 biotin 5 MG capsule, 1 capsule 1 (one) time each day at the same time., Disp: , Rfl: busPIRone (Buspar) 10 MG tablet, Take 1 tablet (10 mg) by mouth in the morning and 1 tablet (10 mg) before bedtime., Disp: 180 tablet, Rfl: 1 calcium citrate 600 mg and vitamin D3 (Citrical & Minerals + Vit D) 600-200 MG-UNIT tablet, 1 (one) time each day at the same time., Disp: , Rfl: Cyanocobalamin (Vitamin B 12) 250 MCG lozenge, 1 (one) time each day at the same time., Disp: , Rfl: diphenhydrAMINE-acetaminophen (Tylenol PM Extra Strength) 25-500 MG per tablet, 1 (one) time each day at the same time., Disp: , Rfl: estradiol (Estrace) 1 MG tablet, Take 1 tablet (1 mg) by mouth Daily, Disp: 30 tablet, Rfl: 11 gabapentin (Neurontin) 400 MG capsule, Take 1 capsule (400 mg) by mouth in the morning and 1 capsule (400 mg) in the evening and 1 capsule (400 mg) before bedtime., Disp: 270 capsule, Rfl: 0 Melatonin 10 MG capsule, as directed Orally, Disp: , Rfl: Multiple Vitamins-Minerals (Centrum Silver 50+Women) tablet, as directed Orally, Disp: , Rfl: [place]-3 Fatty Acids (Fish Oil) 1200 MG capsule delayed-release, 1 capsule 1 (one) time each day at the same time., Disp: , Rfl: SUMAtriptan (Imitrex) 100 MG tablet, TAKE 1 TABLET ONE TIME IF NEEDED FOR MIGRAINE FOR UP TO 27 DOSES., Disp: 27 tablet, Rfl: 0 thiamine (Vitamin B-1) 100 MG tablet, Take 1 tablet (100 mg) by mouth in the morning., Disp: 30 tablet, Rfl: 11 zolpidem (Ambien) 5 MG tablet, Take 1 tablet (5 mg) by mouth as needed at bedtime for sleep, Disp: 30 tablet, Rfl: 1 Past Medical History: Diagnosis Date Anxiety At moderate risk for fall CTS (carpal tunnel syndrome) Depression (CMS/HCC) Displacement of lumbar disc with radiculopathy 11/28/2022 H/O abdominal hysterectomy Hip pain, right Insomnia Intractable migraine with status migrainosus, unspecified migraine type (CMS/HCC) Menopausal symptoms Migraine (CMS/HCC) Migraine variant (CMS/HCC) Numbness Osteopenia Osteopenia of hip Osteoporosis screening Post menopausal syndrome Radiculopathy due to lumbar intervertebral disc disorder 07/05/2017 Refractory migraine (CMS/HCC) 11/28/2022 Screening mammogram for breast cancer 12/14/2021 negative Trochanteric bursitis of left hip Visit for review of DEXA scan Visual impairment w/contact lenses and glasses Past Surgical History: Procedure Laterality Date BACK SURGERY 2007 fusion BACK SURGERY 2005 SECTION, CLASSIC 1989 LUMBAR DISC SURGERY 04/2017 LUMBAR FUSION PARTIAL HYSTERECTOMY SPINAL FUSION 07/2018 XLIF L5-S1 Dr Cifuentes TUBAL LIGATION Family History Problem Relation Name Age of Onset Breast cancer Mother Heart disease Father reports that she has been smoking cigarettes. She started smoking about 47 years ago. She uses smokeless tobacco. She reports current alcohol use of about 2.0 standard drinks of alcohol per week. She reports that she does not use drugs. Review of Systems Objective Neurological Exam Bursa Injection After explaining the risks, complications, and benefits of the procedure, the patient leaned over the exam table. Allergies were reviewed, the consent was signed. After palpating the bilateralgreater trochanter and identifying the most tender area in the bursa, using sterile technique, and surface anesthetic; a 25 gauge 1 1/2 spinal needle was advanced to make contact with the greater trochanter. The needle was then withdrawn about 1 mm. The patient received an injection of 3 cc of Sensorcaine 0.50% and1 cc Dexamethasone 4mg in a fan-like distribution. The needle was removed. A Band-Aid dressing was applied on the injection site.Ultrasound images were placed in the media folder. Carpal Tunnel Injection After explaining the risks, complications, and benefits of the procedure, the patient was seated in the chair. Allergies were reviewed, the consent was signed. The left wrists were marked for injections and cleaned using sterile technique, after identifying the palmaris tendon, a 30 gauge 1/2 needle was slowly inserted into the left carpal tunnel region. The patient received 0.5 cc Sensorcaine 0.50% and 0.5 cc Dexamethasone 4mg. The needle was removed. The patient tolerated the procedure well and without complications. A Band-Aid dressing was applied on the injection site. Ultrasound images were placed in the media folder. Assessment/Plan 1. Neuropathy - nortriptyline (Pamelor) 10 MG capsule; Take 1 capsule (10 mg) by mouth at bedtime Dispense: 30 capsule; Refill: 11 2. Carpal tunnel syndrome on left - bupivacaine (Marcaine) 0.5 % injection 5 mg - dexAMETHasone sod phos (Decadron) injection 4 mg I will schedule her back in 6-8 weeks to see if she has received 50% or greater pain relief and if so I will repeat injections at this time if needed. 3. Trochanteric bursitis of both hips - bupivacaine (Marcaine) 0.5 % injection 5 mg - dexAMETHasone sod phos (Decadron) injection 4 mg I will schedule her back in 6-8 weeks to see if she has received 50% or greater pain relief and if so I will repeat injections at this time if needed. documented in this encounter [facility] 12-26-2023 Telephone encount er Note OARRS reviewed [facility] 12-26-2023 Miscellaneous Notes Formattin g of this note might be different from the original. OARRS reviewed documented in this encounter [facility] 07-15-2021 Evaluation note Encounter Date Diagnosis Assessment [...] - G89.29) Stable, follow up after procedure. [employer] Other 01-21-2022 Evaluation note* Encounter Date Diagnosis [...] Apr, Other Monitor Continu e to monitor [employer] Other 01-14-2022 Evaluation note* Encounter Date Diagnosis Assessment Notes Treatment Notes Treatment Clinical Notes Apr, Encounter for immunization (ICD-10 - Z23) Patient presents for COVID-19 vaccination BOOSTER. Pre-screening form answers evaluated with patient. Patient denies current illness or allergic reaction to component of COVID-19 vaccine. Patient provided with current copy of EUA. [employer] Other 12-20-2021 Evaluation note* Encounter Date Diagnosis Assessment Notes Treatment Notes Treatment Clinical Notes Mar, Cervical spondylosis (ICD-10 - M47.812) [employer] Other 10-29-2021 Evaluation note* Encounter Date Diagnosis [...] as documented in the electronic medical record. [employer] Other Evaluation noteNo Information[facility] [employer] Other Evaluation noteNo assessment information available [facility] Work Phone: Evaluation note* Diagnosis Colon cancer screening Special screening for malignant neoplasms, colon [facility] Diagnosis Degeneration of intervertebral disc of lumbar region, unspecified whether pain present- Primary Lumbar pain Lumbago [facility] Diagnosis Colon cancer screening- Primary Special screening for malignant neoplasms, colon [facility] Diagnosis Displacement of lumbar disc with radiculopathy [facility] Diagnosis Osteopenia, unspecified location [facility] Diagnosis Well woman exam with routine gynecological exam Routine gynecological examination Breast cancer screening by mammogram Postmenopausal state Asymptomatic postmenopausal status (age-related) (natural) Menopausal symptom Osteopenia, unspecified location [facility] Diagnosis Displacement of lumbar disc with radiculopathy [facility] Diagnosis Carpal tunnel syndrome on left- Primary Carpal tunnel syndrome Neuropathy Mononeuritis of unspecified site Trochanteric bursitis of both hips [facility] Diagnosis Primary insomnia Persistent disorder of initiating or maintaining sleep [facility] Diagnosis Tingling sensation- Primary Disturbance of skin sensation [facility] Diagnosis Influenza A- Primary Influenza with other respiratory manifestations Cough, unspecified type [facility] Diagnosis Trochanteric bursitis of left hip- Primary Carpal tunnel syndrome on left Carpal tunnel syndrome [facility] Diagnosis Mild reactive airways disease, unspecified whether persistent ([facility])- Primary Acute bronchitis, bacterial Influenza A Influenza with other respiratory manifestations Neuropathy Mononeuritis of unspecified site Tingling sensation Disturbance of skin sensation Smoker Tobacco use disorder Tobacco abuse Tobacco use disorder Vitamin D deficiency [facility] Diagnosis Displacement of lumbar disc with radiculopathy [facility] Diagnosis Carpal tunnel syndrome on both sides- Primary Carpal tunnel syndrome Fungal colitis Burning tongue syndrome New daily persistent headache Trochanteric bursitis of both hips [facility] Diagnosis Primary insomnia Persistent disorder of initiating or maintaining sleep Degeneration of intervertebral disc of lumbar region, unspecified whether pain present Lumbar pain Lumbago [facility] Diagnosis Elevated blood pressure reading- Primary Elevated blood pressure reading without diagnosis of hypertension Murmur Undiagnosed cardiac murmurs Idiopathic progressive polyneuropathy Tingling sensation Disturbance of skin sensation [facility] Diagnosis Trochanteric bursitis of both hips- Primary Fungal colitis Carpal tunnel syndrome on left Carpal tunnel syndrome [facility] Diagnosis Cervical radiculopathy- Primary Brachial neuritis or radiculitis nos Degenerative disc disease, cervical [facility] Diagnosis Trochanteric bursitis of both hips- Primary Bilateral hip pain Pain in joint, pelvic region and thigh Cervical radiculopathy Brachial neuritis or radiculitis nos Fungal colitis Carpal tunnel syndrome on left Carpal tunnel syndrome Bilateral hip pain Pain in joint, pelvic region and thigh Cervical radiculopathy Brachial neuritis or radiculitis nos [facility] Diagnosis Degeneration of intervertebral disc of lumbar region, unspecified whether pain present Lumbar pain Lumbago Primary insomnia Persistent disorder of initiating or maintaining sleep [facility] Diagnosis Trochanteric bursitis of left hip- Primary Bilateral hip pain Pain in joint, pelvic region and thigh [facility]* Diagnosis Routine general medical examination at a health care facility- Primary Need for vaccination Need for prophylactic vaccination and inoculation against unspecified single disease Idiopathic progressive polyneuropathy Cervical radiculopathy Brachial neuritis or radiculitis nos Osteopenia, unspecified location Anxiety Anxiety state, unspecified Major depressive disorder, single episode, mild Major depressive disorder, single episode, mild Migraine without aura, not refractory Tingling sensation Disturbance of skin sensation Primary hypertension Unspecified essential hypertension IFG (impaired fasting glucose) Tongue pain Glossodynia [facility] Diagnosis Glossitis- Primary Vasomotor rhinitis Allergic rhinitis, cause unspecified Tobacco abuse Tobacco use disorder [facility] Diagnosis AVN (avascular necrosis of bone) ([facility])- Primary Aseptic necrosis of bone, site unspecified Primary osteoarthritis of right hip Pain in joint of right hip [facility] Diagnosis Displacement of lumbar disc with radiculopathy [facility] Diagnosis Tobacco abuse- Primary Tobacco use disorder Glossitis Vasomotor rhinitis Allergic rhinitis, cause unspecified [facility] Diagnosis Primary osteoarthritis of right hip- Primary Pain in joint of right hip Closed fracture of sacrum, unspecified portion of sacrum, initial encounter ([facility]) [facility] Diagnosis Primary osteoarthritis of right hip- Primary Pain in joint of right hip [facility] Diagnosis Well woman exam with routine gynecological exam Routine gynecological examination Encounter for screening mammogram for malignant neoplasm of breast Postmenopausal state Asymptomatic postmenopausal status (age-related) (natural) Menopausal symptom Osteopenia, unspecified location [facility] N[facility] - Reported* Type Description Date Medical History Migraine Headaches Medical History [facility] Surgical History partialhysterectomy Surgical History tubal ligation Surgical History Back fusion 2008 Surgical History Back Sx 2006 Surgical History lumbar diskectomy- Dr. Cifuentes Surgical History XLIF L5-S1 - Dr. Cifuentes 07/2018 Surgical History Csection 1990 Hospitalization History See Sx Hx [employer] Other History general Narrative - Reported* Type Description Date Medical History Migraine Headaches Medical History [facility] Surgical History partialhysterectomy Surgical History tubal ligation 1992 Surgical History x1 Surgical History tubal ligation Surgical History Back fusion 2007 Surgical History partial hysterectomy Surgical History Back Sx 2005 Surgical History fusion of lower spine 2007 Surgical History fusion lower spine 2005 Surgical History lumbar diskectomy- Dr. Cifuentes Surgical History Neck Injections x2 - Dr. Luis Surgical History XLIF L5-S1 - Dr. Cifuentes 07/2018 Surgical History Ablation Neck - Dr. Luis 11/26/15 Surgical History Csection 1990 Surgical History Lower Back surg- 8 Surgical History SI INJ- 01/2018 Hospitalization History see above [employer] Other Summary Purpose Family History Relationship Condition Age at Onset Recorded Date/T magi father Unknown Heart disease Unknown family member Unknown mother Malignant neoplasm of breast Unknown Malignant neoplasm Unknown Advance Directives Advance Directive Response Recorded Date/ Time Advance Directives No February 02, 2017 10:52am Advance Directive Response Recorded Date/ Time Advance Directives No February 3:56pm Chief Complaint and Reason for Visit Chief Complaint cbc Chief Complaint Admit Date R01.1 August 19, 2024 1:1 9pm Additional Source Comments REASON FOR VISIT (unrecogniz ed section and content) Reason Comments Consult Screening colonoscop y Specialty Diagnoses / Procedures Referred By Contac t Referred To Contact General Surgery Diagnoses Colon cancer screening Procedures CO OFFICE/OUTPATIENT [facility] MDM 60 MINUTES Desmond Macias, DO [address] [place] [address] Jose Song, DO [address] [place] [address] Referral ID Status Reason Start Date Expiration Date V isits Requested Visits Authorized [id number] Closed Specialty Services Required 11/14/2023 05/12/2024 1 1 Reason Comments Back Pain Reason Comments colonoscopy Reason Comments Med Refill Reason Comments Telehealth Dexa scan results Reason Comments Well Women Visit Reason Onset Date Comments Med Refill 12/23/2023 Reason Onset Date Comments Med Refill 01/14/2024 Reason Comments Tongue tingling Reason Comments Follow-up Reason Onset Date Comments Med Refill 06/26/2024 Reason Comments BP concern Reason Comments Pain Specialty Diagnoses / Procedures Referred By Contac t Referred To Contact Orthopaedic Surgery Diagnoses Bilateral hip pain Victorino Alejandre MD [address] [place] [address] Phone: tel: fax: Jr. Young Shah DO [address] [facility] [address] [place] [address] Phone: tel: fax: Referral ID Status Reason Start Date Expiration Date V isits Requested Visits Authorized [id number] Closed Specialty Services Required 09/05/2024 03/04/2025 1 1 Reason Comments Annual Exam Reason Comments Burning tongue New patient : burnin g tongue x 1 year Reason Comments Glossitis 4 week elina Reason Comments Pain INFORMATION SOURCE (unrecogn ized section and content) DATE CREATED AUTHOR 01/25/2022 [facility] DATE CREATED AUTHOR AUTHOR'S ORGANIZ ATION 11/04/2024 [facility] DATE CREATED AUTHOR AUTHOR'S ORGANIZ ATION 01/07/2025 [facility] EPIC Care Teams (unrecognized sec tion and content) Team Status: Active Member Role Status Dates Desmond Macias DO Primary Care Provider Active Team Status: Inactive Member Role Status Dates Desmond Macias DO Primary Care Provider Active Outreach Community Attending Provider Active Stencil Printer Relationship Specialty Start Date End Date Desmond Macias DO [address] [place] [address] PCP - General Family Medicine 11/23/22 Desmond Macias DO [address] [place] [address] PCP - Devoted 08/23/23 Stencil Printer Relationship Specialty Start Date End Date Desmond Macias DO [address] [place] [address] PCP - General Family Medicine 11/23/22 Desmond Macias DO [address] [place] [address] PCP - Devoted 08/23/23 Stencil Printer Relationship Specialty Start Date End Date Desmond Macias, DO [address] [place] [address] PCP - General Family Medicine 11/23/22 Desmond Macais, DO [address] [place] [address] PCP - Devoted 08/23/23 Stencil Printer Relationship Specialty Start Date End Date Desmond Macias, DO [address] [place] [address] PCP - General Family Medicine 11/23/22 Desmond Macias, DO [address] [place] [address] PCP - Devoted 08/23/23 Stencil Printer Relationship Specialty Start Date End Date Desmond Macias, DO [address] [place] [address] PCP - General Family Medicine 11/23/22 Desmond Macias, DO [address] [place] [address] PCP - Devoted 08/23/23 Stencil Printer Relationship Specialty Start Date End Date Desmond Macias, DO [address] [place] [address] PCP - General Family Medicine 11/23/22 Desmond Macias, DO [address] [place] [address] PCP - Devoted 08/23/23 Stencil Printer Relationship Specialty Start Date End Date Desmond Macias, DO [address] [place] [address] PCP - General Family Medicine 11/23/22 Desmond Macias, DO [address] [place] [address] PCP - Devoted 08/23/23 Stencil Printer Relationship Specialty Start Date End Date Desmond Macias, DO [address] [place] [address] PCP - General Family Medicine 11/23/22 Desmond Macias, DO [address] [place] [address] PCP - Devoted 08/23/23 Stencil Printer Relationship Specialty Start Date End Date Desmond Macias, DO [address] [place] [address] PCP - General Family Medicine 11/23/22 Desmond Macias, DO [address] [place] [address] PCP - Devoted 08/23/23 Stencil Printer Relationship Specialty Start Date End Date Desmond Macias, DO [address] [place] [address] PCP - General Family Medicine 11/23/22 Desmond Macias, DO [address] [place] [address] PCP - Devoted 08/23/23 Stencil Printer Relationship Specialty Start Date End Date Desmond Macias, DO [address] [place] [address] PCP - General Family Medicine 11/23/22 Desmond Macias, DO [address] [place] [address] PCP - Devoted 08/23/23 Stencil Printer Relationship Specialty Start Date End Date Desmond Macias, DO [address] [place] [address] PCP - General Family Medicine 11/23/22 Desmond Macias, DO [address] [place] [address] PCP - Devoted 08/23/23 Stencil Printer Relationship Specialty Start Date End Date Desmond Macias, DO [address] [place] [address] PCP - General Family Medicine 11/23/22 Desmond Macias, DO [address] [place] [address] PCP - Devoted 08/23/23 Stencil Printer Relationship Specialty Start Date End Date Desmond Macias, [address] [place] [address] PCP - General Family Medicine 11/23/22 Desmond Macias, DO [address] [place] [address] PCP - Devoted 08/23/23 Stencil Printer Relationship Specialty Start Date End Date Desomnd Macias, [address] [place] [address] PCP - General Family Medicine 11/23/22 Desmond Macias, DO [address] [place] [address] PCP - Devoted 08/23/23 Stencil Printer Relationship Specialty Start Date End Date Desmond Macias, DO [address] [place] [address] PCP - General Family Medicine 11/23/22 Desmond Macias, DO [address] [place] [address] PCP - Devoted 08/23/23 Stencil Printer Relationship Specialty Start Date End Date Desmond Macias, DO [address] [place] [address] PCP - General Family Medicine 11/23/22 Desmond Macias, DO [address] [place] [address] PCP - Devoted 08/23/23 Stencil Printer Relationship Specialty Start Date End Date Desmond Macias, DO [address] [place] [address] PCP - General Family Medicine 11/23/22 Desmond Macias, DO [address] [place] [address] PCP - Devoted 08/23/23 Stencil Printer Relationship Specialty Start Date End Date Desmond Macias, DO [address] [place] [address] PCP - General Family Medicine 11/23/22 Desmond Macias, DO [address] [place] [address] PCP - Devoted 08/23/23 Stencil Printer Relationship Specialty Start Date End Date Desmond Macias DO [address] [place] [address] PCP - General Family Medicine 11/23/22 Desmond Macias, DO [address] [place] [address] PCP - Devoted 08/23/23 Stencil Printer Relationship Specialty Start Date End Date Desmond Macias DO [address] [place] [address] PCP - General Family Medicine 11/23/22 Desmond Macias, DO [address] [place] [address] PCP - [facility] 08/23/23 Team Status: Inactive Member Role Status Dates Desmond Macias DO Primary Care Provi lucretia, Attending Provider Active Start: August 19, 2024 End: August 19, 2024 Stencil Printer Relationship Specialty Start Date End Date Desmond Macias DO [address] [place] [address] PCP - General Family Medicine 11/23/22 Desmond Macias, DO [address] [place] [address] PCP - [facility] 08/23/23 Stencil Printer Relationship Specialty Start Date End Date Desmond Macias DO [address] [place] [address] PCP - General Family Medicine 11/23/22 Desmond Macias, DO [address] [place] [address] PCP - [facility] 08/23/23 Stencil Printer Relationship Specialty Start Date End Date Desmond Macias, DO [address] [place] [address] PCP - General Family Medicine 11/23/22 Desmond Macias, DO [address] [place] [address] PCP - [facility] 08/23/23 Stencil Printer Relationship Specialty Start Date End Date Desmond Macias, DO [address] [place] [address] PCP - General Family Medicine 11/23/22 Desmond Macias, DO [address] [place] [address] PCP - [facility] 08/23/23 Stencil Printer Relationship Specialty Start Date End Date Desmond Macias, DO [address] [place] [address] PCP - General Family Medicine 11/23/22 Desmond Macias, DO [address] [place] [address] PCP - [facility] 08/23/23 Stencil Printer Relationship Specialty Start Date End Date Desmond Macias, DO [address] [place] [address] PCP - General Family Medicine 11/23/22 Desmond Macias, DO [address] [place] [address] PCP - [facility] 08/23/23 Stencil Printer Relationship Specialty Start Date End Date Desmond Macias, DO [address] [place] [address] PCP - General Family Medicine 11/23/22 ThongalyssaDesmond garcia Violeta, DO [address] [place] [address] PCP - [facility] 08/23/23 Goals (unrecognized section [...] BE BASED ON THE PRIMARY CLINICAL RECORDS. [facility] provides no warranty or guarantee of the accuracy or completeness of information in this document.
[2025-01-21 13:08] LABS: Age Gdln ACOG Testing Note (.); Pap IG (Image Guided) Note (.)
== END 2025-01-15 15:44 | disposition home or self-care (01) ==
LOC: LAB 15:43
PROVIDERS: PCP Family Medicine; Visit Provider Obstetrics & Gynecology
DX: Z01.419 Encounter for gynecological examination (general) (routine) without abnormal findings (principal)
CPT/HCPCS: 88175

== ENCOUNTER 2025-02-26 12:56 | Outpatient (OUT) | payer OTHER, SELFPAY ==
--- OUTSIDE RECORDS SUMMARY | 2025-02-21 04:44 | XMS_ITS | Continuity of Care Document ---
Author Organization [facility] Address [address] [place] [address] Phone Care Team Providers Care Sheet Metal Layout Mechanic Name Role Phone Gennaro Puneet LIZAMA Primary Care Provider Charles Luis MD Attending Provider Parveen Shah Jr, DO Referring Provider Panfilo Cifuentes MD Attending Provider Care Teams Patient Care Team Team Status: Active Member Role/Relationship Status Dates Puneet Burdick DO Primary Care Provider Active Visit Care Team Team Status: Inactive Member Role/Relationship Status Dates Puneet Burdick DO Primary Care Provider Active Start: February 14, 2025 End: February 14, 2025Isaiah Powell ProviderActiveStart: February 14, 2025 End: February 14, 2025Iqra Martinez Jr ProviderActiveStart: February 14, 2025 End: February 14, 2025 Patient Care Team Team Status: Inactive Member Role/Relationship Status Dates Puneet Burdick DO Primary Care Provider Active Start: February 21, 2025 End: February 21, 2025Isaiah Serna ProviderActiveStart: February 21, 2025 End: February 21, 2025 Chief Complaint and Reason for Visit Chief Complaint Admit Date ref Dr Shah right hip pain January 232024 11:35am low back pain February 21, 2025 8 :54am Reason for Visit Admit Date Arthritis of lumbosacral spine January 232024 11:35am Other chronic pain February 14, 2025 1 1:35am Primary osteoarthritis of right hip Octo 2024 11:35am Sacroiliitis February 14, 2025 1 1:35am History of lumbar fusion February 21 8:54am Inflammation of both sacroiliac joints O ctober 2024 8:54am Spondylosis of cervical ag on without myelopathy or radiculopathy February 21, 2025 8:54am Allergies, Adverse Reactions, Alerts Allergen Type Severity Reaction Last Updated Verified Status sulfamethoxazole Allergy Severe Tongue swel ls, anaphylaxis February 21, 2025 9:14am Yes Active doxepin Allergy Unknown Swelling February 21, 2025 9:14am Yes Active Social History Smoking Status Status Start Date End Date Date of Observa tion Smokes tobacco daily (finding) July 15, 2021 4:05pm Observation Status Observation Response Date of Response Legal Sex Female (finding) [facility] 1960 Family History Relationship Condition Age at Onset Recorded Date/T magi father Unknown Heart diseaseUnknownfamily memberDeceasedUnknownmotherMalignant neoplasm of breastUnknownMalignant neoplasmUnknown Problems Active Problems Problem Diagnosis/Recorded Date Onset Date Stat us Spondylosis of cervical ag on without myelopathy or radiculopathy October 03, 2024 12:46pm Unknown Active Primary osteoarthritis of right hip February 14, 2025 11:53am Unknown Active Sacroiliitis March 19, 2024 3:37pm Unknown A ctive Chronic pain February 14, 2025 7:59am Unknown Ac tive Lumbosacral spondylosis February 14, 2025 7:59am Unkn own Active Other chronic pain February 14, 2025 11:53am Unknown Active History of lumbar fusion February 21, 2025 9:28am Unk nown Active Inflammation of both sacroiliac joints February 21 9:31am Unknown Active Inflammation of left sacroiliac joint March 19 5:41pm Unknown Active Lumbar adjacent segment dise ase with spondylolisthesis July 24, 2018 12:42pm Unknown Active Arthritis of lumbosacral spine February 14, 2025 11:5 3am Unknown Active Medications Medication Status Dose Units Route Directions Qty Days Refills S tart Date Stop Date End Date Reason(s) Instructions Adherence Melatonin 10 mg Tablet Discontinued 1 TAB PO Josie y at bedtime February 02, 2018 12:002023 4:00pmSleepSumatriptan Succinate (Imitrex) 100 MG pfmnsnSajwsa955EUDXIloib as needed for MigrainesApruary 2017 1:00amUnknownConjugated Estrogens 0.625 M tabletDiscontinued0.625MGPOEvery morningMay 12, 2017:00[facility]2023 4:00pmHormone supplement Cyclobenzaprine 10 mg vkdicxYexchtnxxdvl28LPUUIxbna times daily as needed for back sgsobp536Izmphpe 2017 1:00[facility] 2017 10:15amPrednisone 10 mg tablets,dose hxjbKsliieklqhhs6vtbq pkPOper package fqbwnqfaay127Latlypo 2017 1:00[facility] 2017 10:16amtake 4 tabs for 3 days then take 3 tabs for 3 days then take 2 tabs for 3 days then take 1 tab for 3 daysCephalexin (Keflex) 500 mg ueespulUakqpmmvyfqb511KTVZ D5K745Sgakcmp 2017 1:00[facility] 2017 10:15amOxycodone (Roxicodone) 5 mg TabletDiscontinued1 - 5URBRMP1K as needed for Rbba994Fcanlyd 2017 1:00[facility] 2017 10:15amCyclobenzaprine 10 mg argcthJztdumbiriqn18VUKK Three times daily as needed for back qletvk125Laekw 2018 12:002023 4:00pmCephalexin (Keflex) 500 mg nurzifyLsblawqxzejk858OXVMF2V055 July 25, 2018 12:00[facility]2023 3:58pmPrednisone 10 mg tablets,dose gujeIrrwpzyhfayd2bpgv pkPOper package wogkkszyil665Jtafs 2018 12:00am March 19, 2024 3:58pmtake 4 tabs for 3 days then take 3 tabs for 3 days then take 2 tabs for 3 days then take 1 tab for 3 daysOxycodone 5 mg capsuleDiscontinued5 - 04LZVVP5E as needed for bmtd9012Fwodi 2018Nov2023 3:58pmLumbar adjacent segment disease with spondylolisthesis Other intervertebral disc degeneration, lumbar region Spondylolisthesis, lumbar regionMeloxicam 15 mg tabletActiveMGPONovember 2023 1:00amUnknownTizanidine 2 mg tabletActiveMGPONovember 2023 1:00am UnknownNortriptyline 10 mg capsuleActiveMGPONovember 2023 1:00amUnknown Buspirone 10 mg tabletActiveMGPONovember 2023 1:00amUnknownGabapentin 400 mg lnmtnrePxkzhb299MUNAIjfrt times dailyMarch 19, 2024 1:00amUnknown Estradiol 1 mg tabletActiveMGPONovember 2023 1:00amUnknownAlendronate 35 mg tabletActiveMGPONovember 2023 1:00amUnknownZolpidem 5 mg tabletActiveMG PONovember 2023 1:00amUnknownMultivitamin ljxmdfPounxm7ZJJYACefqlMeqz 2024 12:00amUnknownFluconazole 200 mg vfqzvoAfyinr481PIBWQittfKdjb 2024 12:00amUnknown Immunizations Immunization Event Date Not Given Reason Dose Number Parts Counter Representative Lot Number Reason(s) Given Vaccine Information Statement (VIS) Detail Administration Location COVID-19 mRNA-1273 (Moderna) May 07, 2021 influenza, unspecified formulationFebruary 22, 2017Trivalent Influenza Vaccine January 27, 2015 Medical Equipment Device Date Implanted Device Details ALLOGRAFT 8MM TLIF LORDOTIC July 23, 2018 OSTEOAMP GRANULES 5CCApril 2018ROD 40MM CVD CAPLOX IIApril 2018ROD 40MM CVD CAPLOX IIApril 2018SCREW 6.5 X 40MM CAPLOX IIApril 2018SCREW 6.5 X 45MM CAPLOX IIApril 2018SCREW 6.5 X 50MM CAPLOX IIApril 2018 SCREW 6.5 X 50MM CAPLOX IIApril 2018SCREW SET CAPLOX IIApril 2018SCREW SET CAPLOX IIApril 2018SCREW SET CAPLOX IIApril 2018SCREW SET CAPLOX IIApril 2018 Vital Signs Vital Reading Result Reference Range Collection Date/Time Heart Rate 71 /min 60-100 February 14, 025 11:47am Oxygen saturation by Pulse oximetry 99 % 95-100 February 14, 2025 1 1:47am BP Systolic 144 mm[Hg] 100-140 February 14, 025 11:47am BP Diastolic 90 mm[Hg] 60-100 February 14, 11:47am Height 61 [in_i] February 21, 2025 9:17hhFmryyb92.50 kgOctober 2024 9:12amBMI (Body Mass Index)19.3 kg/s6Pddaabk 2024 9:12am Advance Directives Advance Directive Response Recorded Date/ Time Advance Directives No February 3:56pm Insurance Providers Guarantor Elodia Leone Address [address] [address] Info.Home Phone: Coverage Status Update:2024 Payer Group Member ID Coverage Type Subscriber Relationship to Subscriber Effective Date Expiration Date [facility] [id number] Whinnery , M Id: [id number] [id number] [address] Home Phone: Email: [email or web address] Encounters Encounter Location(s) Arrival/Admit Date Discharge/Departure Date Discharge/Departure Disposition Provider(s) Departed Physician/ Provider Office Visit -[facility] Pain Mgmt February 14, 2025 11:35am February 14, 2025 11:58am Discharged to home care or self care (routine discharge) Charles Luis MD Departed Physician/ Provider Office Visit -[facility] Neurosurgery February 21, 2025 8:54am February 21, 2025 9:43am Discharged to home care or self care (routine discharge) Panfilo Cifuentes MD Recent Diagnosis Onset Date Admit Date Arthritis of lumbosacral spine Unknown O ctober 2024 11:35am Other chronic pain Unknown February 14, 2025 11:35am Primary osteoarthritis of right hip Unknown February 14, 2025 11:35am Sacroiliitis Unknown February 14 11:35am History of lumbar fusion Unknown February 21, 2025 8:54am Inflammation of both sacroiliac joints Unknown February 21, 2025 8:54am Spondylosis of cervical ag on without myelopathy or radiculopathy Unknown February 21, 2025 8:54am Assessments Diagnosis Onset Date Resolution Status Admit Date Arthritis of lumbosacral spine acuteOctober 2024 11:35amOther chronic painacuteOctober 2024 11:35am Primary osteoarthritis of right hipacuteOctober 2024 11:35amSacroiliitis acuteOctober 2024 11:35amHistory of lumbar fusionacuteOctober 2024 8:54amInflammation of both sacroiliac jointsacuteOctober 2024 8:54am Spondylosis of cervical region without myelopathy or radiculopathyacuteOctober 2024 8:54am Plan of Treatment Author [facility]AuthoredOctober 2024 12:02pm66 year old female here with complaints of right hip pain. She states her pain started a few years ago, denying any known inciting trauma. She denies prior surgery to the hip. She denies any prior physical therapy. Pain is aggravated with long periods of sitting and standing. She has tried heat, ice and rest with minimal pain relief. She feels her pain is negatively impacting her activities of daily living. Prior to examining the patient, I independently reviewed office notes from referring provider, Dr Shah. Pertinent imaging of the [lumbar spine] were reviewed and discussed in detail with the patient and I agree with radiology interpretation. History, physical examination and available images are consistent with arthritis of the right hip, lumbosacral spondylosis and sacroiliitis. Anatomy of spine as well as other treatment options were discussed in detail with the patient in regards to patients condition. I recommend we proceed with a bilateral sacroiliac joint injection under fluoroscopic guidance. Risks and benefits of procedure explained to patient; patient verbalizes understanding. If pain persists or worsens, we can consider proceeding with a right hip and GT bursa injection in the future, if applicable. Continue with current treatment plan. Follow up after procedure. Future Tests Future scheduled test information is unavailable Pending Tests Pending diagnostic test information is unavailable Future Visits Future appointment information is unavailable Future Procedures Future procedure information is unavailable Future Medications Future medication information is unavailable Patient Instructions Patient instructions are unavailable
--- OUTSIDE RECORDS SUMMARY | 2025-02-21 14:00 | XMS_ITS | Encounter Summary ---
Author Organization [facility] Address [address] [facility] [place] [address] Care Team Providers Care Cross Country Coach Name Role Phone Gennaro Puneet Mcdaniel DO Primary Care Provider [phone] Puneet Burdick DO Unavailable [phone] Encounter Details DateTypeDepartmentCare Team (Latest Contact Info)Ymlfbdaybcx14/31/2025 3:00 PM EDTClinical Support [facility] [address] [facility] [address] [place] [address] Dixie King, [employer] CUTTER [address] [facility] [address] [id number] Cervical radiculopathy (Primary Dx); New daily persistent headache; Insomnia, unspecified type; Migraine with aura and without status migrainosus, not intractable; Carpal tunnel syndrome on both sides Social History Tobacco UseTypesPacks/DayYears UsedDateSmoking Tobacco: Every DayCigarettes Started: 04/24/1976Smokeless Tobacco: Never Comments:5 cigarettes a day Alcohol UseStandard Drinks/WeekCommentsYes2 (1 standard drink = 0.6 oz pure alcohol)2-3 times a week; Caffeine Intake: 2-3 cups per day coffee or [id number] Health LiteracyAnswerDate RecordedHow often do you need to have someone help you when you read instructions, pamphlets, or other written material from your doctor or pharmacy?Never11/07/2023Social Connection and Isolation PanelAnswer Date RecordedIn a typical week, how many times do you talk on the phone with family, friends, or neighbors?More than three times a week11/07/2023How often do you get together with friends or relatives?Once a week11/07/2023How often do you attend mandaen or rastafari services?Never11/07/2023o you belong to any clubs or organizations such as mandaen groups, unions, fraUS HealthVest or athletic groups, or school groups?No11/07/2023How often do you attend meetings of the clubs or organizations you belong to?Never11/07/2023re you , , , , never , or living with a partner?Ddfugis5211/07/2023UDIT-C AnswerDate RecordedQ1: How often do you have a drink containing alcohol?2-3 times a week11/07/2023Q2: How many drinks containing alcohol do you have on a typical day when you are drinking?1 or Q3: How often do you have six or more drinks on one occasion?Never11/07/2023Overall Financial Resource Strain (CARDIA)AnswerDate RecordedHow hard is it for you to pay for the very basics like food, housing, medical care, and heating?Not hard at all11/07/2023HQ-2 AnswerDate RecordedPatient Health Questionnaire-2 Lvmhl072Finjordan [facility] [place] of Occupational Health - Occupational Stress QuestionnaireAnswerDate RecordedDo you feel stress - tense, restless, nervous, or anxious, or unable to sleep at night because yourmind is troubled all the time - these days?Very much 11/07/2023Exercise Vital SignAnswerDate RecordedOn average, how many days per week do you engage in moderate to strenuous exercise (like a brisk walk)?Patient bdoisfym17/16/2024On average, how many minutes do you engage in exercise at this level?Patient gmvwpkej13/16/2024Hunger Vital SignAnswerDate RecordedWithin the past 12 months, you worried that your food would run out before you got the money to buymore.Never true11/07/2023Within the past 12 months, the food you bought just didn't last and you didn't have money to get more.Never true 11/07/2023RAPARE - TransportationAnswerDate RecordedIn the past 12 months, has lack of transportation kept you from medical appointments or from getting medications?No11/07/2023In the past 12 months, has lack of transportation kept you from meetings, work, or from getting things needed for daily living?No 11/07/2023Housing Stability Vital SignAnswerDate RecordedIn the last 12 months, was there a time when you were not able to pay the mortgage or rent on time?No 11/07/2023Number of Times Moved in the Last YearNot on file11/07/2023t any time in the past 12 months, were you homeless or living in a skilled nursing (including now)? No11/07/2023CommentsNoSex and Gender InformationValueDate RecordedSex Assigned at RlanvQdnmpz13/21/2023 1:00 PM ESTLegal HwkDkfymf32/15/2023 6:37 PM EDTGender NvmaqxoaNotzco13/26/2023 2:35 PM EDTSexual OrientationNot on file documented as of this encounter Last Filed Vital Signs Vital SignReadingTime TakenCommentsBlood Mtfrgcyq603/8502/21/2025 3:03 PM EDT Pulse--Temperature--Respiratory Rate--Oxygen Saturation--Inhaled Oxygen Concentration--Mkvhpp32.7 kg (103 lb)02/21/2025 3:03 PM YDYTxojtn158.4 cm (5') 02/21/2025 3:03 PM EDTBody Mass Index20.121 3:03 PM EDTdocumented in this encounter Progress Notes * Dixie King NP - 02/21/2025 3:00 PM EDT Images from the original note were not included. Subjective Gisel Almodovar is a 64 y.o. female who presents for injections History of Present Illness Gisel Almodovar is a 64 y.o. female who presents for bilateral wrists pain. States her pain today is 8/10. The patient is a 64-year-old female who presents for repeat carpal tunnel blocks. She was also going to get a lower back hip injection, but she is scheduled for a hip injection with pain management. Her prior EMG of lower extremities with evidence of a left greater than right S1 radiculopathy that was graded mild to moderate. Her carpal tunnel is increasing, having difficulty with holding things,gripping and grasping. She needs refill on nortriptyline. This helps her sleep. Headaches. She experiences migraine with aura once a week and takes Imitrex. She also takes gabapentin for nerve pain. She reports an increase in her carpal tunnel symptoms, including difficulty with holding things, gripping, and grasping. She is currently taking gabapentin for nerve pain. She experiences migraines with aura once a week and takes Imitrex for relief. She is seeking a refill of nortriptyline, which aids in her sleep. MEDICATIONS nortriptyline, Imitrex, gabapentin Review of Systems Constitutional: Negative for chills, fatigue and fever. HENT: Negative for tinnitus. Eyes: Negative for photophobia. Respiratory: Negative for shortness of breath. Cardiovascular: Negative for chest pain. Gastrointestinal: Negative for nausea and vomiting. Genitourinary: Negative for frequency. Musculoskeletal: Negative for back pain, gait problem and neck pain. Neurological: Positive for numbness and headaches. Negative for dizziness, tremors, weakness and light-headedness. Psychiatric/Behavioral: Positive for sleep disturbance. Neurological Exam Mental Status Awake, alert and oriented to person, place and time. Oriented to person, place and time. Speech is normal. Language is fluent with no aphasia. Cranial Nerves CN II: Visual acuity is normal. Visual madison full to confrontation. CN III, IV, : Extraocular movements intact bilaterally. Normal lids and orbits bilaterally. Pupils equal round and reactive to light bilaterally. CN V: Facial sensation is normal. CN VII: Full and symmetric facial movement. CN VIII: Hearing is normal. CN IX, X: Palate elevates symmetrically. Normal gag reflex. CN XI: Shoulder shrug strength is normal. CN XII: Tongue midline without atrophy or fasciculations. Motor Increased muscle tone. Lumbar paraspinal muscles. Strength is 5/5 in all four extremities except asnoted. Right Left Wrist flexor 5- 5- Wrist extensor 5- 5- Gait Casual gait is normal including stance, stride, and arm swing. Procedures Carpal Tunnel Injection After explaining the risks, complications, and benefits of the procedure, the patient was seated inthe chair. Allergies were reviewed, the consent was signed. The bilateral wrists were marked for injections and cleaned using sterile technique, after identifying the palmaris tendon, a 30 gauge 1/2 needle was slowly inserted into the bilateral carpal tunnel region. The patient received 1 cc Sensorcaine 0.50% and 1 cc Dexamethasone 4mg. The needle was removed. The patient tolerated the procedurewell and without complications. A Band-Aid dressing was applied on the injection site. Objective Blood pressure 130/85, height 5', weight 103 lb. Physical Exam Results Testing EMG of lower extremities showed evidence of a left greater than right S1 radiculopathy that was graded mild to moderate. Assessment & Plan 1. Carpal Tunnel Syndrome. She reports increasing difficulty with holding things, gripping, and grasping. A repeat carpal tunnel block will be performed today. 2. Left Greater Than Right S1 Radiculopathy. Her prior EMG showed mild to moderate S1 radiculopathy, left greater than right. She is scheduled for a hip injection with pain management. 3. Migraine with Aura. She experiences migraines with aura once a week and takes Imitrex. 4. Medication Management. She needs a refill on nortriptyline, which helps her sleep. This was discussed with patient all questions answered. Total time 20 minutes spent reviewing records, performing medically appropriate exam, counseling , education, ordering medication, tests, and/or procedures, documenting health information into the health record, communicating results to the patient, and coordinating care. This clinical note was created utilizing Anhelo documentation system. All information has beenthoroughly reviewed, corrected as necessary, and authenticated by the provider to ensure accuracy and completeness. On occasion, FiFully ambient documentation system erroneously drops words or replaces aspoken word with a similar sounding word. Please notify with any questions or concerns regarding this clinical note. documented in this encounter Plan of Treatment DateTypeDepartmentCare Team (Latest Contact Info)Vrbhfbojgvw42/12/2025 11:15 AM ESTOffice Visit [facility] [place] [facility] [address] [place] [address] Jr. Parveen Shah, DO [address] [facility] [address] [place] [address] 04/28/2025 11:20 AM ESTClinical Support [facility] [address] [place] [address] Rojelio Alejandre MD [address] [facility] [address] [place] [phone] 01/20/2026 1:00 PM EDTProcedure Visit NOMМарина MASTERSGYTed [address] [facility] [address] Nitin Dominguez, DO [address] [facility] [place] [address] documented as of this encounter Visit Diagnoses Diagnosis Cervical radiculopathy- Primary Brachial neuritis or radiculitis nos New daily persistent headache Insomnia, unspecified type Migraine with aura and without status migrainosus, not intractable Carpal tunnel syndrome on both sides Carpal tunnel syndrome documented in this encounter Administered Medications Medication OrderMAR ActionAction DateDoseRateSite bupivacaine (Marcaine) 0.5 % injection 5 mg 5 mg (1 mL), Injection, Once, On Mon02/21/25 at 1530, For 1 dose Indications:Carpal tunnel syndrome on both ovjkiLlrew60/31/2025 3:30 PM EDT5 mg dexAMETHasone sod phos (Decadron) injection 4 mg 4 mg (1 mL), Injection, Once, On Mon02/21/25 at 1530, For 1 dose Indications:Carpal tunnel syndrome on both igzvcMqqdj67/31/2025 3:30 PM EDT4 mg documented in this encounter Care Teams Team MemberRelationshipSpecialtyStart DateEnd Date Puneet Burdick DO [address] [place] [address] [facility] - [facility]/22 Puneet Burdick DO [address] [place] [id number] PCP - [facility]08/23/23documented as of this encounter
--- OUTSIDE RECORDS SUMMARY | 2025-02-26 12:59 | XMS_ITS | Encounter Summary ---
Author Organization [facility] Address [address] [place] [address] Care Team Providers Care Toxicology Supervisor Name Role Phone Puneet Burdick DO Primary Care Provider [phone] Puneet Burdick DO Unavailable [phone] Reason for Visit * ReasonOnset DateComments office called about cokacask05/15/2025 Encounter Details DateTypeDepartmentCare Team (Latest Contact Info)Dzahoewegxh55/15/2025Telephone [facility] [address] [place] [address] Jr. Parveen Shah, DO [address] [facility] [address] [place] [address] office called about referral Social History Tobacco UseTypesPacks/DayYears UsedDateSmoking Tobacco: Every DayCigarettes Started: 04/24/1976Smokeless Tobacco: Never Comments:5 cigarettes a day Alcohol UseStandard Drinks/WeekCommentsYes2 (1 standard drink = 0.6 oz pure alcohol)2-3 times a week; Caffeine Intake: 2-3 cups per day coffee or [id number] Health LiteracyAnswerDate RecordedHow often do you need [...] relatives?Once a week11/07/2023How often do you attend orthodox or anabaptism services?Never11/07/2023o you belong to any clubs or organizations such as orthodox groups, unions, fraternal or athletic groups, or school groups?No11/07/2023How often do you attend meetings of the clubs or organizations you belong to?Never11/07/2023re you , , , , never , or living with a partner?Scgtrrh9211/07/2023UDIT-C AnswerDate RecordedQ1: How often do you have [...] hard at all11/07/2023HQ-2 AnswerDate RecordedPatient Health Questionnaire-2 Alzuo866Finbeaver valley hospital [place] of Occupational Health - Occupational Stress QuestionnaireAnswerDate RecordedDo you feel stress - tense, restless, nervous, or anxious, or unable to sleep at night because yourmind is troubled all the time - these days?Very much 11/07/2023Exercise Vital SignAnswerDate RecordedOn average, how many days per week do you engage in moderate to strenuous exercise (like a brisk walk)?Patient /16/2024On average, how many minutes do you engage in exercise at this level?Patient uzztrzqn99/16/2024Hunger Vital SignAnswerDate RecordedWithin the past 12 months, [...] were you homeless or living in a fdc (including now)? No11/07/2023CommentsNoSex and Gender InformationValueDate RecordedSex Assigned at AsfnuVyysoe01/21/2023 1:00 PM ESTLegal QtbHzrbyh85/15/2023 6:37 PM EDTGender ZzeobsqfRfsesz91/26/2023 2:35 PM EDTSexual OrientationNot on file documented as of this encounter Miscellaneous Notes * Telephone Encounter - MARGAUX Hinojosa - 02/05/2025 3:11 PM EDT Jade, could you please refax the referral I changed the dx to lumbar radiculopathy. Thanks * Telephone Encounter - Anai Alcantara - 02/05/2025 1:51 PM EDT Referral was sent to Dr. Haro with the diagnosis of Osteoarthritis, his office called to let us know that they do not see patents for Osteoarthritis, believed to have the incorrect diagnosis on thereferral in Dr. Earl notes it states that he referred patient to Dr. Cifuentes for possible lumbarradiculopathy status post lumbar fusion with lower back. Asked if still needed to correct the referr al and resend. documented in this encounter Plan of Treatment DateTypeDepartmentCare Team (Latest Contact Info)Hhbjugqveyd96/12/2025 11:15 AM ESTOffice Visit [facility] [facility] [address] [place] [address] Jr. Parveen Shah, DO [address] [place] [address] 04/28/2025 11:20 AM ESTClinical Support [facility] [facility] [address] [place] [address] Rojelio Alejandre MD [address] [facility] [address] [place] [phone] 01/20/2026 1:00 PM EDTProcedure Visit [facility] [place] [facility] [address] [facility] [place] [address] Nitin Dominguez DO [address] [facility] [place] [address] documented as of this encounter Visit Diagnoses Not on filedocumented in this encounter Care Teams Team MemberRelationshipSpecialtyStart DateEnd Date Puneet Burdick DO [address] [place] [address] PCP - GeneralFamily Medicine11/23/22 Puneet Burdick DO [address] [place] [address] PCP - [facility]08/23/23documented as of this encounter
--- OUTSIDE RECORDS SUMMARY | 2025-02-26 12:59 | XMS_ITS | Encounter Summary ---
Author Organization [facility] Address [address] [place] [address] Care Team Providers Care Scoop Driver Name Role Phone Desmond Burdick DO Primary Care Provider [phone]- [phone] Desmond Burdick DO Unavailable [phone] Encounter Details DateTypeDepartmentCare Team (Latest Contact Info)Gvessjjfigq34/01/2024linisync Result Encounter [facility] External Department Unsolicited Nitin Dominguez DO [address] [facility] [place] [address] Social History Tobacco UseTypesPacks/DayYears UsedDateSmoking Tobacco: Every DayCigarettes Started: 04/24/1976Smokeless Tobacco: Never Comments:6-10 cigarettes a d ay Alcohol UseStandard Drinks/WeekCommentsYes2 (1 standard drink = 0.6 oz pure alcohol)2-3 times a week; Caffeine Intake: 2-3 cups per day coffee or [id number] Health LiteracyAnswerDate RecordedHow often do you need [...] relatives?Once a week11/07/2023How often do you attend evangelical or mandaen services?Never11/07/2023o you belong to any clubs or organizations such as evangelical groups, unions, fraternal or athletic groups, or school groups?No11/07/2023How often do you attend meetings of the clubs or organizations you belong to?Never11/07/2023re you , , , , never , or living with a partner?Xdwowao1811/07/2023UDIT-C AnswerDate RecordedQ1: How often do you have [...] hard at all11/07/2023HQ-2 AnswerDate RecordedPatient Health Questionnaire-2 Mscsr860Finlds hospital [place] of Occupational Health - Occupational Stress QuestionnaireAnswerDate [...] you engage in exercise at this level?Patient neqtblar79/16/2024Hunger Vital SignAnswerDate RecordedWithin the past 12 months, [...] were you homeless or living in a long term (including now)? No11/07/2023CommentsNoSex and Gender InformationValueDate RecordedSex Assigned at PtwdkWfjwiw69/21/2023 1:00 PM ESTLegal ScrJuofnl45/15/2023 6:37 PM EDTGender LkwveorlWpwebv17/26/2023 2:35 PM EDTSexual OrientationNot on file documented as of this encounter Functional Status * Over the past 2 weeks, how often have you been bothered by any of the following problems?QuestionAnswerDate of AssessmentAuthorLittle interest or pleasure in doing thingsNot at all10/24/2024 11:00 AM Mariola Koch LPN Feeling down, depressed, or hopelessNot at all10/24/2024 11:00 AM Mariola Koch LPNPatient Health Questionnaire-2 Jsbiw338 11:00 AM Mariola Koch LPN documented as of this encounter Plan of Treatment DateTypeDepartmentCare Team (Latest Contact Info)Ovcqyziaezb55/12/2025 11:15 AM ESTOffice Visit [facility] [address] [place] [address] Jr. Parveen Shah, DO [address] [facility] [address] [place] [address] 04/28/2025 11:20 AM ESTClinical Support [facility] [address] [place] [address] Rojelio Alejandre MD [address] [facility] [address] [address] 01/20/2026 1:00 PM EDTProcedure Visit [facility] LEBRON [address] [facility] [place] [address] Nitin Dominguez, DO [address] [facility] [place] [address] documented as of this encounter Procedures Procedure NamePriorityDate/TimeAssociated DiagnosisCommentsMM TOMOSYNTHESIS SCREENING BI02/23/2024 1:35 PM EDT documented in this encounter Results * MM TOMOSYNTHESIS SCREENING BI (02/23/2024 1:35 PM EDT)Anatomical Region LateralityModalityOtherSpecimen (Source)Anatomical Location / Laterality Collection Method / VolumeCollection TimeReceived Time02/23/2024 1:35 PM EDT Narrative 02/23/2024 1:36 PM EDT [facility] ?[address] ? [place] [address] ? Mammography Report ? Signed ? Patient: GISEL ALMODOVAR ?MR#: [id number] ?? : 1960 ?Acct:[id number] ?? Age/Sex: 63 / F ?ADM Date: 02/23/24 ?? Loc: MAMMO ? Attending Dr: Nitin Dominguez D.O. ? Ordering Physician: Nitin Dominguez D.O. ?Results: ? Date of Service: 02/23/24 ?Follow Up: ? Procedure(s): MM tomosynthesis screening BI ?? Accession Number(s): [id number] ? cc: Nitin Dominguez D.O.; DESMOND BURDICK ? Patient Name: ? GISEL ALMODOVAR ? MR#: [id number] ? : 1960 ? Exam Date: 02/23/2024 ?? Ordering Doctor: DR Nitin Dominguez . ? RADIOLOGY REPORT ? PROCEDURE: ? MM TOMOSYNTHESIS SCREENING BI ? COMPARISON: ? MM TOMOSYNTHESIS SCREENING BI, 02/21/2023. ??MG MAMM SCREEN 3D ?? JACINTO CAD, 12/14/2021. ? INDICATIONS: ? Breast cancer screening by mammogram Z12.31 ? Calculator Name ? NCI Breast Cancer Risk Assessment Tool ?? 5 Year Breast Cancer Risk ? 3.20% ?? Lifetime Breast Cancer Risk ? 11.70% ?? Personal Breast Cancer ?No ?? Personal Ovarian Cancer ? No ?? Treatments ? None ?? Family Cancers ? Sister with breast cancer at age 60; Aunt-maternal with ?? breast cancer at age 55. ? LOCATION: ? [facility] ? BREAST COMPOSITION: ? The breasts are heterogeneously dense,which may ?? obscure small masses. ? FINDINGS: ? DIAGNOSTIC CATEGORY 2--BENIGN FINDING. NO CHANGE FROM COMPARISON. ? Scattered benign-appearing calcifications are present. ??Scattered ?? benign-appearing lymph nodes are present. ? RIGHT BREAST: ??No significant suspicious finding. ? LEFT BREAST: ??No significant suspicious finding. ? RECOMMENDATIONS: ? ROUTINE MAMMOGRAM AND CLINICAL EVALUATION IN 12 MONTHS. ? PLEASE NOTE: ??A NORMAL MAMMOGRAM DOES NOT EXCLUDE THE POSSIBILITY OF BREAST ?? CANCER. ??A CLINICALLY SUSPICIOUS PALPABLE LUMP SHOULD BE BIOPSIED. ? Dictated by: Glenn Powell MD on 02/23/2024 at 13:34 ? Approved by: Glenn Powell MD on 02/23/2024 at 13:35 ? Dictated By: ?Glenn Powell M.D. ? Signed By: ?02/23/24 1336 ? DD/ ? TD/TT: ? Assembly Hand: Procedure Note Radiology, Radiologist, - 02/23/2024 [place] [address] Mammography Report Signed Patient: GISEL ALMODOVAR MMR#: [id number] : 9Acct:[id number] Age/Sex: 63 / FADM Date: 02/23/24 Loc: MAMMO Attending Dr: Nitin Dominguez D.O. Ordering Physician: Nitin Dominguez D.O.Results: Date of Service: 02/23/24Follow Up: Procedure(s): MM tomosynthesis screening BI Accession Number(s): [id number] cc: Nitin Dominguez D.O.; DESMOND BURDICK Patient Name: GISEL ALMODOVAR MR#: [id number] : 1960 Exam Date: 02/23/2024 Ordering Doctor: DR Nitin Dominguez . RADIOLOGY REPORT PROCEDURE: MM TOMOSYNTHESIS SCREENING BI COMPARISON: MM TOMOSYNTHESIS SCREENING BI, 02/21/2023. MG MAMM BPIBNG1N JACINTO CAD, 12/14/2021. INDICATIONS: Breast cancer screening by mammogram Z12.31 Calculator Name NCI Breast Cancer Risk Assessment Tool 5 Year Breast Cancer Risk 3.20% Lifetime Breast Cancer Risk 11.70% Personal Breast Cancer No Personal Ovarian Cancer No Treatments None Family Cancers Sister with breast cancer at age 60; Aunt-maternal with breast cancer at age 55. LOCATION: [facility] BREAST COMPOSITION: The breasts are heterogeneously dense,which may obscure small masses. FINDINGS: DIAGNOSTIC CATEGORY 2--BENIGN FINDING. NO CHANGE FROM COMPARISON. Scattered benign-appearing calcifications are present. Scattered benign-appearing lymph nodes are present. RIGHT BREAST: No significant suspicious finding. LEFT BREAST: No significant suspicious finding. RECOMMENDATIONS: ROUTINE MAMMOGRAM AND CLINICAL EVALUATION IN 12 MONTHS. PLEASE NOTE: A NORMAL MAMMOGRAM DOES NOT EXCLUDE THE POSSIBILITY OFBREAST CANCER. A CLINICALLY SUSPICIOUS PALPABLE LUMP SHOULD BE BIOPSIED. Dictated by: Glenn Powell MD on 02/23/2024 at 13:34 Approved by: Glenn Powell MD on 02/23/2024 at 13:35 Dictated By: Glenn Powell M.D. Signed By:02/23/24 1336 DD/ 133 TD/TT: Assembly Hand: Authorizing ProviderResult TypeResult StatusCorey Angelica DOCLINISYNC IMAGINGFinal Result documented in this encounter Visit Diagnoses Not on filedocumented in this encounter Care Teams Team MemberRelationshipSpecialtyStart DateEnd Date Desmond Burdick DO [address] [place] [address] [facility] - [facility]/23/22 Desmond Burdick DO [address] [place] [address] PCP - [facility]08/23/23documented as of this encounter
--- OUTSIDE RECORDS SUMMARY | 2025-02-26 12:59 | XMS_ITS | Encounter Summary ---
Author Organization [facility] Address [address] [place] [address] Care Team Providers Care Society Reporter Name Role Phone Puneet Burdick DO Primary Care Provider +- [phone] Puneet Burdick DO Unavailable [phone] Encounter Details DateTypeDepartmentCare Team (Latest Contact Info)Hsrprunshsu02/31/2025Travel Social History Tobacco UseTypesPacks/DayYears UsedDateSmoking Tobacco: Every DayCigarettes Started: 04/24/1976Smokeless Tobacco: Never Comments:5 cigarettes a day Alcohol UseStandard Drinks/WeekCommentsYes2 (1 standard drink = 0.6 oz pure alcohol)2-3 times a week; Caffeine Intake: 2-3 cups per day coffee or [id number] Health LiteracyAnswerDate RecordedHow often do you need [...] relatives?Once a week11/07/2023How often do you attend gnosticism or yarsanism services?Never11/07/2023o you belong to any clubs or organizations such as gnosticism groups, unions, fraternal or athletic groups, or school groups?No11/07/2023How often do you attend meetings of the clubs or organizations you belong to?Never11/07/2023re you , , , , never , or living with a partner?Qukwxdi0111/07/2023UDIT-C AnswerDate RecordedQ1: How often do you have [...] hard at all11/07/2023HQ-2 AnswerDate RecordedPatient Health Questionnaire-2 [id number] [place] of Occupational Health - Occupational Stress QuestionnaireAnswerDate RecordedDo you feel stress - tense, restless, nervous, or anxious, or unable to sleep at night because yourmind is troubled all the time - these days?Very much 11/07/2023Exercise Vital SignAnswerDate RecordedOn average, how many days per week do you engage in moderate to strenuous exercise (like a brisk walk)?Patient pgkiuezt44/16/2024On average, how many minutes do you engage in exercise at this level?Patient agwjlgge51/16/2024Hunger Vital SignAnswerDate RecordedWithin the past 12 months, [...] Times Moved in the Last YearNot on file4At any time in the past 12 months, were you homeless or living in a long-term (including now)? No4CommentsNoSex and Gender InformationValueDate RecordedSex Assigned at OhpgoQjfstg89/21/2023 1:00 PM ESTLegal XqfUrwlfl74/15/2023 6:37 PM EDTGender AnbgtbwuOjkpfy83/26/2023 2:35 PM EDTSexual OrientationNot on file documented as of this encounter Plan of Treatment DateTypeDepartmentCare Team (Latest Contact Info)Jkmxykbcajj43/12/2025 11:15 AM ESTOffice Visit [facility] [address] [facility] [address] [place] [address] Jr. Parveen Shah, DO [address] [facility] [address] [place] [address] 04/28/2025 11:20 AM ESTClinical Support [facility] [address] [place] [address] Rojelio Alejandre MD [address] [facility] [address] [place] [address] [id number] 01/20/2026 1:00 PM EDTProcedure Visit [facility] [address] [place] [address] Nitin Dominguez, DO [address] [facility] [place] [address] documented as of this encounter Visit Diagnoses Not on filedocumented in this encounter Care Teams Team MemberRelationshipSpecialtyStart DateEnd Date Puneet Burdick DO [address] [place] [address] [facility] - [facility] Puneet Burdick DO [address] [address] PCP - [facility]08/23/23documented as of this encounter
--- OUTSIDE RECORDS SUMMARY | 2025-02-26 12:59 | XMS_ITS | Encounter Summary ---
Author Organization [facility] Address [address] [place] [address] Care Team Providers Care [employer] Advisor Name Role Phone Puneet Burdick DO Primary Care Provider [phone]- [phone] Puneet Burdick DO Unavailable [phone] Encounter Details DateTypeDepartmentCare Team (Latest Contact Info)Nlangheipsv34/31/2025amboo flowsheet [facility] [address] [place] [address] Dixie King, TECHNICAL OPERATIONS MANAGER [address] [facility] [place] [id number] Social History Tobacco UseTypesPacks/DayYears UsedDateSmoking Tobacco: Every DayCigarettes Started: 04/24/1976Smokeless Tobacco: Never Comments:5 cigarettes a day Alcohol UseStandard Drinks/WeekCommentsYes2 (1 standard drink = 0.6 oz pure alcohol)2-3 times a week; Caffeine Intake: 2-3 cups per day coffee or [id number] Health LiteracyAnswerDate RecordedHow often do you need [...] relatives?Once a week11/07/2023How often do you attend tenriism or denominational services?Never11/07/2023o you belong to any clubs or organizations such as tenriism groups, unions, fraternal or athletic groups, or school groups?No11/07/2023How often do you attend meetings of the clubs or organizations you belong to?Never11/07/2023re you , , , , never , or living with a partner?Jqwjpyh0511/07/2023UDIT-C AnswerDate RecordedQ1: How often do you have [...] hard at all11/07/2023HQ-2 AnswerDate RecordedPatient Health Questionnaire-2 Rspme244[facility] of Occupational Health - Occupational Stress QuestionnaireAnswerDate RecordedDo you feel stress - tense, restless, nervous, or anxious, or unable to sleep at night because yourmind is troubled all the time - these days?Very much 11/07/2023Exercise Vital SignAnswerDate RecordedOn average, how many days per week do you engage in moderate to strenuous exercise (like a brisk walk)?Patient obljziyd07/16/2024On average, how many minutes do you engage in exercise at this level?Patient wqifpsif62/16/2024Hunger Vital SignAnswerDate RecordedWithin the past 12 months, [...] were you homeless or living in a senior care (including now)? No11/07/2023CommentsNoSex and Gender InformationValueDate RecordedSex Assigned at WgydlAsgymq46/21/2023 1:00 PM ESTLegal QbcEoldpq45/15/2023 6:37 PM EDTGender KxnpcyxdCxtyut48/26/2023 2:35 PM EDTSexual OrientationNot on file documented as of this encounter Plan of Treatment DateTypeDepartmentCare Team (Latest Contact Info)Jmdrprifpyx82/12/2025 11:15 AM ESTOffice Visit [facility] [address] [facility] [address] [place] [address] Jr. Parveen Shah, 112 [facility] [address] [place] [address] 04/28/2025 11:20 AM ESTClinical Support [facility] [address] [facility] [address] [place] [address] Rojelio Alejandre MD [address] [facility] [address] [place] [address] 01/20/2026 1:00 PM EDTProcedure Visit [facility] [place] [facility] [address] [facility] [place] [address] Nitin Dominguez DO [address] [facility] [place] [address] documented as of this encounter Visit Diagnoses Not on filedocumented in this encounter Care Teams Team MemberRelationshipSpecialtyStart DateEnd Date Puneet Burdick DO [address] [place] [address] [address] - [facility]/23/22 Puneet Burdick DO [address] [place] [address] PCP - [facility]08/23/23documented as of this encounter
--- OUTSIDE RECORDS SUMMARY | 2025-02-26 12:59 | XMS_ITS | Clinical Summary ---
Author Organization [facility] Address [address] [place] [address] Care Team Providers Care Financial Manager Name Role Phone Desmond Macias DO Primary Care Provider [phone] Desmond Macias DO Unavailable [phone] Allergies Active AllergyReactionsCriticalityNoted IxfzNsszviurQwjahtkLnyrruxz29/17/2024 Sulfamethoxazole-ZejpbndohaloGrgtrQjwp21/22/2021 Other Reaction(s): tongue swelling KuthohxjxddjIwye54/12/2018 Other Reaction(s): Tongue swells Medications MedicationSigDispense QuantityRefillsLast FilledStart DateEnd DateStatus Multiple Vitamins-Minerals (Centrum Silver 50+Women) tablet Active diphenhydrAMINE-acetaminophen (Tylenol PM Extra Strength) 25-500 MG per tablet 1 (one) time each day at the same timeActive Cyanocobalamin (Vitamin B 12) 250 MCG lozenge 1 (one) time each day at the same timeActive triamcinolone (Kenalog) 0.1 % cream 12/21/2023ctive albuterol HFA 90 mcg/act inhaler Indications:Primary insomnia,NeuropathyInhale 2 puffs every 6 (six) hours if needed for wheezing 18 g ctive SUMAtriptan (Imitrex) 100 MG tablet Indications:Primary insomnia,NeuropathyTAKE 1 TABLET ONE TIME NEEDED FOR MIGRAINE FOR UP TO 1 DOSE 27 tablet 5Active ipratropium (Atrovent) 0.03 % nasal spray Indications:Vasomotor rhinitisAdminister 2 sprays into each nostril every 12 (twelve) hours 30 mL 5Active tiZANidine (Zanaflex) 2 MG tablet Indications:Degeneration of intervertebral disc of lumbar region, unspecified whether pain present,Lumbar painTAKE 1 TABLET AT BEDTIME 90 tablet 5Active meloxicam (Mobic) 15 MG tablet Indications:Degeneration of intervertebral disc of lumbar region, unspecified whether pain present,Lumbar painTAKE 1 TABLET ONCE DAILY 90 tablet 5Active gabapentin (Neurontin) 400 MG capsule Indications:Displacement of lumbar disc with radiculopathyTAKE 1 CAPSULE IN THE MORNING, IN THE EVENING, AND BEFORE BEDTIME. 270 capsule 5Active zolpidem (Ambien) 5 MG tablet Indications:Primary insomniaTake 2 tablets (10 mg) by mouth as needed at bedtime for sleep 90 tablet 5Active estradiol (Estrace) 1 MG tablet Indications:Menopausal symptomTake 1 tablet (1 mg) by mouth Daily 90 tablet /[id number] alendronate (Fosamax) 35 MG tablet Indications:Osteopenia, unspecified locationTake 1 tablet by mouth weekly 12 tablet 5Active busPIRone (Buspar) 10 MG tablet Take 10 mg by mouth03/19/2024ctive fluconazole (Diflucan) 200 MG tablet Take 200 mg by mouth5Active nortriptyline (Pamelor) 10 MG capsule Indications:Cervical radiculopathy,New daily persistent headache,Insomnia, unspecified type,Migraine with aura and without status migrainosus, not intractableTake 1 capsule (10 mg) by mouth at bedtime 90 capsule /ctive nortriptyline (Pamelor) 10 MG capsule Take 10 mg by mouthDiscontinued(Reorder)Hospital, Clinic, or Other Facility Administered MedicationOrdered DoseRouteFrequencyStart DateEnd DateStatus dexAMETHasone sod phos (Decadron) injection 4 mg Indications:Carpal tunnel syndrome on both sides4 qxIATvzi97 Ended bupivacaine (Marcaine) 0.5 % injection 5 mg Indications:Carpal tunnel syndrome on both sides5 mvWINzoo30 Ended Active Problems ProblemNoted DateDiagnosed DateTrochanteric bursitis of left hip04/19/2024 Kwigsci1102/20/2024arpal tunnel syndrome on left01/01/2024Trochanteric bursitis of both hips01/01/2024Spinal enthesopathy, lumbosacral njciei7909/05/2023 Degenerative disc disease, jhcnrf7009/04/2023arpal tunnel syndrome on both sides 04/06/2023ervical lwosrscdhvfjh36/14/2023Idiopathic progressive polyneuropathy 03/13/20237092Ucozxbi04/07/2023Major depressive disorder, single episode, mild 11/28/2022Menopausal hwrpber4211/28/2022Migraine without aura, not refractory 11/28/2022Mild reactive airways olhzdkl3211/28/20220160Xibdiwdxlg33/07/2023Smoker 11/28/2022Status post /07/2023 Resolved Problems ProblemNoted DateDiagnosed DateResolved DateColon cancer imjckoywh46/01/2024 07/29/20241680Wumxbth92arpal tunnel syndrome on left11/09/2023 11/14/2023Neck painervical paraspinal muscle spasm epressionisplacement of lumbar disc with mgzqpgyzlooqq48Hallux valgus of left foot11/28/2022 11/28/2022Morton's neuroma of second interspace of right foot11/28/2022 11/14/2023Osteopenia of hipain in joint involving pelvic region and thighRefractory ftysjpzw30 Trochanteric bursitis of left hipcquired hallux valgus lantar nerve csxaff35hronic pain Radiculopathy due to lumbar intervertebral disc disorder Encounters DateTypeDepartmentCare CyyzNypbtdipmbq14/31/2025 3:00 PM EDTClinical Support [facility] [address] [place] [phone] Dixie King NP Cervical radiculopathy (Primary Dx); New daily persistent headache; Insomnia, unspecified type; Migraine with aura and without status migrainosus, not intractable; Carpal tunnel syndrome on both sides02/21/2025amboo flowsheet [facility] [address] [facility] [place] [address] Dixie King NP 02/21/20250797Ulfudo23/15/2025Telephone [facility] [address] [facility] [place] [address] [address]. [address]Brauns office called about ghvkjamb67/09/2025Orders Only [facility] [address] [place] [address] [place] [address] Kadie Winston LPN 01/29/2025 11:05 AM EDTAncillary Procedure [facility] [address] [place] [address] 01/29/2025 11:00 AM EDTOffice Visit [facility] [address] [place] [phone] Jr. Parveen Shah DO Iliac crest bone pain (Primary Dx); Primary osteoarthritis of right hip; Lumbar ocklfavdvlwlp10/08/2025Bamboo flowsheet [facility] [address] [place] [address] Jr. Parveen Shah DO 01/29/20255446Eqmwks35/01/3276Apmwof77/24/2025 1:00 PM EDTOffice Visit [facility] [address] [facility] [place] [address] Nitin Dominguez, DO Well woman exam with routine gynecological exam; Encounter for screening mammogram for malignant neoplasm of breast; Postmenopausal state; Menopausal symptom; Osteopenia, unspecified wbdetgyx03/24/2025linisync Result Encounter [facility] External Department Unsolicited Nitin Dominguez, DO 5Bamboo flowsheet [facility] [address] [place] [phone] Nitin Dominguez, DO 01/10/20259523Umsisz63/16/2025Results Follow-Up [facility] [address] [place] [phone] Desmond Macias, DO Iron + transferrin + TIBC, Ennvfgoa90/15/2025 9:30 AM EDTOffice Visit [facility] [address] [place] [address] Desmond Lanier PA Primary osteoarthritis of right hip (Primary Dx); Pain in joint of right hip01/06/2025Refill [facility] [address] [place] [address] Desmond Macias, DO Primary /15/9594Nqvfnn44/15/2025Telephone [facility] [address] [place] [address] Migdalia Simmons MA 12/30/20249780Bbotok40/03/2025 11:00 AM EDTOffice Visit [facility] [address] [place] [phone] Jr. Parveen Shah, DO Primary osteoarthritis of right hip (Primary Dx); Pain in joint of right hip; Closed fracture of sacrum, unspecified portion of sacrum, initial encounter ([facility])12/25/2024[facility] flowsheet [facility] [address] [place] [phone] Jr. Parveen Shah, 12/25/20245419Oirwyw99/29/2025 1:15 PM EDTOffice Visit [facility] [address] [place] [address] Jose Duvall, DO Tobacco abuse (Primary Dx); Glossitis; Vasomotor onkdypqy27/29/2025[facility] flowsheet [facility] [address] [place] [address] Jose Duvall, 12/20/20245010Kjqnmg95/25/2025 12:45 PM EDTAncillary Procedure [facility] [address] [place] [address] AVN (avascular necrosis of bone) ([facility])12/16/20243018Ovtngs14/16/2025Refill [facility] [address] [address] [facility] [address] Dixie King, [employer] AIDE Displacement of lumbar disc with cmdytlhjqofte89/16/2025Refill [facility] [address] [place] [address] Desmond Macias, Degeneration of intervertebral disc of lumbar region, unspecified whether pain present; Lumbar pain12/04/2024 11:00 AM EDTOffice Visit [facility] [address] [place] [phone] Jr. Parveen Shah, AVN (avascular necrosis of bone) ([facility]) (Primary Dx); Primary osteoarthritis of right hip; Pain in joint of right hip12/04/2024[facility] flowsheet [facility] [address] [place] [address] Jr. Parveen Shah DO 12/04/2024Travelfrom Last 3 Months Immunizations ImmunizationAdministration DatesNext DueInfluenza, Split (incl. purified surface antigen)02/21/2017Influenza, injectable, aewzsljsvnbc99/01/2020Influenza, injectable, quadrivalent, preservative free02/04/2022Influenza, seasonal, skimijgzsn23/01/2017,01/27/2015Influenza, trivalent, vfxzxymgun93/27/2024 Pneumococcal Conjugate PCV Family History Medical HistoryRelationNameCommentsCancerBrotherGaryLeukemiaBrotherGary Miscarriages / StillbirthsDaughterShannonHeart diseaseFatherRichardArthritis MotherJosephineBreast cancerMotherJosephineCancerMotherJosephineBreast cancer SisterDebCancerSisterDebRelationNameStatusCommentsBrotherGaryDeceased2 brothers DaughterShannon1 daughterFatherRichardDeceasedMotherJosephineAliveSisterDeb3 sistersSonDeceasedsuicide Social History Tobacco UseTypesPacks/DayYears UsedDateSmoking Tobacco: Every DayCigarettes Started: 04/24/1976Smokeless Tobacco: Never Tobacco Cessation:Ready to Q uit: Not Asked; Counseling Given: Not Answered Comments:5 cigarettes a day Alcohol UseStandard Drinks/WeekCommentsYes2 (1 standard drink = 0.6 oz pure alcohol)2-3 times a week; Caffeine Intake: 2-3 cups per day coffee or sdmzW7595 Health LiteracyAnswerDate RecordedHow often do you need [...] relatives?Once a week11/07/2023How often do you attend pentecostal or congregational services?Never11/07/2023o you belong to any clubs or organizations such as pentecostal groups, unions, fraternal or athletic groups, or school groups?No11/07/2023How often do you attend meetings of the clubs or organizations you belong to?Never11/07/2023re you , , , , never , or living with a partner?Bqfecha2011/07/2023UDIT-C AnswerDate RecordedQ1: How often do you have [...] hard at all11/07/2023HQ-2 AnswerDate RecordedPatient Health Questionnaire-2 Jwlby794Finbear river [facility] hospital [place] of Occupational [facility] - Occupational Stress QuestionnaireAnswerDate RecordedDo you feel stress - tense, restless, nervous, or anxious, or unable to sleep at night because yourmind is troubled all the time - these days?Very much 11/07/2023Exercise Vital SignAnswerDate RecordedOn average, how many days per week do you engage in moderate to strenuous exercise (like a brisk walk)?Patient jcyigvsp95/16/2024On average, how many minutes do you engage in exercise at this level?Patient xkiwywvo27/16/2024Hunger Vital SignAnswerDate RecordedWithin the past 12 months, [...] were you homeless or living in a intermediate (including now)? No11/07/2023CommentsNoSex and Gender InformationValueDate RecordedSex Assigned at LglsyYctolg88/21/2023 1:00 PM ESTLegal KjwKlbmme76/15/2023 6:37 PM EDTGender KpzjicgbXkbioa72/26/2023 2:35 PM EDTSexual OrientationNot on file Last Filed Vital Signs Vital SignReadingTime TakenCommentsBlood Vpoqydwa586/8510 3:03 PM EDT Taree9570 11:38 AM VAONsiwlsrvctx28.7 ??C (98 ??F)10/24/2024 11:38 AM EDTRespiratory Rate--Oxygen Xppphwybbd26%10/24/2024 11:38 AM EDTInhaled Oxygen Concentration--Ljjpmz35.7 kg (103 lb)02/21/2025 3:03 PM LLCJakhkm067.4 cm (5') 02/21/2025 3:03 PM EDTBody Mass Index20.121 3:03 PM EDT Plan of Treatment DateTypeDepartmentCare Team (Latest Contact Info)Tnpckxemzph19/12/2025 11:15 AM ESTOffice Visit [facility] [address] [place] [address] Jr. Parveen Shah, DO [address] [facility] [address] [place] [address] 04/28/2025 11:20 AM ESTClinical Support [facility] [address] [place] [address] Rojelio Alejandre MD [address] [facility] [address] [address] 01/20/2026 1:00 PM EDTProcedure Visit [facility] [address] [facility] [place] [address] Nitin Dominguez, [address] [facility] [place] [address] Health MaintenanceDue DateLast DoneCommentsCT Dnxamcyxpecu74/04/1959FIT-DNA 1958FIT1958FOBT1958 7544Vsakljnfvozxo85/04/1959COVID-19 Vaccine ( season)/, 07/31/2020, 07/03/2020Influenza Vaccine (#1)/, 02/04/2022, 01/23/2020, Additional history exists Gaixahvey56/04/2023, 02/23/2024, 02/21/2023, Additional history exists Medicare Annual Wellness (AWV)/06/2024, 4Colonoscopy , 02/22/2024, 11/07/2012Colorectal Cancer Screening 4Pneumococcal Vaccine: 65+ DvymnTrcbbjhdv57/03/2025Cervical Cancer ScreeningDiscontinuedPap EbvgiQwomvvopwcna99/24/2025, 01/09/2024, 06/07/2019 HPV/CotestDiscontinued Procedures Procedure NamePriorityDate/TimeAssociated DiagnosisCommentsXR HIP 2 OR 3 VW ZYZBUFogbker31/08/2025 11:05 AM EDT Primary osteoarthritis of right hip IGP,APTIMA HPV,AGE ABWVAljiqpp61/24/2025 12:53 PM EDT PAP RAKRHQkhnhaz90/24/2025 12:00 AM WTKQWLNRXLTNyaayms31/15/2025 10:40 AM EDT Elevated ferritin IRON + TRANSFERRIN + WWEXBsoaruc43/15/2025 10:40 AM EDT Elevated ferritin MI ARTHROCENTESIS ASPIR&/INJ MAJOR JT/BURSA W/QMBremuxi49/15/2025 10:13 AM EDT Primary osteoarthritis of right hip MR HIP RIGHT WO IV WNZAOSHNRagphbd48/25/2025 1:34 PM EDT AVN (avascular necrosis of bone) (HCC) MM TOMOSYNTHESIS SCREENING BI02/23/2024 1:35 PM EDT HM YKOXHHVILCPGqfozti32/31/2024 11:55 AM EDTfrom Last 3 Months or Most Recently Relevant to Health Maintenance Results * XR hip right 2 or 3 views (01/29/2025 11:05 AM EDT)Anatomical RegionLaterality ModalityLower Extremities, HipRightRadiographic ImagingSpecimen (Source) Anatomical Location / LateralityCollection Method / VolumeCollection Time Received Time Narrative 01/29/2025 11:30 AM EDT Imaging Result: AP and lateral of right hip showed femoral head to be well centered in the acetabulum without evidence of fracture or dislocation. ??There was some spurring at the inferior medial aspect of the femoral acetabular junction. There was global decrease in joint space height Greater than 50% loss. ?? There was no acute bony process including but not limited to, fracture and/or dislocation. ??Impression degenerative joint disease, right hip Authorizing ProviderResult TypeResult StatusJr. Parveen Shah DOIMG XR PROCEDURESFinal Result * IGP,APTIMA HPV,AGE GDLN (01/15/2025 12:53 PM EDT)ComponentValueRef RangeTest MethodAnalysis TimePerformed AtPathologist SignatureAGE GDLN ACOG TESTINGNote. TBHComment: ?? TESTS ? RESULT ??FLAG ??UNITS ?REF RANGE ??LAB ?? Clinician Provided Cytology Information ?? Source.............Vagina ?? No. of containers..01 ThinPrep Vial Age Algo ACOG Kathryn... ??Note ?01 <21 or >65 or no age provided ?FLAG LEGEND: ?L-Low Normal,H-High Normal,LL-Alert Low,HH-Alert High <-Panic Low,>-Panic High,A-Abnormal,AA-Critical Abnormal Performed at: 01 =G ?[facility] ?? [address] [place] ??[phone] ?? [address] Mcleod MD, PAP IG (IMAGE GUIDED)Note.TBHComment: ?? TESTS ? RESULT ??FLAG ??UNITS ?REF RANGE ??LAB DIAGNOSIS: ?02 ?? NEGATIVE FOR INTRAEPITHELIAL LESION OR MALIGNANCY. Specimen adequacy: ?02 ?? Satisfactory for evaluation. ??No endocervical cells are present. ??This is ?? consistent with a history of hysterectomy. Performed by: ? 02 ?? Jose Rand Supervisor Slate Splitting (ASCP) . ? 02 Note: ? Note ?02 ?? The Pap smear is a screening test designed to aid in the ?? detection of premalignant and malignant conditions of the ?? uterine cervix. ??It is not a diagnostic procedure and ?? should not be used as the sole means of detecting cervical ?? cancer. ??Both false-positive and false-negative reports do ?? occur. Test Methodology: ? Note ?02 ?? This liquid based ThinPrep(R) pap test was screened with ?? the use of an image guided system. ?FLAG LEGEND: ?L-Low Normal,H-High Normal,LL-Alert Low,HH-Alert High <-Panic Low,>-Panic High,A-Abnormal,AA-Critical Abnormal Performed at: 02 WB ?[facility] [place] ?? [address] [place], [place] ??[phone] ?? [address] Mcleod MD, Performed at: ??=G - [facility] [address] ??[id number] Radiological Engineer: Ct Mcleod MD, Phone: ??[phone] Performed at: ??WB - [facility] [address] ??[id number] Radiological Engineer: Ct Mcleod MD, Phone: ??[phone] Specimen (Source)Anatomical Location / LateralityCollection Method / Volume Collection TimeReceived Time01/15/2025 12:53 PM EDT01/15/2025 3:59 PM EDT Narrative [facility] - 01/21/2025 1:08 PM EDT SPATULA-ALONE VAGINA Authorizing ProviderResult TypeResult StatusCorey Angelica DOLAB BLOOD ORDERABLES Final ResultPerforming OrganizationAddressCity/State/ZIP CodePhone Number CLINISYTX TBH * Pap Smear (01/15/2025 12:00 AM EDT)Specimen (Source)Anatomical Location / LateralityCollection Method / VolumeCollection TimeReceived TimeSwabCervical swab / Unknown Narrative Authorizing ProviderResult TypeResult StatusFazio Nurse [facility] ObLAB CYTOLOGY ORDERABLESFinal ResultPerforming OrganizationAddressCity/State/ZIP CodePhone Number EXTERNAL LAB * Iron + transferrin + TIBC (01/06/2025 10:40 AM EDT)ComponentValueRef RangeTest MethodAnalysis TimePerformed AtPathologist SignatureIron Bind.Cap.(TIBC)472478 - 450 ug/vRMGCOKRLPYXA248150 - 369 ug/hXJBHXBYLTtcp1406 - 139 ug/dLLABCORPIron Jqhxmjczka5975 - 55 %INHSCZEIYWCVUCFUZK408794 - 364 mg/dLLABCORPSpecimen (Source)Anatomical Location / LateralityCollection Method / VolumeCollection TimeReceived TimeBloodVenous blood specimen / Hgzlnlm0901/06/2025 10:40 AM EDT 01/06/2025 Narrative [facility] - 01/07/2025 6:06 AM EDT Performed at: [address] [place] [address] ??[id number] Radiological Engineer: Al Luna PhD, Phone: ??[phone] Authorizing ProviderResult TypeResult StatusMatthew C Petznick DOLAB BLOOD ORDERABLESFinal ResultPerforming OrganizationAddressCity/State/ZIP CodePhone Number [facility] * (ABNORMAL) Ferritin (01/06/2025 10:40 AM EDT)ComponentValueRef RangeTest MethodAnalysis TimePerformed AtPathologist ByfwncjlnCexmwngb212(H)15 - 150 ng/mLLABCORPSpecimen (Source)Anatomical Location / LateralityCollection Method / VolumeCollection TimeReceived TimeBloodVenous blood specimen / Unknown 01/06/2025 10:40 AM EDT01/06/2025 Narrative [facility] - 01/07/2025 6:06 AM EDT Performed at: [address] [place] [address] ??[id number] Radiological Engineer: Al Luna PhD, Phone: ??[phone] Authorizing ProviderResult TypeResult StatusMatthew C Petznick DOLAB BLOOD ORDERABLESFinal ResultPerforming OrganizationAddressCity/State/ZIP CodePhone Number [facility] * [place] ARTHROCENTESIS ASPIR&/INJ MAJOR JT/BURSA W/US (01/06/2025 10:13 AM EDT) Narrative Desmond Lanier PA - 01/06/2025 10:13 AM EDT MARIANA Banuelos 01/06/2025 10:16 AM L Inj/Asp: [...] joint. The femoral neck and femoral shaft ?? and femoral head were well visualized. A plain was established that avoided any neurovascular structures and a 20 G spinal needle was inserted under ultrasound guidance toward the head neck junction. The needle was seen to enter the joint with imaging capturing proper placement of the needle. 40mg depomedrol ??was injected and patient tolerated procedure well. After needle removal a steril Band-Aid was placed and hemostasis was achieved. Images captured to patient's chart ( Codes 50458-EE) Procedure, treatment alternatives, risks and benefits explained, specific risks discussed. Consent was given by the patient. Patient was prepped and draped in the usual sterile fashion. Authorizing ProviderResult TypeResult StatusMatthekyra Vargas Wenden PAIN CLINIC/BEDSIDE ORDERABLESFinal Result * MR hip right wo IV contrast (12/16/2024 1:34 PM EDT)Anatomical Region LateralityModalityLower Extremities, HipRightMagnetic ResonanceSpecimen (Source)Anatomical Location / LateralityCollection Method / VolumeCollection TimeReceived Time12/17/2024 1:07 PM EDT Impressions 12/17/2024 1:11 PM EDT No evidence for hip fracture or avascular necrosis. Mild degenerative changes right hip. Bone marrow edema involving the right sacrum, which could be reactive/degenerative with differential also including subtle insufficiency type fracture. ELECTRONICALLY SIGNED BY: Phil Fenton MD Narrative 12/17/2024 1:11 PM EDT EXAMINATION/TECHNIQUE: MR HIP RIGHT WO IV CONTRAST History: Right hip pain. Concern for avascular necrosis. Comparison: Radiographs 09/05/2024. RESULT: RIGHT HIP JOINT: No evidence for fracture or avascular necrosis. Mild degenerative changes without distinct measurable full-thickness chondral defect. Small osteophytes. Degenerative signal in the labrum. No joint effusion. LEFT HIP JOINT: Large gfgao-yg-pymg with degenerative changes. ? SI JOINTS: Small amount of bone marrow [...] degenerative changes. OTHER: No other significant abnormality. Procedure Note Phil Fenton MD - 12/17/2024 EXAMINATION/TECHNIQUE: MR HIP RIGHT WO IV CONTRAST History: Right hip pain. Concern for avascular necrosis. Comparison: Radiographs 09/05/2024. RESULT: RIGHT HIP JOINT: No evidence for fracture or avascular necrosis. Mild degenerative changes without distinct measurable full-thickness chondraldefect. Small osteophytes. Degenerative signal in the labrum. No jointeffusion. LEFT HIP JOINT: Large kigpm-jb-tuky with degenerative changes. SI JOINTS: Small amount of bone marrow edema involving the right sacrumadjacent to the SI joint, which could be reactive/degenerative withdifferential also including subtle insufficiency type fracture. Left SIjoint grossly unremarkable. PUBIC SYMPHYSIS: Unremarkable. BONE MARROW: Bone marrow edema right sacrum as above. No evidence for hip fracture or avascular necrosis. TENDONS: The rectus femoris tendons, iliopsoas tendons, hamstring tendons,hip adductor and abductor tendons appear to be intact on the right. MUSCLE: Muscle bulk and signal intensity are within normal limits. NERVES: The visualized portions of the lumbosacral plexus and sciaticnerves appear to be within normal limits. VISCERAL PELVIS: Limited evaluation of the visceral pelvis isunremarkable. LOWER LUMBAR SPINE: Limited evaluation with postsurgical and degenerative changes. OTHER: No other significant abnormality. IMPRESSION: No evidence for hip fracture or avascular necrosis. Mild degenerativechanges right hip. Bone marrow edema involving the right sacrum, which could be reactive/degenerative with differential also including subtleinsufficiency type fracture. ELECTRONICALLY SIGNED BY: Phil Fenton MD Authorizing ProviderResult TypeResult StatusJr. Parveen Shah DOIMG MRI PROCEDURESFinal Result * MM TOMOSYNTHESIS SCREENING BI (02/23/2024 1:35 PM EDT)Anatomical Region LateralityModalityOtherSpecimen (Source)Anatomical Location / Laterality Collection Method / VolumeCollection TimeReceived Time02/23/2024 1:35 PM EDT Narrative 02/23/2024 1:36 PM EDT [facility] ?[address] ? [place] [address] ? Mammography Report ? Signed ? Patient: GISEL ALMODOVAR ?MR#: [id number] ?? : 1960 ?Acct:[id number] ?? Age/Sex: 63 / F ?ADM Date: 02/23/24 ?? Loc: MAMMO ? Attending Dr: Nitin Dominguez D.O. ? Ordering Physician: Nitin Dominguez D.O. ?Results: ? Date of Service: 02/23/24 ?Follow Up: ? Procedure(s): MM tomosynthesis screening BI ?? Accession Number(s): [id number] ? cc: Nitin Dominguez D.O.; DESMOND MACIAS ? Patient Name: ? GISEL ALMODOVAR ? MR#: [id number] ? : 1960 ? Exam Date: 02/23/2024 [...] at age 53. ? LOCATION: ? [facility] ? BREAST COMPOSITION: ? The breasts are [...] ? Signed By: ?02/23/24 1336 ? DD/ 1335 ? TD/TT: ? Protection Officer: Procedure Note Radiology, Radiologist, MD - 02/23/[address] [address] Mammography Report Signed Patient: GISEL ALMODOVAR [facility]#: [id number] : 9Acct:[id number] Age/Sex: 63 / FADM Date: 02/23/24 Loc: MAMMO Attending Dr: Nitin Dominguez D.O. Ordering Physician: Nitin Dominguez D.O.Results: Date of Service: 02/23/24Follow Up: Procedure(s): MM tomosynthesis screening BI Accession Number(s): [id number] cc: Nitin Dominguez D.O.; DESMOND MACIAS Patient Name: GISEL ALMODOVAR MR#: [id number] : 1960 Exam Date: 02/23/2024 Ordering Doctor: DR Nitin Dominguez . RADIOLOGY REPORT PROCEDURE: MM TOMOSYNTHESIS SCREENING BI COMPARISON: MM TOMOSYNTHESIS SCREENING BI, 02/21/2023. MG MAMM [id number] JACINTO CAD, 12/14/2021. INDICATIONS: Breast cancer screening by mammogram Z12.31 Calculator Name NCI Breast Cancer Risk Assessment Tool 5 Year Breast Cancer Risk 3.20% Lifetime Breast Cancer Risk 11.70% Personal Breast Cancer No Personal Ovarian Cancer No Treatments None Family Cancers Sister with breast cancer at age 60; Aunt-maternal with breast cancer at age 55. LOCATION: [facility] BREAST COMPOSITION: The breasts are heterogeneously dense,which [...] on 02/23/2024 at 13:35 Dictated By: Glenn oPwell M.D. Signed By:02/23/24 1336 DD/ 1335 TD/TT: Protection Officer: Authorizing ProviderResult TypeResult StatusNitin Dominguez DOCLINISYNC IMAGINGFinal Result * Hm Colonoscopy (02/22/2024 11:55 AM EDT)Anatomical RegionLateralityModality Other Narrative Authorizing ProviderResult TypeResult StatusPaul C Laffadiana DOHEALTH MAINTENANCE Final Result from Last 3 Months or Most Recently Relevant to Health Maintenance Insurance Care Teams Team MemberRelationshipSpecialtyStart DateEnd Date Desmond Macias DO [address] [facility] [address] [place] [address] [facility] - [facility]22 Desmond Macias DO [address] [place] [address] PCP - [facility]08/23/23
--- OUTSIDE RECORDS SUMMARY | 2025-02-26 13:00 | XMS_ITS | Encounter Summary ---
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 Role Phone Desmond Macias DO Primary Care Provider [phone]- [phone] Desmond Macias DO Unavailable [phone] Encounter Details DateTypeDepartmentCare Team (Latest Contact Info)Jiqjeqxtzap28/02/2024Clinisync Result Encounter [facility] External Department Unsolicited Eric Dominguez DO [address] [place] [address] Social History Tobacco UseTypesPacks/DayYears UsedDateSmoking Tobacco: Every DayCigarettes Started: 04/24/1976Smokeless Tobacco: Never Comments:6-10 cigarettes a d ay Alcohol UseStandard Drinks/WeekCommentsYes2 (1 standard drink = 0.6 oz pure alcohol)2-3 times a week; Caffeine Intake: 2-3 cups per day coffee or [id number] Health LiteracyAnswerDate RecordedHow often do you need [...] relatives?Once a week11/07/2023How often do you attend rastafarian or orthodox services?Never11/07/2023o you belong to any clubs or organizations such as rastafarian groups, unions, fraternal or athletic groups, or school groups?No11/07/2023How often do you attend meetings of the clubs or organizations you belong to?Never11/07/2023re you , , , , never , or living with a partner?Iuxbcej0011/07/2023UDIT-C AnswerDate RecordedQ1: How often do you have [...] hard at all11/07/2023HQ-2 AnswerDate RecordedPatient Health Questionnaire-2 Inpkf694Finlakeview hospital [place] of Occup[facility] - Occupational Stress QuestionnaireAnswerDate RecordedDo you feel stress - tense, restless, nervous, or anxious, or unable to sleep at night because yourmind is troubled all the time - these days?Very much 11/07/2023Exercise Vital SignAnswerDate RecordedOn average, how many days per week do you engage in moderate to strenuous exercise (like a brisk walk)?Patient ywbdyslw47/16/2024On average, how many minutes do you engage in exercise at this level?Patient rwsjbomv57/16/2024Hunger Vital SignAnswerDate RecordedWithin the past 12 months, [...] were you homeless or living in a mcc (including now)? No11/07/2023CommentsNoSex and Gender InformationValueDate RecordedSex Assigned at VyavxHqchrq33/21/2023 1:00 PM ESTLegal YmzVjtgqe29/15/2023 6:37 PM EDTGender GswzsigvMsjeyn27/26/2023 2:35 PM EDTSexual OrientationNot on file documented as of this encounter Functional Status * Over the past 2 weeks, how often have you been bothered by any of the following problems?QuestionAnswerDate of AssessmentAuthorLittle interest or pleasure in doing thingsNot at all10/24/2024 11:00 AM Mariola Koch LPN Feeling down, depressed, or hopelessNot at all10/24/2024 11:00 AM Mariola Koch LPNPatient Health Questionnaire-2 [id number] 11:00 AM Mariola Koch LPN documented as of this encounter Plan of Treatment DateTypeDepartmentCare Team (Latest Contact Info)Gqcodsuuayt40/12/2025 11:15 AM ESTOffice Visit [facility] [address] [place] [address] Jr. Parveen Shah, DO [address] [facility] [address] [place] [address] 04/28/2025 11:20 AM ESTClinical Support [facility] [address] [place] [address] Rojelio Alejandre MD [address] [facility] [address] [address] 01/20/2026 1:00 PM EDTProcedure Visit [facility] Kelly LEBRON [address] [facility] [place] [address] Eric Dominguez, DO [address] [place] [address] documented as of this encounter Procedures Procedure NamePriorityDate/TimeAssociated DiagnosisCommentsXR DEXA AXIAL RYGLFUAR04/02/2024 6:11 AM EDT documented in this encounter Results * XR DEXA AXIAL SKELETON (02/24/2024 6:11 AM EDT)Anatomical RegionLaterality ModalityOtherSpecimen (Source)Anatomical Location / LateralityCollection Method / VolumeCollection TimeReceived Time02/24/2024 6:11 AM EDT Narrative 02/24/2024 6:14 AM EDT The ?[address] ? [place] [address] ?XRay Report ? Signed ? Patient: ROBERTA ALMODOVARETTE Elodia ?MR#: [id number] ?? : 1960 ?Acct:[id number] ?? Age/Sex: 63 / F ?ADM Date: 02/23/24 ?? Loc: MAMMO ? Attending Dr: Eric Dominguez D.O. ? Ordering Physician: Eric Dominguez D.O. ?? Date of Service: 02/23/24 ?? Procedure(s): XR DEXA axial skeleton ?? Accession Number(s): [id number] ? cc: Eric Dominguez D.O.; DESMOND MACIAS ? The ? [address] ? [place] [address] ? Patient Name: ?? GISEL ALMODOVAR ? MRN: [id number] ? date: 1960 ?Sex: F ?? Assigned Patient Location: MAMMO ?? Current Patient Location: ? Accession/Order Number: [id number] ?? Exam Date: 02/23/2024 ??12:38 ?Report Date: 02/24/2024 ??06:11 ? At the request of: Ashli REYES ??ANGELICA ? Procedure: ??XR DEXA axial skeleton ? EXAMINATION: XR DEXA axial skeleton ? HISTORY: Postmenopausal state, Z78.0 ? COMPARISON: DEXA bone densitometry 12/14/2021 ? TECHNIQUE: Dual-energy X-ray absorptiometry (DXA) was performed. ? FINDINGS: ?? FOREARM ANALYSIS: ?? Average bone mineral density is 0.6 x 4 g/cm2. ?? T-score (standard deviation relative to young adult mean): -0.8 . ?? -4.9% change since prior study. ? HIP ANALYSIS: ?? Lowest bone mineral density is within the left femoral neck, 0.879 g/cm2. ?? T-score (standard deviation relative to young adult mean): -1.1 . ?? +2.9% change since prior study. ? XR/XR DEXA axial skeleton ?? IMPRESSION: ? World Health Organization Classification: Osteopenia - Moderate Fracture Risk ?? FRAX: Cannot be calculated. ? Pharmacologic treatment recommendations ?? * No uniform recommendation applies to all patients. Management plans must be ?? individualized. ?? * Consider initiating pharmacologic treatment in postmenopausal women and men ?? >= 50 years of age who have the following: Primary fracture prevention: ?? * T-score <= - 2.5 at the femoral neck, total hip, lumbar spine, 33% radius (some uncertainty with existing data) by DXA. ?? * Low bone mass (osteopenia: T-score between - 1.0 and - 2.5) at the femoral ?? neck or total hip by DXA with a 10-year hip fracture risk >= 3% or a 10-year major osteoporosis-related fracture risk >= 20% (i.e., clinical vertebral, hip, ?? forearm, or proximal humerus) based on the [place]-adapted FRAXregistered model. ?? Secondary fracture prevention: ?? * Fracture of the hip or vertebra regardless of BMD [4, 5]. ?? * Fracture of proximal humerus, pelvis, or distal forearm in persons with low ?? bone mass (osteopenia: T-score between - 1.0 and - 2.5). The decision to treat ? should be individualized in persons with a fracture of the proximal humerus, ?? pelvis, or distal forearm who do not have osteopenia or low BMD [12, 13]. ?? Tanisha MS, Elvia SL, Ronald KL, Charlotte EM, Dioni KG, AJ, Korin ?? ES. ?? The clinician's guide to prevention and treatment of osteoporosis. Osteoporos ?? Int. 2021;33(10):4231-9706. doi: 10.1007/w52108-812-91202-c. Ep2021 ? 28. Erratum in: Osteoporos Int. 2021Nov 18;: PMID: 01070636; PMCID: ?? [id number]. ? Electronically authenticated by: JOHN ??WAQAS ?? Date: 02/24/2024 ??06:11 ? Dictated By: ?John Luna M.D. ? Signed By: ?02/24/2414 ? DD/ 0611 ? TD/TT: ? Substation Manager: Procedure Note Radiology, Radiologist, MD - 02/24/2024 [place] [address] XRay Report Signed Patient: GISEL ALMODOVAR MMR#: [id number] : 1960cct:[id number] Age/Sex: 63 / FADM Date: 02/23/24 Loc: ALBERTA Attending Dr: Eric Dominguez D.O. Ordering Physician: Eric Dominguez D.O. Date of Service: 02/23/24 Procedure(s): XR DEXA axial skeleton Accession Number(s): [id number] cc: Eric Dominguez D.O.; DESMOND MACIAS The [place] [id number] Patient Name: GISEL ALMODOVAR MRN: [id number] date: 1960 Sex: F Assigned Patient [facility]: [facility] Current Patient Location: Accession/Order Number: [id number] Exam Date: 02/23/2024 12:38 Report Date: 02/24/2024 06:11 At the request of: ERIC DOMINGUEZ Procedure: XR DEXA axial skeleton EXAMINATION: XR DEXA axial skeleton HISTORY: Postmenopausal state, Z78.0 COMPARISON: DEXA bone densitometry 12/14/2021 TECHNIQUE: Dual-energy X-ray absorptiometry (DXA) was performed. FINDINGS: FOREARM ANALYSIS: Average bone mineral density is 0.6 x 4 g/cm2. T-score (standard deviation relative to young adult mean): -0.8 . -4.9% change since prior study. HIP ANALYSIS: Lowest bone mineral density is within the left femoral neck, 0.879 g/cm2. T-score (standard deviation relative to young adult mean): -1.1 . +2.9% change since prior study. XR/XR DEXA axial skeleton IMPRESSION: World Health Organization Classification: Osteopenia - Moderate FractureRisk FRAX: Cannot be calculated. Pharmacologic treatment recommendations * No uniform recommendation applies to all patients. Management plans mustbe individualized. * Consider initiating pharmacologic treatment in postmenopausal women andmen >= 50 years of age who have the following: Primary fracture prevention: * T-score <= - 2.5 at the femoral neck, total hip, lumbar spine, 33%radius (some uncertainty with existing data) by DXA. * Low bone mass (osteopenia: T-score between - 1.0 and - 2.5) at thefemoral neck or total hip by DXA with a 10-year hip fracture risk >= 3% or l27-orud major osteoporosis-related fracture risk >= 20% (i.e., clinical vertebral, hip, forearm, or proximal humerus) based on the [place]-adapted FRAXregisteredmodel. Secondary fracture prevention: * Fracture of the hip or vertebra regardless of BMD [4, 5]. * Fracture of proximal humerus, pelvis, or distal forearm in persons withlow bone mass (osteopenia: T-score between - 1.0 and - 2.5). The decision totreat should be individualized in persons with a fracture of the proximalhumerus, pelvis, or distal forearm who do not have osteopenia or low BMD [12, 13]. Tanisha MS, Elvia SL, Ronald KL, Charlotte EM, Dioni KG, AJ,Korin ES. The clinician's guide to prevention and treatment of osteoporosis.Osteoporos Int. 2021;33(10):2612-1820. doi: 10.1007/o21933-567-50151-b. Epub . Erratum in: Osteoporos Int. 2021Nov 18;: PMID: 56629810; PMCID: [id number]. Electronically authenticated by: JOHN LUNA Date: 02/24/2024 06:11 Dictated By: John Luna M.D. Signed By:02/24/24613 DD/ 0 TD/TT: Substation Manager: Authorizing ProviderResult TypeResult StatusCorey Angelica DOCLINISYNC IMAGINGFinal Result documented in this encounter Visit Diagnoses Not on filedocumented in this encounter Care Teams Team MemberRelationshipSpecialtyStart DateEnd Date Desmond Macias DO [address] [place] [address] [facility] - [facility] Desmond Macias DO [address] [place] [address] PCP - [facility]08/23/23documented as of this encounter
--- NOTE | 2025-02-26 13:01 | MM_ITS ---
Patient Name: DEEP RUANO MR#: [id number] : 1960 Exam Date: 02/26/2025 Ordering Doctor: DR ERIC TAVAREZ . RADIOLOGY REPORT PROCEDURE: MM TOMOSYNTHESIS SCREENING BI COMPARISON: MM TOMOSYNTHESIS SCREENING BI, 02/23/2024. MM TOMOSYNTHESIS SCREENING BI, 02/21/2023. MG MAMM SCREEN 3D JACINTO CAD, 12/14/2021. MAMMO JACINTO SCREEN, 11/20/2008. INDICATIONS: Screening Calculator Name NCI Breast Cancer Risk Assessment Tool 5 Year Breast Cancer Risk 3.20% Lifetime Breast Cancer Risk 11.30% Personal Breast Cancer No Personal Ovarian Cancer No Treatments None Family Cancers Sister with breast cancer at age 60; Aunt-maternal with breast cancer at age 55. LOCATION: [facility] BREAST COMPOSITION: The breasts are heterogeneously dense, which may obscure small masses. FINDINGS: DIAGNOSTIC CATEGORY 1--NEGATIVE. RIGHT BREAST: No significant suspicious finding. LEFT BREAST: No significant suspicious finding. RECOMMENDATIONS: ROUTINE MAMMOGRAM AND CLINICAL EVALUATION IN 12 MONTHS. Dictated by: Sandeep De La Cruz MD on 02/26/2025 at 16:53 Approved by: Sandeep De La Cruz MD on 02/26/2025 at 16:58
--- OUTSIDE RECORDS SUMMARY | 2025-02-26 13:01 | XMS_ITS | CCD ---
Author Organization [facility] Care Team Providers Care Director Organizational Name Role Phone Imtiaz Painter Unavailable BlaineAnnan Unavailable Charles Luis Unavailable NICK, DR GIPSON Admitting Unavailable PETZNICK, DESMOND Primary Care Unavailable KARASIK, DR GIPSON Attending Unavailable KARASIK, DR GIPSON Consulting Unavailable WEST, DR LEELA Thao Consulting Unavailable ZIEBER, DR CEE Costa Consulting Unavailable PETZNICK, DESMOND Primary Care Unavailable KARASIK, DR GIPSON Attending Unavailable KARASIK, DR GIPSON Consulting Unavailable KARASIK, DR GIPSON Admitting Unavailable Petznick, DO Desmond Primary Care Provider Community, [facility] Attending Provider PetDesmond patterson DO Primary Care Provider Petznick DO, Desmond C Unavailable Petznick DO, Desmond Primary Care Provider [phone] Petleonardo LIZAMA, Desmond Attending Provider [phone] Petleonardo, Desomnd Admitting Unavailable Petznick, Desmond Primary Care Unavailable Petznick, Desmond Attending Unavailable Petznick, Desmond Primary Care Unavailable Panfilo Cifuentes Admitting Unavailable Panfilo Cifuentes Attending Unavailable Petznradha LIZAMA, Desmond Primary Care Provider [phone] Charles Luis MD Attending Provider Young Shah DO Referring Provider [phone] Panfilo Cifuentes MD Attending Provider VICTORINO ALEJANDRE Attending Unavailable VICTORINO ALEJANDRE Referring Unavailable VICTORINO ALEJANDRE Attending Unavailable DESMOND MACIAS Attending Unavailable VICTORINO ALEJANDRE Attending Unavailable VICTORINO ALEJANDRE Referring Unavailable VICTORINO ALEJANDRE Referring Unavailable JR. PABLO, YOUNG Mcdaniel Attending Unavaila VICTORINO Bowles Referring Unavailable DESMOND MACIAS Attending Unavailable JOSE BOONE Attending Unavailable JR. PABLO, YOUNG Mcdaniel Attending Unavaila saloni SHAH JR., YOUNG Mcdaniel Referring Unavaila JOSE Howell Attending Unavailable JR. PABLO, YOUNG Mcdaniel Attending Unavaila ble DESMOND MACIAS Referring Unavailable JOSE SONG Attending Unavailable NITIN DOMINGUEZ Attending Unavailable DESMOND MACIAS Attending Unavailable DESMOND MACIAS Referring Unavailable VICTORINO ALEJANDRE Attending Unavailable BENJI PATEL Attending Unavailable DESMOND MACIAS Attending Unavailable DESMOND LANIER Attending Unavailable NITIN DOMINGUEZ Attending Unavailable JR. PABLO, YOUNG Mcdaniel Attending Unavaila saloni SHAH JR., YOUNG Mcdaniel Referring Unavaila ble DIXIE MORENO Attending Unavailab le Allergies Allergy ClassificationReported Allergen(s)Allergy TypeDate of OnsetReaction(s) Facility (20 sources)Sulfamethoxazole / TrimethoprimDrug Dngovho34-16-4499ilshcdtblos[facility] ([facility])Sulfamethoxazole / TrimethoprimDrug Jerekwx54-73-8369Xcw [facility] Repository (5 sources)Sulfamethoxazole; Translations: [sulfamethoxazole]Drug Allergy 48-31-5471Llcwlg swells, Tongue [facility], [facility] (20 sources)TrimethoprimDrug Qxgrurd16-43-9738LwdgksFayette County Memorial [facility] (20 sources)DoxepinDrug Johmvvt09-93-2055CkmczmfjCCCB Healthcare Work Phone: (1 source)DoxepinDrug Zqzvjcq27-37-9227RhxzqzxqmSt. [facility] Medications Current Medications MedicationDrug Class(es)DatesSig (Normalized)Sig (Original)acetaminophen 500 mg oral capsule (4 sources)Start: 87-83-3655qhfw 2 capsules by mouth every eight hours Acetaminophen 500 MG 2 capsule as needed Orally 3 times a day for 30 days Apr, Activeacetaminophen 500 mg / diphenhydrAMINE hydrochloride 25 mg oral tablet (20 sources)Histamine-1 Receptor AntagonistdiphenhydrAMINE-acetaminophen (Tylenol PM Extra Strength) 25-500 MG per tablet 1 (one) time each day at the same time ActiveAcetaminophen / HYDROcodone (1 source)Opioid AgonistStart: 98-75-8309kxyv 1 tablet by mouth every six hours as neededNorco 5-325 MG 1 tablet as needed Orally every 6 hrs Apr, [id number] 200 actuat albuterol 0.09 mg/actuat metered dose inhaler (20 sources)beta2-Adrenergic AgonistStart: 12-97-9741bjrl 2 puff(s) by inhalation every six hours for wheezingalbuterol HFA 90 mcg/act inhaler Indications: Primary insomnia , Neuropathy Inhale 2 puffs every 6 (six) hours if needed for wheezing 18 g 2 02/26/2024 ActiveStart: 69-84-6483kuat 2 puff(s) by inhalation every six hours for wheezingalbuterol HFA 90 mcg/act inhaler Indications: Primary insomnia , Neuropathy Inhale 2 puffs every 6 (six) hours if needed for wheezing 18 g 2 05/15/2023 Activealendronic acid 35 mg oral tablet (20 sources)BisphosphonateStart: 09-11-2023 End: 30-63-2982jtyd 1 tablet by mouth every weekalendronate (Fosamax) 35 MG tablet Indications: Osteopenia, unspecified location Take 1 tablet by mouth weekly 12 tablet 3 01/15/2025 Activeazithromycin 250 mg oral tablet (2 sources)Macrolide AntimicrobialStart: 05-01-2024 End: 18-99-9868xbqb 2 tablets by mouth once daily, then take 1 tablet by mouth once dailyazithromycin (Zithromax) 250 MG tablet Indications: Acute bronchitis, bacterial Take 2 tablets (500mg) by mouth Daily for 1 day, THEN 1 tablet (250 mg) Daily for 4 days. 6 tablet 05/01/2024 05/06/2024 ActivebusPIRone hydrochloride 10 mg oral tablet (20 sources)Start: 03-19-2024 End: 31-38-7311iwaBJWxmb (Buspar) 10 MG tablet Take 10 mg by mouth 03/19/2024 ActiveStart: 09-11-2023 End: 41-18-5719iuwWGSjbn (Buspar) 10 MG tablet Indications: Anxiety TAKE 1 TABLET IN THE MORNING AND 1 TABLET BEFOREBEDTIME 180 tablet 1 02/26/2024 Active Calcium + D3 600-200 MG-UNIT (7 sources)take 2 tablets by mouth once dailyCalcium + D3 600-200 MG-UNIT 2 tablet with a meal Orally Once a day ActiveCentrum Silver 50+Women - (7 sources)Centrum Silver 50+Women - as directed Orally Activeestradiol 1 mg oral tablet (20 sources)EstrogenStart: 09-11-2023 End: 46-92-4495mdcl 1 tablet by mouth once dailyestradiol (Estrace) 1 MG tablet Indications: Menopausal symptom Take 1 tablet (1 mg) by mouth Daily90 tablet 3 01/15/2025 01/15/2026 ActiveFish Oils (7 sources)take 1 capsule by mouth once dailyFish Oil 1200 MG 1 capsule Orally Once a day Activefluconazole 200 mg oral tablet (14 sources)Azole AntifungalStart: 09-05-2024 End: 29-38-9490ihspouhfrvk (Diflucan) 200 MG tablet Take 200 mg by mouth 10/03/2024 ActiveStart: 07-24-2024 End: 74-32-3844xfle 1 tablet by mouth once dailyfluconazole (Diflucan) 100 MG tablet Indications: Fungal colitis Take 1 tablet (100 mg) by mouth Daily for 14 days 14 tablet 1 07/24/2024 08/07/2024 ActiveStart: 06-12-2024 End: 54-65-0089jwpz 1 tablet by mouth once dailyfluconazole (Diflucan) 100 MG tablet Indications: Fungal colitis Take 1 tablet (100 mg) by mouth Daily for 14 days 14 tablet 1 06/12/2024 06/26/2024 Activegabapentin 400 mg oral capsule (20 sources)Anti-epileptic AgentStart: 12-26-2023 End: 43-04-8215mcpejvyewc (Neurontin) 400 MG capsule Indications: Displacement of lumbar disc with radiculopathy TAKE 1 CAPSULE IN THE MORNING, IN THE EVENING, AND BEFORE BEDTIME. 270 capsule 12/08/2024 ActiveStart: 10-05-2023 End: 90-53-8088cuft 1 capsule by mouth in the morning, then take 1 capsule by mouth in the evening, then take 1 capsule by mouth at bedtimegabapentin (Neurontin) 400 MG capsule Indications: Displacement of lumbar disc with radiculopathy Take 1 capsule (400 mg) by mouth in the morning and 1 capsule (400 mg) in the evening and 1 capsule (400 mg) before bedtime. 270 capsule 10/05/2023 12/23/2023 Discontinued (Reorder)take 1-2 tablets by mouth twice daily as neededGabapentin 300 MG 1-2 tablet Orally bid prn for 30 day(s) Active ipratropium bromide 0.021 mg/actuat metered dose nasal spray (20 sources)AnticholinergicStart: 11-22-2024 End: 04-14-3691bqgaqndrzli (Atrovent) 0.03 % nasal spray Indications: Vasomotor rhinitis Administer 2 sprays into each nostril every 12 (twelve) hours 30 mL 1 11/22/2024 Activemeloxicam 15 mg oral tablet (20 sources)Nonsteroidal Anti-inflammatory DrugStart: 33-10-2722kgkhrvquq (Mobic) 15 MG tablet Indications: Degeneration of intervertebral disc of lumbar region, unspecified whether pain present , Lumbar pain TAKE 1 TABLET ONCE DAILY 90 tablet 12/09/2024 ActiveStart: 02-09-2024 End: 96-04-6881uqtkweult (Mobic) 15 MG tablet Indications: Degeneration of intervertebral disc of lumbar region, unspecified whether pain present , Lumbar pain TAKE 1 TABLET ONCE DAILY 90 tablet 12/09/2024 ActiveMultiple Vitamins- Minerals (Centrum Silver 50+Women) tablet (20 sources)Multiple Vitamins-Minerals (Centrum Silver 50+Women) tablet Active Multiple Vitamins-Minerals (Centrum Silver 50+Women) tablet as directed Orally ActiveMultivitamin tablet (2 sources)Start: 25-89-5483hpuw 1 tablet by mouth once dailypredniSONE 10 mg oral tablet (14 sources)Start: 05-01-2024 End: 32-25-5527igtz 3 tablets by mouth once dailypredniSONE (Deltasone) 10 MG tablet Indications: Acute bronchitis, bacterial Take 3 tablets (30 mg)by mouth Daily for 5 days 15 tablet 05/01/2024 05/06/2024 ActiveStart: 11-22-2023 End: 79-14-2125mauewtGVUD (Deltasone) 20 MG tablet take 3 tablets by mouth daily for 3 days then 2 tabs daily for 3 days then 1 tab daily for 3 days then stop 11/22/2023 02/08/2024 Discontinued (Therapy completed)Start: 07-25-2018 End: 72-96-8301Ppyqeqdmwj 10 mg tablets,dose pack Discontinued 1 dose pk PO per package directions July 12:00am March 19, 2024 3:58pm take 4 tabs for 3 days then take 3 tabs for 3 days then take 2 tabs for 3 days then take 1 tab for 3 daysStart: 65-73-0755Mxxonrrjnu Active 1 dose pk PO per package directions July 25, 2018 12:00am take 4 tabs for 3 days then take 3 tabs for 3 days then take 2 tabs for 3 days then take 1 tab for 3 daysStart: 05-17-2017 End: 04-60-8024Vztwabwawm 10 mg tablets,dose pack Discontinued 1 dose pk PO per package directions May 17, 2017 1:00am February 02, 2018 10:16am take 4 tabs for 3 days then take 3 tabs for 3 days then take 2 tabs for 3 days then take 1 tab for 3 daysStart: 05-17-2017 End: 30-45-5408Qrgzhsczrk Discontinued 1 dose pk PO per package directions May 17, 2017 1:00am February 02, 2018 10:16am take 4 tabs for 3 days then take 3 tabs for 3 days then take 2 tabs for 3 days thentake 1 tab for 3 days SUMAtriptan 100 mg oral tablet (20 sources)Serotonin-1b and Serotonin-1d Receptor AgonistStart: 05-12-2017 SUMAtriptan (Imitrex) 100 MG tablet Indications: Primary insomnia , Neuropathy TAKE 1 TABLET ONE TIME NEEDED FOR MIGRAINE FOR UP TO 1 DOSE 27 tablet 1 09/30/2024 Activetake 1 tablet by mouth every twelve hoursImitrex 100 MG 1 tablet as needed Orally Twice a day prn ActivetiZANidine 2 mg oral tablet (20 sources)Central alpha-2 Adrenergic AgonistStart: 03-19-2024 End: 69-58-9131lmDPWqwsiz (Zanaflex) 2 MG tablet Indications: Degeneration of intervertebral disc of lumbar region, unspecified whether pain present , Lumbar pain TAKE 1 TABLET AT BEDTIME 90 tablet 1 12/09/2024 ActiveStart: 02-09-2024 End: 37-36-1395eiqw 1 tablet by mouth at bedtimetiZANidine (Zanaflex) 2 MG tablet Indications: Degeneration of intervertebral disc of lumbar region, unspecified whether pain present , Lumbar pain Take 1 tablet (2 mg) by mouth at bedtime 30 tablet 1 02/09/2024 ActiveStart: 45-00-3619dqmt 1-2 tablets by mouth once daily as neededtiZANidine HCl 2 MG 1-2 tablet as needed Orally daily Apr, Activetriamcinolone acetonide 1 mg/ml topical cream (20 sources)CorticosteroidStart: 47-40-0850ogvepdpokrmmv (Kenalog) 0.1 % cream 12/21/2023 ActiveStart: 55-65-6036mrfrfregzqdog (Kenalog) 0.1 % cream APPLY TOPICALLY ONCE DAILY FOR 1 TO 2 WEEKS FOR ITCHY BUMPS AVOID FACE WHEN APPLYING 12/21/2023 ActiveValerian 500 MG (7 sources)take 1 capsule by mouth once daily as neededValerian 500 MG 1 capsule as needed Orally Once a day for 30 day(s) 1200mg qhs ActiveVitamin B 12 250 MCG (7 sources)Vitamin B 12 250 MCG 2 lozenges Orally Once a day Activevitamin b12 0.25 mg oral lozenge (20 sources)Vitamin P43Kuzjkkhzdxidec (Vitamin B 12) 250 MCG lozenge 1 (one) time each day at the same time Activezolpidem tartrate 5 mg oral tablet (20 sources)gamma-Aminobutyric Acid-ergic AgonistStart: 01-06-2025 End: 04-90-6847cjwyjwie (Ambien) 5 MG tablet Indications: Primary insomnia Take 2 tablets (10 mg) by mouth as needed at bedtime for sleep 90 tablet 1 01/06/2025 04/06/2025 ActiveStart: 03-19-2024 End: 16-92-5828Przvb: 11-22-2023 End: 89-59-1664vuwlisen (Ambien) 5 MG tablet Indications: Primary insomnia Take 1 tablet (5 mg) by mouth as neededat bedtime for sleep 30 tablet 4 01/15/2024 Active Completed/Discontinued Medications MedicationDrug Class(es)DatesSig (Normalized)Sig (Original)biotin 5 mg oral capsule (13 sources) End: 48-54-5688zoowby 5 MG capsule 1 capsule 1 (one) time each day at the same time. 01/09/2024 Discontinuedtake 1 capsule by mouth once dailyBiotin 5 MG 1 capsule Orally Once a day Activebupivacaine hydrochloride 5 mg/ml injectable solution (17 sources)Amide Local AnestheticStart: 02-21-2025 End: 89-77-5065xmuzzkiiwvt (Marcaine) 0.5 % injection 5 mgStart: 02-21-2025 End: mg (1 mL), Injection, Once, On Mon02/21/25 at 1530, For 1 dose Start: 01-06-2025 End: 02-54-5129pvfwclmaslv PF (Marcaine) 0.5 % injection 2 mLStart: 01-06-2025 End: mL, Injection, Once PRN Procedure, Starting on Mon01/06/25 at 1013, For 1 doseStart: 09-11-2024 End: 67-17-7816mnomqtwghvf (Marcaine) 0.5 % injection 5 mgStart: 09-11-2024 End: 55 mg, Injection, Once, On Mon09/11/24 at 1230, For 1 doseStart: 08-01-2024 End: 34-16-3706jscokpoymhh (Marcaine) 0.5 % injection 5 mgStart: 08-01-2024 End: 55 mg (1 mL), Injection, Once, On Elena 08/01/24 at 1130, For 1 dose Start: 06-13-2024 End: 70-27-3514sxtqjhuedpc (Marcaine) 0.5 % injection 5 mgStart: 06-13-2024 End: 55 mg (1 mL), Injection, Once, On Mon06/13/24 at 1645, For 1 dose Start: 04-19-2024 End: 27-54-9394ujspinugwsf (Marcaine) 0.5 % injection 5 mgStart: 04-19-2024 End: mg (1 mL), Injection, Once, On Mon04/19/24 at 1830, For 1 dose Start: 01-01-2024 End: 05-47-3178alpjrhmerqp (Marcaine) 0.5 % injection 5 mgStart: 01-01-2024 End: 93-44-7834miwjuatzlky (Marcaine) 0.5 % injection 5 mgStart: 01-01-2024 End: mg (1 mL), Injection, Once, On Mon01/01/24 at 1030, For 1 dose calcium citrate 600 mg and vitamin D3 (Citrical & Minerals + Vit D) 600-200 MG- UNIT tablet (6 sources) End: 98-14-3667erkxubv citrate 600 mg and vitamin D3 (Citrical & Minerals + Vit D) 600-200 MG-UNIT tablet 1 (one) time each day at the same time. 01/09/2024 Discontinuedcalcium citrate 600 mg and vitamin D3 (Citrical & Minerals + Vit D) 600-200 MG-UNIT tablet 1 (one) time each day at the same time. Activecephalexin 500 mg oral capsule (8 sources)Cephalosporin AntibacterialStart: 07-25-2018 End: 50-13-6246rvfb 1 capsule by mouth every eight hoursCephalexin (Keflex) 500 mg capsule Discontinued 500 MG PO Q8H 15 July 25, 2018 12:00am 2023 3:58pmStart: 05-17-2017 End: 42-31-7206fnbn 1 capsule by mouth every eight hoursCephalexin (Keflex) 500 mg capsule Discontinued 500 MG PO Q8H 15 May 17, 2017 1:00am February 02, 2018 10:15amcyclobenzaprine hydrochloride 5 mg oral tablet (14 sources)Muscle RelaxantStart: 88-89-3774okay 1 tablet by mouth every twenty- four hoursCyclobenzaprine HCl 5 MG 1 tablet at bedtime as needed Orally Once a day for 30 day(s) Mar,Not-TakingStart: 07-25-2018 End: 04-07-0893xgqd 1 tablet by mouth three times daily as needed for muscle spasmsCyclobenzaprine 10 mg tablet Discontinued 10 MG PO Three times daily as needed for back spasms 50 0July 25, 2018 12:00am March 19, 2024 4:00pm Start: 05-17-2017 End: 41-22-6268tsxt 1 tablet by mouth three times daily as needed for muscle spasmsCyclobenzaprine 10 mg tablet Discontinued 10 MG PO Three times daily as needed for back spasms 50 0January 2017 1:00am February 02, 2018 10:15am dexamethasone phosphate 4 mg/ml injectable solution (13 sources)CorticosteroidStart: 02-21-2025 End: 55-63-0168lfrTIRJHsugwg sod phos (Decadron) injection 4 mgStart: 02-21-2025 End: 54 mg (1 mL), Injection, Once, On Mon02/21/25 at 1530, For 1 dose Start: 09-11-2024 End: 30-60-4138jvtDPNJYubtqo sod phos (Decadron) injection 4 mgStart: 09-11-2024 End: 54 mg (1 mL), Injection, Once, On Mon09/11/24 at 1230, For 1 dose Start: 08-01-2024 End: 19-33-0287pvdBHYZAlkqqw sod phos (Decadron) injection 4 mgStart: 08-01-2024 End: 54 mg (1 mL), Injection, Once, On Mon08/01/24 at 1130, For 1 dose Start: 06-13-2024 End: 89-73-4977ejdHSXSBnltty sod phos (Decadron) injection 4 mgStart: 06-13-2024 End: 54 mg (1 mL), Injection, Once, On Mon06/13/24 at 1645, For 1 dose Start: 04-19-2024 End: 65-57-4505nvuUECWTqhzpy sod phos (Decadron) injection 4 mgStart: 04-19-2024 End: mg (1 mL), Injection, Once, On Mon04/19/24 at 1830, For 1 dose Start: 01-01-2024 End: 92-45-5587jfpOYUDLysilq sod phos (Decadron) injection 4 mgStart: 01-01-2024 End: 40-02-8242xhpMEUPQiakvr sod phos (Decadron) injection 4 mgStart: 01-01-2024 End: mg (1 mL), Injection, Once, On Mon01/01/24 at 1030, For 1 dose doxepin hydrochloride 10 mg oral capsule (3 sources)Tricyclic AntidepressantStart: 11-14-2023 End: 55-86-5863siok 1 capsule by mouth at bedtimedoxepin (SINEquan) 10 MG capsule Indications: Primary insomnia Take 1 capsule (10 mg) by mouth at bedtime 30 capsule 3 11/14/2023 12/27/2023 Discontinued (Therapy completed)estrogens, conjugated (fpc) 0.625 mg oral tablet (11 sources)EstrogenStart: 05-12-2017 End: 10-71-5688Mkdjbhsxuw Estrogens 0.625 M tablet Discontinued 0.625 MG PO Every morning May 12, 2017 1:00am March 19, 2024 4:00pm Hormone supplementmelatonin 10 mg oral tablet (20 sources)Start: 02-02-2018 End: 04-92-6301yhgi 1 tablet by mouth once daily at bedtimeMelatonin 10 mg Tablet Discontinued 1 TAB PO Daily at bedtime February 02, 2018 12:00am March 19, 2024 4:00pm Sleep End: 72-91-3648Bugcgndkh 10 MG capsule as directed Orally 04/20/2024 Discontinued1 ml methylPREDNISolone acetate 40 mg/ml injection (14 sources)CorticosteroidStart: 01-06-2025 End: 69-49-8281xytmrrRAXXUEMgqxxh acetate (DEPO-Medrol) injection 40 mgStart: 01-06-2025 End: 44-48-716532 mg, Intra-articular, Once PRN Procedure, Starting on Mon01/06/25 at 1013, For 1 doseStart: 10-16-2024 End: 88-44-8645pxgbabOLLAISJmmpsu acetate (DEPO-Medrol) injection 40 mgStart: 10-16-2024 End: 42-62-920270 mg, Intra-articular, Once PRN Procedure, Starting on Mon10/16/24 at 1050, For 1 doseStart: 52-49-3894Sntdhk 4 MG as directed Orally Mar, Activenaproxen 500 mg oral tablet (4 sources)Nonsteroidal Anti-inflammatory DrugStart: 40-30-2042ezet 1 tablet by mouth twice daily at mealtime as neededNaproxen 500 MG 1 tablet with food or milk as needed Orally Twice a day for 30 day(s) Apr, Not-Taking nortriptyline 10 mg oral capsule (20 sources)Tricyclic AntidepressantStart: 12-27-2023 End: 16-61-8144qghxonvwpvaih (Pamelor) 10 MG capsule Take 10 mg by mouth 03/19/2024 02/21/2025 Discontinued (Reorder)nystatin 065802 unt/ml oral suspension (2 sources)Polyene AntifungalStart: 03-25-2024 End: 42-96-3588uvpf 2 mL by mouth every six hoursnystatin (Mycostatin) 576929 UNIT/ML suspension SWISH 2ML IN MOUTH EVERY 6 HOURS FOR 2 MINUTES AND S PIT/EXPECTORATE. 03/25/2024 04/12/2024 DiscontinuedOmega-3 Fatty Acids (Fish Oil) 1200 MG capsule delayed-release (6 sources) End: 82-02-1458Pyuif-3 Fatty Acids (Fish Oil) 1200 MG capsule delayed-release 1 capsule 1 (one) time each day at the same time. 01/09/2024 DiscontinuedOmega-3 Fatty Acids (Fish Oil) 1200 MG capsule delayed-release 1 capsule 1 (one) time each day at the same time. Activeoseltamivir 75 mg oral capsule (4 sources)Neuraminidase InhibitorStart: 04-20-2024 End: 83-87-8939xwnw 1 capsule by mouth in the morningoseltamivir (Tamiflu) 75 MG capsule Indications: Influenza A Take 1 capsule (75 mg) by mouth in themorning and 1 capsule (75 mg) before bedtime. Do all this for 5 days. 10 capsule 04/20/2024 05/01/2024 Discontinued (Therapy completed)oxyCODONE hydrochloride 5 mg oral capsule (8 sources)Opioid AgonistStart: 07-25-2018 End: 44-73-6926fzql 5-10 mg by mouth every six hours as needed for painOxycodone 5 mg capsule Discontinued 5 - 10 MG PO Q6H as needed for pain 60 8 0 July 25, 2018 March 19, 2024 3:58pm Lumbar adjacent segment disease with spondylolisthesis Other intervertebral disc degeneration, lumbar region Spondylolisthesis, lumbar regionStart: 05-17-2017 End: 60-99-9499qzmr 1 tablet by mouth every six hours as needed for pain Oxycodone (Roxicodone) 5 mg Tablet Discontinued 1 - 2 TAB PO Q6H as needed for Pain 60 0 May 17, 2017 1:00am February 02, 2018 10:15amthiamine 100 mg oral tablet (16 sources)Start: 03-14-2023 End: 62-43-4121vqjn 1 tablet by mouth in the morningthiamine (Vitamin B-1) 100 MG tablet Indications: Idiopathic progressive polyneuropathy Take 1 tablet (100 mg) by mouth in the morning. 30 tablet 11 03/14/2023 03/13/2024 Expiredvalsartan 160 mg oral tablet (14 sources)Angiotensin 2 Receptor BlockerStart: 07-29-2024 End: 28-95-3745odza 1 tablet by mouth once dailyvalsartan (Diovan) 160 MG tablet Indications: Elevated blood pressure reading Take 1 tablet (160 mg) by mouth Daily 90 tablet 1 07/29/2024 10/24/2024 Discontinuedvarenicline (13 sources)Partial Cholinergic Nicotinic AgonistStart: 05-01-2024 End: 42-03-9811Ahmtovhfhpu Tartrate, Starter, (Chantix Starting ) 0.5 MG X 11 & 1 MG X 42 tablet therapy pack Indications: Tobacco abuse Take 1 Package by mouth Daily 1 each 05/01/2024 07/29/2024 Discontinued (Therapy completed)Start: 92-80-3153Ovkmbwlqofw Tartrate, Starter, (Chantix Starting ) 0.5 MG X 11 & 1 MG X 42 tablet therapy pack Indications: Tobacco abuse Take 1 Package by mouth Daily 1 each 05/01/2024 Active Problems Active Problems Problem ClassificationProblemDateDocumented DateEpisodic/ChronicAcute bronchitis (2 sources)Acute bacterial bronchitis; Translations: [Acute bronchitis due to other specified organisms]65-86-4964VuvehsdwFevwujx disorders (20 sources)Anxiety; Translations: [Anxiety disorder, unspecified]Onset: 100378-79-4228NihsfudGsnmxa (20 sources)Reactive airway disease; Translations: [Unspecified asthma, uncomplicated]Onset: 833807-80-8130LbnftnnXuyfmbtm mellitus without complication (2 sources)Impaired fasting glycemia; Translations: [Impaired fasting glucose] 41-32-4485AjkhljewKolavmsq of mouth; excluding dental (10 sources)Glossopyrosis ; Translations: [Glossodynia]73-92-4413Wlxlgocu Essential hypertension (2 sources)Essential hypertension; Translations: [Essential (primary) hypertension]43-48-7663EauwbseSjjazrze; including migraine (20 sources)Migraine; Translations: [Migraine, unspecified, not intractable, without status migrainosus]Onset: 11-28-2022 Resolved: 756471-22-6943IzshqfxLpkgo valve disorders (5 sources)Heart murmur; Translations: [Cardiac murmur, unspecified]Onset: 258622-38-1916DykhcnotBpvpxmnyggnts and screening for infectious disease (4 sources)Encounter for immunization; Translations: [Encounter for screening for human papillomavirus (HPV)]Onset: 05-07-2021 Resolved: 06-58-6229KhrfyqbxHjsaqcivp (4 sources)Influenza due to Influenza A virus; Translations: [Influenza due to other identified influenza virus with other respiratory manifestations] 85-82-9297OjnotgloUzzhwuqoev infection (3 sources)Other specified intestinal infections; Translations: [Intestinal infection due to other organism, not elsewhere classified]32-09-3052Xggjkjxm Menopausal disorders (20 sources)Menopausal symptom; Translations: [Menopausal and female climacteric states]Onset: 448200-77-6029KdlpumhLcpmvhhliydmp mental health disorders (3 sources)Primary insomnia; Translations: [Primary insomnia]42-05-0742Ybfpzpf Mood disorders (20 sources)Recurrent major depression; Translations: [Major depressive disorder, recurrent, unspecified]Onset: 11-28-2022 Resolved: 361851-80-5541RisvaehTqlqraljhzh deficiencies (2 sources)Vitamin D deficiency; Translations: [Vitamin D deficiency, unspecified]75-19-5976KgexajdEokqaxyknggvfk (16 sources)Osteoarthritis of right hip joint; Translations: [Unilateral primary osteoarthritis, right hip]52-28-7566SvbjfohBfcbm bone disease and musculoskeletal deformities (4 sources)Avascular necrosis of bone; 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]43-45-7314FyvlczwSykqt bone disease and musculoskeletal deformities (1 source)Other specified disorders of bone density and structure, other site; Translations: [OTH D/O BONE DEN STRUCT OTH SITE]Onset: 67-82-1639AhywxrzkJqnxv bone disease and musculoskeletal deformities (4 sources)Bone pain; Translations: [Other specified disorders of bone, other site]64-84-8010WmwclsesLosgj circulatory disease (2 sources)Elevated blood pressure; Translations: [Elevated blood-pressure reading, without diagnosis of hypertension]83-86-0475KgqvddjkAbvqr connective tissue disease (2 sources)History of lumbar fusion; Translations: [Arthrodesis status] 03-01-8744DvkxjcnmOvlhc fractures (2 sources)Closed fracture sacrum; Translations: [Unspecified fracture of sacrum, initial encounter for closedfracture]38-02-5979AvclhsdkKqrhv lower respiratory disease (2 sources)Cough; Translations: [Cough, unspecified type]25-49-0669DbgmkmlfCnlvr nervous system disorders (20 sources)Chronic pain; Translations: [Other chronic pain]Onset: 05-21-2019 Resolved: 278600-06-2764WqlzrgaMbesz nervous system disorders (1 source)Other chronic painOnset: 07-15-2021 Resolved: 35-93-4398VjzqqxwFluil nervous system disorders (20 sources)Idiopathic progressive polyneuropathy; Translations: [Idiopathic progressive neuropathy]Onset: 897237-89-9141QimtwcnWizjm nervous system disorders (20 sources)Bilateral carpal tunnel syndrome; Translations: [Carpal tunnel syndrome, bilateral upper limbs]Onset: 750504-86-6591EjeogaeYcftb nervous system disorders (20 sources)Carpal tunnel syndrome of left wrist; Translations: [Carpal tunnel syndrome, left upper limb]Onset: 11-09-2023 Resolved: 792085-74-2422HdazhytYkelp nervous system disorders (3 sources)Neuropathy; Translations: [Polyneuropathy, unspecified]01-01-2024 ChronicOther nervous system disorders (10 sources)Paresthesia; Translations: [Paresthesia of skin]86-63-2119Dmgkqajb Other non-traumatic joint disorders (4 sources)Hip pain; Translations: [Pain in right hip]32-04-0794ZbxfwswaFmsss non-traumatic joint disorders (6 sources)Pain in right hip joint; Translations: [Pain in right hip]12-04-2024 EpisodicOther upper respiratory disease (4 sources)Vasomotor rhinitis; Translations: [Vasomotor rhinitis]11-23-2024 ChronicResidual codes; unclassified (1 source)Family history of malignant neoplasm of breast; Translations: [FAMILY HX MALIG NEOPLASM OF BREAST]Onset: 76-71-8723WhwptvvnCrehntlt codes; unclassified (1 source)Asymptomatic menopausal state; Translations: [ASYMPTOMATIC MENOPAUSAL STATE]Onset: 35-82-4188YjvmrjnjIockoopz codes; unclassified (4 sources)Postmenopausal state; Translations: [Asymptomatic menopausal state] 06-21-1735UspeczfyTlmxyjjh codes; unclassified (6 sources)Tobacco user; Translations: [Tobacco use]42-76-4237PbmoaxrdVnogcjeq codes; unclassified (1 source)Insomnia; Translations: [Insomnia, unspecified]50-34-4067Qhotjiua Spondylosis; intervertebral disc disorders; other back problems (20 sources)Cervical spondylosis; Translations: [Spondylosis without myelopathy or radiculopathy, cervical region]Onset: 04-12-2021 Resolved: 53-04-4846LvbwmlySdtirybfswt; intervertebral disc disorders; other back problems (20 sources)Lumbar disc prolapse with radiculopathy; Translations: [Intervertebral disc disorders with radiculopathy, lumbar region]Onset: 07-05-2017 Resolved: 83-95-1213PuhtnvegKbybfasar-related disorders (20 sources)Smoker; Translations: [Nicotine dependence, unspecified, uncomplicated]Onset: 987078-00-4835Bsttffv Past or Other Problems Problem ClassificationProblemDateDocumented DateEpisodic/ChronicAcquired foot deformities (20 sources)Acquired hallux valgus; Translations: [Hallux valgus (acquired), unspecified foot]Onset: 03-11-2020 Resolved: 762752-91-4876PpsqsdzKyptv aftercare (7 sources)High risk drug monitoring status; Translations: [care home (current) use of opiate analgesic]EpisodicOther bone disease and musculoskeletal deformities (20 sources)Osteopenia; Translations: [Other specified disorders of bone density and structure, unspecified site]Onset: 11-28-2022 Resolved: 242039-64-0624QartzdmpXsdlh connective tissue disease (7 sources)Dupuytren's contracture; Translations: [Palmar fascial fibromatosis [Dupuytren]]EpisodicOther connective tissue disease (1 source)Pain in left hand; Translations: [Left hand pain M79.642]Onset: 02-19-2021 Resolved: 62-19-6626OypivogqIkxus connective tissue disease (1 source)Palmar fascial fibromatosis [Dupuytren]; Translations: [Dupuytren contracture M72.0]Onset: 02-19-2021 Resolved: 28-39-6587LimzxazbAhpvr connective tissue disease (20 sources)Bilateral trochanteric bursitis; Translations: [Trochanteric bursitis, right hip]Onset: 144961-26-6565CqagegalRyfrx connective tissue disease (20 sources)Trochanteric bursitis of left hip; Translations: [Trochanteric bursitis, left hip]Onset: 11-28-2022 Resolved: 973120-40-5938VbirjmulEtwqz connective tissue disease (20 sources)Spasm of cervical paraspinous muscle; Translations: [Other muscle spasm]Onset: 10-05-2023 Resolved: 164184-73-7459BxcidnnyVsyfg connective tissue disease (20 sources)Muscle pain; Translations: [Myalgia, unspecified site]Onset: 11-09-2023 Resolved: 844628-84-8184BczpyykqRllpk nervous system disorders (20 sources)Mortons neuroma of right foot; Translations: [Lesion of plantar nerve, right lower limb]Onset: 11-28-2022 Resolved: 623539-96-4692HlfwvlcPedgn nervous system disorders (20 sources)Plantar nerve lesion; Translations: [Lesion of plantar nerve, unspecified lower limb]Onset: 03-11-2020 Resolved: 218781-62-0478CarthboSbesh non-traumatic joint disorders (2 sources)Pain in left hip; Translations: [Left hip pain M25.552]Onset: 02-19-2021 Resolved: 39-52-0195VxnotgmsXpopr non-traumatic joint disorders (20 sources)Arthralgia of the pelvic region and thigh; Translations: [Pain in unspecified hip]Onset: 11-28-2022 Resolved: 488025-08-3306PzouzxzqHyqzd screening for suspected conditions (not mental disorders or infectious disease) (20 sources)Encounter for screening mammogram for malignant neoplasm of breast; Translations: [Encounter for screening for malignant neoplasm of cervix]Onset: 11-30-2021 Resolved: 52-26-6262QrxhedxsPgmvajj and strains (3 sources)Strain of muscle, fascia and tendon of left hip, initial encounter; Translations: [Sprain of metacarpophalangeal joint of left index finger, initial encounter]Onset: 02-19-2021 Resolved: 47-70-2750Mjnpuype Results Test NameValueInterpretationReference RangeFacilityXR Hip - right 3 Viewson 97-42-2808Lakscla Result: AP and lateral of right hip showed femoral head to be well centered in the acetabulum without evidence of fracture or dislocation. There was some spurring at the inferior medial aspect of the femoral acetabular junction. There was global decrease in joint space height Greater than 50% loss. There was no acute bony process including but not limited to, fracture and/or dislocation. Impression degenerative joint disease, right hip [facility] HealthcareRadiology Study observation (narrative)NOM HealthcareIGP,APTIMA HPV,AGE GDLNon 20-17-7383MQD GDLN ACOG TESTINGNote.[facility] HealthcareComment on above:TESTS RESULT FLAG UNITS REF RANGE LAB Clinician Provided Cytology Information Source.............Vagina No. of containers..01 ThinPrep Vial Age Algo ACOG Kathryn... Note 01 <21 or >65 or no age provided FLAG LEGEND: L-Low Normal,H-High Normal,LL-Alert Low,HH-Alert High <-Panic Low,>-Panic High,A-Abnormal,AA-Critical Abnormal Performed at: 01 =[facility] [address] [address] Mcleod MD, PAP IG (IMAGE GUIDED)Note.NOMS HealthcareComment on above:TESTS RESULT FLAG UNITS REF RANGE LAB DIAGNOSIS: 02 NEGATIVE FOR INTRAEPITHELIAL LESION OR MALIGNANCY. Specimen adequacy: 02 Satisfactory for evaluation. No endocervical cells are present. This is consistent with a history of hysterectomy. Performed by: Lety Rand Diesel Engine Tester ([facility]) . 02 Note: Note 02 The Pap [...] the use of an image guided system. FLAG LEGEND: L-Low Normal,H-High Normal,LL-Alert Low,HH-Alert High <-Panic Low,>-Panic High,A-Abnormal,AA-Critical Abnormal Performed at: [address] [address] [address] Mcleod MD, Performed at: =[address] [id number] Sales And Marketing Vice President: Ct Mcleod MD, Phone: [phone] Performed at: [address] [id number] Sales And Marketing Vice President: Ct Mcleod MD, Phone: [phone] [facility] Panel Informationon 57-65-3764JsbmjvmMARIANA Banuelos 01/06/2025 10:16 AM L Inj/Asp: R [...] Images captured to patient's chart ( Codes 54535-QQ) Procedure, treatment alternatives, risks and benefits explained, specific risks discussed. Consent was given by the patient. Patient was prepped and draped in the usual sterile fashion. [facility] HIP RIGHT WO IV CONTRASTon 94-08-8447EI HIP RIGHT WO IV CONTRASTEXAMINATION/TECHNIQUE: MR HIP RIGHT WO IV CONTRAST History: Right hip pain. Concern for avascular necrosis. Comparison: Radiographs 09/05/2024. RESULT: RIGHT HIP JOINT: No evidence for fracture or avascular necrosis. Mild degenerative changes without distinct measurable full-thickness chondral defect. Small osteophytes. Degenerative signal in the labrum. No joint effusion. LEFT HIP JOINT: Large nygln-ux-vnna with degenerative changes. SI JOINTS: Small amount [...] subtle insufficiency type fracture. ELECTRONICALLY SIGNED BY: Junior HanleyJefferson Healthcare Hospital Informationon 46-87-6742Wr. Young Shah, DO 10/16/2024 1:05 PM L Inj/Asp: R greater trochanteric bursa on 10/16/2024 10:50 AM Indications: pain Details: 21 G needle Medications: 40 mg methylPREDNISolone acetate 40 MG/ML Outcome: tolerated well, no immediate complications SKIN PREPPED/CLEANED WITH ISOPROPYL ALCOHOL Procedure, treatment alternatives, risks and benefits explained, specific risks discussed. Consent was given by the patient. [facility] CenterXR cerv spine AP/LAT/FLX/EXTon 45-82-8867LR cerv spine AP/LAT/FLX/EXT[facility] [place] [address] [place] [address] XRay Report Signed Patient: Gisel Almodovar MR#: [id number] : 1960 Acct:[id number] Age/Sex: 64 / F ADM Date: 10/03/24 Loc: XD Room: Type: [facility] Attending Dr: Panfilo Cifuentes MD Copies to: [...] Shi M.D. 10/03/2024 2:45 PM Dictation Location: [place] [address] Transcribed By: [facility] 10/03/24 1445 Dictated By: Cisco Shi DO 10/03/24 1442 Signed By: 10/03/24 [facility] Physician [facility] CenterMR CERVICAL SPINE WO CONTRASTon 45-68-6287YW CERVICAL SPINE WO CONTRASTEXAM: MR CERVICAL SPINE WO CONTRAST History: Cervical [...] cervical spine as detailed. ELECTRONICALLY SIGNED BY: Josr ChaidezmalNot AvailableMR Cervical spine WO contraston 09-11-2024 Degenerative changes of the cervical spine as detailed. ELECTRONICALLY SIGNED BY: LOR Chaidez EXAM: MR CERVICAL SPINE WO CONTRAST History: [...] Visualized paravertebral soft tissues are grossly unremarkable. IMAGINGSteffEvans ortiz DO - 09/11/2024 EXAM: MR CERVICAL SPINE [...] detailed. ELECTRONICALLY SIGNED BY: Evans White DO [facility] HealthcareRadiology Study observation (narrative)[facility] Cervical spine WO contrastOrdered By: Evans White on 44-68-5236EVNT [employer] Work Phone: XR HIPS BILATERAL 5+ VW WITH OR WITHOUT PELVISon 35-45-8272TX HIPS BILATERAL 5+ VW WITH OR WITHOUT PELVISExam: XR HIPS BILATERAL 5+ VW WITH OR [...] and the sacral arcuate lines are thought toalign appropriately. Fusion of the lumbosacral junction. Fusion of L4-L5. Degenerative disc changesat L3-4. Nonobstructive abdominal bowel gas pattern. IMPRESSION: Bilateral hip arthrosis. No fracture or osteonecrosis suspected. Dictated on: 09/05/2024 4:56 PM This report has been electronically signed and approved by the interpreting Radiologist.NormalNot AvailableXR Pelvis and Hip AP and Lateralon 09-05-2024 Exam: XR HIPS BILATERAL 5+ VW [...] and the sacral arcuate lines are thought toalign appropriately. Fusion of the lumbosacral junction. Fusion of L4-L5. Degenerative disc changesat L3-4. Nonobstructive abdominal bowel gas pattern. IMPRESSION: Bilateral hip arthrosis. No fracture or osteonecrosis suspected. Dictated on: 09/05/2024 4:56 PM This report has been electronically signed and approved by the interpreting Radiologist. Konrad Victor MD - 09/05/2024 Exam: XR HIPS BILATERAL [...] and the sacral arcuate lines are thought toalign appropriately. Fusion of the lumbosacral junction. Fusion of L4-L5. Degenerative disc changesat L3-4. Nonobstructive abdominal bowel gas pattern. IMPRESSION: Bilateral hip arthrosis. No fracture or osteonecrosis suspected. Dictated on: 09/05/2024 4:56 PM This report has been electronically signed and approved by the interpreting Radiologist. [facility] HealthcareRadiology Study observation (narrative)[facility] SpringfieldXR Pelvis and Hip AP and LateralOrdered By: Konrad Quintanilla on 63-26-0074TUIW [employer] Work Phone: ech echo transthoracicon 19-18-1592WIC echo transthoracicREGENCY [facility] [place] [address] Echocardiogram Signed Patient: Gisel Almodovar MR#: [id number] : 1960 Acct:[id number] Age/Sex: 63 / F ADM Date: 08/19/24 Loc: Room: Type: [facility] Attending Dr: Desmond Macias DO Ordering Provider: Desmond Macias DO Date of Service: 08/19/24/ ECH/ECH echo transthoracic: murmur Copies to: MD Desmond Pollock DO Gisel Clifton PM Patient Location: : 1960 Gender: Female (MM/DD/YYYY) [...] 6.0 BRIANA(I,D): 2.32 cm2 E/E' med: 10.0 BIRANA(V,D): 2.19 cm2 LV V1 max: 96.0 cm/sec LV V1 max P.7 mmHg LV V1 mean: 58.6 cm/sec LV V1 mean P.00 mmHg LV V1 VTI: 19.9 cm + + + + + : Electronically : : signed by: Young : : : : Eugene : : : : on: 08/19/2024, : : 9:58 PM : Transcribed By: SCV Performed At: 08/19/24 6369 Signed By: Young Knight MD 08/19/[address] [place] [address] BRAIN W AND WO CONTRAST (ROUTINE)on 60-85-2054IU BRAIN W AND WO CONTRAST (ROUTINE)EXAM: MR BRAIN W AND WO CONTRAST (ROUTINE) [...] mass or pathologic enhancement. ELECTRONICALLY SIGNED BY: Fauzia Chaidez AvailableLaboratory - Microbiology and Antimicrobial susceptibilityon 31-69-2632QXVO-CoV-2 (COVID-19) RNA ROBERTH+probe Ql (Unsp spec)NegativeNOMissouri Baptist Medical Center Panel Informationon 91-51-0775CMX APositiveBL[facility]OUNTAIN [facility]OS[facility] HealthcareFLU BNegativeNOCO HealthcareInterpretation and review of laboratory resultsAbnormalDavis Regional Medical CenterMR LUMBAR SPINE WO CONTRASTon 01-30-9860UL LUMBAR SPINE WO CONTRASTEXAMINATION/TECHNIQUE: MR LUMBAR SPINE WO CONTRAST HISTORY: Chronic [...] prior laminectomies at L4-L5 and L5-S1. Bilateral melvin and pedicle screw fixation across the L5-S1 level. Postsurgical changes of the L4-L5 and L5- S1 disc spaces. Conus: The conus is within [...] lumbar spine as discussed. ELECTRONICALLY SIGNED BY: Junior HanleyNot AvailableXR DEXA AXIAL SKELETONon 95-10-7055EciPhil[place], [place] [address] XRay Report Signed Patient: GISEL ALMODOVAR MR#: [id number] : 1960 Acct:[id number] Age/Sex: 63 / F ADM Date: 02/23/24 [facility]: Nitin Dominguez D.O. Ordering Physician: Nitin Dominguez D.O. Date of Service: 02/23/24 Procedure(s): XR DEXA axial skeleton Accession Number(s): [id number] cc: Nitin Dominguez D.O.; DESMOND MACIAS [place] [address] Patient Name: GISEL ALMODOVAR MRN: [id number] date: 1960 Sex: F Assigned Patient Location: [facility] Current Patient Location: Accession/Order Number: [id number] Exam Date: 02/23/2024 12:38 Report Date: 02/24/2024 06:11 At the request of: NITIN DOMINGUEZ Procedure: XR DEXA axial skeleton EXAMINATION: [...] Organization Classification: Osteopenia - Moderate Fracture Risk FRAX: Cannot be calculated. Pharmacologic treatment recommendations * No uniform recommendation applies to all patients. Management plans must be individualized. * Consider initiating pharmacologic treatment in postmenopausal women and men >= 50 years of age who have the following: Primary fracture prevention: * T-score <= - 2.5 at the femoral neck, total hip, lumbar spine, 33% radius (some uncertainty with existing data) by DXA. * Low bone mass (osteopenia: T-score between - 1.0 and - 2.5) at the femoral neck or total hip by DXA with a 10-year hip fracture risk >= 3% or a 10-year major osteoporosis-related fracture risk >= 20% (i.e., clinical vertebral, hip, forearm, or proximal humerus) based on the [place]-adapted FRAXregistered model. Secondary fracture prevention: * Fracture of the hip or vertebra regardless of BMD [4, 5]. * Fracture of proximal humerus, pelvis, or distal forearm in persons with low bone mass (osteopenia: T-score between - 1.0 and - 2.5). The decision to treat should be individualized in persons with a fracture of the proximal humerus, pelvis, or distal forearm who do not have osteopenia or low BMD [12, 13]. Tanisha MS, Elvia SL, Ronald KL, Charlotte EM, Dioni KG, AJ, Korin ES. The clinician's guide to prevention and treatment of osteoporosis. Osteoporos Int. 2021;33(10):1405-3777. doi: 10.1007/y34435-386-82109-c. Epub 2021Aug 19. Erratum in: Osteoporos Int. 2021Nov 18;: PMID: 40543924; PMCID: FPT9010157. Electronically authenticated by: CEE ALAN Date: 02/24/2024 06:11 Dictated By: Cee Alan M.D. Signed By: 02/24/24613 DD/ 0 TD/TT: Bootmaker:TBHRadiology, Radiologist, - 02/24/2024 [place] [address] XRay Report Signed Patient: GISEL ALMODOVAR MR#: [id number] : 1960 Acct:[id number] Age/Sex: 63 / F ADM Date: 02/23/24 Loc: MAMMO Attending Dr: Nitin Dominguez D.O. Ordering Physician: Nitin Dominguez D.O. Date of Service: 02/23/24 Procedure(s): XR DEXA axial skeleton Accession Number(s): [id number] cc: Nitin Dominguez D.O.; DESMOND MACIAS [place] [address] Patient Name: GISEL ALMODOVAR MRN: [facility]:[id number] date: 1960 Sex: F Assigned Patient Location: [facility] Current Patient Location: Accession/Order Number: [id number] Exam Date: 02/23/2024 12:38 Report Date: 02/24/2024 06:11 At the request of: NITIN DOMINGUEZ Procedure: XR DEXA axial skeleton EXAMINATION: [...] Organization Classification: Osteopenia - Moderate Fracture Risk FRAX: Cannot be calculated. Pharmacologic treatment recommendations * No uniform recommendation applies to all patients. Management plans must be individualized. * Consider initiating pharmacologic treatment in postmenopausal women and men >= 50 years of age who have the following: Primary fracture prevention: * T-score <= - 2.5 at the femoral neck, total hip, lumbar spine, 33% radius (some uncertainty with existing data) by DXA. * Low bone mass (osteopenia: T-score between - 1.0 and - 2.5) at the femoral neck or total hip by DXA with a 10-year hip fracture risk >= 3% or a 10-year major osteoporosis-related fracture risk >= 20% (i.e., clinical vertebral, hip, forearm, or proximal humerus) based on the [place]-adapted FRAXregistered model. Secondary fracture prevention: * Fracture of the hip or vertebra regardless of BMD [4, 5]. * Fracture of proximal humerus, pelvis, or distal forearm in persons with low bone mass (osteopenia: T-score between - 1.0 and - 2.5). The decision to treat should be individualized in persons with a fracture of the proximal humerus, pelvis, or distal forearm who do not have osteopenia or low BMD [12, 13]. Tanisha MS, Elvia SL, Ronald KL, Charlotte EM, Dioni KG, AJ, Korin ES. The clinician's guide to prevention and treatment of osteoporosis. Osteoporos Int. 2021;33(10):8725-6400. doi: 10.1007/w47738-836-97506-p. Epub 2021Aug 19. Erratum in: Osteoporos Int. 2021Nov 18;: PMID: 84874818; PMCID: VHT0547666. Electronically authenticated by: CEE ALAN Date: 02/24/2024 06:11 Dictated By: Cee Alan M.D. Signed By: 02/24/24613 DD/ 0 TD/TT: Bootmaker: LEXI HealthcareRadiology Study observation (narrative)[facility] HealthcareXR DEXA AXIAL SKELETONOrdered By: Radiologist Radiology on 75-43-6222FAPK [employer] Work Phone: mm TOMOSYNTHESIS SCREENING BIon 14-64-3703[place]zfPhil[place], [place] [address] Mammography Report Signed Patient: GISEL ALMODOVAR MR#: [id number] : 1960 Acct:[id number] Age/Sex: 63 / F ADM Date: 02/23/24 Loc: MAMMO Attending Dr: Nitin Dominguez D.O. Ordering Physician: Nitin Dominguez D.O. Results: Date of Service: 02/23/24 Follow Up: Procedure(s): MM tomosynthesis screening BI Accession Number(s): [id number] cc: Nitin Dominguez D.O.; DESMOND MACIAS Patient Name: GISEL ALMODOVAR MR#: [id number] : 1960 Exam Date: 02/23/2024 Ordering Doctor: DR Nitin Dominguez . RADIOLOGY REPORT PROCEDURE: MM TOMOSYNTHESIS SCREENING BI COMPARISON: MM TOMOSYNTHESIS SCREENING BI, 02/21/2023. MG MAMM SCREEN 3D JACINTO CAD, 12/14/2021. INDICATIONS: Breast cancer screening by mammogram Z12.31 Calculator Name NCI Breast Cancer Risk Assessment Tool 5 Year Breast Cancer Risk 3.20% Lifetime Breast Cancer Risk 11.70% Personal Breast Cancer No Personal Ovarian Cancer No Treatments None Family Cancers Sister with breast cancer at age 60; Aunt-maternal with breast cancer at age 55. LOCATION: [facility] BREAST COMPOSITION: The breasts are heterogeneously [...] PALPABLE LUMP SHOULD BE BIOPSIED. Dictated by: Leela Powell MD on 02/23/2024 at 13:34 Approved by: Leela Powell MD on 02/23/2024 at 13:35 Dictated By: Leela Powell M.D. Signed By: 02/23/24 1336 DD/ 1335 TD/TT: Bootmaker:TBHRadiology, Radiologist, - 02/23/2024 [place] [address] Mammography Report Signed Patient: GISEL ALMODOVAR MR#: [id number] : 1960 Acct:[id number] Age/Sex: 63 / F ADM Date: 02/23/24 Loc: MAMMO Attending Dr: Nitin Dominguez D.O. Ordering Physician: Nitin Dominguez D.O. Results: Date of Service: 02/23/24 Follow Up: Procedure(s): MM tomosynthesis screening BI Accession Number(s): [id number] cc: Nitin Dominguez D.O.; DESMOND MACIAS Patient Name: GISEL ALMODOVAR MR#: [id number] : 1960 Exam Date: 02/23/2024 Ordering Doctor: DR Nitin Dominguez . RADIOLOGY REPORT PROCEDURE: MM TOMOSYNTHESIS SCREENING BI COMPARISON: MM TOMOSYNTHESIS SCREENING BI, 02/21/2023. MG MAMM SCREEN 3D JACINTO CAD, 12/14/2021. INDICATIONS: Breast cancer screening by mammogram Z12.31 Calculator Name NCI Breast Cancer Risk Assessment Tool 5 Year Breast Cancer Risk 3.20% Lifetime Breast Cancer Risk 11.70% Personal Breast Cancer No Personal Ovarian Cancer No Treatments None Family Cancers Sister with breast cancer at age 60; Aunt-maternal with breast cancer at age 55. LOCATION: [facility] BREAST COMPOSITION: The breasts are heterogeneously [...] PALPABLE LUMP SHOULD BE BIOPSIED. Dictated by: Leela Powell MD on 02/23/2024 at 13:34 Approved by: Leela Powell MD on 02/23/2024 at 13:35 Dictated By: Leela Powell M.D. Signed By: 02/23/24 1336 DD/ 1335 TD/TT: Bootmaker: [facility] SpringfieldRadiology Study observation (narrative)[facility] SpringfieldMM TOMOSYNTHESIS SCREENING BIOrdered By: Radiologist Radiology on 88-55-3685XRBN [employer] Work Phone: XR Lumbar spine Views W flexion and W extensionon 02-08-2024 TITLE OF EXAM: XR - LUMBAR SPINE W FLEX EXTENSION REASON FOR EXAM: Low back pain radiating into bilateral hips, no injury. TECHNIQUE: 8 radiographs of the lumbar spine and pelvis COMPARISONS: Lumbar spine radiographs 01/11/2019 FINDINGS: No fracture; normal vertebral body heights. Retrolisthesis of L1 on L2, 3 to 4 mm. Straightening ofnormal lower lumbar lordosis. Posterior fixation construct at [...] Electronically Signed Scotty Lam M.D. 2024-02-08 15:37:33 Denise Kerr MD - 02/08/2024 TITLE OF EXAM: XR - LUMBAR SPINE W FLEX EXTENSION REASON FOR EXAM: Low back pain radiating into bilateral hips, no injury. TECHNIQUE: 8 radiographs of the lumbar spine and pelvis COMPARISONS: Lumbar spine radiographs 01/11/2019 FINDINGS: No fracture; normal vertebral body heights. Retrolisthesis of L1 on L2, 3 to 4 mm. Straightening ofnormal lower lumbar lordosis. Posterior fixation construct at [...] Electronically Signed Scotty Lam M.D. 2024-02-08 15:37:33 [facility] HealthcareRadiology Study observation (narrative)[facility] SpringfieldXR Lumbar spine Views W flexion and W extensionOrdered By: Denise Lam on 92-38-8182[facility] Work Phone: IGP,APTIMA HPV,AGE GDLNon 96-71-0185TDH GDLN ACOG TESTINGNote.[facility] HealthcareComment on above:TESTS RESULT FLAG UNITS REF RANGE LAB Clinician Provided Cytology Information Source.............Vagina No. of containers..01 ThinPrep Vial Age Algo ACOG Kathryn... 28 FLAG LEGEND: L-Low Normal,H-High Normal,LL-Alert Low,HH-Alert High <-Panic Low,>-Panic High,A-Abnormal,AA-Critical Abnormal Performed at: 01 =[facility] [address] [address] Mcleod MD, HPV APTIMANegativeNegativeNOMS HealthcareComment on above:This nucleic acid amplification test detects fourteen high- risk HPV types (16,18,31,33,35,39,45,51,52,56,58,59,66,68) without differentiation. Performed at: =[facility]co[address] [id number] Sales And Marketing Vice President: Ct Mcleod MD, Phone: [phone] Performed at: [facility] Lab[address] [id number] Sales And Marketing Vice President: Ct Mcleod MD, Phone: [phone] IGP, APTIMA HPV, RFX 16/18,45Note.NOMS HealthcareComment on above:TESTS RESULT FLAG UNITS REF RANGE LAB DIAGNOSIS: 02 NEGATIVE FOR INTRAEPITHELIAL LESION OR MALIGNANCY. Specimen adequacy: 02 Satisfactory for evaluation. No endocervical cells are present. This is consistent with a history of hysterectomy. Performed by: Lety Rodrigues, Expressive Art Therapist (ASC) . 02 Note: Note 02 The Pap [...] High,A-Abnormal,AA-Critical Abnormal Performed at: 02 [facility] [address] [address] [address] Mcleod MD, [facility] CLINISYNCNOMS HealthcareAlanine aminotransferase [Enzymatic activity/volume] in Serum or PlasmaOrdered By: OUTREACH COMMUNITY on 49-49-9362KUK [Catalytic activity/Vol]9 U/L7-52St[facility]S HospitalAlbumin [Mass/volume] in Serum or Plasma by Bromocresol green (BCG) dye binding methoOrdered By: OUTREACH COMMUNITY on 64-05-8886Pioqfpw BCG dye [Mass/Vol]4.1 g/dL3.5-5.7FGreen Cross HospitalAlkaline phosphatase [Enzymatic activity/volume] in Serum or PlasmaOrdered By: OUTREACH COMMUNITY on 66-99-1811UAU [Catalytic activity/Vol]47 U/W02-113YhujzbnnaSt. Anthony'S HospitalAspartate aminotransferase [Enzymatic activity/volume] in Serum or PlasmaOrdered By: OUTREACH COMMUNITY on 86-99-9402IWS [Catalytic activity/Vol]17 U/D81-30VxqkylafjSt. Anthony'S HospitalBilirubin.total [Mass/volume] in Serum or PlasmaOrdered By: OUTREACH COMMUNITY on 40-60-5570Dltcvshqc [Mass/Vol]0.3 mg/dL0.3-1.0 [facility] [facility]S HospitalCalcium [Mass/volume] in Serum or PlasmaOrdered By: OUTREACH COMMUNITY on 15-74-8671Nradzrd [Mass/Vol]9.4 mg/dL8.6-10.3 [facility]S HospitalCarbon dioxide, total [Moles/volume] in Serum or PlasmaOrdered By: OUTREACH COMMUNITY on 57-46-3540LF0 [Moles/Vol]28.8 mmol/L 21.0-31.0St. [facility]'S HospitalChloride [Moles/volume] in Serum or PlasmaOrdered By: OUTREACH COMMUNITY on 13-64-4331Kvvzwcjc [Moles/Vol]105 mmol/L 98-107St. [facility]S HospitalCholesterol [Mass/volume] in Serum or PlasmaOrdered By: OUTREACH COMMUNITY on 48-29-3667Uxzsgxcnnxy [Mass/Vol]224 mg/kC617-123DnythpcqmSt. Anthony'S HospitalComment on above:Chol less than 200 mg/dl low riskChol 201-239 mg/dl borderline riskChol 240 mg/dl and greater high riskCholesterol in LDL Calc [Mass/Vol]Ordered By: [employer]ACH COMMUNITY on 81-79-0202Xdfzbyhzlph in LDL [Mass/Vol]103 mg/dL0-100St. [facility]'S HospitalComment on above:LDL ATP III CLASSIFICATIONLDL less than 100 mg/dL OptimalLDL 100-129 mg/dL Near or above rylhtynUZC391-238 mg/dL Borderline highLDL 160-189 mg/dL HighLDL greater than 189 mg/dL Very highCholesterol in VLDL Calc [Mass/Vol]Ordered By: [employer]ACH COMM[employer]ITY on 37-63-9383Uajzbptwwsv in VLDL [Mass/Vol]39 mg/dLSt. Anthony'S HospitalCreatinine [Mass/volume] in Serum or PlasmaOrdered By: OUTREACH COMMUNITY on 19-37-7583Yjmbhcjtpt [Mass/Vol]0.61 mg/dL0.60-1.20St. [facility]'S HospitalErythrocyte distribution width Auto (RBC) [Ratio]Ordered By: [employer]REACH COMMUNITY on 54-61-7994Atpfhauymkh distribution width (RBC) [Ratio]13.2 %11.9-15.3FGreen Cross HospitalGlucose [Mass/volume] in Serum or PlasmaOrdered By: OUTREACH COMMUNITY on 63-00-3612Oupcwqw [Mass/Vol]108 mg/wU08-724NxkvdxdbwSt. Anthony'S HospitalComment on above:ADA recommended reference rangeRandom Glucose Reference Range is dependent on time and content of last meal. Glucose of more than 200 mg/dL in a nonstressed, ambulatory subject supports the diagnosisof Diabetes Mellitus.Hematocrit Auto (Bld) [Volume fraction]Ordered By: [facility] on 89-98-9784Zrlkavgtcl (Bld) [Volume fraction]33.2 % 34.0-46.4FGreen Cross HospitalHemoglobin [Mass/volume] in Blood Ordered By: [facility] on 35-52-7518Ckifnrjkwc (Bld) [Mass/Vol]11.4 g/dL 11.8-15.4FGreen Cross HospitalLeukocytes [#/volume] corrected for nucleated erythrocytes in Blood by Automated counOrdered By: [facility] on 10-53-5066JXF corrected for nucl RBC Auto (Bld) [#/Vol]8.4 10*3/uL3.8-11.6 [facility] SouthH Auto (RBC) [Entitic mass]Ordered By: [facility] on 45-22-3134ADJ (RBC) [Entitic mass]36.3 pg24.7-34.3 [facility] [facility]S HospitalMCHC Auto (RBC) [Mass/Vol]Ordered By: [facility] on 86-36-5853AHHI (RBC) [Mass/Vol]34.5 g/dL32.0-35.0St. [facility]'S HospitalMCV Auto (RBC) [Entitic vol]Ordered By: [facility] on 75-90-7727UGV (RBC) [Entitic vol]105.1 fG14-288WxtgnugvlSt. Anthony'S Hospital No Panel InformationOrdered By: [facility] on 87-01-6273Nfcuqdcgv GFR (CKD-EPI)> 60.0 mL/MinSt. Anthony'S HospitalPharmacy Creatinine Clearance (ChemN/[facility] - TrumbullPlatelet mean volume Auto (Bld) [Entitic vol]Ordered By: [facility] on 50-83-6561Fcfbjjcn mean volume (Bld) [Entitic vol]9.6 fL6.3-10.7FGreen Cross Hospital Platelets Auto (Bld) [#/Vol]Ordered By: [facility] on 01-07-2023 Platelets (Bld) [#/Vol]273 10*3/yX405-962OfkckogptSt. Anthony'S Hospital Potassium [Moles/volume] in Serum or PlasmaOrdered By: [employer] COMM[employer] on 32-27-7095Yfmvnmjzh [Moles/Vol]4.2 mmol/L3.5-5.1FGreen Cross HospitalProtein [Mass/volume] in Serum or PlasmaOrdered By: [facility]ACH COMMUNITY on 78-58-8339Scqobim [Mass/Vol]6.3 g/dL6.4-8.9St. [facility]'S HospitalRBC Auto (Bld) [#/Vol]Ordered By: [facility]ACH COMMUNITY on 66-83-7160QOR (Bld) [#/Vol] 3.16 10*6/uL3.60-5.00Genesis Hospitalerum or plasma anion gap determinationOrdered By: OUTREACH COMMUNITY on 79-06-2376Ajksr gap [Moles/Vol] 9.4 mmol/L6.0-15.0Genesis Hospitalerum or plasma high density lipoprotein (HDL) cholesterol measurementOrdered By: OUTREACH COMMUNITY on 55-13-6482Qjcuwoembtm in HDL [Mass/Vol]82 mg/nN38-13OsfematunSt. Anthony'S HospitalComment on above:HDL CHOL ATP-III CLASSIFICATION Cardiovascular RiskHDL > or equal to 60 mg/dL LOWHDL < 40 mg/dL HIGHSerum or plasma total cholesterol/high density lipoprotein (HDL) cholesterol mass ratOrdered By: [facility]REACH COMMUNITY on 66-44-7856Pztiemshpxb.total/Cholesterol in HDL [Mass ratio]2.7 {ratio}<5.0Genesis Hospitalodium [Moles/volume] in Serum or PlasmaOrdered By: OUTREACH COMMUNITY on 24-15-8531Peujsr [Moles/Vol]139 mmol/X607-366LqsjrxlnmSt. Anthony'S HospitalTriglyceride [Mass/volume] in Serum or PlasmaOrdered By: OUTREACH COMMUNITY on 06-48-5097Mqxnrbgtviug [Mass/Vol]195 mg/dL0-149St. Anthony'S HospitalComment on above:TRIG ATP III CLASSIFICATIONTRIG less than 150 mg/dL NormalTRIG 150-199 mg/dL Borderline highTRIG 200-500 mg/dL High TRIG greater than 500 mg/dL Very highStandard traceable to the Center for Disease Conrtrol and Prevention (CDC) test method.Urea nitrogen [Mass/volume] in Serum or PlasmaOrdered By: OUTREACH COMMUNITY on 31-14-3115Yukz nitrogen [Mass/Vol]15 mg/dL7-St. Anthony'S HospitalMG MAMM SCREEN 3D JACINTO CADon 24-48-0380UT MAMM SCREEN 3D JACINTO CAD Patient: GISEL ALMODOVAR Exam Date: 12/14/2021 : 1960 Gender:F Ordering : DR LEONELA ROMERO . Admission #: [id number] Family : Order #: [id number] CLICK HERE TO VIEW EXAM RADIOLOGY REPORT [...] breast cancer at age 53. LOCATION: [facility] BREAST COMPOSITION: Heterogeneously dense,which may obscure [...] LUMP SHOULD BE BIOPSIED. Dictated by: Cee Alan M.D. on 12/15/2021 at 10:28 Approved by: Cee Alan M.D. on 12/15/2021 at 10:35Mary Rutan HospitalXR DEXA BONE DENSITYon 72-07-0843DV DEXA BONE DENSITYEXAMINATION: XR DEXA BONE DENSITY, 12/14/2021 2:57 PM EDT HISTORY: [...] Moderate fracture risk Electronically authenticated by: LEELA POWELL Date: 2021-12-14 17:08[facility] HospitalOG PANEL 2: 30 to 65on 12-07-2021..NormalSelect Medical Specialty Hospital - Cincinnati NorthComcorewell health zeeland hospital on above:Result Comment: Performed at: WBPerformed By: #### [id number] #### [facility] [address] [place] [address] Dr. Luis Burch Gdln ACOG Icqwlfg59-04GqejwdExzMary Rutan HospitalComment on above:Performed By: #### [id number] #### [facility] [address] [place] [address] Dr. Luis WhiteDIAGNOSIS:CommentJ.W. Ruby Memorial Hospital on above: Result Comment: NEGATIVE FOR INTRAEPITHELIAL LESION OR MALIGNANCY. THIS SPECIMEN WAS RESCREENED PART OF OUR CONSTRUCTION INSPECTOR PROGRAM. Performed at: WBPerformed By: #### [id number] #### [facility] [address] [place] [address] Dr. Luis WhiteHPV AptimaNegativeNormalNegativeSelect Medical Specialty Hospital - [facility] NorthComcorewell health zeeland hospital on above:Result Comment: This nucleic acid amplification test detects fourteen high-risk HPV types (16,18,31,33,35,39,45,51,52,56,58,59,66,68) without differentiation. Performed at: =GPerformed By: #### [id number] #### [facility] [address] [place] [address] Dr. Luis WhiteMethodology:CTIMNoMercy Health Springfield Regional Medical CenterComcorewell health zeeland hospital on above: Result Comment: The [employer] Prep(R) Washroom Attendant was unable to read this specimen. Therefore a manual review was performed. Performed at: WBPerformed By: #### [id number] #### [facility] [address] [place] [address] Dr. Luis WhiteNote:CommentJ.W. Ruby Memorial Hospital on above:Result Comment: The Pap smear is a screening test designed to aid in the detection of premalignant and malignant conditions of the uterine cervix. It is not a diagnostic procedure and should not be used as the sole means of detecting cervical cancer. Both false-positive and false-negative reports do occur. . Performed at: WBPerformed By: #### [id number] #### [facility] [address] [address] [address] Luis WhitePerformed by:[facility] on above: Result Comment: Hannah Li, Expressive Art Therapist (ASCP) Performed at: Performed By: #### [id number] #### [facility] [address] [place] [address] Dr. Luis WhiteQC reviewed by:[facility] on above:Result Comment: Pastora Adame Expressive Art Therapist Performed at: WBPerformed By: #### [id number] #### [facility] [address] [address] [address] Luis WhiteSpecimen adequacy:[facility] on above:Result Comment: Satisfactory for evaluation. No endocervical component is identified. Performed at: WBPerformed By: #### [id number] #### [facility] [address] [place] [address] Dr. Luis White Vital Signs Date TimeVital SignValuePerforming IirrlaajjIlktssid82-32-8025 15:03-0400Body rtvkor518.4 cmJacbailey Velezi GLASSWARE ENGRAVER Work Phone: [facility] SpringfieldOveljyaerf45-93-2360 15:03-0400Body mass index (BMI) [Ratio]20.12 kg/d5Hvchmocrnm Graziani GLASSWARE ENGRAVER Work Phone: noScotland County Memorial HospitalAcpqvupkry05-93-8894 15:03-0400Body .72 kgJacbailey Velezi GLASSWARE ENGRAVER Work Phone: [facility] SpringfieldIuvnjfbgdk52-29-0920 15:03-0400Diastolic blood zavmyxic00 mm[Hg]Dixie Moreno GLASSWARE ENGRAVER Work Phone: [facility] SpringfieldFdlzyprske14-29-6646 15:03-0400Systolic blood fnsrwunf201 mm[Hg]Dixie Moreno GLASSWARE ENGRAVER Work Phone: [facility] SpringfieldDqtvtdfvpc33-58-9452 09:12-0400Body .94 cmMatthew Petznick DO Work Phone: [phone] [place], [place] 280[address]10-31-2025 09:12-0400 Body mass index (BMI) [Ratio]19.3 kg/u7Hqjbeqc Petznick DO Work Phone: [phone] [place], [place] [address]10-31-2025 09:12-0400 Body uthpdo69.5 kgMatthew Petznick DO Work Phone: [phone] [place], [place] 280[address]10-24-2025 11:47-0400 Diastolic blood rifglcxr80 mm[Hg]Desmond Petznick DO Work Phone: 1([phone] [place], [place] 2805210-24-2025 11:47-0400 Heart rate71 /minMatthew Petznick DO Work Phone: [phone] [place], [place] 280[address]10-24-2025 11:47-0400 SaO2% (BldA) [Mass fraction]99 %Desmond Petznick DO Work Phone: 1([phone] [place], [place] 2805210-24-2025 11:47-0400 Systolic blood byuomolb759 mm[Hg]Desmond Petznick DO Work Phone: [phone] [place], [place] [address]209-24-2025 13:08-0400 Body mass index (BMI) [Ratio]19.73 kg/g0Gqtsk Angelica DO Work Phone: [facility] SpringfieldSzzwjqcpln30-69-2510 13:08-0400Body jhhtop11.81 kgCorey Angelica DO Work Phone: [facility] SpringfieldAhpkkbrvil72-76-2332 13:08-0400Diastolic blood gshnavwq80 mm[Hg]Nitin Angelica DO Work Phone: [facility] SpringfieldPcswekpqev12-51-2860 13:08-0400Systolic blood btymcyjg750 mm[Hg]Nitin Angelica DO Work Phone: [facility] SpringfieldOvepuvwwsp63-49-5104 13:08-0400Body ohaseo994.4 cmPaul Biedenbach DO Work Phone: [facility] SpringfieldJpgznlijsp87-16-4491 13:08-0400Body mass index (BMI) [Ratio]19.53 kg/m2Paul Biedenbach DO Work Phone: [facility] SpringfieldTestdpxyuy88-05-5197 13:08-0400Body ppamjg86.36 kgPaul Biedenbach DO Work Phone: [facility] SpringfieldPusidfjjdf71-97-7876 13:41-0400Body rteyzs760.4 cmPaul Biedenbach DO Work Phone: [facility] SpringfieldQcenysqfbh18-05-9713 13:41-0400Body mass index (BMI) [Ratio]19.53 kg/m2Paul Biedenbach DO Work Phone: [facility] SpringfieldRjnrowmexi15-44-2716 13:41-0400Body jwloqr33.36 kgPaul Biedenbach DO Work Phone: [facility] SpringfieldZxcpbwnzgt48-70-5332 11:38-0400Body zygqro174.4 cmMatthew Petznick DO Work Phone: [facility] SpringfieldXdvbmybxot76-34-5539 11:38-0400Body mass index (BMI) [Ratio]19.53 kg/f8Inkivhp Petznick DO Work Phone: [facility] SpringfieldKstufnbaen82-77-2138 11:38-0400Body temperature 98.01 [degF]Desmond Petznick DO Work Phone: [facility] SpringfieldIjbaxqrwyl35-43-5391 11:38-0400Body mmsjpo71.36 kgMatthew Petznick DO Work Phone: [facility] SpringfieldVipqdwxcqn40-53-5811 11:38-0400Diastolic blood smctdzva47 mm[Hg]Desmond Macias DO Work Phone: [facility] SpringfieldHkvnwndvvr78-08-8891 11:38-0400Heart rate80 /min Desmond Macias DO Work Phone: 1(672)[facility] [place], [place] [address]Qnexpunbxe99-83-6794 11:38-6050IrN2% (BldA) [Mass fraction]99 %Desmond Macias DO Work Phone: [phone] [place], [place] [address]Jbuepyzgur24-05-9780 11:38-0400Systolic blood ekkodzkr233 mm[Hg]Desmond Macias DO Work Phone: [phone] [place], [place] [address]Ucxzpowrts30-18-8104 13:15-0400Body mass index (BMI) [Ratio]19.08 kg/b7RdvjjypVictorino Alejandre MD Work Phone: [facility] SpringfieldOltogwjelb93-10-2660 13:15-0400Body uobaak26.81 kgVictorino Alejandre MD Work Phone: [facility] SpringfieldXhfraanajk19-10-2464 13:15-0400Diastolic blood xuxiwvwh16 mm[Hg]Victorino Alejandre MD Work Phone: [facility] SpringfieldTdpsaihemb67-56-5106 13:15-0400Heart rate86 /min Victorino Alejandre MD Work Phone: [facility] SpringfieldFvnazmpqii51-07-0473 13:15-0400Systolic blood iqvcamhu238 mm[Hg]Victorino Alejandre MD Work Phone: [facility] SpringfieldRkvulxiluj98-90-9050 12:27-0400Body gekenl863.9 cmMatthekyra Macias DO Work Phone: [facility] SpringfieldDrirryyzvl43-72-2041 12:27-0400Body mass index (BMI) [Ratio]20.22 kg/z6Inwkaojmakenzie Macias DO Work Phone: 1(281)[facility] [place], [place] [address]Lgnliwkouy73-55-2063 12:27-0400Body temperature 98.2 [degF]Desmond Macias DO Work Phone: 1(893)[facility] [place], [place] [address]Usdepbqofk53-72-4789 12:27-0400Body hvuwgk87.53 kgMattmakenzie Macias DO Work Phone: [facility] SpringfieldRtkjgghyiz51-66-9949 12:27-0400Diastolic blood ikinxhhh67 mm[Hg]Desmond Macias DO Work Phone: [facility] SpringfieldRxjbubzell94-55-9261 12:27-0400Heart rate82 /min Desmond Macias DO Work Phone: [phone] [place], [place] [address]Gdyepfotsg23-65-1893 12:27-6639RuO0% (BldA) [Mass fraction]99 %Desmond Macias DO Work Phone: 1(708)685-[address] [place], [place] [address]Xseaqmgdpg46-39-4898 12:27-0400Systolic blood zfenvsld783 mm[Hg]Desmond Macias DO Work Phone: 1([phone] [place], [place] [address]Rkarlaqtae84-88-2930 11:35-0400Body mass index (BMI) [Ratio]19.65 kg/w4IoxmidvVictorino Alejandre MD Work Phone: 1(546)8-[address] [place], [place] [address]Lxjbujbigq18-26-5259 11:35-0400Body qiserq44.17 kgVictorino Alejandre MD Work Phone: [facility] SpringfieldBthocghvgf74-48-4253 11:35-0400Diastolic blood sajgfmme06 mm[Hg]Victorino Alejandre MD Work Phone: [address] [place], [place] [address]Kivmukrwuf02-68-0512 11:35-0400Heart rate83 /min Victorino Alejandre MD Work Phone: [address] [place], [place] [address]Bzvysszuvu68-32-7932 11:35-0400Systolic blood iplrrosc059 mm[Hg]Victorino Alejandre MD Work Phone: [facility] SpringfieldNtubptkjqv23-39-5715 16:18-0500Body mass index (BMI) [Ratio]19.46 kg/k7RmzipkjVictorino Alejandre MD Work Phone: [facility] SpringfieldRtymzusbqc31-46-3392 16:18-0500Body .72 kgVictorino Alejandre MD Work Phone: [facility] SpringfieldUfwyxkqiho19-07-4749 16:18-0500Diastolic blood erzpbuny02 mm[Hg]Victorino Alejandre MD Work Phone: [facility] SpringfieldGgjyrescgc48-57-4222 16:18-0500Heart rate81 /min Victorino Alejandre MD Work Phone: [facility] SpringfieldMagpmrtlsy57-55-9209 16:18-0500Systolic blood ikyzlirc034 mm[Hg]Victorino Alejandre MD Work Phone: [facility] SpringfieldXsrwkpsflv28-17-6233 12:28-0500Body rokpjf585.9 cmMatthew Petalyssaick DO Work Phone: [facility] SpringfieldCqpicizbqg58-39-7620 12:28-0500Body mass index (BMI) [Ratio]18.63 kg/m8Gdefmyx Jaydenick DO Work Phone: [facility] SpringfieldUzpdxljcgx45-46-7366 12:28-0500Body temperature 98.01 [degF]Desmond Macias DO Work Phone: [facility] SpringfieldFduinoyvip00-76-6768 12:28-0500Body .73 kgMatthew Jaydenick DO Work Phone: [facility] SpringfieldNojbdkpakt88-17-7771 12:28-0500Diastolic blood mzheuukt55 mm[Hg]Desmond Kimick DO Work Phone: [facility] SpringfieldFtmezkjrbi84-79-4965 12:28-0500Heart rate86 /min Desmond Macias DO Work Phone: 1([phone] [place], [place] [address]Mvxrlbwbvg35-92-4199 12:28-1401RbI0% (BldA) [Mass fraction]98 %Desmond Kimick DO Work Phone: [facility] SpringfieldJghjqveivx34-71-2244 12:28-0500Systolic blood ryvpgntn238 mm[Hg]Desmond Macias DO Work Phone: [facility] SpringfieldVprjbisfkv14-95-0693 10:40-0500Body mass index (BMI) [Ratio]20.22 kg/e8Ebfurfh Austin GLASSWARE ENGRAVER Work Phone: [facility] SpringfieldKgmmocepyh95-33-4388 10:40-0500Body temperature 98.01 [degF]Benji Patel GLASSWARE ENGRAVER Work Phone: [facility] SpringfieldYehntfdymq46-07-1398 10:40-0500Body .53 kgBenji Patel GLASSWARE ENGRAVER Work Phone: [facility] SpringfieldWvcekhpcbn34-78-6335 10:40-0500Heart febh755 /min Benji Patel GLASSWARE ENGRAVER Work Phone: [facility] SpringfieldYsjikllgoc70-38-3996 10:40-3446UfR9% (BldA) [Mass fraction]98 %Benji Patel GLASSWARE ENGRAVER Work Phone: [facility] SpringfieldCfnmjtyyix23-61-2323 10:31-0500Body vkjevr547.9 cmVictorino Alejandre MD Work Phone: [facility] SpringfieldXqwzcmzbjn28-42-0472 10:31-0500Body mass index (BMI) [Ratio]20.22 kg/z7UiizhqkVictorino Alejandre MD Work Phone: [facility] SpringfieldBmonbztiyx26-04-1542 10:31-0500Body gwlnuw45.53 kgVictorino Alejandre MD Work Phone: [facility] SpringfieldOtxlukrpck82-39-3666 10:31-0500Diastolic blood llrkikbm40 mm[Hg]Victorino Alejandre MD Work Phone: [facility] SpringfieldGguehebgjj37-79-2791 10:31-0500Systolic blood umlathlx599 mm[Hg]Victorino Alejandre MD Work Phone: [facility] SpringfieldLfhbqlyicz54-38-4487 10:32-0500Body tpptek052.9 cmMatttabbykyra Petalyssaick DO Work Phone: noScotland [facility] HospitalPdaqtkhiui69-22-8171 10:32-0500Body mass index (BMI) [Ratio]20.44 kg/i5Wksjgntmakenzie Macias DO Work Phone: [address] [address]Kukwvxyawk09-23-0078 10:32-0500Body temperature 96.8 [degF]Desmond Macias DO Work Phone: [address] [address]Lckyubhwji62-84-3401 10:32-0500Body ylmfcy47.08 kgMattmakenzie Petznick DO Work Phone: 1(903)[facility] [place], [place] [address]Fkcvsmhywb34-29-6131 10:32-0500Diastolic blood exhgztcu11 mm[Hg]Desmond Petznick DO Work Phone: 1(038)[facility] [place], [place] [address]Yvgdycfkip83-77-4981 10:32-0500Heart rate77 /min Desmond Petznick DO Work Phone: 1(989)[address] [place], [place] 4482612-20-2024 10:32-7325VhP2% (BldA) [Mass fraction]99 %Desmond Petznick DO Work Phone: 1(426)[facility] [place], [place] [address]Ewlyfwywur75-47-5831 10:32-0500Systolic blood fghdbyhl671 mm[Hg]Desmond Petznick DO Work Phone: 1(000)[address] [place] [address]-17-2024 13:09-0400Body tzpciq406.9 cmMatttabbyw Petznick DO Work Phone: 1(108)[address] [place], [place] 4482610-17-2024 13:09-0400Body mass index (BMI) [Ratio]19.61 kg/j2Xvbobxo Petznick DO Work Phone: 1(507)[address] [place], [place] 4482610-17-2024 13:09-0400Body temperature 98.01 [degF]Desmond Petznick DO Work Phone: 1(085)[address] [place], [place] 4482610-17-2024 13:09-0400Body mmvjza53.08 kgMattmakenzie Petznick DO Work Phone: 1(598)[address] [place], [place] 4482610-17-2024 13:09-0400Diastolic blood kdydxseu95 mm[Hg]Desmond Petalyssaick DO Work Phone: 1(825)[address] [place] [address]-17-2024 13:09-0400Heart rate73 /min Desmond Petznick DO Work Phone: 1(825)[facility] [place] [address]-17-2024 13:09-0808DaW1% (BldA) [Mass fraction]99 %Desmond Petznick DO Work Phone: 1(591)[facility] [place] [address]-17-2024 13:09-0400Systolic blood mm[Hg]Desmond Macias DO Work Phone: noScotland [facility] Memorial HospitalOuwvqwzafi45-76-9435 13:28-0400Body yswjjl564.9 Xiomara Song DO Work Phone: [facility] SpringfieldTmdtlzcwhs18-24-7307 13:28-0400Body mass index (BMI) [Ratio]19.65 kg/m2Paul Nohemi DO Work Phone: [facility] SpringfieldZdcqckrdjh39-85-9080 13:28-0400Body imuivg56.17 kgPabon Song DO Work Phone: [facility] SpringfieldTvwlgsastd13-95-3204 13:28-0400Diastolic blood mm[Hg]Jose Song DO Work Phone: [facility] SpringfieldZbbpmpmbqp16-12-8087 13:28-0400Systolic blood tkwhxant396 mm[Hg]Jose Song DO Work Phone: [facility] SpringfieldYvkouhhnqu59-41-2223 14:08-0400Body boecka897.4 cmCorediana Dominguez DO Work Phone: [facility] SpringfieldZepvibymlq32-97-0271 14:08-0400Body mass index (BMI) [Ratio]20.14 kg/d3Shuoq Angelica DO Work Phone: [facility] [id number] 14:08-0400Body uycozf77.77 kgNitin Andersono DO Work Phone: [facility] [id number] 17:00-0400Body .67 cmSjuju Lawrenceky Other [facility] [employer] Other 03-24-2022 17:00-0400Body mass index (BMI) [Ratio] 19.67 kg/t3WqvwrpCharles Luis Other [place] [employer] Other 03-24-2022 17:00-0400Body hqsohw77.45 kgCharles Luis Other [place] [employer] Other 03-24-2022 17:00-0400Diastolic blood faongmpc56 mm[Hg] Charles Luis Other [facility] [employer] Other 03-24-2022 17:00-2050SqU8% (BldA) [Mass fraction]99 % Charles Luis Other [facility] [employer] Other 03-24-2022 17:00-0400Systolic blood hzffyadq324 mm[Hg] Charles Luis Other [facility] [employer] Other 01-21-2022 10:00-0500Body uwqrql492.67 cmJustin Madina Other [facility] [employer] Other 01-21-2022 10:00-0500Body mass index (BMI) [Ratio] 20.93 kg/k8Avvzsg Madina Other [facility] [employer] Other 01-21-2022 10:00-0500Body smxtip31.44 kgJustin Madina Other [facility] [employer] Other 10-29-2021 11:30-0400Body uobokg034.67 cmJustin Madina Other [facility] [employer] Other 10-29-2021 11:30-0400Body mass index (BMI) [Ratio] 20.19 kg/z8Subknf Madina Other [facility] Other 10-29-2021 11:30-0400Body .67 kgJustin Madina Other [facility] [employer] Other Encounters Encounter DateEncounter TypeCare ProviderFacilityStart: 02-21-2025 End: 89-19-3862Regjxx outpatient visit 15 minutesJacmegajessika Elodia Moreno GLASSWARE ENGRAVER Work Phone: noMS [facility] NeurologyComment on above:Cervical radiculopathy (Primary Dx); New daily persistent headache; Insomnia, unspecified type; Migraine with aura and without status migrainosus, not intractable; Carpal tunnel syndrome on both sidesStart: 02-21-2025 End: 40-93-5571yxuhweibxwUHBCAOAYMY Elodia LYDIAIANINot AvailableStart: 02-21-2025 End: 41-82-0653Xwacbr flowsheetJacqueline Elodia Kendrickiani GLASSWARE ENGRAVER Work Phone: noms NEUROLOGYStart: 02-21-2025 End: 93-24-2349Zsvamt flowsheetJacqueline Elodia Kendrickiani GLASSWARE ENGRAVER Work Phone: noms BM NEUROLOGYStart: 02-21-2025 End: 72-42-2481wrzgvtyvfmHneybte Petznick DO Work Phone: [phone]-Kdvifk[facility] Health NeurosurgeryStart: 02-21-2025 End: 19-28-1556Bqpdhde encounter procedurePanfilo Cifuentes MD-[facility] Neurosurgery Work Phone: start: 02-14-2025 End: 02-68-1931syszyqtwhvSobpuoj Petznick DO Work Phone: [phone]-Bncupyxax Health Pain MgmtStart: 02-14-2025 End: 38-72-7045Diilymg encounter procedureSjuju Luis MD-[facility] Pain Mgmt Work Phone: Start: 02-05-2025 End: 05-36-6465Qivvolbdd encounterJr. Young Shah DO Work Phone: noms [place] OrthopaedicsComment on above: office called about referralStart: 01-29-2025 End: 19-56-1631Dxhqpm flowsheetJr. Young Shah DO Work Phone: noms [facility] OrthopaedicsStart: 01-29-2025 End: 75-93-5695Qwgsiy flowsheetJr. Young Shah DO Work Phone: NOM[facility] [place] OrthopaedicsStart: 01-29-2025 End: 72-09-8308Iseljl outpatient visit 15 minutesJr. Young Shah DO Work Phone: noMS [place] OrthopaedicsComment on above:Iliac crest bone pain (Primary Dx); Primary osteoarthritis of right hip; Lumbar radiculopathyStart: 01-29-2025 End: 03-55-2479svnkehmtrfTH., YOUNG SHAHNot AvailableStart: 01-15-2025 End: 81-00-1928Befjrm flowsheetCorey Angelica DO Work Phone: noms [facility] OBGYNStart: 01-15-2025 End: 50-07-3576Rntyhl flowsheetCorey Angelica DO Work Phone: NOMS [place] OBGYNStart: 01-15-2025 End: 84-72-2129Myucydtls Result EncounterCorey Angelica DO Work Phone: noms External Department UnsolicitedStart: 01-15-2025 End: 14-30-4065Cukfepr encounter procedureCorey Angelica DO Work Phone: noms HealthcareStart: 01-15-2025 End: 09-66-1667Lzpakjcr preventive med est patient 40-64yrsCorey Angelica DO Work Phone: noMS [place] OBGYNComment on above:Well woman exam with routine gynecological exam; Encounter for screening mammogram for malignant neoplasm of breast; Postmenopausal state; Menopausal symptom; Osteopenia, unspecified locationStart: 01-15-2025 End: 41-91-7069wcteyljvcpZAAFL FAZIONot AvailableStart: 01-06-2025 End: 17-95-3687Onafhx outpatient visit 15 minutesMattmakenzie PEÑA Work Phone: noms [place] OrthopaedicsComment on above:Primary osteoarthritis of right hip (Primary Dx); Pain in joint of right hipStart: 01-06-2025 End: 62-43-3087rujbytpqbwOSQPQXI J MEYERNot AvailableStart: 12-25-2024 End: 31-98-1024Vehajx flowsheetJr. Young Shah DO Work Phone: N[facility] [place] OrthopaedicsStart: 12-25-2024 End: 50-28-8439Aorfxx flowsheetJr. Young Shah DO Work Phone: NOMS [place] OrthopaedicsStart: 12-25-2024 End: 98-52-3752Omvfex outpatient visit 15 minutesJr. Young Shah DO Work Phone: NOMS [place] OrthopaedicsComment on above:Primary osteoarthritis of right hip (Primary Dx); Pain in joint of right hip; Closed fracture of sacrum, unspecified portion of sacrum, initial encounter ([facility])Start: 12-25-2024 End: 18-04-9318hizteibzfqMQ., YOUNG Riley AvailableStart: 12-20-2024 End: 69-56-4496Mlgpse flowsheetPaul S Biedenbach DO Work Phone: NOMS [place] OtolaryngologyStart: 12-20-2024 End: 39-90-5913Xomqtu flowsheetPaul S Biedenbach DO Work Phone: noms [place] OtolaryngologyStart: 12-20-2024 End: 96-15-1149Rocrlu outpatient visit 15 minutesPaul S Biedenbach DO Work Phone: NOMS [place] OtolaryngologyComment on above:Tobacco abuse (Primary Dx); Glossitis; Vasomotor rhinitisStart: 12-20-2024 End: 01-20-8586gmbrbqqgbjFODW S BIEDENBACHNot AvailableStart: 12-16-2024 End: 28-21-3507zcvyyhsucvUM.YOUNG AvailableStart: 12-07-2024 End: 74-25-6458KmdnsfAdiwelihvx M Graziani GLASSWARE ENGRAVER Work Phone: NOQH [facility] 210Comment on above: Displacement of lumbar disc with radiculopathyStart: 12-04-2024 End: 21-89-7893Gcpwqq flowsheetJr. Young Shah DO Work Phone: noms [place] [facility]opaedicsStart: 12-04-2024 End: 96-78-1732Akyezb flowsheetJr. Young Shah DO Work Phone: noms [place] OrthopaedicsStart: 12-04-2024 End: 40-80-4969Qkfqnt outpatient visit 15 minutesJr. Young Shah DO Work Phone: noms [place] OrthopaedicsComment on above:AVN (avascular necrosis of bone) (HCC) (Primary Dx); Primary osteoarthritis of right hip; Pain in joint of right hipStart: 12-04-2024 End: 75-97-0132dsdnlwmuerWG., YOUNG SHAHNot AvailableStart: 11-22-2024 End: 92-01-8272Oczwcj flowsheetPaul S Biedenbach DO Work Phone: NOBY [place] OtolaryngologyStart: 11-22-2024 End: 99-47-7948Chpztm flowsheetPaul S Biedenbach DO Work Phone: noms [place] OtolaryngologyStart: 11-22-2024 End: 54-32-3787Qzbdoa outpatient new 45 minutesPaul S Biedenbach DO Work Phone: noms [place] OtolaryngologyComment on above:Glossitis (Primary Dx); Vasomotor rhinitis; Tobacco abuseStart: 11-22-2024 End: 72-59-5240qgoachxsyfKMSO S BIEDENBACHNot AvailableStart: 10-24-2024 End: 97-56-2444Cjkumy flowsheetMagustavo Macias DO Work Phone: NOMS SWS FM 230Start: 10-24-2024 End: 24-95-9018Yehawq flowsheetMatthekyra Violeta Petznick DO Work Phone: NOMS SWS FM 230Start: 10-24-2024 End: 18-51-0384Mfuuweq encounter procedureMatttabbykyra Violeta Petznick DO Work Phone: NOMS [facility] FM 230Comment on above:Routine general medical examination at a health care facility (Primary Dx); Need for vaccination; Idiopathic progressive polyneuropathy; Cervical radiculopathy; Osteopenia, unspecified location; Anxiety; Major depressive disorder, single episode, mild ; Migraine without aura, not refractory ; Tingling sensation; Primary hypertension ; IFG (impaired fasting glucose); Tongue painStart: 10-24-2024 End: 04-28-0892Vdwmzvx encounter statusMatthekyra Violeta Petznick DO Work Phone: NOMS HealthcareStart: 10-24-2024 End: 69-23-7374aolhhoaootSOVYOZP C PETZNICKNot AvailableStart: 10-16-2024 End: 35-89-5901Nwqymc flowsheetJr. Young Mcdaniel Stepcecelia DO Work Phone: [facility] ORTHOStart: 10-16-2024 End: 90-62-7706Dtukdn flowsheetJr. Young Mcdaniel Stepanic DO Work Phone: NOMS SWS ORTHOStart: 10-16-2024 End: 15-64-2877Aszjmv outpatient visit 25 minutesJr. Young Shah DO Work Phone: NOMS SWS ORTHOComment on above:Trochanteric bursitis of left hip (Primary Dx); Bilateral hip painStart: 10-16-2024 End: 90-41-9194pzgztblnwoXW., YOUNG Riley AvailableStart: 10-03-2024 End: 58-90-9611zfrmixjcwvTkfpacw PetznickFacility:[facility]tart: 09-21-2024 End: 49-29-0368AjyapxFksvczi C Petznick DO Work Phone: NOMS SWS FM 230Comment on above:Degeneration of intervertebral disc of lumbar region, unspecified whether pain present; Lumbar pain; Primary insomniaStart: 09-11-2024 End: 27-83-2440Ppwlvy OnlyFelicia Violeta Alvarez GLASSWARE ENGRAVER Work Phone: noms SWS NEURComment on above:Cervical radiculopathy (Primary Dx); Degenerative disc disease, cervicalStart: 09-05-2024 End: 08-82-1401Dqjerh flowsheetVictorino Alejandre MD Work Phone: noms BM NEUROLOGYStart: 09-05-2024 End: 00-70-5435Zbtpou flowsheetVictorino Alejandre MD Work Phone: noms BM NEUROLOGYStart: 09-05-2024 End: 26-97-6207Xobobwur SupportBrehumaira Alejandre MD Work Phone: noms SWS NEURComment on above:Trochanteric bursitis of both hips (Primary Dx); Bilateral hip pain; Cervical radiculopathy; Fungal colitis; Carpal tunnel syndrome on leftStart: 08-30-2024 End: 08-29-1648KprhskVcxmcmbolw M Graziani GLASSWARE ENGRAVER Work Phone: noms [facility] NEURO 210Comment on above:Displacement of lumbar disc with radiculopathyStart: 08-19-2024 End: 09-55-5268Kiqotro encounter procedureMatthew Petznick DO Work Phone: [facility]-Electrodiagn[facility] Work Phone: Start: 08-19-2024 End: 20-86-1015nuhkannbcsZfvmloi Petznick DO Work Phone: [facility] Work Phone: Start: 08-02-2024 End: 54-95-7717Gtlptfmro encounterMatthew C Petalyssaick DO Work Phone: noms SWS FM 230Start: 07-29-2024 End: 45-52-8054Daeoxj flowsheetMatthew C Petznick DO Work Phone: NOM[facility] S[facility] FM 230Start: 07-29-2024 End: 37-33-2551Ylypka flowsheetMatthew C Petznick DO Work Phone: [phone] SWS FM 230Start: 07-29-2024 End: 75-69-1760Mvbyfq outpatient visit 25 minutesMatthew C Petznick DO Work Phone: NOM[facility] S[facility] FM 230Comment on above:Elevated blood pressure reading (Primary Dx); Murmur; Idiopathic progressive polyneuropathy; Tingling sensationStart: 07-29-2024 End: 20-99-2843fzfasmceuiCREGKHI C PETZNICKNot AvailableStart: 07-24-2024 End: 66-65-6657Yywnbd Nazario Alejandre MD Work Phone: noms NEUROLOGYStart: 07-24-2024 End: 40-53-5671Zvjddi Nazario Alejandre MD Work Phone: noms BM NEUROLOGYStart: 07-24-2024 End: 76-89-2189Vakgdhjz SupportVictorino Alejandre MD Work Phone: NOSB SWS NEURComment on above:Trochanteric bursitis of both hips (Primary Dx); Fungal colitis; Carpal tunnel syndrome on leftStart: 06-26-2024 End: 33-11-6058KbfwjtHknburl C Petznick DO Work Phone: NOM[facility] S[facility] FM 230Comment on above:Primary insomnia; Degeneration of intervertebral disc of lumbar region, unspecified whether pain present; Lumbar painStart: 06-12-2024 End: 74-60-0371Wbdhsanimco Alejandre MD Work Phone: noms BM NEUROLOGYStart: 06-12-2024 End: 51-35-3365Wdgadwnimco Alejandre MD Work Phone: noms BM NEUROLOGYStart: 06-12-2024 End: 13-14-2337Xornbatx SupportVictorino Alejandre MD Work Phone: NOMS SWS NEURComment on above:Carpal tunnel syndrome on both sides (Primary Dx); Fungal colitis; Burning tongue syndrome; New daily persistent headache; Trochanteric bursitis of both hipsStart: 06-11-2024 End: 74-01-5019LfldsqKmkrodqjar M Graziani GLASSWARE ENGRAVER Work Phone: noms [facility] NEURO 210Comment on above:Displacement of lumbar disc with radiculopathyStart: 06-10-2024 End: 70-88-4473Nlfuezcwq encounterMatthew C Petznick DO Work Phone: [phone] SWS FM 230Start: 05-24-2024 End: 40-36-5942Ctybppfks encounterMatthew C Petznick DO Work Phone: [phone] SWS FM 230Start: 05-01-2024 End: 27-43-7741Nrkhbu flowsheetMatthew C Petznick DO Work Phone: [phone] SWS FM 230Start: 05-01-2024 End: 53-10-4325Fcctpk flowsheetMatthew C Petznick DO Work Phone: [phone] SWS FM 230Start: 05-01-2024 End: 11-22-4410Hpanrd outpatient visit 15 minutesMatthew C Petznick DO Work Phone: [phone] SWS FM 230Comment on above:Mild reactive airways disease, unspecified whether persistent (CMS/HCC) (Primary Dx); Acute bronchitis, bacterial; Influenza A; Neuropathy; Tingling sensation; Smoker; Tobacco abuse; Vitamin D deficiencyStart: 05-01-2024 End: 04-90-9851vsdjiphuykECASITO C PETZNICKNot AvailableStart: 04-20-2024 End: 91-65-4642Fpidwl outpatient visit 25 minutesLindsay Piyush Patel GLASSWARE ENGRAVER Work Phone: NOMS SWS UCComment on above:Influenza A (Primary Dx); Cough, unspecified typeStart: 04-20-2024 End: 59-08-2504dlmhhbxjlvIPJUYNP N AUSTINNot AvailableStart: 04-15-2024 End: 53-78-5166Avloib flowsAndrew Alejandre MD Work Phone: noms BM NEUROLOGYStart: 04-15-2024 End: 76-50-4799Kcmnct flowsheetVictorino Alejandre MD Work Phone: noms BM NEUROLOGYStart: 04-15-2024 End: 31-24-4758Viimigzh SupportBrehumaira Alejandre MD Work Phone: noms SWS NEURComment on above:Trochanteric bursitis of left hip (Primary Dx); Carpal tunnel syndrome on leftStart: 04-12-2024 End: 08-72-9531Zhfaer flowsheetMatthew C Petznick DO Work Phone: [phone] SWS FM 230Start: 04-12-2024 End: 75-87-5542Expdbz flowsheetMatthew C Petznick DO Work Phone: [phone] SWS FM 230Start: 04-12-2024 End: 69-07-0916Cwouih outpatient visit 15 minutesMatthew C Petznick DO Work Phone: [phone] SWS FM 230Comment on above:Tingling sensation (Primary Dx)Start: 04-12-2024 End: 12-28-9667qjtwdsgmueFROVFIL C PETZNICKNot AvailableStart: 03-27-2024 End: 28-29-7993nkwmvbkuurWJYWS FAZIONot AvailableStart: 03-27-2024 End: 19-63-5742Thoo/qhp telephone evaluation 5-10 minCorey Angelica DO Work Phone: NOMS BCP OBComment on above:Osteopenia, unspecified locationStart: 03-07-2024 End: 02-79-0288NaemjcOdduwugjdw M Graziani NP Work Phone: noms [facility] NEURO 210Comment on above:Displacement of lumbar disc with radiculopathyStart: 03-05-2024 End: 51-05-8870cczrowiwphYBRV Violeta LAFFAYNot AvailableStart: 03-05-2024 End: 80-42-3166Bfdmde follow up visit related to original pxJose Changy DO Work Phone: noms ST GENSComment on above:Colon cancer screening (Primary Dx)Start: 02-26-2024 End: 70-90-8691fcxxgqydlzZAMAPHT C PETZNICKNot AvailableStart: 02-24-2024 End: 32-04-5873Csdxqqcrt Result EncounterCorey Angelica DO Work Phone: NOLM External Department UnsolicitedStart: 02-24-2024 End: 45-39-3743Cmgvuhzjz Result EncounterCorey Angelica DO Work Phone: NOXY External Department UnsolicitedStart: 02-23-2024 End: 10-96-8664Oeyqneirs Result EncounterCorey Angelica DO Work Phone: noms External Department UnsolicitedStart: 02-23-2024 End: 63-32-9156Oxhpvydzv Result EncounterCorey Angelica DO Work Phone: noms External Department UnsolicitedStart: 02-19-2024 End: 72-84-3410Qhlgdpmary jane Alejandre MD Work Phone: noms BM NEUROLOGYStart: 02-19-2024 End: 05-65-1653Buvbgnnimco Alejandre MD Work Phone: noms BM NEUROLOGYStart: 02-08-2024 End: 13-35-8163Dtbsfd outpatient visit 25 minutesMattmakenzie Mcdaniel Petznick DO Work Phone: NOHF SWS FM 230Comment on above:Degeneration of intervertebral disc of lumbar region, unspecified whether pain present (Primary Dx); Lumbar painStart: 01-23-2024 End: 84-64-9160Cjmmfvq encounter procedurePabon Changy DO Work Phone: NOXK ST GENSComment on above:Colon cancer screening Start: 01-14-2024 End: 29-15-5705VpxuurHkuewma C Thongalyssaick DO Work Phone: noms SWS FM 230Comment on above:Primary insomniaStart: 01-09-2024 End: 27-59-1986Jtlthf flowsheetCorey Angelica DO Work Phone: noms BCP OBStart: 01-09-2024 End: 06-39-9458Ejkjlx flowsheetCorey Angelica DO Work Phone: noms BCP OBStart: 01-09-2024 End: 70-57-2465Trbbdwamk Result EncounterCorey Angelica DO Work Phone: noms External Department UnsolicitedStart: 01-09-2024 End: 36-14-1056Onnjwtz encounter procedureCorey Angelica DO Work Phone: [facility] Work Phone: Start: 01-09-2024 End: 32-43-0450Ptymvsea preventive med est patient 65yrs& olderCorey Angelica DO Work Phone: noms BCP OBComment on above:Well woman exam with routine gynecological exam; Breast cancer screening by mammogram; Postmenopausal state; Menopausal symptom; Osteopenia, unspecified locationStart: 12-27-2023 End: 89-93-5301Uoqbnc flowsheetVictorino Alejandre MD Work Phone: noms BM NEUROLOGYStart: 12-27-2023 End: 03-05-6848Cryifu flowsheetVictorino Alejandre MD Work Phone: noms BM NEUROLOGYStart: 12-27-2023 End: 38-19-2281Hblozjig SupportVictorino Alejandre MD Work Phone: noms SWS NEURComment on above:Carpal tunnel syndrome on left (Primary Dx); Neuropathy; Trochanteric bursitis of both hipsStart: 12-23-2023 End: 55-16-2490AzccctSdqcwzcjcp M Graziani GLASSWARE ENGRAVER Work Phone: noms [facility] NEURO 210Comment on above:Displacement of lumbar disc with radiculopathyStart: 01-07-2023 End: 78-28-2278iemthhafreWL Matthew Petznick Work Phone: [facility] Work Phone: Start: 01-07-2023 End: 00-58-3586Igsmtqwn ReferredDO Desmond Macias Work Phone: [facility]-Community Outreach Work Phone: Start: 12-14-2021 End: 99-35-6707famulggawaXA LEONELA ROMEROFacility:R5Yjyow: 11-30-2021 End: 91-25-9249tbvdroxuqfBOZBOTB PETZNICKFacility:B1Xuunl: 07-15-2021 End: 80-67-4292icbzqqrlzcRznvdv [employer] Other [employer] Other Start: 78-13-5850Fmkeqg outpatient visit 25 minutes Charles Kraus Pain ManagementStart: 07-08-2021(Procedure) [facility] CenterStart: 07-08-2021 End: 05-31-4743tnmlygcpizYaemjs [employer] Other [employer] Other Start: 06-28-2021 End: 96-52-8131wtjshqcourQivihh [employer] Other [facility] Other Start: 44-19-2608Ibajrhgyt encounterSjuju Kraus Referral CoordinatorStart: 05-14-2021 End: 76-37-3096qropkkduvbNfmtdy Kelley Other [facility] Other Start: 35-18-1873Mbfnpw outpatient visit 15 minutes Imtiaz [place] OrthopedicsStart: 05-07-2021([facility] C Vac) [facility] Covid VaccineDawn [facility] Care ClinicStart: 05-07-2021 End: 35-63-3569ujfgfrrjtmOdjm Fitt Other [employer] Other Start: 04-12-2021 End: 02-03-1205mgwdlytijtCnmdpg Kelley Other [employer] Other Start: 07-78-0906Zbzuwfmma encounterJuximena [place] OrthopedicsStart: 60-99-2611Ntzkit outpatient new 45 minutesJuximena [facility] Procedures DateProcedureProcedure DetailPerforming ClinicianStart: 40-93-5064Zokxw hip unilateral with pelvis 2-3 viewsJr. Young Mcdaniel Stepcecelia DO Work Phone: Start: 74-93-2957UYO,APTIMA HPV,AGE GDLNCorey Angelica DO Work Phone: Start: 39-03-6706Ujvwxustwpmwot aspir&/inj major jt/bursa w/usMatthew Alicia Lanier PA Work Phone: Start: 64-12-0033Fdwkaotglaxggt aspir&/inj major jt/bursa w/o usJr. Young Mcdaniel Stepanic DO Work Phone: Start: 82-89-6530UYWAHL COVID-19/FLUAnthony G Chong DO Work Phone: Start: 69-65-3594LP DEXA AXIAL SKELETONCorey Angelica DO Work Phone: Start: 36-72-3780JC TOMOSYNTHESIS SCREENING BICorey Angelica DO Work Phone: Start: 29-03-7775FuyzjnorzwdXfam Laffay DO Work Phone: Start: 32-61-1055PimamosdcruBppa Laffay DO Work Phone: Start: 60-29-5778Jnldm spine lumbscrl compl w/bending views min 6Matthew C Petznick DO Work Phone: Start: 41-69-7703GMU,APTIMA HPV,AGE GDLNCorey Angelica DO Work Phone: Start: 66-56-5926GssabspivtnYwqgfyzdok Graziani GLASSWARE ENGRAVER Work Phone: Start: 11-28-2022H/O: hysterectomyStatus post hysterectomyJacqueline Graziani GLASSWARE ENGRAVER Work Phone: Start: 74-48-2720PncqisejykdMiebtfpmtl Graziani GLASSWARE ENGRAVER Work Phone: Plan of Treatment DateCare ActivityDetailAuthorStart: 09-52-1976Whvetbcoh for malignant neoplasm of colonNOMS HealthcareStart: 01-20-2026 End: 97-06-8512Jbkwava encounter /29/2026 1:00 PM EDT Procedure Visit NOMМарина LEBRON [address] [place] [address] Nitin Dominguez, DO [address] [place], [place] [id number] NOMМарина [place] OBGYNStart: 01-15-2026 Medicare Annual Wellness (AWV)Medicare Annual Wellness (AWV)[facility] Start: 07-03-2026Medicare Annual Wellness (AWV)Medicare Annual Wellness (AWV) NOMS HealthcareStart: 04-28-2025 End: 51-72-8217Xxlztoen Mbdpijy0804/28/2025 11:20 AM EST Clinical Support [facility] [address] [place] [address] Victorino Alejandre MD [address] [place] [address] L[facility] [place] NeurologyStart: 03-05-2025 End: 50-15-9668Fkmpuxv encounter zfxnghyzo12/12/2025 11:15 AM EST Office Visit [facility] [address] [place] [address] Jr. Young Shah, DO [address] [facility] [address] [place] [address] [facility] [place] OrthopaedicsStart: 52-21-5896Zrecklsga for malignant neoplasm of breastMammogramNOCO Healthcare Start: 02-21-2025 End: 82-37-7964Glmpjaen SupportNOMS [place] NeurologyComment on above:Arrived Start: 02-05-2025 End: 05-19-6629Ugbazlyr Ctgbxxk0102/05/2025 1:00 PM EDT Clinical Support [facility] [place] [address] [place] [address] Victorino Alejandre MD [address] [facility] [address] [id number] [facility] [place] NeurologyStart: 01-29-2025 End: 98-93-8255Xhokesb encounter procedureNOMS [place] OrthopaedicsComment on above:ArrivedStart: 01-15-2025 End: 28-13-5019PX Breast - bilateral ScreeningBilateral screening mammogram Imaging Routine Encounter for screening mammogram for malignant neoplasm of breast Expected: 01/15/2025, Expires: 03/17/2026[facility] Work Phone: Comment on above:Expected: 01/15/2025, Expires: 03/17/2026Start: 01-15-2025 End: 20-05-3045Iedydwr encounter procedureNOMS BCP OBComment on above:Arrived Start: 09-17-2025Medicare Annual Wellness (AWV)Medicare Annual Wellness (AWV) NOM HealthcareStart: 01-06-2025 End: 92-37-0081Rqhedkl encounter iutwkfegt98/15/2025 9:30 AM EDT Office Visit [facility] [address] [place], [id number] Desmond Lanier, PA [address] [place] [address] NOMS [place] [facility]opaedicsStart: 01-01-2025 End: 19-15-9934Ukvueelq SupportNOMS SWS NEURStart: 12-25-2024 End: 21-07-0155Txtzlhd encounter procedureNOMS [facility] OrthopaedicsComment on above:ArrivedStart: 78-66-2625MULHE-19 Vaccine ( season)COVID-19 Vaccine ( season)NOMS HealthcareStart: 09-70-5234Acuwollxb vaccinationInfluenza Vaccine (#1)[facility] HealthcareStart: 12-20-2024 End: 27-35-9421Spvzxhs encounter iowyejcnb51/29/2025 1:15 PM EDT Office Visit [facility] [place] [facility] [address] [id number] Jose Boone DO [address] [place] [address] ArrivedNO [facility] Comment on above:ArrivedStart: 12-13-2024 End: 17-13-5992Pktyfjx encounter kzxsztgta60/22/2025 1:30 PM EDT Office Visit [facility] [place] [facility] [address] [id number] Jose Boone DO [address] [place] [address] NOMМарина [place] OtolaryngologyStart: 12-04-2024 End: 14-78-8182ML Hip - right WO contrastMR hip right wo IV contrast Imaging Routine AVN (avascular necrosis of bone) (HCC) Expected: 12/04/2024, Expires: 12/04/2025[facility] Work Phone: Comment on above:Expected: 12/04/2024, Expires: 12/04/2025Start: 12-04-2024 End: 89-20-3281Mdfwyoi encounter procedureNOMS [place] OrthopaedicsComment on above:ArrivedStart: 11-22-2024 End: 97-99-4842Kcljugu encounter zxapmxedr82/01/2025 2:00 PM EDT Office Visit [facility] [address] [place], [id number] Jose Boone, DO [address] [place] [address] ArrivedLEXI [facility] Comment on above:ArrivedStart: 07-23-2025Medicare Annual Wellness (AWV)Medicare Annual Wellness (AWV)NOMS HealthcareStart: 11-13-2024 End: 47-10-8754Qffpkrw encounter cymbimlyr05/23/2025 11:15 AM EDT Office Visit [facility] [address] [place] [phone] Jr. Young Shah, DO [address] [place] [address] [facility]: 10-24-2024 End: 66-99-9686Vxatjfr encounter wgzamwjst98/03/2025 11:45 AM EDT Office Visit [facility] [address] [place] [phone] Desmond Macias, DO [address] [place] [address] [facility] FM 230Comment on above:ArrivedStart: 10-17-2024 End: 75-74-5730Uimiiiyv SupportNOMS SWS NEURStart: 10-16-2024 End: 66-33-9707Yyeuarm encounter procedureNOMS SWS ORTHOComment on above: Bilateral hip painStart: 09-05-2024 End: 02-05-5691Omsegrjt SupportNOMS SWS NEURComment on above:ArrivedStart: 07-29-2024 End: 52-99-1494Ttpqill encounter eaxckfvey06/07/2025 12:30 PM EDT Office Visit [facility] [address] [place] [phone] Desmond Macias, [address] [place] [address] ArrivedNOMS [facility] FM 230Comment on above:ArrivedStart: 07-24-2024 End: 84-77-5113Dhsbqhia SupportNOMS [facility] NEURComment on above:ArrivedStart: 06-26-2024 End: 83-32-8784Bfuqzieshexw / ancillary services ohnyswsxnd71/05/2025 11:00 AM EST Ancillary Procedure NOM[facility] MR [address] [place] [phone] [facility] MRStart: 06-12-2024 End: 90-43-9208WN Brain WO and W contrast IVMR brain w and wo contrast routine Imaging Routine Burning tongue syndrome New daily persistent headache Expected: 06/12/2024, Expires: 06/12/2025[facility] Work Phone: Comment on above:Expected: 06/12/2024, Expires: 06/12/2025Start: 06-12-2024 End: 61-65-6580Uqlwuocn SupportNOMS SWS NEURComment on above:ArrivedStart: 75-49-9211Ulqwawnpc for malignant neoplasm of colonColorectal Cancer Screening NOMS HealthcareComment on above:Postponed from 1958 (Patient Refused) Start: 05-01-2024 End: 66-05-9285Aqjljgs encounter xkxmczitq56/08/2025 12:45 PM EST Office Visit [facility] [address] [place] [phone] Desmond Macias, DO [address] [place] [address] ArrivedNOMS SWS FM 230Comment on above:ArrivedStart: 04-15-2024 End: 37-79-9812Xsnpcogx SupportNOMS SWS NEURComment on above:ArrivedStart: 04-12-2024 End: 24-59-3836Dgurseq encounter uattgygbq70/20/2024 10:15 AM EST Office Visit [facility] [address] [place] [phone] Desmond Macias, DO [address] [place] [address] ArrivedNOMS SWS FM 230Comment on above:ArrivedStart: 04-01-2024 End: 85-62-6502Kzsagghi Gfoakna7604/01/2024 11:00 AM EST Clinical Support [facility] NEUR [address] [place] [phone] Victorino Alejandre MD [address] [facility] [address] [place] [address] NOMS SWS NEURStart: 03-27-2024 End: 63-85-2196Icuwzvh encounter jmyzkprto88/04/2024 8:00 AM EST Office Visit [facility] [address] [place] [phone] Nitin Dominguez, DO [address] [facility] [address] [place], [place] [id number] NOMS BCP OBStart: 03-05-2024 End: 84-98-4174Hsnzpjk encounter eycfnuxpj59/12/2024 11:15 AM EST Office Visit [facility] [address] [place] [phone] Jose Song, DO [address] [facility] [address] [place] [address] GENSStart: 02-26-2024 End: 35-06-3722Bbaktatkvnbs / ancillary services qpaxptpkrk39/04/2024 11:00 AM EST Ancillary Procedure [facility] [place] [address] [place] [phone] SH MRStart: 69-06-7736Wqxogrkrj for malignant neoplasm of breastMammogramNOMS HealthcareStart: 02-22-2024 End: 25-55-3406Ueuyimy encounter vxicqrywe52/31/2024 10:00 AM EDT Procedure Visit [facility] EXT DEP Jose Song, DO [address] [place] [address] NOMS EXT DEPStart: 02-21-2024 End: 12-59-9608Tzetbwctrzns / ancillary services /30/2024 5:45 PM EDT Ancillary Procedure [facility] [address] [place] [phone] [phone] SH MRStart: 02-19-2024 End: 25-82-4570Snbpbjjg SupportNOMS SWS NEURComment on above:ArrivedStart: 01-23-2024 End: 06-16-5711Tbbyrnx encounter kvmavvypb55/01/2024 1:30 PM EDT Office Visit [facility] [address] [facility] [address] [place] [phone] Jose Song, DO [address] [facility] [address] [place] [address] NOMS GENSStart: 01-09-2024 End: 20-64-1259WYP Skeletal system Views for bone densityDEXA bone density Imaging Routine Postmenopausal state Expected: 01/09/2024 (Approximate), Expires:01/08/2025NOMS HealthcareComment on above:Expected: 01/09/2024 (Approximate), Expires: 01/08/2025Start: 01-09-2024 End: 01-20-1039GX Breast - bilateral ScreeningBilateral screening mammogram Imaging Routine Breast cancer screening by mammogram Expected: 01/09/2024, Expires: 03/10/2025[facility] Work Phone: comment on above:Expected: 01/09/2024, Expires: 03/10/2025Start: 01-09-2024 End: 55-12-8844Sfcfubr encounter procedureNOMS BCP OBComment on above:Arrived Start: 12-27-2023 End: 33-16-2504Oufvptix SupportNOMS SWS NEURComment on above:ArrivedStart: 43-35-5362Mthgoseuf vaccinationInfluenza Vaccine (#1)NOM HealthcareStart: 72-98-4854Ezqwekntw for malignant neoplasm of colonColonoscopyNOMS Healthcare Start: 01-16-7692Khnlayukqdfs Vaccine: 65+ Years (1 of 2 - PCV)Pneumococcal Vaccine: 65+ Years (1 of 2 - PCV)NOM HealthcareStart: 51-86-9939OTbQ/Tdap/Td Vaccines (1 - Tdap)DTaP/Tdap/Td Vaccines (1 - Tdap)NOM HealthcareStart: 59-06-5119Qvcsvlxlapwp Vaccine: 65+ Years (1 of 2 - PCV)Pneumococcal Vaccine: 65+ Years (1 of 2 - PCV)NOM HealthcareStart: 18-28-2805DFD Vaccines (1 of 1 - Standard series)MMR Vaccines (1 of 1 - Standard series)[facility] HealthcareStart: 83-68-6208Gbsgqhhbu for malignant neoplasm of colonNOMS Kexhqrzdhc27- hydroxyvitamin D3 [Mass/volume] in Serum or PlasmaVitamin D 25 hydroxy Total Lab Routine Neuropathy Tingling sensation Vitamin D deficiency Ordered: 05/01/2024 N[facility]S HealthcareComment on above:Ordered: 5Anti-DNA antibody, rfzcef-pckhecavJrif-TNG antibody, double-stranded Lab Routine Neuropathy Tingling sensation Vitamin D deficiency Ordered: 05/01/2024[facility] Comment on above:Ordered: 5Cobalamin (Vitamin B12) [Mass/volume] in Serum or PlasmaVitamin B12 Lab Routine Neuropathy Tingling sensation Vitamin D deficiency Ordered: 05/01/2024[facility] HealthcareComment on above:Ordered: 05/01/2024Ferritin [Mass/volume] in Serum or PlasmaFerritin Lab Routine Neuropathy Tingling sensation Vitamin D deficiency Ordered: 05/01/2024[facility] HealthcareComment on above:Ordered: 05/01/2024Folate [Mass/volume] in Serum or PlasmaFolate Lab Routine Neuropathy Tingling sensation Vitamin D deficiency Ordered: 05/01/2024[facility] HealthcareComment on above:Ordered: 05/01/2024Nuclear Ab [Titer] in Serum by ImmunofluorescenceANA Lab Routine Neuropathy Tingling sensation Vitamin D deficiency Ordered: 05/01/2024[facility] HealthcareComment on above:Ordered: 05/01/2024Sjogrens syndrome-A extractable nuclear antibody Sjogrens syndrome-A extractable nuclear antibody Lab Routine Neuropathy Tingling sensation Ordered:05/01/2024[facility] HealthcareComment on above:Ordered: 05/01/2024 Sjogrens syndrome-B extractable nuclear antibodySjogrens syndrome-B extractable nuclear antibody Lab Routine Neuropathy Tingling sensation Ordered:05/01/2024 [facility] Work Phone: Comment on above:Ordered: 05/01/2024THIN PREP TIS PAP AND HR HPV DNATHIN PREP TIS PAP AND HR HPV DNA Pathology and Cytology Routine Well woman exam with routine gynecological exam Ordered: 01/09/2024[facility] HealthcareComment on above:Ordered: 01/09/2024THIN PREP TIS PAP AND HR HPV DNA THIN PREP TIS PAP AND HR HPV DNA Pathology and Cytology Routine Well woman exam with routine gynecological exam Ordered: 01/15/2025[facility] HealthcareComment on above:Ordered: 01/15/2025US Heart TransthoracicCongenital transthoracic echo (TTE) complete Imaging Routine Murmur Ordered: 07/29/2024[facility] Work Phone: Comment on above:Ordered: 07/29/2024 Immunizations Immunization DateImmunizationNotesCare FtyemtboHmppyahr20-47-4206Uubihqkksjem Conjugate PCV 20Matthew Petznick DO Work Phone: [facility] SpringfieldYhlmtzfdjc42-35-9777Fieuohqe trivalent influenza vaccine, adjuvanted, preservative Matt Alejandre MD Work Phone: [facility] SpringfieldVauqcmswue73-09-9166vgeyrrlsi virus vaccine, unspecified formulationMatthew Petznick DO Work Phone: [facility] SpringfieldDlgdtsjbar41-93-7866wbkemsasg, injectable, quadrivalent, preservative freeJacqueline Graziani GLASSWARE ENGRAVER Work Phone: [facility] SpringfieldCfamgrfsol38-18-3226chvdkflsg virus vaccine, unspecified formulationJacqueline Graziani GLASSWARE ENGRAVER Work Phone: [facility] SpringfieldNheevxpuhh24-48-1779SKBZA-[address] Other [facility]10-01-2020influenza, injectable, quadrivalent, contains preservativeJacqueline Graziani GLASSWARE ENGRAVER Work Phone: [facility] SpringfieldTfkphvmhfc04-31-0546mnuinablh virus vaccine, unspecified formulationMatthew Petznick DO Work Phone: [facility]11-01-2017influenza, seasonal, injectableJacqueline Graziani GLASSWARE ENGRAVER Work Phone: [facility] SpringfieldRmfcdaldtn54-51-9747kdfirbnte, seasonal, injectable, preservative freeJustin Madina Other [employer] Other [id number] virus vaccine, split virus (incl. purified surface antigen)Dixie Graziani GLASSWARE ENGRAVER Work Phone: [facility] SpringfieldErcbrvvpcr33-84-0127nspucvjql, seasonal, injectableJustin Madina Other [employer] Other Payers DatePayer CategoryPayerPolicy [id number] (Managed Care)[facility] [id number] [facility] xxAUHW 2023 [address] [place] [address] [id number] [id number]-jee19-05-4310 [id number] 2.16.840.1.645030.3.579.2.50403-91-9070Ewpscee4579111 2.16840.1.394194.3.579.2.11[id number] 2.840.1.441485.3.57[id number] 2.16.840.1.538067.3.579.[id number] 2.16.840.1.690723.3.57[id number] 2.16.840.1.569700.3.57[id number] 2.16.840.1.185304.3.57[id number] 2.16.840.1.380962.3.579.2.793895-21-0103Zaagrda38148764 2.16.840.1.415099.3.57[id number] 2.16.840.1.222112.3.579.2.789416-35-4263Hqonbzf95238761 2.16840.1.513655.3.579.2.791317-54-2658Fnyqacm22871370 2.16840.1.225510.3.579.2.258512-33-6848Jsftziq74930645 2.160.1.358721.3.579.2.416071-69-9079Fnhewnb98924298 2.0.1.034549.3.579.2.328559-23-2382Szhgpzl3852458 2.16840.1.093181.3.579.2.368821-60-2311Dlxrqll8970636 2.840.1.414667.3.579.2.213824-69-2127Atiuvrf8280261 2.0.1.140533.3.579.2.813129-90-5621Wqltegi7967953 2.0.1.845115.3.579.2.412080-55-2003Orlrnfi9176469 2.16840.1.801450.3.579.2.102658-51-6445Xfttghh7830707 2.16840.1.239870.3.579.2.091075-07-7444Euwzdyh6339540 2.16840.1.759782.3.579.2.561597-90-6853Bwdanjz5808565 2.16840.1.612174.3.579.2.758216-44-5105Rkkktvj3022097 2.16.0.1.268402.3.579.2.778100-14-4935Idyfcku2667365 2.160.1.725261.3.579.2.061439-78-2525Eyysenw8144069 2.160.1.430327.3.579.2.137712-85-2500Lfgzzqi6418859 2.160.1.325646.3.579.2.334128-75-6789Vfxikpb7272035 2.0.1.479288.3.579.2.765950-03-6072Eallkpr8535177 2.0.1.357784.3.579.2.1259Blue Cross Blue [id number] 2.0.1.960275.76Ftlg[id number] 852xi78s-92m3-0531-0a53-2201l15b0538Svmgtht19993677 2.0.1.5831[id number] 2..1.655092.3.579.2.531 Social History DateTypeDetailFacilityUnknown if ever smokedNort [employer] Other Start: 11-07-2023 End: 06-94-6769Gjt Assigned At [facility] InstituteStart: 07-23-2018 End: 20-39-6555Rwujaso smoking status NHISSmoker (findingCleveland Clinic Lutheran Hospitaltart: 76-14-7878Vwy Assigned At [facility] Hospitalt[facility]: 04-24-1976 End: 09-42-8629Ctgygox smoking status NHISSmokes tobacco dailyDoctors Hospital of Springfield Start: 45-40-7603Nxrcdmv of tobacco useCigarette SmokerNOMS HealthcareStart: 81-19-7094Swgtjgf use and exposureUser of smokeless tobaccoNOMS HealthcareStart: 01-23-2024 End: 57-77-3608Bqrvjnzfq beverage intakeCurrent drinker of alcohol (finding)N[facility]S HealthcareStart: 11-07-2023 End: 33-12-8984Sjqruogeh beverage intakeNOMS HealthcareStart: 10-42-4838Svi often do you need to have someone help you when you read instructions, pamphlets, or other written material from your doctor or pharmacy [SILS]Never N[facility]S HealthcareDo you belong to any clubs or organizations such as nondenominational groups, unions, fraternal or athletic groups, or school groups?NoN[facility]S Healthcare Are you now , , , , never or living with a partner?MarriedNOMS HealthcareHow often to you have a drink containing alcohol?2-3 time sa weekNOMS HealthcareHow many standard drinks containing alcohol do you have on a typical day?1 or 2NOMS HealthcareHow often do you have 6 or more drinks on 1 occasion?NeverNOMS HealthcareDo you feel stress - tense, restless, nervous, or anxious, or unable to sleep at night because yourmind is troubled all the time - these days [OSQ]Very muchNOMS Healthcare(I/We) worried whether (my/our) food would run out before (I/we) got money to buy more.Never trueNOMS HealthcareStart: 00-51-3484Xnyjnuq Comment6-10 cigarettes a dayNOMS HealthcareStart: 68-53-2506Xqigysv Comment2-3 times a week; Caffeine Intake: 2-3 cups per day coffee or sodaNOMS HealthcareStart: 81-62-4971Wevfud identity Identifies as female gender (finding)[facility] HealthcareStart: 02-08-2024 End: 82-69-6196Vbuarss use and exposureSmokeless tobacco non-userNOMS Healthcare Start: 67-91-3342Ghhnajo Comment5 cigarettes a dayNOMS HealthcareStart: 39-03-3000HaqBiodcg (finding)[facility] Medical Equipment Procedure CodeEquipment CodeEquipment Original TextEquipment IdentifierDates Fusion, spine, lumbar, XLIFALLOGRAFT 8MM TLIF LORDOTICFDAStart: 07-23-2018 Fusion, spine, lumbar, XLIFSCREW SET CAPLOX IIFDAStart: 82-69-9368Zjoacx, spine, lumbar, XLIFSCREW SET CAPLOX IIFDAStart: 19-35-0960Zqbhtz, spine, lumbar, XLIF SCREW SET CAPLOX IIFDAStart: 72-53-3728Oxvnup, spine, lumbar, XLIFOSTEOAMP GRANULES 5CCFDAStart: 87-74-8861Xuvjip, spine, lumbar, XLIFROD 40MM CVD CAPLOX IIFDAStart: 37-84-2163Sssfzc, spine, lumbar, XLIFROD 40MM CVD CAPLOX IIFDAStart: 28-83-7344Ciydbv, spine, lumbar, XLIFSCREW 6.5 X 40MM CAPLOX IIFDAStart: 28-26-2226Namkwt, spine, lumbar, XLIFSCREW 6.5 X 45MM CAPLOX IIFDAStart: 93-37-6219Ekmtgw, spine, lumbar, XLIFSCREW 6.5 X 50MM CAPLOX IIFDAStart: 03-70-6849Dgrqyk, spine, lumbar, XLIFSCREW 6.5 X 50MM CAPLOX IIFDAStart: 10-44-5848Tbwfig, spine, lumbar, XLIFSCREW SET CAPLOX IIFDAStart: 07-23-2018 Fusion, spine, lumbar, XLIFALLOGRAFT 8MM TLIF LORDOTICFDAStart: 07-23-2018 Fusion, spine, lumbar, XLIFSCREW SET CAPLOX IIFDAStart: 25-38-1751Pawkmg, spine, lumbar, XLIFSCREW SET CAPLOX IIFDAStart: 44-23-3447Enklzs, spine, lumbar, XLIF SCREW SET CAPLOX IIFDAStart: 95-00-7838Gxicbj, spine, lumbar, XLIFOSTEOAMP GRANULES 5CCFDAStart: 31-39-3920Kpavot, spine, lumbar, XLIFROD 40MM CVD CAPLOX IIFDAStart: 18-67-1241Njfnpp, spine, lumbar, XLIFROD 40MM CVD CAPLOX IIFDAStart: 94-55-7384Tjidbl, spine, lumbar, XLIFSCREW 6.5 X 40MM CAPLOX IIFDAStart: 88-00-5124Bgmaim, spine, lumbar, XLIFSCREW 6.5 X 45MM CAPLOX IIFDAStart: 19-28-4018Njximj, spine, lumbar, XLIFSCREW 6.5 X 50MM CAPLOX IIFDAStart: 71-55-8972Mvrhmz, spine, lumbar, XLIFSCREW 6.5 X 50MM CAPLOX IIFDAStart: 80-89-2207Aziiob, spine, lumbar, XLIFSCREW SET CAPLOX IIFDAStart: 07-23-2018 Fusion, spine, lumbar, XLIFALLOGRAFT 8MM TLIF LORDOTICFDAStart: 07-23-2018 Fusion, spine, lumbar, XLIFSCREW SET CAPLOX IIFDAStart: 44-74-4207Btuvsm, spine, lumbar, XLIFSCREW SET CAPLOX IIFDAStart: 76-69-9731Ndfkep, spine, lumbar, XLIF SCREW SET CAPLOX IIFDAStart: 12-30-9145Uwsvxm, spine, lumbar, XLIFOSTEOAMP GRANULES 5CCFDAStart: 01-62-7408Ufhkot, spine, lumbar, XLIFROD 40MM CVD CAPLOX IIFDAStart: 30-92-4422Xtnymd, spine, lumbar, XLIFROD 40MM CVD CAPLOX IIFDAStart: 35-77-3335Vlktxy, spine, lumbar, XLIFSCREW 6.5 X 40MM CAPLOX IIFDAStart: 05-34-8905Dgpwyt, spine, lumbar, XLIFSCREW 6.5 X 45MM CAPLOX IIFDAStart: 44-79-1784Lenkwr, spine, lumbar, XLIFSCREW 6.5 X 50MM CAPLOX IIFDAStart: 56-21-1509Xfqzry, spine, lumbar, XLIFSCREW 6.5 X 50MM CAPLOX IIFDAStart: 70-59-8724Aurefx, spine, lumbar, XLIFSCREW SET CAPLOX IIFDAStart: 07-23-2018 Fusion, spine, lumbar, XLIFALLOGRAFT 8MM TLIF LORDOTICFDAStart: 07-23-2018 Fusion, spine, lumbar, XLIFSCREW SET CAPLOX IIFDAStart: 98-70-4151Cwrevx, spine, lumbar, XLIFSCREW SET CAPLOX IIFDAStart: 33-54-8232Aiglre, spine, lumbar, XLIF SCREW SET CAPLOX IIFDAStart: 27-79-4780Pxfwqb, spine, lumbar, XLIFOSTEOAMP GRANULES 5CCFDAStart: 05-99-0552Uwztpq, spine, lumbar, XLIFROD 40MM CVD CAPLOX IIFDAStart: 94-17-4365Hbweqd, spine, lumbar, XLIFROD 40MM CVD CAPLOX IIFDAStart: 70-94-6920Zfowry, spine, lumbar, XLIFSCREW 6.5 X 40MM CAPLOX IIFDAStart: 65-81-2020Etkrlp, spine, lumbar, XLIFSCREW 6.5 X 45MM CAPLOX IIFDAStart: 75-51-1290Uppfna, spine, lumbar, XLIFSCREW 6.5 X 50MM CAPLOX IIFDAStart: 82-08-0110Apgzax, spine, lumbar, XLIFSCREW 6.5 X 50MM CAPLOX IIFDAStart: 65-17-2257Kvsejn, spine, lumbar, XLIFSCREW SET CAPLOX IIFDAStart: 07-23-2018 Functional Status HjfiIvlojiahqdWtzwthKvadgzfp29-44-1222Syrnpfp Health Questionnaire 2 item (PHQ- 2) [Reported][facility] SpringfieldQntseufzax83-32-3533Ojtolvn Health Questionnaire 2 item (PHQ- 2) [Reported][facility] Clinical Notes 02-19-2021 to 02-21-2025 Note Date & VfnyCypkJpkgyrpj47-34-8219 History of Present illness Narrative* Dixie Moreno, SAADIA - 02/21/2025 3:00 PM EDT Images from [...] care. This clinical note was created utilizing [employer] documentation system. All information has beenthoroughly reviewed, corrected as necessary, and authenticated by the provider to ensure accuracy and completeness. On occasion, [employer] documentation system erroneously drops words or replaces aspoken word with a similar sounding word. Please notify with any questions or concerns regarding this clinical note. documented in this [facility]10-24-2025 Evaluation note* Diagnosis Onset Date Resolution Status Admit Date Arthritis of lumbosacral spine acuteOctober 2024 11:35amOther chronic painacuteOctober 2024 11:35am Primary osteoarthritis of right hipacuteOctober 2024 11:35amSacroiliitis acuteOctober 2024 11:35amHistory of lumbar fusionacuteOctober 2024 8:54amInflammation of both sacroiliac jointsacuteOctober 2024 8:54am Spondylosis of cervical region without myelopathy or radiculopathyacuteOctober 2024 8:54am [facility] Work Phone: [phone] Telephone encounter Note* Telephone Encounter - MARGAUX Hinojosa - 02/05/2025 3:11 PM EDT Jade, could you please refax the referral I changed the dx to lumbar radiculopathy. Thanks [facility] SpringfieldJihponhwxl65-36-6834 Miscellaneous Notes* Telephone Encounter - MARGAUX Hinojosa - 02/05/2025 3:11 PM EDT Jaed, could you please refax the referral I [...] referr al and resend. documented in this encounterDoctors Hospital of SpringfieldTctwsjadbl80-82-4422 Telephone encounter Note* Telephone Encounter - Anai Alcantara - 02/05/2025 [...] to correct the referr al and resend. [facility] SpringfieldMikkndkuxs87-91-7940 History of Present illness Narrative* Yonug Mcdaniel Pablo, DO - 01/29/2025 11:00 AM EDT Images from the original note were not included. HISTORY OF PRESENT ILLNESS: EST PT Gisel Almodovar is an 64 y.o. @ female. (EST PT) (LAST APPT W/ EDISON) - RECHECK B/L HIP DISCOMFORT (R>L) S/P USG (R) HIP CORTISONE INJ 01/06/25 (3 WKS, 2 DAYS) XRAY WB TODAY, 01/29/25 IN [facility] ? XRAY B/L HIPS 09/05/24 IN [facility] MRI (R) HIP 12/16/24 IN [facility] NO BONE SCAN B/L LE EMG 03/20/23 IN SEARCH NO MDP / PREDNISONE USG (R) HIP CORTISONE INJ 01/06/25 S/P (R) HIP CORTISONE INJ 10/16/24 B/L DECADRON INJ B/L HIPS (DR. ALEJANDRE) 09/05/24 NO PT PAIN MGMT - RUDDY AUGUSTINE (B/L HIP PAIN) S/P CORTISONE INJ - NO RELIEF. CONSTANT ILIAC CREST / LATERAL DISCOMFORT - RADIATION INTO GROIN / HAMSTRING - WORSE WITH PROLONGED WB / SITTING. DENIES N/T. ADMITS STIFFNESS. WAKING HS. DENIES SWELLING. DENIES POPPING / GRINDING. GOOD [...] zolpidem (AMBIEN) 10 mg, Oral, Nightly PRN PHYSICAL EXAM: Hip Musculoskeletal Exam Gait Gait is normal. Limp: right Inspection Leg length disparity: no discrepancy Right Erythema: none Ecchymosis: none Edema: none Deformity: none Palpation Right Right hip palpation is normal. Increased warmth: none Tenderness: present Greater trochanteric region pain: mild Pubic rami pain: mild Palpation additional comments: Pain with deep palpation over the right sacroiliac joint And right pelvic iliac crest Range of Motion Right Right hip range [...] to calculate BMI. Tobacco Use: High Risk (01/29/2025) Patient History Smoking Tobacco Use: Every Day Smokeless Tobacco Use: Never Passive Exposure: Not on file Alcohol Use: Not At Risk (11/07/2023) AUDIT-C Frequency of Alcohol Consumption: 2-3 times a week Average Number of Drinks: 1 or 2 Frequency of Binge Drinking: Never IMAGING: XR hip right 2 or 3 views Imaging Result: AP and lateral of right hip showed femoral head to be well centered in the acetabulum without evidence of fracture or dislocation. There was some spurring at the inferior medial aspect of the femoralacetabular junction. There was global decrease in joint space height Greater than 50% loss. There was no acute bony process including but not limited to, fracture and/or dislocation. Impression degenerative joint disease, right hip Procedures Orders Placed This Encounter Procedures XR hip right 2 or 3 views Reason for exam:: Pain Ambulatory referral to Pain Medicine Standing Status: Future Expected Date: 01/29/2025 Expiration Date: 07/30/2025 Referral Priority: Routine Referral Type: Consultation Referral Reason: Consult and Treat Referred to Provider: Charles Luis MD Requested Specialty: Pain Medicine Number of Visits Requested: 1 Ambulatory referral to Neurosurgery Standing Status: Future Expected Date: 01/29/2025 Expiration Date: 07/30/2025 Referral Priority: Routine Referral Type: Consultation Referral Reason: Specialty Services Required Referred to Provider: Panfilo Cifuentes MD Requested Specialty: Neurosurgery Number of Visits Requested: 1 ASSESSMENT: ICD-10-CM 1. 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 Primary osteoarthritis of right hip M16.11 XR hip right 2 or 3 views Ambulatory referral to Neurosurgery 3. Lumbar radiculopathy M54.16 PLAN: We recommended an appointment with Dr. Cifuentes for possible lumbar radiculopathy status post lumbar fusion with low back pain. We will also recommend an appointment with Dr. Luis for chronic right iliac crest pain and right greater trochanteric pain. We'll see her back in 1 month to reassess if both these are negative we may talk about a right hip replacement. Questions answered in laymen terms at the bedside. The diagnosis, home exercise plan and any ongoing restrictions/ recommendations reviewed. If unable to be reached in office, I recommend evaluation at nearest Emergency Room if any symptoms worsened or new symptoms develop for requiring urgent evaluation. documented in this encounterDoctors [facility] of [id number] History of Present illness Narrative* Orly Earl, MITCHELL - 01/15/2025 1:00 PM EDT Reason for Appointment: Patient ID: Gisel Almodovar is a 64 y.o. female who presents for [facility] Visit Patient presents today for Annual [...] nursing note reviewed. Exam conducted with a electrical design technologist present. Vitals: Estimated body mass index [...] them. Patient can also view results via [employer]. I reinforced importance of condom use for [...] of: Nitin Dominguez DO documented in this encounterDoctors Hospital of [id number] History of Present illness Narrative* MARIANA Banuelos - 01/06/2025 9:30 AM EDTAssociated Order(s): L Inj/Asp: R hip joint Post-Procedure Diagnose(s): Primary osteoarthritis of right hip Orthopedic Office note: NAME: Gisel Almodovar : 1960 (EST PT) (LAST APPT W/ DR. SHAH) - RECHECK B/L HIP DISCOMFORT (R>L) ; HERE FOR (R) HIP USG CORTISONE INJ XRAY B/L HIPS 09/05/24 IN [facility] MRI (R) HIP 12/16/24 IN [facility] NO MDP / PREDNISONE USG [...] visualized. A plain was established that avoided anyneurovascular structures and a 20 G spinal needle was inserted under ultrasound guidance toward thehead neck junction. The needle was seen to enter the joint with imaging capturing proper placement of the needle. 40mg depomedrol was injected and patient tolerated procedure well. After needle removal a steril Band-Aid was placed and hemostasis was achieved. Images captured to patient's chart ( Codes 11217-AC) Procedure, treatment alternatives, risks and benefits explained, [...] present on exam. Previous x-rays were discussed. Anintra-articular hip injection was agreed upon after discussing risks and benefits. This diagnostic and therapeutic intervention was thoroughly discussed. No further concerns or questions were raised. Diagnostic plan: Consider repeat weightbearing x-rays if relief is not achieved. Treatment plan: An intra-articular hip injection will be administered to manage pain and inflammation. Patient education included the importance of monitoring for signs of infection and reporting anyadverse effects promptly. Lifestyle modifications such as avoiding high-impact activities and usingsupportive footwear were recommended. Clinical decision making: The [...] present on exam. Previous x-rays were discussed. Anintra-articular hip injection was agreed upon after discussing risks and benefits. This diagnostic and therapeutic intervention was thoroughly discussed. No further concerns or questions were raised. Diagnostic plan: Consider repeat weightbearing x-rays if relief is not achieved. Treatment plan: An intra-articular hip injection will be administered to manage arthritis symptoms.Patient education included the importance of monitoring for [...] requiring urgent evaluation. Visit was preformed using [employer]-co pilot speech recognition. documented in this encounterDoctors Hospital of [id number] History of Present illness Narrative* Jr. Young Shah DO - 12/25/2024 11:00 AM EDT Images from the original note were not included. HISTORY OF PRESENT ILLNESS: EST PT Gisel Almodovar is an 64 y.o. @ female. (EST PT) - RECHECK B/L HIP DISCOMFORT (R>L) S/P MRI 12/16/24 @[facility] - HERE FOR RESULTS / OPTIONS XRAY B/L HIPS 09/05/24 IN [facility] MRI (R) HIP 12/16/24 IN [facility] NO MDP / PREDNISONE S/P [...] sacrum, unspecified portion of sacrum, initial encounter ([facility]) S32.10XA PLAN: We have discussed her physical exam, symptoms, an MRI today length. We have recommended an ultrasound-guided injection in her right hip for arthritis. She has what appears to be an insufficiency fracture of her sacrum. While awaiting for this to heal we will inject her to try to get her out of someof her symptoms for her arthritis. We'll see [...] for requiring urgent evaluation. documented in this encounterDoctors Hospital of [id number] History of Present illness Narrative* Jose Boone DO - 12/20/2024 1:15 PM EDT Subjective Patient ID: Gisel Almodovar is a [...] times. She also describes chronic difficulties with clearrhinorrhea. She does take several medications. Not having [...] Patient declined Stress: Stress Concern Present (11/07/2023) [employer] - Occupational Stress Questionnaire Feeling of Stress : Very much Social Connections: Moderately Isolated (11/07/2023) Social Connection and Isolation Panel [NHANES] Frequency of Communication with Friends and Family: More than three times a week Frequency of Social Gatherings with Friends and Family: Once a week Attends Buddhist Services: Never Active Member of Clubs or [...] limits, ear canals are patent, tympanic membranes areintact. Nose: External nose unremarkable, nares patent, septum [...] up with her neurologist documented in this encounterDoctors Hospital of [id number] History of Present illness Narrative* Jr. Young Shah DO - 12/04/2024 11:00 AM EDT Images from the original note were [...] CAUGHT ON STOOL, FELL BACKWARDS, STRIKING HEAD /(R) LOWER BACK XRAY B/L HIPS 09/05/24 IN [facility] NO MRI NO MDP / [...] PAIN MEDS. ICING / HEATING FREQUENTLY FOLLOWING INJURY.TRIED BIOFREEZE - NO RELIEF. PAST MEDICAL HISTORY: [...] ICD-10-CM 1. AVN (avascular necrosis of bone) ([facility]) M87.00 MR hip right wo IV contrast [...] for requiring urgent evaluation. documented in this encounterDoctors Hospital of [id number] History of Present illness Narrative* Jose Boone DO - 11/22/2024 2:00 PM EDT Subjective Patient ID: Gisel Almodovar is a [...] times. She also describes chronic difficulties with clearrhinorrhea. She does take several medications. Not having [...] THE MORNING AND 1 TABLET BEFOREBEDTIME, Disp: 180tablet, Rfl: 1 Cyanocobalamin (Vitamin B 12) 250 [...] Patient declined Stress: Stress Concern Present (11/07/2023) [employer] - Occupational Stress Questionnaire Feeling of Stress : Very much Social Connections: Moderately Isolated (11/07/2023) Social Connection and Isolation Panel [NHANES] Frequency of Communication with Friends and Family: More than three times a week Frequency of Social Gatherings with Friends and Family: Once a week Attends Buddhist Services: Never Active Member of Clubs or [...] limits, ear canals are patent, tympanic membranes areintact. Nose: External nose unremarkable, nares patent, septum [...] secondary to her multiple medications as well xiao smoking. Vasomotor rhinitis Comments: Will try this [...] responding to conservative treatment. documented in this encounterDoctors Hospital of [id number] History of Present illness Narrative* Desmond Macias DO - 10/24/2024 11:45 AM EDT Images from the original note were [...] Ambulatory referral to ENT; Future At today's health maintanence appointment I reviewed the patients past [...] clear to auscultation bilaterally. No wheeze, rhonchi, crackles.She will stop taking valsartan 160 mg daily to allow for a washout period. Her blood pressure will be monitored over the next week. If her blood pressure increases and returns to baseline, no furtheraction will be needed. If it becomes elevated [...] TABLET AT BEDTIME ASNEEDED FOR SLEEP. DESMOND MACIAS D.O. This note was entered using [employer]. 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 She is seeing Dr. Alejandre [...] of major mood disorder. documented in this encounterDoctors Hospital of [id number] History of Present illness Narrative* Jr. Young Shah DO - 10/16/2024 10:00 AM EDTAssociated Order(s): L Inj/Asp: R greater trochanteric bursa Post-Procedure Diagnose(s): Trochanteric bursitis of left hip Images from the original note were not included. NAME: Gisel Almodovar : 1960 HISTORY OF PRESENT ILLNESS: NEW PT Gisel Almodovar is an 64 y.o. @ female. (NEW PT) (DR. ALEJANRDE REFERRAL) - B/L HIP DISCOMFORT (R>L) ; [...] have discussed her case with her at [facility] including her symptoms, physical exam, and x-rays. 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 I believe she has bilateral trochanteric bursitis.We recommended a cortisone injection in her right greater trochanteric bursa. We'll see her back in a month andif this improves her symptoms we may inject her left greater trochanteric bursa. If it doesn't workwe may discuss replacing her right hip. Questions answered in laymen terms at the bedside. The diagnosis, home exercise plan and any ongoing restrictions/ recommendations reviewed. If unable to be reached in office, I recommend evaluation at nearest Emergency Room if any symptoms worsened or new symptoms develop for requiring urgent evaluation. documented in this encounterDoctors Hospital of Spr[id number] History of Present illness Narrative* Kaitlin Alvarez NP - 09/11/2024 5:19 PM EDT Called the patient to review MRI. She has a lot of degenerative changes in her cervical spine. Someareas are pretty tight, especially foramen opening. Left message that I am making a referral to Dr Cifuentes. I don't know that she needs surgery but would like their opinion. If she does not want to seeDjulissa Cifuentes or Dr Spence she should call and let us know who to send the referral to. Diagnoses and all orders for this visit: Cervical radiculopathy - Ambulatory referral to Neurosurgery; Future Degenerative disc disease, cervical - Ambulatory referral to Neurosurgery; Future documented in this encounterDoctors Hospital of [id number] History of Present illness Narrative* RT. Julissa Wills - 09/05/2024 1:00 PM EDT Images from the original note [...] the consent was signed. After palpating the bilateralgreatertrochanter and identifying the most tender area in [...] under the direction of Victorino Alejandre MD. Thecontent has been reviewed and confirmed for accuracy by Victorino Alejandre MD documented in this [facility]05-12-2025 Telephone encounter Note* Telephone Encounter - Dixie Moreno NP - 09/02/2024 7:59 AM EDT [facility] reviewed. [facility] [id number] Miscellaneous Notes* Telephone Encounter - Dixie Moreno NP - 09/02/2024 7:59 AM EDT [facility] reviewed. documented in this [facility]04-07-2025 History of Present illness Narrative* Desmond Macias, - 07/29/2024 12:30 PM EDT Images from the original note [...] blood pressure regularly. An echocardiogram will be obt ained, and she will be informed of the results. Once her blood pressure stabilizes, a complete blood count (CBC), basic metabolic panel (BMP), and thyroid function tests will be conducted. All her queries were addressed during this visit. If her blood pressure normalizes after a week, she should continue with the half-tablet regimen. However, if her blood pressure remains elevated, an increase toa full tablet is recommended. Burning tongue syndrome. [...] MACIAS D.O. This note was entered using [employer] copilot. Grammatical and dictation errors maybe present in translation *I have reviewed and reconciled the history and medication list with the patient today* History of Present Illness The patient is a 63-year-old female presenting with fatigue and slightly elevated blood pressure. She has had some high readings when at home and other times with lower readings. At times, she willhear her heartbeat in her ears, especially when it is elevated. Her blood pressure was recorded as 173 during her last visit with Dr. Alejandre. Upon arrival today, her blood pressure was 174/91, which decreased to 163/90 before her departure from the office. At home, she noted a reading of 183. She reports experiencing fatigue, particularly during household activities, necessitating periods of rest.She also experiences pulsatile tinnitus, predominantly in her [...] tongue never feels completely normal. She has beenon this medication for a couple of weeks and is scheduled to see Dr. Alejandre again in a few weeks. She is considering whether a consultation with an electrical designer drafter or an ENT specialist would be beneficial. [...] 0.5 MG X 11 & 1 MG X42 tablet therapy pack Take 1 Package by [...] or congestion. Normal appearance of soft tissue ofnose. Throat: Lips moist, Teeth and gums in [...] signs of mood disorder. documented in this encounterDoctors Hospital of [id number] History of Present illness Narrative* Victorino Alejandre MD - 07/24/2024 11:40 AM EDT Images from the original note were [...] HYSTERECTOMY SPINAL FUSION 07/[address] XLIF L5-S1 [address] iCfuentes TUBAL LIGATION Social History Tobacco Use Smoking [...] Oriented to person, place and time. Recent andremote memory are intact. Speech is normal. Language [...] reflexes: Param's absent. Ankle clonus absent. Coordination Hfftbt-go-fuwg, rapid alternating movements and fjsr-rt-fwzq normal bilaterally without dysmetria. Gait Normal casual, toe, heel and tandem gait. Romberg is absent. PROCEDURE: Bursa Injection After explaining the risks, complications, and benefits of the procedure, the patient leaned over the exam table. Allergies were reviewed, the consent was signed. After palpating the bilateralgreatertrochanter and identifying the most tender area in [...] mg) by mouth Daily for 14 days Dispense:14 tablet; Refill: 1 2. Trochanteric bursitis of both hips (Primary) - bupivacaine (Marcaine) 0.5 % injection 5 mg - dexAMETHasone sod phos (Decadron) injection 4 mg I will bring her back in 4-6 weeks to see if she has received 50% or greater pain relief and at that time I will repeat the injections if needed. documented in this encounterDoctors Hospital of SpringfieldEcklztnzqa08-45-2559 History of Present illness Narrative* RT. Julissa Wills - 06/12/2024 11:40 AM EST Images from the original note were not [...] in the bursa, using sterile technique, and surfaceanesthetic; a 25 gauge 1 1/2 spinal needle [...] mg) by mouth Daily for 14 days Dispense:14 tablet; Refill: 1 2. Burning tongue syndrome [...] the injections if needed. documented in this [facility]02-18-2025 Telephone encounter Note* Telephone Encounter - Dixie Moreno NP - 06/11/2024 7:29 PM EST [facility] reviewed. [facility] [id number] Miscellaneous Notes* Telephone Encounter - Dixie Moreno NP - 06/11/2024 7:29 PM EST [facility] reviewed. documented in this [facility]02-17-2025 Telephone encounter Note* Telephone Encounter - Desmond Macias, - 06/10/2024 6:38 PM EST Request for zanaflex and ambien. Ambien was just filled 2/10. Too early [facility] [id number] Miscellaneous Notes* Telephone Encounter - Desmond Macias DO - 06/10/2024 6:38 PM EST Request for zanaflex and ambien. Ambien was just filled 2/10. Too early documented in this [facility]01-31-2025 Telephone encounter Note* Telephone Encounter - Desmond Macias DO - 05/24/2024 8:40 AM EST Would refer to neurology [facility] [id number] Miscellaneous Notes* Telephone Encounter - Desmond Macias DO - 05/24/2024 8:40 AM EST Would refer to neurology documented in this encounterDoctors Hospital of Spr[id number] History of Present illness Narrative* Desmond Macias DO - 05/01/2024 12:45 PM EST Images from the original note were not [...] chest heaviness. There is no fever, vomiting, ordiarrhea. Physical examination reveals significant decreased lung sounds, mild scattered wheezes, and rhonchi. There is no evidence of pneumonia. A course of antibiotics and steroids will be initiated. She is advised to use her albuterol inhaler 3 times daily (morning, afternoon, and night) to helpopen up the airways, which may increase coughing initially. Smoking cessation. She has not smoked since Paul and expresses a desire to quit permanently. [...] MACIAS D.O. This note was entered using [employer] copilot. Grammatical and dictation errors maybe present in translation *I have reviewed and reconciled the history and medication list with the patient today* History of Present Illness Positive for Influenza A at on 04.20.24. Was prescribed tamiflu but she did not fill. Has been taking nyquil and dayquil. Has continued with fatigue, productive cough, chest feeling heavy. Has notused albuterol inhaler. Denies fever but states she [...] and has continued with fatigue, productive cough, andchest heaviness. She has not been using her albuterol inhaler. She does not report any fevers but did have a lot of body aches. She reports a gradual improvement in her condition, which began on [place] morning with an unusual sensation in her [...] with clear phlegm, occasionally tinged with green. Sheexperiences mid-back pain, mild upper back pain, and persistent chest heaviness. She has not been us ing her albuterol inhaler. She has 2 albuterol [...] by mouth in the morning and 1 capsule(400 mg) in the evening and 1 capsule [...] signs of mood disorder. documented in this encounterDoctors Hospital of [id number] History of Present illness Narrative* Benji Patel NP - 04/20/2024 10:25 AM EST Images from the original note were not included. [address], [address] [facility], [address] P: [phone] F: [phone] HPI Historian of HPI: patient Gisel Almodovar [...] Sinus: Maxillary sinus tenderness present. Mouth/Throat: Lips: [place]. Mouth: Mucous membranes are moist. Pharynx: Oropharynx [...] Influenza A. Tamiflu discussed with patient. She'd liketo have it sent it and will decide if she wishes to take it. She is in no acute distress in urgent care. Advised patient that she is highly contagious and to avoid contact with children/elderly/immunocompromised for the next 5-7 days.. Tylenol/motrin for fever, fluids, rest, OTC supportive treatment . Discussed with the patient that Influenza is a virus and that no antibiotics will treat this. Discussed medications and directions. Start Tamiflu immediately today. Take Prednisone with food, avoidother NSAIDS.To the ER if symptoms worsen or if she develops chest pain, difficulty breathing or worsening sensation of shortness of breath. Follow up in 5-7 days if no improvement or sooner if worsening. - oseltamivir (Tamiflu) 75 MG capsule; Take 1 capsule (75 mg) by mouth in the morning and 1 capsule(75 mg) before bedtime. Do all this for 5 days. Dispense: 10 capsule; Refill: 0 documented in this encounterNOMS [id number] History of Present illness Narrative* Victorino Alejandre MD - 04/15/2024 10:20 AM EST Images from the original note were not [...] Oriented to person, place and time. Recent andremote memory are intact. Speech is normal. Language [...] reflexes: Param's absent. Ankle clonus absent. Coordination Cduyar-ym-xnkk, rapid alternating movements and glfa-jj-ribf normal bilaterally without dysmetria. Gait Normal casual, [...] that time if needed. documented in this [facility]12-20-2024 History of Present illness Narrative* Desmond Violeta Macias, DO - 04/12/2024 10:15 AM EST Images from the original note were not included. Gisel Almodovar is a 63 y.o. female presents with chief complaint of Chief Complaint Patient presents with Tongue tingling Gisel was seen today for tongue tingling. Diagnoses and all orders for this visit: Tingling sensation Assessment & Plan Xerostomia The condition is likely due to the use of nortriptyline, which was prescribed in mid-December. Thepatient reports that the dry mouth is more [...] MACIAS D.O. This note was entered using [employer] copilot. Grammatical and dictation errors maybe present [...] the day. She was given nystatin by [place], which only helped a little bit. Burning [...] by mouth in the morning and 1 capsule(400 mg) in the evening and 1 capsule [...] AVOID FACE WHEN APPLYING [DISCONTINUED] nystatin (Mycostatin) 137169 UNIT/ML suspension SWISH 2ML IN MOUTH EVERY 6 HOURS FOR2 MINUTES AND SPIT/EXPECTORATE. zolpidem (Ambien) 5 MG tablet Take 1 tablet (5 mg) by mouth as needed at bedtime for sleep 30 tablet 4 [DISCONTINUED] tiZANidine (Zanaflex) 2 MG tablet Take 1 tablet (2 mg) by mouth at bedtime 30 tablet1 No current facility-administered medications on file prior [...] Oral exam was performed. documented in this encounterDoctors Hospital of [id number] History of Present illness Narrative* Orly Earl, RN [facility] - 03/27/2024 8:00 AM EST Reason for Appointment: Patient ID: Gisel Almodovar is a 63 y.o. female who presents for Telehealth (Dexa scan results) Patient presents today via telephone call for a telehealth appointment. Patients Phone #: [phone] (mobile) Current Medications: has a current medication [...] of: Nitin Dominguez DO documented in this [facility]11-18-2024 Telephone encounter Note* Telephone Encounter - Dixie Moreno NP - 03/11/2024 8:47 AM EST [facility] reviewed [facility] [id number] Miscellaneous Notes* Telephone Encounter - Dixie Mroeno NP - 03/11/2024 8:47 AM EST [facility] reviewed documented in this [facility]11-12-2024 History of Present illness Narrative* Jose Song DO - 03/05/2024 11:15 AM EST Images from the original note were not [...] No follow-ups on file. documented in this [facility]10-17-2024 History of Present illness Narrative* Desmond Macias, DO - 02/08/2024 1:00 PM EDT Images from the original note were not included. Gisel Almodovar is a 63 y.o. female presents with chief complaint of Chief Complaint Patient presents with Back Pain History of Present Illness Has a hx of chronic back pain. Was seeing Dr Cifuentes in the past but has been over 3 years since lastseen. Has had several back surgeries in the past. Pain is in the lower back and wraps around to sides of hips. Has not had any imaging in years. Would like to get imaging updated and then referred back to Dr Cifuentes. She reports experiencing significant lower back and hip pain, which varies in intensity from day today. The pain is bilateral, but more pronounced [...] have provided some relief in the past. Mypc-jar-mztvkcn medications such as Aleve oribuprofen offer minimal relief. She has not tried [...] in the morning and 1 tablet (10 mg)before bedtime., Disp: 180 tablet, Rfl: 1 Cyanocobalamin [...] cold weather and is not alleviated by rgev-quf-dbbghuk medications like Aleve or ibuprofen. Examination reveals significant decreased range of motion, pain with all planes especially with rotation and extension, minimal flexion due to pain, positive straight leg raise test bilaterally, musclestrength testing lower extremities 5 out of 5 bilaterally, deep tendon reflexes 2 out of 4 patellarand Achilles, and mild antalgic gait. She will be started on an anti-inflammatory medication and a m uscle relaxer. X-rays with flexion and extension views will be obtained today. An MRI of the lumbarspine with and without contrast will be ordered due to her prior surgeries. Results will be reviewed, and a referral to Dr. Cifuentes will be made once results are known. DESMOND MACIAS D.O. This note was entered using [employer]. Grammatical and dictation errors maybe present in translation *I have reviewed and reconciled the history and medication list with the patient today* documented in this encounterDoctors Hospital of [id number] History of Present illness Narrative* Jose Song DO - 01/23/2024 1:30 PM EDT Images from the original note [...] would like to proceed. documented in this encounterDoctors Hospital of [id number] History of Present illness Narrative* Orly Earl LPN - 01/09/2024 2:00 PM EDT Reason for Appointment: Patient ID: Gisel Almodovar is a 63 y.o. 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 Carpal tunnel syndrome on both sides 04/06/2023 Cervical radiculopathy 04/06/2023 Degenerative disc disease, lumbar 09/04/2023 Spinal enthesopathy, lumbosacral region ([facility]) 09/05/2023 Carpal tunnel syndrome on left 01/01/2024 Trochanteric bursitis of both hips 01/01/2024 Resolved Ambulatory Problems Diagnosis Date Noted Chronic pain 05/21/2019 Depression ([facility]) 11/28/2022 Displacement of lumbar disc with radiculopathy 11/28/2022 Radiculopathy due to lumbar intervertebral disc disorder 07/05/2017 Acquired hallux valgus 03/11/2020 Hallux valgus of left foot 11/28/2022 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 Exam conducted with a electrical design technologist present. Vitals: Estimated body mass index [...] of: Nitin Dominguez DO documented in this encounterDoctors Hospital of [id number] History of Present illness Narrative* Victorino Alejandre MD - 12/27/2023 2:00 PM EDT Subjective Gisel Almodovar is a 63 y.o. [...] in the morning and 1 tablet (10 mg)before bedtime., Disp: 180 tablet, Rfl: 1 calcium citrate 600 mg and vitamin D3 (Citrical & Minerals + Vit D) 600-200 MG- UNIT tablet, 1 (one) time each day at [...] tablet, as directed Orally, Disp: , Rfl: [place]-3 Fatty Acids (Fish Oil) 1200 MG capsule [...] fusion BACK SURGERY 2006 SECTION, CLASSIC 1989 LUMBAR DISC SURGERY 04/2017 [...] 2.0 standard drinks of alcohol per week. Shereports that she does not use drugs. Review [...] this time if needed. documented in this encounterDoctors Hospital of [id number] Telephone encounter Note* Telephone Encounter - Dixie Moreno NP - 12/26/2023 8:36 AM EDT OARRS reviewed [facility] [id number] Miscellaneous Notes* Telephone Encounter - Dixie Moreno NP - 12/26/2023 8:36 AM EDT OARRS reviewed documented in this encounterDoctors Hospital of [id number] Evaluation note* Encounter Date Diagnosis Assessment Notes Treatment Notes Treatment Clinical Notes Jun, Lumbar radiculopathy (ICD-10 - M 54.16) 60 year old female here for follow up status post caudal epidural steroid injection under fluoroscopic guidance. Patient reports 50% relief of her lower extremity pain following procedure. She voicescomplaints of low back pain with radiation down the posterior aspect of the left lower extremity tothe knee. Anatomy of spine discussed in detail with patient in regards to patients condition. Patient is a candidate for a L3,4 transforaminal epidural steroid injection on the left side under fluoroscopic guidance. Risks and benefits of procedure explained to patient; patient verbalizes understanding. Jun,acroiliitis (ICD-10 - M46.1) Consider repeat SI joint injection in the future if needed. Jun,Lumbosacral spondylosis (ICD-10 - M47.817) Consider lumbar facet medial branch nerve blocks in the future if needed. Jun,hronic pain (ICD-10 - G89.29) Stable, follow up after procedure. [facility] Other 01-21-2022 Evaluation note* Encounter Date Diagnosis Assessment Notes Treatment Notes Treatment Clinical Notes Apr, Left hip pain (ICD-10 - M25.552) Apr,train of left hip adductor muscle, initial encounter (ICD-10 - S76.012A) Gisel returns with left hip pain and abductor strain/syndrome. At this juncture we have discussedthe findings and diagnosis as well as personally [...] this time. Reviewed MRI of the lumbar. Apr,egenerative disc disease, lumbar (ICD-10 - M51.36) MRI shows lumbar fusion with some advanced changes proximal. It does appear that there is screw penetration outside of the vertebral body as well. Defer further treatment to Dr. Moody and Dr. Cifuentes Apr,therMonitor Continue to monitor [facility] Other 01-14-2022 Evaluation note* Encounter Date Diagnosis Assessment Notes Treatment Notes Treatment Clinical Notes Apr, Encounter for immunization (ICD- 10 - Z23) Patient presents for COVID-19 vaccination BOOSTER. Pre-screening form answers evaluated with patient. Patient denies current illness or allergic reaction to component of COVID-19 vaccine. Patient provided with current copy of EUA. [facility] Other 12-20-2021 Evaluation note* Encounter Date Diagnosis Assessment Notes Treatment Notes Treatment Clinical Notes Mar, Cervical spondylosis (ICD-10 - M 47.812) [facility] Other 10-29-2021 Evaluation note* Encounter Date Diagnosis Assessment Notes Treatment Notes Treatment Clinical Notes Jan, Left hip pain (ICD-10 - M25.552) Jan,eft hand pain (ICD-10 - M79.642) Extensive discussion about current condition and treatment options available. Xrays reviewed with patient today. We discussed modifying activity with hand. Jan,upuytren contracture (ICD-10 - M72.0) Monitor Jan,train of left hip adductor muscle, initial encounter (ICD-10 - S76.012A) Gisel presents with left hip pain and abductor strain/syndrome. [...] to 8 weeks of physical therapy and anti-inflammatories ramu regular basis. We will plan for follow-up after 6 to 8 weeks of therapy for reevaluation. Could co nsider MRI at that time to evaluate for [...] the future if needed. Activity as tolerated. Jan,prain of metacarpophalangeal (MCP) joint of left index [...] on exam and I would monitor this forthe time being. We will recheck at follow-up Jan,OtherSee orders for this visit as documented in the electronic medical record. [place] [employer] Other Evaluation noteNo InformationNortLehigh Valley [facility] [address] bulletn. Other Evaluation noteNo assessment information available [facility] Work Phone: Evaluation note* Diagnosis Colon cancer [...] Mild reactive airways disease, unspecified whether persistent ([facility])- Primary Acute bronchitis, bacterial Influenza A Influenza [...] note* Diagnosis AVN (avascular necrosis of bone) (HCC)- Primary Aseptic necrosis of bone, site unspecified [...] sacrum, unspecified portion of sacrum, initial encounter (HCC) documented [facility] encounter [facility]* Diagnosis Primary osteoarthritis of right hip- Primary Pain in joint of right hip documented in this encounter [facility]* Diagnosis Well woman exam with routine gynecological exam Routine gynecological examination Encounter for screening mammogram for malignant neoplasm of breast Postmenopausal state Asymptomatic postmenopausal status (age-related) (natural) Menopausal symptom Osteopenia, unspecified location documented in this encounter [facility] HealthcareEvaluation note* Diagnosis Iliac crest bone pain- Primary Primary osteoarthritis of right hip Lumbar radiculopathy Thoracic or lumbosacral neuritis or radiculitis, unspecified documented in this encounter [facility] HealthcareEvaluation note* Diagnosis Onset Date Resolution Status Admit Date Arthritis of lumbosacral spine acuteOctober 2024 11:35amOther chronic painacuteOctober 2024 11:35am Primary osteoarthritis of right hipacuteOctober 2024 11:35amSacroiliitis acuteOctober 2024 11:35am [facility] Work Phone: Evaluation note* Diagnosis Cervical radiculopathy- Primary Brachial neuritis or radiculitis nos New daily persistent headache Insomnia, unspecified type Migraine with aura and without status migrainosus, not intractable Carpal tunnel syndrome on both sides Carpal tunnel syndrome documented in this encounter [facility] HealthcareHistory general Narrative - Reported* Type Description Date Medical History Migraine Headaches Medical HistoryInsominiaSurgical HistorypartialhysterectomySurgical Historytubal ligationSurgical HistoryBack [id number] HistoryBack [id number] Historylumbar diskectomy- Dr. Cifuentes04/2017Surgical HistoryXLIF L5-S1 - Dr. Cifuentes 07/2018Surgical [id number] HistorySee Sx Hx [facility] Other History general Narrative - Reported* Type Description Date Medical History Migraine Headaches Medical HistoryInsominiaSurgical HistorypartialhysterectomySurgical Historytubal [id number] Historyc-section [id number] Historytubal ligationSurgical HistoryBack [id number] Historypartial hysterectomySurgical HistoryBack [id number] Historyfusion of lower [id number] Historyfusion lower [id number] Historylumbar diskectomy- Dr. Cifuentes04/2017Surgical HistoryNeck Injections x2 - Dr. Luis09/29/2015Surgical HistoryXLIF L5-S1 - Dr. Cifuentes07/2018 Surgical HistoryAblation Neck - Dr. Luis11/25/16Surgical PhpzerrAvabznjo0725 Surgical HistoryLower Back surg- 04/2017Surgical HistorySI INJ- 01/2018Hospitalization Historysee above [facility] Other Reason for referral (narrative)No reason for referral information availableMercy Health [facility] Work Phone: Summary Purpose Family History Relationship Condition Age at Onset Recorded Date/T magi father Unknown Heart diseaseUnknownfamily memberDeceasedUnknownmotherMalignant neoplasm of breastUnknownMalignant neoplasmUnknown Advance Directives Advance Directive Response Recorded Date/ Time Advance Directives No February 02, 2017 10:52am Advance Directive Response Recorded Date/ Time Advance Directives No February 3:56pm Chief Complaint and Reason for Visit Chief Complaint cbc Chief Complaint Admit Date R01.1 August 19, 2024 1:1 9pm Chief Complaint Admit Date ref Dr Shah right hip pain January 232024 11:35am Reason for Visit Admit Date Arthritis of lumbosacral spine January 232024 11:35am Other chronic pain February 14, 2025 1 1:35am Primary osteoarthritis of right hip Jano 2024 11:35am Sacroiliitis February 14, 2025 1 1:35am Chief Complaint Admit Date ref Dr Shah right hip pain January 232024 11:35am low back pain February 21, 2025 8 :54am Reason for Visit Admit Date Arthritis of lumbosacral spine January 232024 11:35am Other chronic pain February 14, 2025 1 1:35am Primary osteoarthritis of right hip Jano 2024 11:35am Sacroiliitis February 14, 2025 1 1:35am History of lumbar fusion February 21, 025 8:54am Inflammation of both sacroiliac joints O ctober 2024 8:54am Spondylosis of cervical ag on without myelopathy or radiculopathy February 21, 2025 8:54am Additional Source Comments REASON FOR VISIT (unrecogniz ed section and content) ReasonCommentsConsultScreening colonoscopySpecialtyDiagnoses / Procedures Referred By ContactReferred To ContactGeneral Surgery Diagnoses Colon cancer screening Procedures MT OFFICE/OUTPATIENT NEW HIGH MDM 60 MINUTES Desmond Macias, DO [address] [facility] [address] [place] [address] Jose Song, DO [address] [facility] [address] [place] [address] Referral IDStatusReasonStart DateExpiration DateVisits RequestedVisits [id number] Specialty Services Required /[id number] RfydMygogtLztwwbwa7fn pow colonoscopy ReasonCommentsMed RefillReasonCommentsTelehealthDexa scan resultsReasonComments Well Women VisitReasonOnset DateCommentsMed Itfckt044ReasonOnset Date CommentsMed Nmrbjt324ReasonCommentsTongue tinglingReasonCommentsFollow-up ReasonOnset DateCommentsMed Iiekaj9806/26/2024ReasonCommentsBP concernReason CommentsPainSpecialtyDiagnoses / ProceduresReferred By ContactReferred To ContactOrthopaedic Surgery Diagnoses Bilateral hip pain Victorino Alejandre MD [address] [facility] [address] [address] Phone: tel: fax: Jr. Young Shah, DO [address] [facility] [address] [place] [address] Phone: tel: fax: Referral IDStatusReasonStart DateExpiration DateVisits RequestedVisits [id number] Specialty Services Required /[id number] ExamReasonCommentsBurning tongueNew patient : burning tongue x 1 yearReasonCommentsGlossitis4 week reckReason CommentsPainReasonCommentsPainReasonOnset DateCommentsDrDeidre office called about xrmamrow08/15/2025 INFORMATION SOURCE (unrecogn ized section and content) DATE CREATED AUTHOR 01/25/2022 [facility] DATE CREATED AUTHOR AUTHOR'S ORGANIZ ATION 11/04/2024 [facility] DATE CREATED AUTHOR AUTHOR'S ORGANIZ ATION 02/23/2025 [facility] EPIC Care Teams (unrecognized sec tion and content) Team Status: Active Member Role Status Dates Desmond Macias DO Primary Care Provider Active Team Status: Inactive Member Role Status Dates Desmond Macias DO Primary Care Provider Active Outreach CommunityAttending ProviderActiveTeam MemberRelationshipSpecialtyStart DateEnd Date Desmond Macias DO [address] [place] [address] PCP - [facility]11/23/22 Desmond Macias DO [address] [place] [address] PCP - [facility]08/23/23Team MemberRelationshipSpecialtyStart DateEnd Date Desmond Macias, [address] [place] [address] PCP - [facility]11/23/22 Desmond Macias DO [address] [place] [address] PCP - [facility]08/23/23Team MemberRelationshipSpecialtyStart DateEnd Date Desmond Macias DO [address] [place] [address] PCP - [facility]11/23/22 Desmond Macias DO [address] [place] [address] PCP - [facility]08/23/23Team MemberRelationshipSpecialtyStart DateEnd Date Desmond Macias, DO [address] [place] [address] [facility] Desmond Macias, DO [address] [place] [address] PCP - [facility]08/23/23Team MemberRelationshipSpecialtyStart DateEnd Date Desmond Macias, DO [address] [place] [address] PCP - [facility]11/23/22 Desmond Macias, DO [address] [place] [address] PCP - [facility]08/23/23Team MemberRelationshipSpecialtyStart DateEnd Date Desmond Macias, DO [address] [place] [address] PCP - [facility]11/23/22 Desmond Macias, DO [address] [place] [address] PCP - [facility]08/23/23Team MemberRelationshipSpecialtyStart DateEnd Date Desmond Macias, DO [address] [place] [address] [facility] Desmond Macias, DO [address] [place] [address] PCP - [facility]08/23/23Team MemberRelationshipSpecialtyStart DateEnd Date Desmond Macias, DO [address] [place] [address] PCP - [facility]11/23/22 Desmond Macias, DO [address] [place] [address] PCP - [facility]08/23/23Team MemberRelationshipSpecialtyStart DateEnd Date Desmond Macias, DO [address] [place] [address] PCP - [facility]11/23/22 Desmond Macias, DO [address] [place] [address] PCP - [facility]08/23/23Team MemberRelationshipSpecialtyStart DateEnd Date Desmond Macias, DO [address] [place] [address] PCP - [facility]11/23/22 Desmond Macias, DO [address] [place] [address] PCP - [facility]08/23/23Team MemberRelationshipSpecialtyStart DateEnd Date Desmond Macias, DO [address] [place] [address] PCP - [facility]11/23/22 Desmond Macias, DO [address] [place] [address] PCP - [facility]08/23/23Team MemberRelationshipSpecialtyStart DateEnd Date Desmond Macias, DO [address] [place] [address] PCP - [facility]11/23/22 Desmond Macias, DO [address] [place] [address] PCP - [facility]08/23/23Team MemberRelationshipSpecialtyStart DateEnd Date Desmond Macias, DO [address] [place] [address] [facility]11/23/22 Desmond Macias, DO [address] [place] [address] PCP - [facility]08/23/23Team MemberRelationshipSpecialtyStart DateEnd Date Desmond Macias, DO [address] [place] [address] [facility]11/23/22 Desmond Macias, DO [address] [place] [address] PCP - [facility]08/23/23Team MemberRelationshipSpecialtyStart DateEnd Date Desmond Macias, DO [address] [place] [address] PCP - [facility]11/23/22 Desmond Macias, DO [address] [place] [address] PCP - [facility]08/23/23Team MemberRelationshipSpecialtyStart DateEnd Date Desmond Macias, DO [address] [place] [address] PCP - [facility]11/23/22 Desmond Macias, DO [address] [place] [address] PCP - [facility]08/23/23Team MemberRelationshipSpecialtyStart DateEnd Date Desmond Macias, DO [address] [place] [address] PCP - [facility]11/23/22 Desmond Macias, DO [address] [place] [address] PCP - [facility]08/23/23Team MemberRelationshipSpecialtyStart DateEnd Date Desmond Macias, DO [address] [place] [address] PCP - [facility]11/23/22 Desmond Macias, DO [address] [place] [address] PCP - [facility]08/23/23Team MemberRelationshipSpecialtyStart DateEnd Date Desmond Macias, DO [address] [place] [address] PCP - [facility]11/23/22 Desmond Macias, DO [address] [place] [address] PCP - [facility]08/23/23Team MemberRelationshipSpecialtyStart DateEnd Date Desmond Macias, DO [address] [place] [address] PCP - [facility]11/23/22 Desmond Macias, DO [address] [place] [address] PCP - [facility]08/23/23Team MemberRelationshipSpecialtyStart DateEnd Date Desmond Macias, DO [address] [place] [address] PCP - [facility]11/23/22 Desmond Macias, DO [address] [place] [address] PCP - [facility]08/23/23 Team Status: Inactive Member Role Status Dates Desmond Macias DO Primary Care Provi lucretia, Attending Provider Active Start: August 19, 2024 End: August 19, 2024Team MemberRelationshipSpecialtyStart DateEnd Date Desmond Macias, [address] [place] [address] PCP - [facility]11/23/22 Desmond Macias, [address] [place] [address] PCP - [facility]08/23/23Team MemberRelationshipSpecialtyStart DateEnd Date Desmond Macias, DO [address] [place] [address] PCP - [facility]11/23/22 Desmond Macias, DO [address] [place] [address] PCP - [facility]08/23/23Team MemberRelationshipSpecialtyStart DateEnd Date Desmond Macias, DO [address] [place] [address] PCP - [facility]11/23/22 Desmond Macias, DO [address] [place] [address] PCP - [facility]08/23/23Team MemberRelationshipSpecialtyStart DateEnd Date Desmond Macias, DO [address] [place] [address] PCP - [facility]11/23/22 Desmond Macias, DO [address] [place] [address] PCP - [facility]08/23/23Team MemberRelationshipSpecialtyStart DateEnd Date Desmond Macias, DO [address] [place] [address] PCP - [facility]11/23/22 Desmond Macias, DO [address] [place] [address] PCP - [facility]08/23/23Team MemberRelationshipSpecialtyStart DateEnd Date Desmond Macias, DO [address] [place] [address] PCP - [facility]11/23/22 Desmond Macias, DO [address] [place] [address] PCP - [facility]08/23/23Team MemberRelationshipSpecialtyStart DateEnd Date Desmond Macias, DO [address] [place] [address] PCP - [facility]11/23/22 Desmond Macias, DO [address] [place] [address] PCP - [facility]08/23/23Team MemberRelationshipSpecialtyStart DateEnd Date Desmond Macias, DO [address] [place] [address] PCP - [facility]11/23/22 Desmond Macias, DO [address] [place] [address] PCP - [facility]08/23/23 Team Status: Active Member Role/Relationship Status Dates Desmond Macias DO Primary Care Provider Active Team Status: Inactive Member Role/Relationship Status Dates Desmond Macias DO Primary Care Provider Active Start: February 14, 2025 End: February 14, 2025Charles Luis MDAttending ProviderActiveStart: February 14, 2025 End: February 14, 2025GeIqra Pizarro Jr ProviderActiveStart: February 14, 2025 End: February 14, 2025 Team Status: Inactive Member Role/Relationship Status Dates Desmond DO Gennaro Primary Care Provider Active Start: February 21, 2025 End: February 21, 2025Panfilo Cifuentes MELINAskip ProviderActiveStart: February 21, 2025 End: February 21, 2025Team MemberRelationshipSpecialtyStart DateEnd Date Desmond Macias DO [address] [place] [address] PCP - [facility]11/23/22 Desmond Macias DO [address] [place] [address] PCP - [facility]08/23/23Team MemberRelationshipSpecialtyStart DateEnd Date Thongalyssaradha Desmond Mcdaniel DO [address] [place] [address] PCP - [facility]11/23/22 Gennaro Desmond Mcdaniel DO [address] [place] [address] PCP - [facility]08/23/23 Goals (unrecognized section and content) Goals may [...] BE BASED ON THE PRIMARY CLINICAL RECORDS. [employer] [facility]. provides no warranty or guarantee of the accuracy or completeness of information in this document.
== END 2025-02-26 12:57 | disposition home or self-care (01) ==
LOC: MAMMO 12:56
PROVIDERS: PCP Family Medicine; Visit Provider Obstetrics & Gynecology
DX: Z12.31 Encounter for screening mammogram for malignant neoplasm of breast (principal); Z80.3 Family history of malignant neoplasm of breast
CPT/HCPCS: 77063; 77067